=== PATIENT | female | born 1935 | race Caucasian/White ===

== ENCOUNTER 2016-09-26 11:41 | Emergency (ER) | payer MEDICARE, BC ==
[2016-09-26] MEDS ORDERED: SODIUM CHLORIDE 0.9% 500 ML IV STA (12:16)
[2016-09-26] MEDS ORDERED: FAMOTIDINE 20 MG/2 ML VIAL IV STA (12:16)
[2016-09-26 12:32] LABS: Basophils % (A) 1 %; CH 31.5; CHCM 33.1; Eosinophils # (A) 0.1 k/uL (0-0.7); Eosinophils % (A) 1 %; HCT 39.7 % (34.0-46.0); HDW 2.17; HGB 13.1 gm/dL (11.4-16.0); Luc # (Auto) 0.05; Luc % (Auto) 1; Lymphocytes # (A) 0.9 k/uL (1.0-4.8); Lymphocytes % (A) 14 %; MCH 31.6 pg (25.0-35.0); MCHC 33.1 g/dL (31.0-37.0); MCV 95.4 fL (80.0-100.0); Mean Platelet Volume 8.9; Monocytes # (A) 0.3 k/uL (0-1.0); Monocytes % (A) 5 %; Neutrophils # (A) 5.3 k/uL (1.3-7.7); Neutrophils % (A) 79 %; RBC 4.16 m/uL (3.80-5.40); RDW 13.2 % (11.5-15.5); WBC 6.7 k/uL (3.8-10.6)
--- NOTE | 2016-09-26 12:45 | ED ---
General Adult HPI - General Chief complaint: Nausea/Vomiting/Diarrhea Stated complaint: vomiting Time Seen by Provider: 09/26/16 12:04 Source: patient, family, RN notes reviewed Mode of arrival: wheelchair Limitations: no limitations - History of Present Illness Initial comments: Patient 81-year-old female who presents emergency room today with chief complaint of nausea vomiting that started this morning. She does admit that she gives of her insulin shortly thereafter began having some nausea vomiting 2 episodes. Patient states still feeling nauseated. Denies any pain. States that the last 2 days she was having some pain in her upper back that seemed to radiate around. Denies any pain. She denies any other complaints or symptoms. Denies any pain at this time. Patient denies any recent fever, chills, shortness of breath, abdominal pain, numbness or tingling, dysuria or hematuria , constipation or diarrhea, headaches or visual changes, or any other complaints. - Related Data Home Medications Medication Instructions Recorded Confirmed Insulin Detemir [Levemir] 13 unit SQ DAILY 11/09/14 09/26/16 Acetaminophen Tab [Tylenol Tab] 500 mg PO Q6H 09/26/16 09/26/16 LORazepam [Ativan] 1 mg PO HS PRN 09/26/16 09/26/16 Previous Rx's Medication Instructions Recorded Ondansetron Odt [Zofran ODT] 4 mg PO Q8HR PRN #15 tab 09/26/16 Allergies Allergy/AdvReac Type Severity Reaction Status Date / Time acetaminophen [From Vicodin] Allergy Unknown Verified 09/26/16 12:53 albuterol Allergy Unknown Verified 09/26/16 12:53 aspirin [From Percodan] Allergy Unknown Verified 09/26/16 12:53 atorvastatin calcium Allergy Unknown Verified 09/26/16 12:53 [From Lipitor] azithromycin Allergy Unknown Verified 09/26/16 12:53 benzonatate Allergy Unknown Verified 09/26/16 12:53 [From Tessalon Perles] codeine phosphate Allergy Unknown Verified 09/26/16 12:53 [From Tylenol-Codeine #3] diazepam [From Valium] Allergy Unknown Verified 09/26/16 12:53 diphenhydramine HCl Allergy Unknown Verified 09/26/16 12:53 [From Benadryl] epinephrine Allergy Unknown Verified 09/26/16 12:53 escitalopram oxalate Allergy Unknown Verified 09/26/16 12:53 [From Lexapro] hydrochlorothiazide Allergy Unknown Verified 09/26/16 12:53 [From HydroDiuril] hydrocodone bitartrate Allergy Unknown Verified 09/26/16 12:53 [From Vicodin] lidocaine Allergy Unknown Verified 09/26/16 12:53 lidocaine HCl Allergy Unknown Verified 09/26/16 12:53 [From Xylocaine] losartan potassium Allergy Unknown Verified 09/26/16 12:53 [From Cozaar] metformin HCl Allergy Unknown Verified 09/26/16 12:53 [From Glucophage] morphine Allergy Unknown Verified 09/26/16 12:53 nylon Allergy Unknown Verified 09/26/16 12:53 oxycodone HCl [From Percodan] Allergy Unknown Verified 09/26/16 12:53 oxycodone terephthalate Allergy Unknown Verified 09/26/16 12:53 [From Percodan] paroxetine HCl [From Paxil] Allergy Unknown Verified 09/26/16 12:53 promethazine HCl Allergy Unknown Verified 09/26/16 12:53 [From Phenergan] propranolol HCl Allergy Unknown Verified 09/26/16 12:53 [From Inderal LA] rofecoxib [From Vioxx] Allergy Unknown Verified 09/26/16 12:53 sulfamethoxazole Allergy Unknown Verified 09/26/16 12:53 [From Bactrim] sulfite Allergy Unknown Verified 09/26/16 12:53 trimethoprim [From Bactrim] Allergy Unknown Verified 09/26/16 12:53 zolpidem tartrate Allergy Unknown Verified 09/26/16 12:53 [From Ambien] artificial color Allergy Unknown Uncoded 09/26/16 11:52 chemicals Allergy Unknown Uncoded 09/26/16 11:52 novacaine Allergy Unknown Uncoded 09/26/16 11:52 nylon stictches Allergy Unknown Uncoded 09/26/16 11:52 odor Allergy Unknown Uncoded 09/26/16 11:52 smoke Allergy Unknown Uncoded 09/26/16 11:52 Review of Systems ROS Statement: Those systems with pertinent positive or pertinent negative responses have been documented in the HPI. ROS Other: All systems not noted in ROS Statement are negative. Past Medical History Past Medical History: Diabetes Mellitus Additional Past Medical History / Comment(s): severe allergies History of Any Multi-Drug Resistant Organisms: None Reported Past Surgical History: Bladder Surgery Past Psychological History: No Psychological Hx Reported Smoking Status: Never smoker Past Alcohol Use History: None Reported Past Drug Use History: None Reported General Exam - General Exam Comments Initial Comments: General: The patient is awake and alert, in no distress, and does not appear acutely ill. Eye: Pupils are equal, round and reactive to light, extra-ocular movements are intact. No nystagmus. There is normal conjunctiva bilaterally. No signs of icterus. Ears, nose, mouth and throat: There are moist mucous membranes and no oral lesions. Neck: The neck is supple, there is no tenderness or JVD. Cardiovascular: There is a regular rate and rhythm. No murmur, rub or gallop is appreciated. Respiratory: Lungs are clear to auscultation, respirations are non-labored, breath sounds are equal. No wheezes, stridor, rales, or rhonchi. Gastrointestinal: Soft, non-distended, non-tender abdomen without masses or organomegaly noted. There is no rebound or guarding present. No CVA tenderness. Bowel sounds are unremarkable. Musculoskeletal: Normal ROM, no tenderness. Strength 5/5. Sensation intact. Pulses equal bilaterally 2+. Neurological: A&O x 3. CN II-XII intact, There are no obvious motor or sensory deficits. Coordination appears grossly intact. Speech is normal. Skin: Skin is warm and dry and no rashes or lesions are noted. Psychiatric: Cooperative, appropriate mood & affect, normal judgment. Limitations: no limitations Course Vital Signs 09/26/16 11:47 Temperature 97.2 F L Pulse Rate 68 Respiratory 16 Rate Blood Pressure 156/70 O2 Sat by Pulse 97 Oximetry EKG Findings - EKG Comments: EKG Findings:: EKG performed at 1237: Shows sinus bradycardia 59 bpm. ND interval 176. QRS 92. QT/QTc is 418/413. No acute ST changes. Medical Decision Making - Medical Decision Making Reexamined at this time shows no signs of distress. She is resting comfortably in the stretcher. She has tolerated food and liquids here in the emergency room. States feeling much better after nausea medication. States not feeling nauseous at all. States no pain. No pain here in the emergency room. Denies any other complaints. States feeling well like to go home. Patient will be discharged with nausea medication. Advised return if any symptoms increase or worsen or for any other concerns. - Lab Data Result diagrams: 09/26/16 12:06 09/26/16 12:06 Lab Results 09/26/16 09/26/16 09/26/16 Range/Units 12:06 12:06 12:06 WBC 6.7 (3.8-10.6) k/uL RBC 4.16 (3.80-5.40) m/uL Hgb 13.1 (11.4-16.0) gm/dL Hct 39.7 (34.0-46.0) % MCV 95.4 (80.0-100.0) fL MCH 31.6 (25.0-35.0) pg MCHC 33.1 (31.0-37.0) g/dL RDW 13.2 (11.5-15.5) % Plt Count 176 (150-450) k/uL Neutrophils % 79 % Lymphocytes % 14 % Monocytes % 5 % Eosinophils % 1 % Basophils % 1 % Neutrophils # 5.3 (1.3-7.7) k/uL Lymphocytes # 0.9 L (1.0-4.8) k/uL Monocytes # 0.3 (0-1.0) k/uL Eosinophils # 0.1 (0-0.7) k/uL Basophils # 0.0 (0-0.2) k/uL PT (9.0-12.0) sec INR (<1.2) APTT (22.0-30.0) sec Sodium 139 (137-145) mmol/L Potassium 4.2 (3.5-5.1) mmol/L Chloride 106 (98-107) mmol/L Carbon Dioxide 22 (22-30) mmol/L Anion Gap 11 mmol/L BUN 13 (7-17) mg/dL Creatinine 0.54 (0.52-1.04) mg/dL Est GFR (MDRD) Af Amer >60 (>60 ml/min/1.73 sqM) Est GFR (MDRD) Non-Af >60 (>60 ml/min/1.73 sqM) Glucose 190 H (74-99) mg/dL Calcium 9.0 (8.4-10.2) mg/dL Total Bilirubin 0.5 (0.2-1.3) mg/dL AST 20 (14-36) U/L ALT 24 (9-52) U/L Alkaline Phosphatase 107 (38-126) U/L Total Creatine Kinase 47 (30-135) U/L CK-MB (CK-2) 0.6 (0.0-2.4) ng/mL CK-MB (CK-2) Rel Index 1.3 Troponin I <0.012 (0.000-0.034) ng/mL Total Protein 7.1 (6.3-8.2) g/dL Albumin 4.0 (3.5-5.0) g/dL Urine Color Urine Appearance (Clear) Urine pH (5.0-8.0) Ur Specific [place] (1.001-1.035) Urine Protein (Negative) Urine Glucose (UA) (Negative) Urine Ketones (Negative) Urine Blood (Negative) Urine Nitrite (Negative) Urine Bilirubin (Negative) Urine Urobilinogen (<2.0) mg/dL Ur Leukocyte Esterase (Negative) 09/26/16 09/26/16 Range/Units 12:44 13:10 WBC (3.8-10.6) k/uL RBC (3.80-5.40) m/uL Hgb (11.4-16.0) gm/dL Hct (34.0-46.0) % MCV (80.0-100.0) fL MCH (25.0-35.0) pg MCHC (31.0-37.0) g/dL RDW (11.5-15.5) % Plt Count (150-450) k/uL Neutrophils % % Lymphocytes % % Monocytes % % Eosinophils % % Basophils % % Neutrophils # (1.3-7.7) k/uL Lymphocytes # (1.0-4.8) k/uL Monocytes # (0-1.0) k/uL Eosinophils # (0-0.7) k/uL Basophils # (0-0.2) k/uL PT 11.1 (9.0-12.0) sec INR 1.1 (<1.2) APTT 23.2 (22.0-30.0) sec Sodium (137-145) mmol/L Potassium (3.5-5.1) mmol/L Chloride (98-107) mmol/L Carbon Dioxide (22-30) mmol/L Anion Gap mmol/L BUN (7-17) mg/dL Creatinine (0.52-1.04) mg/dL Est GFR (MDRD) Af Amer (>60 ml/min/1.73 sqM) Est GFR (MDRD) Non-Af (>60 ml/min/1.73 sqM) Glucose (74-99) mg/dL Calcium (8.4-10.2) mg/dL Total Bilirubin (0.2-1.3) mg/dL AST (14-36) U/L ALT (9-52) U/L Alkaline Phosphatase (38-126) U/L Total Creatine Kinase (30-135) U/L CK-MB (CK-2) (0.0-2.4) ng/mL CK-MB (CK-2) Rel Index Troponin I (0.000-0.034) ng/mL Total Protein (6.3-8.2) g/dL Albumin (3.5-5.0) g/dL Urine Color Light Yellow Urine Appearance Clear (Clear) Urine pH 7.0 (5.0-8.0) Ur Specific [place] 1.005 (1.001-1.035) Urine Protein Negative (Negative) Urine Glucose (UA) Trace H (Negative) Urine Ketones Negative (Negative) Urine Blood Negative (Negative) Urine Nitrite Negative (Negative) Urine Bilirubin Negative (Negative) Urine Urobilinogen <2.0 (<2.0) mg/dL Ur Leukocyte Esterase Negative (Negative) Disposition Clinical Impression: Nausea & vomiting Disposition: HOME SELF-CARE Condition: Good Instructions: Acute Nausea and Vomiting (ED) Additional Instructions: Please follow family doctor over the next 2 days. Please use nausea medication as prescribed. Please return to emergency room if any symptoms increase or worsen or for any other concerns. Prescriptions: Ondansetron Odt [Zofran ODT] 4 mg PO Q8HR PRN #15 tab PRN Reason: Nausea Referrals: Mik Noe III, MD [Primary Care Provider] - 1-2 days Time of Disposition: 14:14
[2016-09-26 12:46] LABS: ALT 24 U/L (9-52); AST 20 U/L (14-36); Alkaline Phosphatase 107 U/L (38-126); Anion Gap 11 mmol/L; Blood Urea Nitrogen 13 mg/dL (7-17); Carbon Dioxide 22 mmol/L (22-30); Chloride 106 mmol/L (98-107); Glucose 190 mg/dL (74-99); Non-African American GFR(MDRD) >60 (>60 ml/min/1.73 sqM); Sodium 139 mmol/L (137-145); Total Bilirubin 0.5 mg/dL (0.2-1.3); Total Protein 7.1 g/dL (6.3-8.2)
[2016-09-26 12:48] LABS: Creatine Kinase 47 U/L (30-135)
[2016-09-26 12:52] LABS: Potassium 4.2 mmol/L (3.5-5.1)
[2016-09-26 13:01] LABS: Creatine Kinase MB 0.6 ng/mL (0.0-2.4); Troponin I <0.012 ng/mL (0.000-0.034)
[2016-09-26 13:02] LABS: INR 1.1 (<1.2); Partial Thromboplastin Time 23.2 sec (22.0-30.0); Prothrombin Time 11.1 sec (9.0-12.0)
[2016-09-26 13:20] LABS: Appearance,Urine Clear (Clear); Bilirubin,Urine Negative (Negative); Glucose,Urine (UA) Trace (Negative); Ketones,Urine Negative (Negative); Leukocyte Esterase,Urine Negative (Negative); Nitrite,Urine Negative (Negative); Protein,Urine Negative (Negative); Specific Gravity,Urine 1.005 (1.001-1.035); UA Billing (MACRO vs. MICRO) CHEM; Urobilinogen,Urine <2.0 mg/dL (<2.0)
[2016-09-26] MEDS ORDERED: ONDANSETRON 4 MG/2 ML VIAL IVP STA (13:34)
[2016-09-26 14:27] VITALS: BP 137/62; PULSE 83; RESP 17; TEMP 97.6
== END 2016-09-26 14:25 | disposition home or self-care (01) ==
LOC: EC 11:41
DX: R11.2 Nausea with vomiting, unspecified (principal); M54.6 Pain in thoracic spine; E11.9 Type 2 diabetes mellitus without complications; Z79.4 Long term (current) use of insulin; Z88.5 Allergy status to narcotic agent; Z88.6 Allergy status to analgesic agent; Z88.8 Allergy status to other drugs, medicaments and biological substances; Z88.2 Allergy status to sulfonamides; Z91.048 Other nonmedicinal substance allergy status; Z91.09 Other allergy status, other than to drugs and biological substances; Z79.899 Other long term (current) drug therapy
CPT/HCPCS: 36415; 93005; 80053; 82550; 82553; 84484; 85025; 85610; 85730; 81003; 99284; 96374; 96375; 96361; J2405

== ENCOUNTER → 2018-05-05 | Outpatient (CLI) | payer MEDICARE, BC ==
--- NOTE | 2018-05-06 13:37 | ECHOF ---
Referral Reason:R06.02 Shortness of Breath R00.2 palpitations MEASUREMENTS -------- HEIGHT: 165.1 cm WEIGHT: 68.0 kg BP: IVSd: 0.9 cm (0.6 - 1.1) LVIDd: 3.8 cm (3.9 - 5.3) LVPWd: 1.0 cm (0.6 - 1.1) IVSs: 1.4 cm LVIDs: 1.7 cm LVPWs: 1.7 cm LAESV Index (A-L): 18.99 ml/m Ao Diam: 2.6 cm (2.0 - 3.7) AV Cusp: 1.8 cm (1.5 - 2.6) LA Diam: 3.0 cm (2.7 - 3.8) MV EXCURSION: 22.777 mm (> 18.000) MV EF SLOPE: 44 mm/s (70 - 150) EPSS: 2.2 cm MV E Salty: 0.78 m/s MV DecT: 278 ms MV A Salty: 1.12 m/s MV E/A Ratio: 0.69 AV maxP.13 mmHg AV meanP.10 mmHg FINDINGS -------- Sinus rhythm. This was a technically good study. The left ventricular size is normal. Left ventricular wall thickness is normal. Overall left vent ricular systolic function is normal with, an EF between 55 - 60 %. The right ventricle is normal in size. Normal LA size by volume 22+/-6 ml/m2. The right atrium is normal in size. Aortic valve is trileaflet and is mildly thickened. There is mild aortic valve sclerosis. Peak/me an gradient across the Aortic Valve is 17.13mmHg / 7.10mmHg. Mild mitral regurgitation is present. Mild tricuspid regurgitation present. The right ventricular systolic pressure, as measured by Doppl er, is {RVSP}. Pulmonic valve appears structurally normal. The aortic root size is normal. Normal inferior vena cava with normal inspiratory collapse consistent with estimated right atrial pre ssure of 5 mmHg. The pericardium is normal. CONCLUSIONS -------- 1. Sinus rhythm. 2. This was a technically good study. 3. The left ventricular size is normal. 4. Left ventricular wall thickness is normal. 5. Overall left ventricular systolic function is normal with, an EF between 55 - 60 %. 6. The right ventricle is normal in size. 7. Normal LA size by volume 22+/-6 ml/m2. 8. The right atrium is normal in size. 9. Aortic valve is trileaflet and is mildly thickened. 10. There is mild aortic valve sclerosis. 11. Peak/mean gradient across the Aortic Valve is 17.13mmHg / 7.10mmHg. 12. Mild mitral regurgitation is present. 13. Mild tricuspid regurgitation present. 14. The right ventricular systolic pressure, as measured by Doppler, is {RVSP}. 15. Pulmonic valve appears structurally normal. 16. The aortic root size is normal. 17. Normal inferior vena cava with normal inspiratory collapse consistent with estimated right atrial pressure of 5 mmHg. 18. The pericardium is normal. FINANCIAL SOLUTIONS ADVISOR: Tia Clay RDCS
== END | disposition home or self-care (01) ==
LOC: RADECHMAIN 15:30
PROVIDERS: ATTEND Family Medicine
DX: I08.1 Rheumatic disorders of both mitral and tricuspid valves (principal)
CPT/HCPCS: 93306

== ENCOUNTER → 2018-06-30 | Outpatient (CLI) | payer MEDICARE, BC ==
--- NOTE | 2018-06-30 18:12 | CONS ---
CONSULTATION REASON FOR CONSULTATION: Acute insomnia. This is an 83-year-old female patient with extensive allergy history coming into the sleep center due to inability to fall asleep. The patient is a . The patient is living alone in [facility] and she recently downsized her large home into a smaller apartment. During this transition the patient lost her ability to initiate and maintain sleep, to the point where she is unable to sleep at all, and she claims that for the past 5 weeks she has not slept. Prior to that she had a perfectly normal sleep where she was able to achieve 7-8 hours of sleep without any major difficulties. For that reason, the patient came into the office for further evaluation. The patient is complaining of difficulty initiating and maintaining sleep, and she is unable to take any naps during the day. She goes to bed and she tries to close her eyes and go to sleep; however, she is unable to do so. Typically she goes to bed around 10 p.m. and she would wake up at 7 a.m. in the morning. No restlessness in her lower extremities. No significant anxiety or depression. She is known to have diabetes and she is maintained on Levemir insulin. No other financial stressors. The only exacerbating factor that we are aware of is the move that the patient had. This was quite stressful for her. No grief reactions. No divorce. No issues with pain. No issues with medication or substance abuse. In fact, the patient takes no significant medications other than Levemir insulin and Ativan, knowing that she has excessive allergy history. No snoring. No restlessness in the lower extremities. No issues with pain. No other complaints. PAST MEDICAL HISTORY: 1. Diabetes mellitus. 2. Multiple drug allergies. 3. Environmental allergies. 4. Impaired hearing. 5. Degenerative arthritis. SURGICAL HISTORY: Includes: 1. Back surgery. 2. Bilateral shoulder surgery. 3. Feet surgery. 4. Appendectomy. DRUG ALLERGIES: MULTIPLE. I was provided a list of the medications which includes more than 50 medications at least. The patient is ALLERGIC to: 1. ALL TYPES OF LOCAL ANESTHETICS. 2. EPINEPHRINE. 3. GLUCOPHAGE. 4. VICODIN. 5. VALIUM. 6. VIOXX. 7. HYDRODIURIL. 8. COZAAR. 9. LIPITOR. 10. . 11.BENADRYL. 12.ALBUTEROL. 13.ZITHROMAX. 14.BENZONATATE. SHE ALSO HAS A SERIES OF OTHER ALLERGIES WHICH INCLUDE FOOD MATERIAL SUCH : 1. SALAD DRESSINGS. 2. MAYONNAISE. 3. SODA POPS. 4. CANNED FOOD. 5. PANCAKES. 6. TOMATO SAUCE. 7. BEGUM. 8. PORK. 9. FRESH FRUITS. 10.PEARS. 11.APPLES, ETC. SOCIAL HISTORY: Nonsmoker. No history of alcohol. No history of IV drugs. FAMILY HISTORY: Negative for any form of sleep or psychiatric disorder. REVIEW OF SYSTEMS: Fourteen-point review of systems was done. Negative other than things mentioned above in the history of present illness. No snoring. No witnessed apneas. No nocturia. No choking or gasping sensation. No grinding. No restlessness in the lower extremities. No sleepwalking or sleeptalking. She has some degree of anxiety and she is taking Ativan. No depression. No claustrophobia. No other complaints. PHYSICAL EXAMINATION: BP is 4/70, pulse 70, respirations 14, temperature 97.5, saturation 95% on room air. Height is 5 feet 4 inches, weight 157. BMI is 26.5. Neck size is 13-1/2 inches. [place] score is 4. GENERAL APPEARANCE: Calm, comfortable. HEAD: Atraumatic normocephalic. NECK: Supple. No JVD. No goiter or neck masses. LUNGS: Clear to auscultation. HEART: Heart sounds are regular rate and rhythm. Normal S1, S2. No S3, S4. No murmurs. ABDOMEN: Soft, nontender. No organomegaly. EXTREMITIES: No edema. No cyanosis or clubbing. NEUROLOGIC: Alert and oriented x3. No focal neurological deficits. PSYCHIATRIC: Negative for anxiety or depression. IMPRESSION: Acute insomnia. The patient's insomnia has been present for less than 3 months and is probably related to moving into her new living setting; this is only identifiable cause that I was able to predict today on this consultation. This is a form of adjustment insomnia and it is typically short-term. The patient is having difficulties in falling and maintaining sleep for now and she is having issues with poor concentration and attention span during the day. I had a lengthy discussion with her. I asked her to implement good sleep hygiene measures. I asked her to avoid caffeine, as the patient is a tea-drinker, and she will completely eliminate tea for the time being. She is going to utilize relaxation techniques and stimulus control in addition to sleep restriction. Her get-up time will be around 7:00. She will be doing stimulus control in the early nighttime hours and will assist her sleep ability to induce sleep by adding 5 mg of Ambien to be increased to 10 mg if she is able to take it without any potential side effects. We will watch for any side effects or allergic reactions, knowing that the patient has an extensive allergy history. I do not think there is any coexisting medical condition such as a psychiatric or neurologic disorder in this patient's condition. Doubt sleep apnea. Doubt restless legs syndrome or any other causes of secondary insomnia. Will continue to follow. She will see me back in 4 weeks' time in followup. GERTRUDE / JOSETTEN: [id number] /
== END | disposition home or self-care (01) ==
LOC: SLEEP 15:34
PROVIDERS: ATTEND Internal Medicine Critical Care Medicine
DX: F51.02 Adjustment insomnia (principal); E11.9 Type 2 diabetes mellitus without complications; Z79.4 Long term (current) use of insulin; Z79.899 Other long term (current) drug therapy; Z88.1 Allergy status to other antibiotic agents; Z88.4 Allergy status to anesthetic agent; Z88.5 Allergy status to narcotic agent; Z88.6 Allergy status to analgesic agent
CPT/HCPCS: 99211

== ENCOUNTER 2018-08-30 12:18 | Emergency (ER) | payer MEDICARE, BC ==
[2018-08-30 12:23] VITALS: RESP 18
--- NOTE | 2018-08-30 12:50 | ED ---
General Adult HPI - General Chief complaint: Abdominal Pain Stated complaint: constipated Time Seen by Provider: 08/30/18 12:25 Source: patient Mode of arrival: ambulatory Limitations: no limitations - History of Present Illness Initial comments: Patient is an 83-year-old female presents to the chief complaint of lower abdominal pain and constipation for 3 days. She states that she has not a bowel movement about 4-5 days. Pain is characterized as an ache and mostly in the lower right and left quadrant. She has a history of an appendectomy, and num erous medication ALLERGIES. His motor strength 2 Fleet enemas and milk of magnesia but did not have any success having a bowel movement. She states that she is normally regular has a bowel movement every day - Related Data Home Medications Medication Instructions Recorded Confirmed Insulin Detemir (Levemir) [Levemir] 13 unit SQ DAILY 11/09/14 08/30/18 Acetaminophen Tab [Tylenol Tab] 1,000 mg PO HS 09/26/16 08/30/18 LORazepam [Ativan] 1 mg PO HS PRN 09/26/16 08/30/18 Magnesium Hydroxide [Milk of 2,400 mg PO DAILY PRN 08/30/18 08/30/18 Magnesia] Na Phos,M-B/Na Phos,Di-Ba [Fleet 133 ml RECTAL DAILY PRN 08/30/18 08/30/18 Adult] Zolpidem [Ambien] 5 mg PO HS PRN 08/30/18 08/30/18 Previous Rx's Medication Instructions Recorded Polyethylene Glycol 3350 [Miralax] 17 gm PO DAILY #527 gm 08/30/18 Allergies Allergy/AdvReac Type Severity Reaction Status Date / Time acetaminophen [From Vicodin] Allergy Unknown Verified 08/30/18 13:29 albuterol Allergy Unknown Verified 08/30/18 13:29 aspirin [From Percodan] Allergy Unknown Verified 08/30/18 13:29 atorvastatin calcium Allergy Unknown Verified 08/30/18 13:29 [From Lipitor] azithromycin Allergy Unknown Verified 08/30/18 13:29 benzonatate Allergy Unknown Verified 08/30/18 13:29 [From Tessalon Perles] codeine phosphate Allergy Unknown Verified 08/30/18 13:29 [From Tylenol-Codeine #3] diazepam [From Valium] Allergy Unknown Verified 08/30/18 13:29 diphenhydramine HCl Allergy Unknown Verified 08/30/18 13:29 [From Benadryl] epinephrine Allergy Unknown Verified 08/30/18 13:29 escitalopram oxalate Allergy Unknown Verified 08/30/18 13:29 [From Lexapro] hydrochlorothiazide Allergy Unknown Verified 08/30/18 13:29 [From HydroDiuril] hydrocodone bitartrate Allergy Unknown Verified 08/30/18 13:29 [From Vicodin] lidocaine Allergy Unknown Verified 08/30/18 13:29 lidocaine HCl Allergy Unknown Verified 08/30/18 13:29 [From Xylocaine] losartan potassium Allergy Unknown Verified 08/30/18 13:29 [From Cozaar] metformin HCl Allergy Unknown Verified 08/30/18 13:29 [From Glucophage] morphine Allergy Unknown Verified 08/30/18 13:29 nylon Allergy Unknown Verified 08/30/18 13:29 oxycodone HCl [From Percodan] Allergy Unknown Verified 08/30/18 13:29 oxycodone terephthalate Allergy Unknown Verified 08/30/18 13:29 [From Percodan] paroxetine HCl [From Paxil] Allergy Unknown Verified 08/30/18 13:29 promethazine HCl Allergy Unknown Verified 08/30/18 13:29 [From Phenergan] propranolol HCl Allergy Unknown Verified 08/30/18 13:29 [From Inderal LA] rofecoxib [From Vioxx] Allergy Unknown Verified 08/30/18 13:29 sulfamethoxazole Allergy Unknown Verified 08/30/18 13:29 [From Bactrim] sulfite Allergy Unknown Verified 08/30/18 13:29 trimethoprim [From Bactrim] Allergy Unknown Verified 08/30/18 13:29 zolpidem tartrate Allergy Unknown Verified 08/30/18 13:29 [From Ambien] artificial color Allergy Unknown Uncoded 08/30/18 12:23 chemicals Allergy Unknown Uncoded 08/30/18 12:23 novacaine Allergy Unknown Uncoded 08/30/18 12:23 nylon stictches Allergy Unknown Uncoded 08/30/18 12:23 odor Allergy Unknown Uncoded 08/30/18 12:23 smoke Allergy Unknown Uncoded 08/30/18 12:23 Review of Systems ROS Statement: Those systems with pertinent positive or pertinent negative responses have been documented in the HPI. ROS Other: All systems not noted in ROS Statement are negative. Gastrointestinal: Reports: abdominal pain, nausea, constipation Past Medical History Past Medical History: Diabetes Mellitus Additional Past Medical History / Comment(s): severe allergies History of Any Multi-Drug Resistant Organisms: None Reported Past Surgical History: Bladder Surgery Past Psychological History: No Psychological Hx Reported Smoking Status: Never smoker Past Alcohol Use History: None Reported Past Drug Use History: None Reported General Exam Limitations: no limitations General appearance: alert, in no apparent distress Head exam: Present: atraumatic, normocephalic Eye exam: Present: normal appearance ENT exam: Present: normal exam Neck exam: Present: normal inspection Respiratory exam: Present: normal lung sounds bilaterally. Absent: respiratory distress, wheezes Cardiovascular Exam: Present: regular rate, normal rhythm GI/Abdominal exam: Present: soft, tenderness (Abdomen is nondistended however she does have tenderness to palpation in the right left lower quadrants). Absent: distended, guarding, rebound Rectal exam: Present: deferred Extremities exam: Present: normal inspection Back exam: Present: normal inspection Neurological exam: Present: alert, oriented X3 Psychiatric exam: Present: normal affect, normal mood Skin exam: Present: warm, dry, intact Course Vital Signs 08/30/18 12:19 Temperature 98.2 F Pulse Rate 82 Respiratory 18 Rate Blood Pressure 161/94 O2 Sat by Pulse 95 Oximetry Medical Decision Making - Medical Decision Making Presents with a chief complaint of lower abdominal pain and constipation for 4-5 days. On initial evaluation, vital are stable, patient is in no acute distress. She'll be evaluated basic labs including cardiac enzymes, liver profile, computed tomography scan of the abdomen and pelvis with IV contrast. 5:03 PM Lab evaluation of this patient is unremarkable. X-ray shows mild evidence of possible ileus however follow-up CAT scan shows no acute process. Patient was g iven an enema in the emergency department had a bowel movement. She states that she feels much better. At this time, patient stable for discharge. She will be prescribed MiraLAX and instructed to follow up with primary care in 1-2 days. Return to ED if symptoms worsen or change. - Lab Data Result diagrams: 08/30/18 12:53 08/30/18 12:53 Lab Results 08/30/18 08/30/18 08/30/18 Range/Units 12:53 12:53 12:53 WBC 6.1 (3.8-10.6) k/uL RBC 4.19 (3.80-5.40) m/uL Hgb 12.8 (11.4-16.0) gm/dL Hct 39.5 (34.0-46.0) % MCV 94.2 (80.0-100.0) fL MCH 30.6 (25.0-35.0) pg MCHC 32.5 (31.0-37.0) g/dL RDW 13.0 (11.5-15.5) % Plt Count 199 (150-450) k/uL Neutrophils % 65 % Lymphocytes % 22 % Monocytes % 7 % Eosinophils % 3 % Basophils % 1 % Neutrophils # 4.0 (1.3-7.7) k/uL Lymphocytes # 1.4 (1.0-4.8) k/uL Monocytes # 0.4 (0-1.0) k/uL Eosinophils # 0.2 (0-0.7) k/uL Basophils # 0.1 (0-0.2) k/uL Sodium 140 (137-145) mmol/L Potassium 4.7 (3.5-5.1) mmol/L Chloride 104 (98-107) mmol/L Carbon Dioxide 29 (22-30) mmol/L Anion Gap 7 mmol/L BUN 13 (7-17) mg/dL Creatinine 0.53 (0.52-1.04) mg/dL Est GFR (CKD-EPI)AfAm >90 (>60 ml/min/1.73 sqM) Est GFR (CKD-EPI)NonAf 87 (>60 ml/min/1.73 sqM) Glucose 149 H (74-99) mg/dL POC Glucose (mg/dL) (75-99) mg/dL POC Glu Java Lead ID Calcium 9.2 (8.4-10.2) mg/dL Total Bilirubin 0.5 (0.2-1.3) mg/dL AST 23 (14-36) U/L ALT 14 (9-52) U/L Alkaline Phosphatase 117 (38-126) U/L Troponin I <0.012 (0.000-0.034) ng/mL Total Protein 7.1 (6.3-8.2) g/dL Albumin 4.2 (3.5-5.0) g/dL Lipase 30 (23-300) U/L 08/30/18 Range/Units 14:07 WBC (3.8-10.6) k/uL RBC (3.80-5.40) m/uL Hgb (11.4-16.0) gm/dL Hct (34.0-46.0) % MCV (80.0-100.0) fL MCH (25.0-35.0) pg MCHC (31.0-37.0) g/dL RDW (11.5-15.5) % Plt Count (150-450) k/uL Neutrophils % % Lymphocytes % % Monocytes % % Eosinophils % % Basophils % % Neutrophils # (1.3-7.7) k/uL Lymphocytes # (1.0-4.8) k/uL Monocytes # (0-1.0) k/uL Eosinophils # (0-0.7) k/uL Basophils # (0-0.2) k/uL Sodium (137-145) mmol/L Potassium (3.5-5.1) mmol/L Chloride (98-107) mmol/L Carbon Dioxide (22-30) mmol/L Anion Gap mmol/L BUN (7-17) mg/dL Creatinine (0.52-1.04) mg/dL Est GFR (CKD-EPI)AfAm (>60 ml/min/1.73 sqM) Est GFR (CKD-EPI)NonAf (>60 ml/min/1.73 sqM) Glucose (74-99) mg/dL POC Glucose (mg/dL) 100 H (75-99) mg/dL POC Glu Java Lead ID Fabiana Junesea Calcium (8.4-10.2) mg/dL Total Bilirubin (0.2-1.3) mg/dL AST (14-36) U/L ALT (9-52) U/L Alkaline Phosphatase (38-126) U/L Troponin I (0.000-0.034) ng/mL Total Protein (6.3-8.2) g/dL Albumin (3.5-5.0) g/dL Lipase (23-300) U/L Disposition Clinical Impression: Constipation Disposition: HOME SELF-CARE Condition: Good Is patient prescribed a controlled substance at d/c from ED?: No Referrals: Mik Noe III, MD [Primary Care Provider] - 1-2 days
[2018-08-30 13:08] LABS: Basophils # (A) 0.1 k/uL (0-0.2); Basophils % (A) 1 %; Eosinophils # (A) 0.2 k/uL (0-0.7); Eosinophils % (A) 3 %; HCT 39.5 % (34.0-46.0); HGB 12.8 gm/dL (11.4-16.0); Lymphocytes # (A) 1.4 k/uL (1.0-4.8); Lymphocytes % (A) 22 %; MCH 30.6 pg (25.0-35.0); MCHC 32.5 g/dL (31.0-37.0); MCV 94.2 fL (80.0-100.0); Mean Platelet Volume 7.1; Monocytes # (A) 0.4 k/uL (0-1.0); Monocytes % (A) 7 %; Neutrophils % (A) 65 %; Platelet Count 199 k/uL (150-450); RBC 4.19 m/uL (3.80-5.40); WBC 6.1 k/uL (3.8-10.6)
[2018-08-30 13:19] LABS: ALT 14 U/L (9-52); AST 23 U/L (14-36); African American GFR (CKD) >90 (>60 ml/min/1.73 sqM); Albumin 4.2 g/dL (3.5-5.0); Alkaline Phosphatase 117 U/L (38-126); Anion Gap 7 mmol/L; Blood Urea Nitrogen 13 mg/dL (7-17); Calcium 9.2 mg/dL (8.4-10.2); Carbon Dioxide 29 mmol/L (22-30); Chloride 104 mmol/L (98-107); Glucose 149 mg/dL (74-99); Lipase 30 U/L (23-300); Sodium 140 mmol/L (137-145); Total Bilirubin 0.5 mg/dL (0.2-1.3); Total Protein 7.1 g/dL (6.3-8.2)
[2018-08-30 13:29] LABS: Potassium 4.7 mmol/L (3.5-5.1)
--- NOTE | 2018-08-30 14:04 | XR ---
EXAMINATION TYPE: XR abdomen acute w cxr , 3 VIEWS DATE OF EXAM ORDERED: 08/30/2018 HISTORY: Pain. COMPARISON: None. FINDINGS: The lungs are clear. Pleural space are clear. The heart is not enlarged. Within the abdomen, there are scattered air-fluid levels. There is no evidence of obstruction. There is no free air. No unusual calcifications are seen. IMPRESSION: FINDINGS CONSISTENT WITH MILD ILEUS.
[2018-08-30 14:09] LABS: Glucose,Whole Blood 100 mg/dL (75-99)
--- NOTE | 2018-08-30 14:27 | CT ---
EXAMINATION TYPE: CT abdomen pelvis w con DATE OF EXAM: 08/30/2018 COMPARISON: Abdominal pain HISTORY: Unable to have bowel movement CT DLP: 706.7 mGycm Automated exposure control for dose reduction was used. TECHNIQUE: Helical acquisition of images was performed from the lung bases through the pelvis. CONTRAST: Performed without Oral Contrast and with IV Contrast, patient injected with 100 mL of Isovue 300. FINDINGS: Lung bases are clear. There is no pleural effusion. Heart size is normal. There is no pericardial eff usion. There is 1 cm cyst anterior right lobe of the liver. Gallbladder appears normal. Spleen appears yoana l. There is no sign of pancreatic mass. There are small hiatal hernia. There is no adrenal mass. Kidneys show satisfactory contrast opacification. There are left renal para pelvic cysts. There are a few bilateral renal cortical cysts that measure up to 2 cm. There is 5 mm c alcification at the right renal hilum that is probably vascular. Abdominal aorta is atheromatous. The re is no retroperitoneal adenopathy. Bladder distends smoothly. There is no inguinal hernia. There is no free fluid in the pelvis. There i s no ascites. There is no mesenteric edema. There is no free air. There are numerous diverticula thro ughout the colon. I see no definite diverticulitis. There is 1 cm anterior subluxation of L4 in relation L5. There is multilevel facet arthropathy in the lumbar spine. There is no compression fracture. The bony pelvis appears intact. IMPRESSION: MODERATE COLONIC DIVERTICULOSIS WITHOUT SIGN OF DIVERTICULITIS. NO SIGN OF ACUTE ABDOMEN AND PELVIS. 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 MODERATE SPINAL STENOSIS AT L4-5.
[2018-08-30 17:32] VITALS: BP 137/70; PULSE 72; TEMP 98
== END 2018-08-30 17:32 | disposition home or self-care (01) ==
LOC: EC 12:18
DX: K59.00 Constipation, unspecified (principal); R10.31 Right lower quadrant pain; R10.32 Left lower quadrant pain; E11.9 Type 2 diabetes mellitus without complications; Z79.4 Long term (current) use of insulin; Z79.899 Other long term (current) drug therapy; Z88.5 Allergy status to narcotic agent; Z88.4 Allergy status to anesthetic agent; Z88.6 Allergy status to analgesic agent; Z88.8 Allergy status to other drugs, medicaments and biological substances; Z88.1 Allergy status to other antibiotic agents; Z88.2 Allergy status to sulfonamides; Z90.49 Acquired absence of other specified parts of digestive tract
CPT/HCPCS: 36415; 93005; 80053; 83690; 84484; 85025; 74022; 74177; 99284; Q9967

== ENCOUNTER 2018-10-18 06:57 | Emergency (ER) | payer MEDICARE, BC ==
[2018-10-18 07:07] VITALS: BP 140/76; PULSE 78; RESP 18; TEMP 97.9
[2018-10-18] MEDS ORDERED: hydrOXYzine HCL 25 MG TAB PO STA (07:24)
[2018-10-18] MEDS ORDERED: predniSONE 50 MG TAB PO STA (07:25)
--- NOTE | 2018-10-18 07:25 | ED ---
Allergic Reaction HPI - General Chief complaint: Allergic Reaction Stated complaint: Allergic Reaction Time Seen by Provider: 10/18/18 07:08 Source: patient, family, RN notes reviewed Mode of arrival: ambulatory Limitations: no limitations - History of Present Illness Initial Comments: 83-year-old female presents emergency department with an itchy rash. Patient states started Friday and has worsened. Patient states that she was seen in my expressed and was given antihistamines and topical steroids. Patient states is diffusely over her chest back and upper legs. Patient states it's dry. She rash denies any new soaps lotions detergents or new medications. Patient states she does have diabetes but is very mild very well-controlled with blood sugar less than 150 daily. Patient denies any chest pain or shortness breath or difficulty swallowing. - Related Data Home Medications Medication Instructions Recorded Confirmed Insulin Detemir (Levemir) [Levemir] 13 unit SQ DAILY 11/09/14 08/30/18 Acetaminophen Tab [Tylenol Tab] 1,000 mg PO HS 09/26/16 08/30/18 LORazepam [Ativan] 1 mg PO HS PRN 09/26/16 08/30/18 Magnesium Hydroxide [Milk of 2,400 mg PO DAILY PRN 08/30/18 08/30/18 Magnesia] Na Phos,M-B/Na Phos,Di-Ba [Fleet 133 ml RECTAL DAILY PRN 08/30/18 08/30/18 Adult] Zolpidem [Ambien] 5 mg PO HS PRN 08/30/18 08/30/18 Previous Rx's Medication Instructions Recorded Polyethylene Glycol 3350 [Miralax] 17 gm PO DAILY #527 gm 08/30/18 hydrOXYzine HCL [Atarax] 25 mg PO TID PRN #15 tab 10/18/18 predniSONE 50 mg PO DAILY #4 tab 10/18/18 Allergies Allergy/AdvReac Type Severity Reaction Status Date / Time acetaminophen [From Vicodin] Allergy Unknown Verified 08/30/18 13:29 albuterol Allergy Unknown Verified 08/30/18 13:29 aspirin [From Percodan] Allergy Unknown Verified 08/30/18 13:29 atorvastatin calcium Allergy Unknown Verified 08/30/18 13:29 [From Lipitor] azithromycin Allergy Unknown Verified 08/30/18 13:29 benzonatate Allergy Unknown Verified 08/30/18 13:29 [From Tessalon Perles] codeine phosphate Allergy Unknown Verified 08/30/18 13:29 [From Tylenol-Codeine #3] diazepam [From Valium] Allergy Unknown Verified 08/30/18 13:29 diphenhydramine HCl Allergy Unknown Verified 08/30/18 13:29 [From Benadryl] epinephrine Allergy Unknown Verified 08/30/18 13:29 escitalopram oxalate Allergy Unknown Verified 08/30/18 13:29 [From Lexapro] hydrochlorothiazide Allergy Unknown Verified 08/30/18 13:29 [From HydroDiuril] hydrocodone bitartrate Allergy Unknown Verified 08/30/18 13:29 [From Vicodin] lidocaine Allergy Unknown Verified 08/30/18 13:29 lidocaine HCl Allergy Unknown Verified 08/30/18 13:29 [From Xylocaine] losartan potassium Allergy Unknown Verified 08/30/18 13:29 [From Cozaar] metformin HCl Allergy Unknown Verified 08/30/18 13:29 [From Glucophage] morphine Allergy Unknown Verified 08/30/18 13:29 nylon Allergy Unknown Verified 08/30/18 13:29 oxycodone HCl [From Percodan] Allergy Unknown Verified 08/30/18 13:29 oxycodone terephthalate Allergy Unknown Verified 08/30/18 13:29 [From Percodan] paroxetine HCl [From Paxil] Allergy Unknown Verified 08/30/18 13:29 promethazine HCl Allergy Unknown Verified 08/30/18 13:29 [From Phenergan] propranolol HCl Allergy Unknown Verified 08/30/18 13:29 [From Inderal LA] rofecoxib [From Vioxx] Allergy Unknown Verified 08/30/18 13:29 sulfamethoxazole Allergy Unknown Verified 08/30/18 13:29 [From Bactrim] sulfite Allergy Unknown Verified 08/30/18 13:29 trimethoprim [From Bactrim] Allergy Unknown Verified 08/30/18 13:29 zolpidem tartrate Allergy Unknown Verified 08/30/18 13:29 [From Ambien] artificial color Allergy Unknown Uncoded 08/30/18 12:23 chemicals Allergy Unknown Uncoded 08/30/18 12:23 novacaine Allergy Unknown Uncoded 08/30/18 12:23 nylon stictches Allergy Unknown Uncoded 08/30/18 12:23 odor Allergy Unknown Uncoded 08/30/18 12:23 smoke Allergy Unknown Uncoded 08/30/18 12:23 Review of Systems ROS Statement: Those systems with pertinent positive or pertinent negative responses have been documented in the HPI. ROS Other: All systems not noted in ROS Statement are negative. Past Medical History Past Medical History: Diabetes Mellitus Additional Past Medical History / Comment(s): severe allergies History of Any Multi-Drug Resistant Organisms: None Reported Past Surgical History: Bladder Surgery Past Psychological History: No Psychological Hx Reported Smoking Status: Never smoker Past Alcohol Use History: None Reported Past Drug Use History: None Reported General Exam Limitations: no limitations General appearance: alert, in no apparent distress Head exam: Present: atraumatic, normocephalic, normal inspection Eye exam: Present: normal appearance, PERRL, EOMI. Absent: scleral icterus, conjunctival injection, periorbital swelling ENT exam: Present: normal exam, normal oropharynx, mucous membranes moist Neck exam: Present: normal inspection, full ROM. Absent: tenderness, meningismus, lymphadenopathy Respiratory exam: Present: normal lung sounds bilaterally. Absent: respiratory distress, wheezes, rales, rhonchi, stridor Cardiovascular Exam: Present: regular rate, normal rhythm, normal heart sounds. Absent: systolic murmur, diastolic murmur, rubs, gallop, clicks GI/Abdominal exam: Present: soft, normal bowel sounds. Absent: distended, tenderness, guarding, rebound, rigid Neurological exam: Present: alert, oriented X3, CN II-XII intact Skin exam: Present: warm, dry, rash (Patchy dry rash on chest, upper back and upper leg region is mild erythematous blanchable) Course Vital Signs 10/18/18 07:03 Temperature 97.9 F Pulse Rate 78 Respiratory 18 Rate Blood Pressure 140/76 O2 Sat by Pulse 98 Oximetry Medical Decision Making - Medical Decision Making 83-year-old female presented for rash. This seems related to her dermatitis. Patient is a diabetic though is well-controlled we discussed her name blood sugar closely secondary to starting steroids. Patient we given Atarax and advised to use topical moisturizing lotion such as Aveeno or Eucerin Disposition Clinical Impression: Dermatitis Disposition: HOME SELF-CARE Condition: Stable Instructions (If sedation given, give patient instructions): Dermatitis (ED) Additional Instructions: Please return to the Emergency Department if symptoms worsen or any other concerns. Prescriptions: hydrOXYzine HCL [Atarax] 25 mg PO TID PRN #15 tab PRN Reason: Itching predniSONE 50 mg PO DAILY #4 tab Is patient prescribed a controlled substance at d/c from ED?: No Referrals: Mik Noe III, MD [Primary Care Provider] - 1-2 days Daniela Downing MD [STAFF PHYSICIAN] - 1-2 days Time of Disposition: 07:25
== END 2018-10-18 08:16 | disposition home or self-care (01) ==
LOC: EC 06:57
DX: L30.9 Dermatitis, unspecified (principal); E11.9 Type 2 diabetes mellitus without complications; Z79.4 Long term (current) use of insulin; Z79.899 Other long term (current) drug therapy; Z88.6 Allergy status to analgesic agent; Z88.8 Allergy status to other drugs, medicaments and biological substances; Z88.1 Allergy status to other antibiotic agents; Z88.5 Allergy status to narcotic agent; Z88.4 Allergy status to anesthetic agent; Z91.048 Other nonmedicinal substance allergy status; Z88.2 Allergy status to sulfonamides
CPT/HCPCS: 99282; J7512

== ENCOUNTER 2018-11-13 07:41 | Inpatient (IN) | payer MEDICARE, BC ==
[2018-11-13] MEDS ORDERED: ONDANSETRON ODT 4 MG TAB PO STA (08:05)
--- NOTE | 2018-11-13 08:07 | ED ---
General Adult HPI - General Chief complaint: Abdominal Pain Stated complaint: ABDOMINAL PAIN Time Seen by Provider: 11/13/18 07:45 Source: patient, RN notes reviewed Mode of arrival: ambulatory Limitations: no limitations - History of Present Illness Initial comments: This is an 83-year-old female presents emergency Department complaining of lower abdominal cramping. Patient states she hasn't had a bowel movement in 4-5 days and she has a history of constipation. Patient denies any vomiting or diarrhea. Patient states she is nauseated however. Patient denies any recent fever chills or cough per patient states the pain comes and goes. Patient states currently the pain has subsided a little bit. Patient states pushing on it does not increase the pain. Patient denies any dysuria hematuria urinary frequency. Patient denies any back pain. Patient states this is a same kind of pain she's had just been constipated in the past. - Related Data Home Medications Medication Instructions Recorded Confirmed Insulin Detemir (Levemir) [Levemir] 13 unit SQ DAILY 11/09/14 11/13/18 Acetaminophen Tab [Tylenol Tab] 1,000 mg PO HS 09/26/16 11/13/18 LORazepam [Ativan] 1 mg PO HS PRN 09/26/16 11/13/18 Acetaminophen-Codeine 300-30mg 0.5 - 1 tab PO Q6H PRN 11/13/18 11/13/18 [Tylenol w/codeine #3] Ranitidine HCl [Zantac] 150 mg PO DAILY PRN 11/13/18 11/13/18 Allergies Allergy/AdvReac Type Severity Reaction Status Date / Time albuterol Allergy Unknown Verified 11/13/18 08:24 aspirin [From Percodan] Allergy Unknown Verified 11/13/18 08:24 atorvastatin calcium Allergy Unknown Verified 11/13/18 08:24 [From Lipitor] azithromycin Allergy Unknown Verified 11/13/18 08:24 benzonatate Allergy Unknown Verified 11/13/18 08:24 [From Tessalon Perles] diazepam [From Valium] Allergy Unknown Verified 11/13/18 08:24 diphenhydramine HCl Allergy Unknown Verified 11/13/18 08:24 [From Benadryl] epinephrine Allergy Unknown Verified 11/13/18 08:24 escitalopram oxalate Allergy Unknown Verified 11/13/18 08:24 [From Lexapro] hydrochlorothiazide Allergy Unknown Verified 11/13/18 08:24 [From HydroDiuril] hydrocodone bitartrate Allergy Unknown Verified 11/13/18 08:24 [From Vicodin] lidocaine Allergy Unknown Verified 11/13/18 08:24 lidocaine HCl Allergy Unknown Verified 11/13/18 08:24 [From Xylocaine] losartan potassium Allergy Unknown Verified 11/13/18 08:24 [From Cozaar] metformin HCl Allergy Unknown Verified 11/13/18 08:24 [From Glucophage] morphine Allergy Unknown Verified 11/13/18 08:24 nylon Allergy Unknown Verified 11/13/18 08:24 oxycodone HCl [From Percodan] Allergy Unknown Verified 11/13/18 08:24 oxycodone terephthalate Allergy Unknown Verified 11/13/18 08:24 [From Percodan] paroxetine HCl [From Paxil] Allergy Unknown Verified 11/13/18 08:24 promethazine HCl Allergy Unknown Verified 11/13/18 08:24 [From Phenergan] propranolol HCl Allergy Unknown Verified 11/13/18 08:24 [From Inderal LA] rofecoxib [From Vioxx] Allergy Unknown Verified 11/13/18 08:24 sulfamethoxazole Allergy Unknown Verified 11/13/18 08:24 [From Bactrim] sulfite Allergy Unknown Verified 11/13/18 08:24 trimethoprim [From Bactrim] Allergy Unknown Verified 11/13/18 08:24 zolpidem tartrate Allergy Unknown Verified 11/13/18 08:24 [From Ambien] artificial color Allergy Unknown Uncoded 08/30/18 12:23 chemicals Allergy Unknown Uncoded 08/30/18 12:23 novacaine Allergy Unknown Uncoded 08/30/18 12:23 nylon stictches Allergy Unknown Uncoded 08/30/18 12:23 odor Allergy Unknown Uncoded 08/30/18 12:23 smoke Allergy Unknown Uncoded 08/30/18 12:23 Review of Systems ROS Statement: Those systems with pertinent positive or pertinent negative responses have been documented in the HPI. ROS Other: All systems not noted in ROS Statement are negative. Past Medical History Past Medical History: Diabetes Mellitus Additional Past Medical History / Comment(s): severe allergies History of Any Multi-Drug Resistant Organisms: None Reported Past Surgical History: Bladder Surgery Past Psychological History: No Psychological Hx Reported Smoking Status: Never smoker Past Alcohol Use History: None Reported Past Drug Use History: None Reported General Exam - General Exam Comments Initial Comments: GENERAL: Patient is well-developed and well-nourished. Patient is nontoxic and well- hydrated and is in mild distress. ENT: Neck is soft and supple. No significant lymphadenopathy is noted. Oropharynx is clear. Moist mucous membranes. Neck has full range of motion without eliciting any pain. EYES: The sclera were anicteric and conjunctiva were pink and moist. Extraocular movements were intact and pupils were equal round and reactive to light. Eyelids were unremarkable. PULMONARY: Unlabored respirations. Good breath sounds bilaterally. No audible rales rhon chi or wheezing was noted. CARDIOVASCULAR: There is a regular rate and rhythm without any murmurs gallops or rubs. ABDOMEN: Soft and nontender with normal bowel sounds. SKIN: Skin is clear with no lesions or rashes and otherwise unremarkable. NEUROLOGIC: Patient is alert and oriented x3. Cranial nerves II through XII are grossly intact. Motor and sensory are also intact. Normal speech, volume and content. Symmetrical smile. MUSCULOSKELETAL: Normal extremities with adequate strength and full range of motion. LYMPHATICS: No significant lymphadenopathy is noted PSYCHIATRIC: Normal psychiatric evaluation. Limitations: no limitations Course Vital Signs 11/13/18 07:47 Temperature 97.9 F Pulse Rate 79 Respiratory 18 Rate Blood Pressure 153/80 O2 Sat by Pulse 96 Oximetry Medical Decision Making - Medical Decision Making CT of the abdomen and pelvis does show some constipation. Also shows an area of thickened colon with some stranding and a possible micro-perfect. Because of this and would assume the patient has diverticulitis and treat accordingly. I spoke with Dr. Rausch he agreed to admit the patient admitted the patient I wrote admitting orders I continued antibiotics on the floor. - Lab Data Result diagrams: 11/13/18 10:23 11/13/18 10:23 Lab Results 11/13/18 11/13/18 Range/Units 10:23 10:23 WBC 7.1 (3.8-10.6) k/uL RBC 4.15 (3.80-5.40) m/uL Hgb 12.8 (11.4-16.0) gm/dL Hct 39.7 (34.0-46.0) % MCV 95.6 (80.0-100.0) fL MCH 30.9 (25.0-35.0) pg MCHC 32.3 (31.0-37.0) g/dL RDW 14.0 (11.5-15.5) % Plt Count 217 (150-450) k/uL Neutrophils % 69 % Lymphocytes % 20 % Monocytes % 5 % Eosinophils % 4 % Basophils % 0 % Neutrophils # 4.9 (1.3-7.7) k/uL Lymphocytes # 1.4 (1.0-4.8) k/uL Monocytes # 0.4 (0-1.0) k/uL Eosinophils # 0.3 (0-0.7) k/uL Basophils # 0.0 (0-0.2) k/uL Sodium 141 (137-145) mmol/L Potassium 5.0 (3.5-5.1) mmol/L Chloride 104 (98-107) mmol/L Carbon Dioxide 30 (22-30) mmol/L Anion Gap 7 mmol/L BUN 18 H (7-17) mg/dL Creatinine 0.62 (0.52-1.04) mg/dL Est GFR (CKD-EPI)AfAm >90 (>60 ml/min/1.73 sqM) Est GFR (CKD-EPI)NonAf 83 (>60 ml/min/1.73 sqM) Glucose 191 H (74-99) mg/dL Calcium 9.0 (8.4-10.2) mg/dL Total Bilirubin 0.4 (0.2-1.3) mg/dL AST 20 (14-36) U/L ALT 24 (9-52) U/L Alkaline Phosphatase 138 H (38-126) U/L Total Protein 6.9 (6.3-8.2) g/dL Albumin 4.0 (3.5-5.0) g/dL Disposition Clinical Impression: Diverticulitis, Constipation Disposition: ADMITTED IP TO THIS [facility] Referrals: Mik Noe III, MD [Primary Care Provider] - 1-2 days Time of Disposition: 11:45
--- NOTE | 2018-11-13 08:29 | XR ---
EXAMINATION TYPE: XR KUB DATE OF EXAM: 11/13/2018 CLINICAL DATA: 83-year-old female with pain, [facility] COMPARISON: 08/30/2018 FINDINGS: Lung bases are clear. No evidence for free intraperitoneal air. No dilated small bowel or air-fluid levels. Scattered air and stool seen throughout the colon extendi ng distally into the rectum. Mild overall stool burden. No suspicious calcifications identified. Old fracture deformities at the right pubic bone and osteitis pubis. IMPRESSION: No evidence of bowel obstruction or free intraperitoneal air.
[2018-11-13 10:37] LABS: Basophils % (A) 0 %; Eosinophils # (A) 0.3 k/uL (0-0.7); Eosinophils % (A) 4 %; HCT 39.7 % (34.0-46.0); HGB 12.8 gm/dL (11.4-16.0); Lymphocytes # (A) 1.4 k/uL (1.0-4.8); Lymphocytes % (A) 20 %; MCH 30.9 pg (25.0-35.0); MCHC 32.3 g/dL (31.0-37.0); MCV 95.6 fL (80.0-100.0); Mean Platelet Volume 7.4; Monocytes # (A) 0.4 k/uL (0-1.0); Monocytes % (A) 5 %; Neutrophils # (A) 4.9 k/uL (1.3-7.7); Neutrophils % (A) 69 %; Platelet Count 217 k/uL (150-450); RBC 4.15 m/uL (3.80-5.40); WBC 7.1 k/uL (3.8-10.6)
[2018-11-13 10:44] LABS: ALT 24 U/L (9-52); AST 20 U/L (14-36); African American GFR (CKD) >90 (>60 ml/min/1.73 sqM); Alkaline Phosphatase 138 U/L (38-126); Anion Gap 7 mmol/L; Blood Urea Nitrogen 18 mg/dL (7-17); Carbon Dioxide 30 mmol/L (22-30); Chloride 104 mmol/L (98-107); Glucose 191 mg/dL (74-99); Sodium 141 mmol/L (137-145); Total Bilirubin 0.4 mg/dL (0.2-1.3); Total Protein 6.9 g/dL (6.3-8.2)
--- NOTE | 2018-11-13 10:55 | CT ---
EXAMINATION TYPE: CT abdomen pelvis wo con DATE OF EXAM: 11/13/2018 COMPARISON: 08/30/2018 HISTORY: 83-year-old female with pain, constipation CT DLP: 511.3 mGycm. Automated exposure control for dose reduction was used. TECHNIQUE: Contiguous axial scanning of the abdomen and pelvis without IV contrast. Coronal and sagit corby reconstructions performed. FINDINGS: Heart is upper limits of normal in size without pericardial effusion. Strandy atelectasis posterior l eft base without pleural effusion. Stable rounded calcification centrally in the hepatic dome is nonspecific, possibly relating to old c alcified granuloma. 1.2 cm hypodensity along the anterior left liver is unchanged, probable cyst. And additional 1.3 cm c yst inferior caudate lobe is unchanged. Otherwise, noncontrast appearance of the gallbladder, adrenal glands, left kidney with parapelvic cys ts, spleen, and atrophic pancreas show no gross abnormality. Small hiatal hernia. Stable 2.1 cm upper pole right renal cyst. Moderate atherosclerotic calcifications infrarenal abdominal aorta and mild within the iliac arteries . No dilated small bowel or free air. A few scattered prominent right abdominal mesenteric lymph nodes measure up to 7 mm on axial image 86 . There is moderate to large stool burden extending to the level of the lower descending colon. Generalized colonic diverticulosis, most extensive within the sigmoid colon. Along the mid to distal sigmoid, there is moderate circumferential wall thickening with mild surrounding fat stranding and so me increased [id number] pelvic free fluid. Possible tiny microperforation along the posterior w all of the mid sigmoid, axial image 111. Bladder partially distended. Uterus is anteverted. Neither ovary well delineated from adjacent bowel loops. Bones: Marked osteopenia. Degenerative changes of the hips. Hypertrophic facet arthropathy with redem onstrated grade 1, nearly grade 2 anterolisthesis at L4-L5. IMPRESSION: 1. Generalized colonic diverticulosis. Moderate to large stool burden to the level of the lower desc ending colon. 2. Colonic diverticulosis is greatest in the sigmoid colon. There is moderate circumferential wall t hickening involving the mid to distal sigmoid colon with mild surrounding fat stranding and possible tiny microperforation along the posterior wall of the mid sigmoid. No abscess or free air. Correlate for acute diverticulitis. Recommend follow-up direct visualization after successful treatment. 3. Fjaos-zf-ymrocccu pelvic free fluid likely reactive. 4. A few prominent right abdominal mesenteric lymph nodes measure up to 7 mm, may be reactive/post i nflammatory.
[2018-11-13] MEDS ORDERED: PIPERACILLIN-TAZOBACTAM 3.375 GM in SODIUM CHLORIDE 0.9% 100 ML IVPB STA (11:38)
[2018-11-13] MEDS ORDERED: SODIUM CHLORIDE 0.9% 1,000 ML IV ONE (11:45)
[2018-11-13 13:37] VITALS: BMI 25.4
[2018-11-13 14:52] LABS: Glucose,Whole Blood 82 mg/dL (75-99)
[2018-11-13] MEDS ORDERED: LORazepam 1 MG TAB PO PRN (15:37)
[2018-11-13] MEDS ORDERED: MELATONIN 5 MG TABLET PO PRN (15:39)
--- NOTE | 2018-11-13 16:28 | HP ---
HISTORY AND PHYSICAL DATE OF SERVICE: 11/13/2018 CHIEF COMPLAINT: Abdominal pain. HISTORY OF PRESENT ILLNESS: This 83-year-old woman with a past medical history of diabetes mellitus, GERD, history of severe allergies, history of bladder surgery, hard of hearing, being followed by Dr. Noe in the outpatient setting, was complaining abdominal pain. The pain was situated in the lower abdomen for the last several days, felt across the stomach. The patient was also constipated. Because of increasing difficulty, the patient came to [facility] and was admitted for further evaluation and treatment. The patient received some enemas, with some results at this time. The patient was completely constipated for at least the last 4 to 5 days, according to her. A CT scan of the abdomen and pelvis was done in the ER which showed generalized colonic diverticulosis and moderate to large stool burden and also moderate circumferential wall thickening involving the mid to distal sigmoid colon with surrounding fat stranding and possible microperforation along the posterior wall of the mid sigmoid. Small to moderate pelvic free fluid was also noted. The patient was admitted for further evaluation and treatment. There is no history of any fever, rigor or chills. No history of headache, loss of consciousness, seizures. PAST MEDICAL HISTORY: 1. History of diabetes mellitus. 2. GERD. 3. Severe allergies. 4. Bladder surgery. HOME MEDICATIONS: 1. Zantac 150 mg p.o. daily. 2. Ativan 1 mg at bedtime. 3. Tylenol 0.5 to 1 q.6 p.r.n. 4. Levemir 30 units daily. 5. Tylenol 1000 mg at bedtime. ALLERGIES: 1. ALLOPURINOL. 2. ASPIRIN. 3. LIPITOR. 4. ZITHROMAX. 5. TESSALON. 6. VALIUM. 7. BENADRYL. 8. EPINEPHRINE. 9. LEXAPRO. 10.HYDRODIURIL. 11.VICODIN. 12.LIDOCAINE. 13.XYLOCAINE. 14.COZAAR. 15.GLUCOPHAGE. 16.MORPHINE. 17.NYLON. 18.PERCODAN. 19.PAXIL. 20.PHENERGAN. 21.INDERAL. 22.VIOXX. 23.BACTRIM. 24.SULFITE. 25.AMBIEN. 26.ARTIFICIAL COLOR. 27.CHEMICALS. 28.NOVOCAINE. 29.NYLON STITCHES. 30.ODOR. 31.SMOKE. FAMILY HISTORY: Heart disease in mother. SOCIAL HISTORY: No history of smoking. No history of alcohol. REVIEW OF SYSTEMS: ENT: Diminished hearing. Diminished vision. CARDIOVASCULAR SYSTEM: No angina, palpitations. RESPIRATORY SYSTEM: No cough, hemoptysis. GI: As mentioned earlier. : No dysuria or retention. NERVOUS SYSTEM: No numbness, weakness. ALLERGY/IMMUNOLOGY: No asthma, hayfever. MUSCULOSKELETAL: As mentioned earlier. HEMATOLOGY/ONCOLOGY: No history of anemia. ENDOCRINE: Diabetes mellitus. CONSTITUTIONAL: As mentioned earlier. DERMATOLOGY: Negative. RHEUMATOLOGY: Negative. PSYCHIATRY: As mentioned earlier. PHYSICAL EXAMINATION: Patient alert and oriented x3. Pulse of 49, blood pressure 158/64, respirations 16, temperature 97.7, pulse ox 92% on room. HEENT: Conjunctivae normal. Oral mucosa moist. NECK: No jugular venous distention. No carotid bruit. No lymph node enlargement. CARDIOVASCULAR SYSTEM: S1, S2 muffled. No S3. No S4. RESPIRATORY SYSTEM: Breath sounds diminished at the bases. No rhonchi. No crackles. ABDOMEN: Soft. Mild diffuse distention. Mild diffuse tenderness. No guarding. No rigidity. No mass palpable. Bowel sounds diminished. No ascites. LEGS: No edema. No swelling. NERVOUS SYSTEM: Higher functions as mentioned earlier. Moves all 4 limbs. No focal motor or sensory deficit. LYMPHATICS: No lymph node palpable in neck, axillae or groin. SKIN: No ulcer, rash, bleeding. JOINTS: No active deforming arthropathy. LABS: Labs at this time show WBC 7.1, hemoglobin 12.8, sodium 141, potassium 5, glucose 191 and alkaline phosphatase 138. ASSESSMENT: 1. Lower abdominal pain with acute diverticulitis with a diverticular abscess and possible microperforation. 2. Colonic diverticulosis. 3. Diabetes mellitus, type 2. 4. Gastroesophageal reflux disease. 5. Multiple severe allergies. 6. History of bladder surgery. 7. History of urethral dilatation. RECOMMENDATIONS AND DISCUSSION: In this 83-year-old woman who presented with multiple medical issues, at this time I recommend to continue the current management, continue with symptomatic treatment and broad-spectrum IV antibiotics. Surgical evaluation. Resume the home medications. Monitor blood sugars closely. Guarded prognosis because of multiple complex medical issues. Further recommendations to follow. A copy of this dictation is being forwarded to Dr. Noe, who is the primary physician. Will hold the Levemir at this time and continue with coverage. Once again, the prognosis is guarded. See orders for further details. d MMODL / IJN: [id number] /
[2018-11-13] MEDS: PANTOPRAZOLE 40 MG/10 ML VIAL IVP SCH (16:51)
[2018-11-13] MEDS: Acetaminophen-Codeine 300-30mg TAB PO PRN (16:51)
[2018-11-13 17:15] LABS: Glucose,Whole Blood 72 mg/dL (75-99)
[2018-11-13] MEDS: DEXTROSE 5%-0.9% NACL 1,000 ML IV SCH (17:20)
[2018-11-13] MEDS: PIPERACILLIN-TAZOBACTAM 3.375 GM in SODIUM CHLORIDE 0.9% 100 ML IVPB SCH (19:23)
[2018-11-13 19:57] LABS: Glucose,Whole Blood 101 mg/dL (75-99)
[2018-11-13] MEDS: ACETAMINOPHEN TAB 500 MG TAB PO SCH (20:01)
[2018-11-13] MEDS: HEPARIN SODIUM,PORCINE 5,000 UNIT/ML 1 ML VIAL SQ SCH (20:02)
[2018-11-14 02:10] LABS: Glucose,Whole Blood 123 mg/dL (75-99)
[2018-11-14] MEDS: PIPERACILLIN-TAZOBACTAM 3.375 GM in SODIUM CHLORIDE 0.9% 100 ML IVPB SCH ×3 (03:08→19:46)
[2018-11-14] MEDS: ACETAMINOPHEN TAB 500 MG TAB PO SCH ×2 (04:43→19:44)
[2018-11-14 07:00] LABS: Glucose,Whole Blood 153 mg/dL (75-99)
[2018-11-14] MEDS ORDERED: ONDANSETRON 4 MG/2 ML VIAL IVP PRN (07:00)
[2018-11-14 09:18] LABS: Basophils % (A) 0 %; Eosinophils # (A) 0.3 k/uL (0-0.7); Eosinophils % (A) 6 %; HCT 37.5 % (34.0-46.0); HGB 11.8 gm/dL (11.4-16.0); Lymphocytes # (A) 0.9 k/uL (1.0-4.8); Lymphocytes % (A) 19 %; MCH 30.3 pg (25.0-35.0); MCHC 31.5 g/dL (31.0-37.0); MCV 96.3 fL (80.0-100.0); Mean Platelet Volume 7.5; Monocytes # (A) 0.3 k/uL (0-1.0); Monocytes % (A) 5 %; Neutrophils # (A) 3.5 k/uL (1.3-7.7); Neutrophils % (A) 69 %; Platelet Count 221 k/uL (150-450); RDW 13.7 % (11.5-15.5); WBC 5.1 k/uL (3.8-10.6)
[2018-11-14 09:31] LABS: African American GFR (CKD) >90 (>60 ml/min/1.73 sqM); Anion Gap 7 mmol/L; Blood Urea Nitrogen 11 mg/dL (7-17); Calcium 8.4 mg/dL (8.4-10.2); Carbon Dioxide 26 mmol/L (22-30); Chloride 108 mmol/L (98-107); Glucose 171 mg/dL (74-99); Potassium 4.4 mmol/L (3.5-5.1); Sodium 141 mmol/L (137-145)
[2018-11-14] MEDS: PANTOPRAZOLE 40 MG/10 ML VIAL IVP SCH (09:48)
[2018-11-14] MEDS: HEPARIN SODIUM,PORCINE 5,000 UNIT/ML 1 ML VIAL SQ SCH ×2 (09:48→19:46)
--- NOTE | 2018-11-14 11:03 | P.GSCN ---
History of Present Illness Consult date: 11/14/18 Reason for Consult: Diverticulitis History of present illness: This a 3-year-old female who was admitted to the hospital complaints of abdomina l pain. Patient workup in the emergency room. She'll have evidence of diverticulitis with microperforation. Patient states she feels better this morning. Past Medical History Past Medical History: Diabetes Mellitus, GERD/Reflux Additional Past Medical History / Comment(s): severe allergies History of Any Multi-Drug Resistant Organisms: None Reported Past Surgical History: Bladder Surgery Additional Past Surgical History / Comment(s): cauterization of part of bladder, has urethral dilations every 6 weeks Additional Past Anesthesia/Blood Transfusion Reaction / Comm: pt states she "coded" with anesthesia in past, but unable to give specifics Past Psychological History: No Psychological Hx Reported Smoking Status: Never smoker Past Alcohol Use History: None Reported Past Drug Use History: None Reported - Past Family History Father History Unknown: Yes Mother Additional Family Medical History / Comment(s): states mother had heart issues Medications and Allergies Home Medications Medication Instructions Recorded Confirmed Type Insulin Detemir (Levemir) [Levemir] 13 unit SQ DAILY 11/09/14 11/13/18 History Acetaminophen Tab [Tylenol Tab] 1,000 mg PO HS 09/26/16 11/13/18 History LORazepam [Ativan] 1 mg PO HS PRN 09/26/16 11/13/18 History Acetaminophen-Codeine 300-30mg 0.5 - 1 tab PO Q6H PRN 11/13/18 11/13/18 History [Tylenol w/codeine #3] Ranitidine HCl [Zantac] 150 mg PO DAILY PRN 11/13/18 11/13/18 History Allergies Allergy/AdvReac Type Severity Reaction Status Date / Time albuterol Allergy Unknown Verified 11/13/18 08:24 aspirin [From Percodan] Allergy Unknown Verified 11/13/18 08:24 atorvastatin calcium Allergy Unknown Verified 11/13/18 08:24 [From Lipitor] azithromycin Allergy Unknown Verified 11/13/18 08:24 benzonatate Allergy Unknown Verified 11/13/18 08:24 [From Tessalon Perles] diazepam [From Valium] Allergy Unknown Verified 11/13/18 08:24 diphenhydramine HCl Allergy Unknown Verified 11/13/18 08:24 [From Benadryl] epinephrine Allergy Unknown Verified 11/13/18 08:24 escitalopram oxalate Allergy Unknown Verified 11/13/18 08:24 [From Lexapro] hydrochlorothiazide Allergy Unknown Verified 11/13/18 08:24 [From HydroDiuril] hydrocodone bitartrate Allergy Unknown Verified 11/13/18 08:24 [From Vicodin] lidocaine Allergy Unknown Verified 11/13/18 08:24 lidocaine HCl Allergy Unknown Verified 11/13/18 08:24 [From Xylocaine] losartan potassium Allergy Unknown Verified 11/13/18 08:24 [From Cozaar] metformin HCl Allergy Unknown Verified 11/13/18 08:24 [From Glucophage] morphine Allergy Unknown Verified 11/13/18 08:24 nylon Allergy Unknown Verified 11/13/18 08:24 oxycodone HCl [From Percodan] Allergy Unknown Verified 11/13/18 08:24 oxycodone terephthalate Allergy Unknown Verified 11/13/18 08:24 [From Percodan] paroxetine HCl [From Paxil] Allergy Unknown Verified 11/13/18 08:24 promethazine HCl Allergy Unknown Verified 11/13/18 08:24 [From Phenergan] propranolol HCl Allergy Unknown Verified 11/13/18 08:24 [From Inderal LA] rofecoxib [From Vioxx] Allergy Unknown Verified 11/13/18 08:24 sulfamethoxazole Allergy Unknown Verified 11/13/18 08:24 [From Bactrim] sulfite Allergy Unknown Verified 11/13/18 08:24 trimethoprim [From Bactrim] Allergy Unknown Verified 11/13/18 08:24 zolpidem tartrate Allergy Unknown Verified 11/13/18 08:24 [From Ambien] artificial color Allergy Unknown Uncoded 08/30/18 12:23 chemicals Allergy Unknown Uncoded 08/30/18 12:23 novacaine Allergy Unknown Uncoded 08/30/18 12:23 nylon stictches Allergy Unknown Uncoded 08/30/18 12:23 odor Allergy Unknown Uncoded 08/30/18 12:23 smoke Allergy Unknown Uncoded 08/30/18 12:23 Surgical - Exam Vital Signs Temp Pulse Resp BP Pulse Ox 97.9 F 79 18 153/80 96 11/13/18 07:47 11/13/18 07:47 11/13/18 07:47 11/13/18 07:47 11/13/18 07:47 - General well developed, well nourished, no distress - Eyes PERRL - ENT normal pinna - Neck no masses - Respiratory normal expansion - Cardiovascular Rhythm: regular - Abdomen Abdomen: soft, non tender Results - Labs 11/14/18 08:36 11/14/18 08:36 Abnormal Lab Results - Last 24 Hours (Table) 11/13/18 11/13/18 11/14/18 Range/Units 17:03 19:56 02:08 Lymphocytes # (1.0-4.8) k/uL Chloride (98-107) mmol/L Glucose (74-99) mg/dL POC Glucose (mg/dL) 72 L 101 H 123 H (75-99) mg/dL 11/14/18 11/14/18 11/14/18 Range/Units 06:57 08:36 08:36 Lymphocytes # 0.9 L (1.0-4.8) k/uL Chloride 108 H (98-107) mmol/L Glucose 171 H (74-99) mg/dL POC Glucose (mg/dL) 153 H (75-99) mg/dL Diabetes panel 11/14/18 Range/Units 08:36 Sodium 141 (137-145) mmol/L Potassium 4.4 (3.5-5.1) mmol/L Chloride 108 H (98-107) mmol/L Carbon Dioxide 26 (22-30) mmol/L BUN 11 (7-17) mg/dL Creatinine 0.69 (0.52-1.04) mg/dL Glucose 171 H (74-99) mg/dL Calcium 8.4 (8.4-10.2) mg/dL Calcium panel 11/14/18 Range/Units 08:36 Calcium 8.4 (8.4-10.2) mg/dL Pituitary panel 11/14/18 Range/Units 08:36 Sodium 141 (137-145) mmol/L Potassium 4.4 (3.5-5.1) mmol/L Chloride 108 H (98-107) mmol/L Carbon Dioxide 26 (22-30) mmol/L BUN 11 (7-17) mg/dL Creatinine 0.69 (0.52-1.04) mg/dL Glucose 171 H (74-99) mg/dL Calcium 8.4 (8.4-10.2) mg/dL Adrenal panel 11/14/18 Range/Units 08:36 Sodium 141 (137-145) mmol/L Potassium 4.4 (3.5-5.1) mmol/L Chloride 108 H (98-107) mmol/L Carbon Dioxide 26 (22-30) mmol/L BUN 11 (7-17) mg/dL Creatinine 0.69 (0.52-1.04) mg/dL Glucose 171 H (74-99) mg/dL Calcium 8.4 (8.4-10.2) mg/dL Assessment and Plan Assessment: Diverticulitis. Patient is improving. Patient continue receive IV antibiotic. We'll place her on clear liquids.
[2018-11-14 12:59] LABS: Glucose,Whole Blood 237 mg/dL (75-99)
[2018-11-14] MEDS: DEXTROSE 5%-0.9% NACL 1,000 ML IV SCH (13:20)
[2018-11-14 19:23] LABS: Glucose,Whole Blood 194 mg/dL (75-99)
[2018-11-14 20:04] LABS: Glucose,Whole Blood 171 mg/dL (75-99)
--- NOTE | 2018-11-14 20:33 | PN ---
PROGRESS NOTE DATE OF SERVICE: 11/14/2018 This 83-year-old woman was admitted with lower abdominal pain, had possible acute diverticulitis as well diverticular abscess and possible microperforation. The patient is being closely monitored. Surgery has seen the patient. No chest pain. No palpitations. No fever. Patient on broad spectrum IV antibiotics. PHYSICAL EXAM: Alert and oriented x3. Pulse 90, blood pressure 168/74, respiration 18, temperature is 98.2, pulse ox 96% on room air. HEENT: Conjunctivae normal. Oral mucosa moist. NECK: No jugular venous distention. No lymph node enlargement. CARDIOVASCULAR: S1, S2. RESPIRATORY: Diminished breath sounds at the bases. No rhonchi, no crackles. ABDOMEN: Soft, nontender. No guarding, no rigidity. No rebound tenderness. LABS: WBC 5.8, hemoglobin 11.8, glucose 171. ASSESSMENT: 1. Lower abdominal pain with acute diverticulitis with a diverticular abscess and possible microperforation. 2. Chronic diverticulosis in the CT scan. 3. Diabetes mellitus type 2. 4. Gastroesophageal reflux disease. 5. Multiple severe allergies. 6. History of bladder surgery. 7. History of urethral dilatation. RECOMMENDATIONS AND DISCUSSION: Recommend to continue current medications, continue to monitor, continue symptomatic treatment. Otherwise, at this time I recommend to continue with antibiotics. Otherwise, closely follow with Surgery. See orders. Guarded prognosis. Further recommendations to follow. MMODL / IJN: [id number] /
[2018-11-15 03:36] LABS: Glucose,Whole Blood 154 mg/dL (75-99)
[2018-11-15] MEDS: PIPERACILLIN-TAZOBACTAM 3.375 GM in SODIUM CHLORIDE 0.9% 100 ML IVPB SCH ×3 (04:39→19:36)
[2018-11-15 06:53] LABS: Glucose,Whole Blood 167 mg/dL (75-99)
[2018-11-15 07:26] LABS: Basophils % (A) 0 %; Eosinophils # (A) 0.2 k/uL (0-0.7); Eosinophils % (A) 4 %; HCT 38.4 % (34.0-46.0); HGB 12.1 gm/dL (11.4-16.0); Lymphocytes # (A) 1.3 k/uL (1.0-4.8); Lymphocytes % (A) 27 %; MCH 30.1 pg (25.0-35.0); MCHC 31.4 g/dL (31.0-37.0); MCV 95.7 fL (80.0-100.0); Mean Platelet Volume 6.9; Monocytes # (A) 0.3 k/uL (0-1.0); Monocytes % (A) 6 %; Neutrophils % (A) 62 %; Platelet Count 201 k/uL (150-450); RBC 4.02 m/uL (3.80-5.40); RDW 12.8 % (11.5-15.5); WBC 4.9 k/uL (3.8-10.6)
[2018-11-15 07:38] LABS: African American GFR (CKD) >90 (>60 ml/min/1.73 sqM); Anion Gap 8 mmol/L; Blood Urea Nitrogen 10 mg/dL (7-17); Calcium 8.8 mg/dL (8.4-10.2); Carbon Dioxide 25 mmol/L (22-30); Chloride 107 mmol/L (98-107); Glucose 155 mg/dL (74-99); Potassium 4.5 mmol/L (3.5-5.1); Sodium 140 mmol/L (137-145)
[2018-11-15] MEDS: HEPARIN SODIUM,PORCINE 5,000 UNIT/ML 1 ML VIAL SQ SCH ×2 (07:46→19:37)
[2018-11-15] MEDS: PANTOPRAZOLE 40 MG/10 ML VIAL IVP SCH (07:46)
[2018-11-15] MEDS: DEXTROSE 5%-0.9% NACL 1,000 ML IV SCH (08:58)
--- NOTE | 2018-11-15 10:35 | P.PN ---
Progress Note - Text Progress Note Date: 11/15/18 The patient feels better. Her pain is improved. On exam her vital signs are stable. WBC is normal. Abdomen soft there is decreased tenderness left lower quadrant. Resolving diverticulitis. Patient will continue IV antibiotics and have her diet advanced to full liquids.
[2018-11-15 11:56] LABS: Glucose,Whole Blood 149 mg/dL (75-99)
[2018-11-15] MEDS ORDERED: SODIUM CHLORIDE 0.9% 1,000 ML IV SCH (14:15)
[2018-11-15 16:36] LABS: Glucose,Whole Blood 172 mg/dL (75-99)
[2018-11-15] MEDS: ACETAMINOPHEN TAB 500 MG TAB PO SCH (19:37)
[2018-11-15 19:56] LABS: Glucose,Whole Blood 218 mg/dL (75-99)
--- NOTE | 2018-11-15 22:42 | PN ---
PROGRESS NOTE DATE OF SERVICE: 11/15/2018. This 83-year-old woman who was admitted with lower abdominal pain with acute diverticulitis with a diverticular abscess and possible microperforation is being closely monitored. No chest pain. No palpitations. No fever. The patient also had chronic wound decubitus wound on the right gluteal region also. No chest pain. No palpitations. No fever. Surgery is following the patient closely. EXAM: Alert and oriented x3. Pulse 64. Blood pressure 156/91, respiration 18, temperature 98.1. Pulse ox 98% on room air. HEENT: Conjunctivae normal. NECK: No jugular venous distention. CARDIOVASCULAR: S1, S2 muffled. RESPIRATIONS: Breath sounds diminished in the bases. No rhonchi. No crackles. ABDOMEN is soft, nontender. No mass palpable. LEGS are no edema. No swelling. CENTRAL NERVOUS SYSTEM: No focal deficits. Grade 1-2 gluteal wound present, chronic in nature. LABS: Accu-Cheks 149, 172. ASSESSMENT: 1. Lower abdominal pain with acute diverticulitis with a diverticular abscess with possible microperforation. 2. Chronic diverticulosis in the CT scan. 3. Diabetes mellitus type 2. 4. Gastroesophageal reflux disease. 5. Multiple severe allergies. 6. History of bladder surgery. 7. History of urethral dilatation. 8. Chronic pressure wound, right gluteal region, stage II. RECOMMENDATIONS AND DISCUSSION: In this 83-year-old woman who presented with multiple complex medical issues, we will monitor the patient closely. Continue the current medications, management. Symptomatic treatment. We will continue with broad-spectrum IV antibiotics. The diet has been advanced to full liquids and we will continue to monitor along with surgery cautiously. Guarded prognosis because of multiple complex medical issues. Further recommendations to follow. MMODL / IJN: [id number] /
[2018-11-16] MEDS: Acetaminophen-Codeine 300-30mg TAB PO PRN (01:29)
[2018-11-16 02:18] LABS: Glucose,Whole Blood 170 mg/dL (75-99)
[2018-11-16] MEDS: PIPERACILLIN-TAZOBACTAM 3.375 GM in SODIUM CHLORIDE 0.9% 100 ML IVPB SCH ×3 (04:56→20:44)
[2018-11-16 06:58] LABS: Glucose,Whole Blood 151 mg/dL (75-99)
[2018-11-16 08:36] LABS: Basophils % (A) 1 %; Eosinophils # (A) 0.2 k/uL (0-0.7); Eosinophils % (A) 5 %; HCT 37.8 % (34.0-46.0); HGB 12.4 gm/dL (11.4-16.0); Lymphocytes % (A) 24 %; MCHC 32.7 g/dL (31.0-37.0); MCV 94.7 fL (80.0-100.0); Mean Platelet Volume 6.9; Monocytes # (A) 0.3 k/uL (0-1.0); Monocytes % (A) 7 %; Neutrophils # (A) 2.6 k/uL (1.3-7.7); Neutrophils % (A) 62 %; Platelet Count 204 k/uL (150-450); RBC 3.99 m/uL (3.80-5.40); RDW 12.8 % (11.5-15.5); WBC 4.1 k/uL (3.8-10.6)
[2018-11-16 08:44] LABS: African American GFR (CKD) >90 (>60 ml/min/1.73 sqM); Anion Gap 7 mmol/L; Blood Urea Nitrogen 7 mg/dL (7-17); Calcium 8.6 mg/dL (8.4-10.2); Carbon Dioxide 25 mmol/L (22-30); Chloride 107 mmol/L (98-107); Glucose 158 mg/dL (74-99); Potassium 4.3 mmol/L (3.5-5.1); Sodium 139 mmol/L (137-145)
[2018-11-16] MEDS: FAMOTIDINE 20 MG TAB PO PRN (08:49)
[2018-11-16] MEDS: HEPARIN SODIUM,PORCINE 5,000 UNIT/ML 1 ML VIAL SQ SCH ×2 (08:49→20:42)
[2018-11-16] MEDS: PANTOPRAZOLE 40 MG TABLET PO SCH (08:51)
--- NOTE | 2018-11-16 10:34 | P.PN ---
Subjective Progress Note Date: 11/16/18 CHIEF COMPLAINT: abdominal pain HISTORY OF PRESENT ILLNESS: patient seen and examined this morning at the bedside. She denies abdominal pain. Denies nausea or vomiting. Patient was ordered full liquid tray for breakfast however she received a clear liquid tray and did not drink much off of it. WBC 4.1. PHYSICAL EXAM: VITAL SIGNS: Reviewed. GENERAL: Well-developed in no acute distress. HEENT: No sclera icterus. Extraocular movements grossly intact. Moist buccal mucosa. Head is atraumatic, normocephalic. ABDOMEN: Soft. Nondistended. Nontender. NEUROLOGIC: Alert and oriented. Cranial nerves II through XII grossly intact. ASSESSMENT: 1. Acute diverticulitis PLAN: 1. Patient ordered full liquid tray but received clears for breakfast. Spoke with nursing to ensure patient gets full liquid tray for lunch. If she tolerates, may advance diet 2. Continue antibiotics 3. Discharge home per medicine Nurse practitioner note has been reviewed by physician. Signing provider agrees with the documented findings, assessment, and plan of care. Objective - Vital Signs Vital signs: Vital Signs Temp 98.0 F 11/16/18 05:00 Pulse 71 11/16/18 05:00 Resp 16 11/16/18 05:00 BP 161/69 11/16/18 05:00 Pulse Ox 92 L 11/16/18 05:00 Intake & Output 11/15/18 11/16/18 11/16/18 18:59 06:59 18:59 Intake Total 990 680 Output Total 3000 680 Intake: Intake, IV Titration 100 90 Amount Piperacillin-Tazobactam 3 100 50 .375 gm In Sodium Chloride 0.9% 100 ml @ 25 mls/hr IVPB Q8H [facility]ASE Rx#: [id number] Sodium Chloride 0.9% 1, 40 000 ml @ 20 mls/hr IV . Q24H CHASE Rx#:[id number] Oral 890 590 Output: Urine 3000 Other: Voiding Method Indwelling Catheter Indwelling Catheter # Voids 1 # Bowel Movements 1 2 - Labs CBC & Chem 7: 11/16/18 07:44 11/16/18 07:44 Labs: Abnormal Lab Results - Last 24 Hours (Table) 11/15/18 11/15/18 11/15/18 Range/Units 11:54 16:35 19:55 Glucose (74-99) mg/dL POC Glucose (mg/dL) 149 H 172 H 218 H (75-99) mg/dL 11/16/18 11/16/18 11/16/18 Range/Units 02:17 06:57 07:44 Glucose 158 H (74-99) mg/dL POC Glucose (mg/dL) 170 H 151 H (75-99) mg/dL
[2018-11-16 11:28] LABS: Glucose,Whole Blood 173 mg/dL (75-99)
[2018-11-16] MEDS ORDERED: SODIUM CHLORIDE 0.9% 500 ML IV SCH (12:43)
[2018-11-16] MEDS: INSULIN ASPART (NovoLOG) 100 UNIT/ML VIAL SQ SCH ×3 (12:49→20:43)
[2018-11-16 17:13] LABS: Glucose,Whole Blood 151 mg/dL (75-99)
[2018-11-16 20:09] LABS: Glucose,Whole Blood 159 mg/dL (75-99)
--- NOTE | 2018-11-16 20:31 | PN ---
PROGRESS NOTE DATE OF SERVICE: 11/16/2018. This 83-year-old woman was admitted after lower abdominal pain with acute diverticulitis and diverticular abscess had possible microperforation. Patient is on conservative line of management. Patient on broad spectrum IV antibiotics. No chest pain. No palpitations. No fever. PHYSICAL EXAM: Alert and oriented times three. Pulse 61, blood pressure 184/90, respirations 17, temperature 98.2, pulse ox 97% on room air. HEENT: Conjunctivae normal. NECK: No jugular venous distention. CARDIOVASCULAR: S1, S2 muffled. RESPIRATIONS: Breath sounds diminished in the bases. No rhonchi. No crackles. ABDOMEN is soft, nontender. No mass palpable. LEGS are no edema. No swelling. NERVOUS SYSTEM: No focal deficits. LABORATORY DATA: CBC, BMP within normal limits. Glucose 158. ASSESSMENT: 1. Lower abdominal pain with acute diverticulitis with a diverticular abscess with possible microperforation. 2. Colonic diverticulosis and chronic diverticulosis on the CT scan. 3. Diabetes mellitus type 2. 4. Gastroesophageal reflux disease. 5. Multiple severe allergies. 6. History of bladder surgery. 7. History of urethral dilatation. 8. Chronic pressure wound, right gluteal region, stage II. RECOMMENDATIONS AND DISCUSSION: I recommend to continue current medications, symptomatic treatment. Otherwise, closely follow with surgery. I would also recommend infectious disease evaluation. Guarded prognosis. Further recommendations to follow. MMRANDALLL / JOSETTEN: [id number] /
[2018-11-16] MEDS: ACETAMINOPHEN TAB 500 MG TAB PO SCH (20:41)
[2018-11-17 01:44] LABS: Glucose,Whole Blood 145 mg/dL (75-99)
[2018-11-17] MEDS: INSULIN ASPART (NovoLOG) 100 UNIT/ML VIAL SQ SCH ×3 (01:57→12:10)
[2018-11-17] MEDS: PIPERACILLIN-TAZOBACTAM 3.375 GM in SODIUM CHLORIDE 0.9% 100 ML IVPB SCH ×2 (03:55→12:10)
[2018-11-17 07:18] LABS: Glucose,Whole Blood 113 mg/dL (75-99)
[2018-11-17] MEDS: PANTOPRAZOLE 40 MG TABLET PO SCH (08:19)
[2018-11-17] MEDS: HEPARIN SODIUM,PORCINE 5,000 UNIT/ML 1 ML VIAL SQ SCH (08:19)
[2018-11-17] MEDS: FAMOTIDINE 20 MG TAB PO PRN (08:20)
[2018-11-17 11:46] LABS: Glucose,Whole Blood 133 mg/dL (75-99)
--- NOTE | 2018-11-17 11:47 | P.PN ---
Subjective Progress Note Date: 11/17/18 CHIEF COMPLAINT: abdominal pain HISTORY OF PRESENT ILLNESS: patient seen and examined this morning at the bedside. She denies abdominal pain. Denies nausea or vomiting. Tolerating diet. PHYSICAL EXAM: VITAL SIGNS: Reviewed. GENERAL: Well-developed in no acute distress. HEENT: No sclera icterus. Extraocular movements grossly intact. Moist buccal mucosa. Head is atraumatic, normocephalic. ABDOMEN: Soft. Nondistended. Nontender. NEUROLOGIC: Alert and oriented. Cranial nerves II through XII grossly intact. ASSESSMENT: 1. Acute diverticulitis PLAN: 1. Diet as tolerated 2. Continue antibiotics 3. Discharge home per medicine Nurse practitioner note has been reviewed by physician. Signing provider agrees with the documented findings, assessment, and plan of care. Objective - Vital Signs Vital signs: Vital Signs Temp 98.1 F 11/17/18 04:50 Pulse 75 11/17/18 04:50 Resp 18 11/17/18 07:10 BP 132/62 11/17/18 04:50 Pulse Ox 97 11/17/18 04:50 Intake & Output 11/16/18 11/17/18 11/17/18 18:59 06:59 18:59 Intake Total 910 330 Output Total 1800 650 Balance -890 -320 Intake: Intake, IV Titration 260 330 Amount Piperacillin-Tazobactam 3 100 100 .375 gm In Sodium Chloride 0.9% 100 ml @ 25 mls/hr IVPB Q8H [facility]ASE Rx#: [id number] Sodium Chloride 0.9% 1, 70 000 ml @ 20 mls/hr IV . Q24H CHASE Rx#:[id number] Sodium Chloride 0.9% 500 160 160 ml @ 20 mls/hr IV .Q24H CHASE Rx#:[id number] Oral 650 Output: Urine 1800 650 Uretheral (Boyer) 650 Other: Voiding Method Indwelling Catheter Indwelling Catheter Indwelling Catheter # Voids 3 - Labs CBC & Chem 7: 11/16/18 07:44 11/16/18 07:44 Labs: Abnormal Lab Results - Last 24 Hours (Table) 11/16/18 11/16/18 11/17/18 Range/Units 17:12 20:08 01:42 POC Glucose (mg/dL) 151 H 159 H 145 H (75-99) mg/dL 11/17/18 11/17/18 Range/Units 07:17 11:43 POC Glucose (mg/dL) 113 H 133 H (75-99) mg/dL
[2018-11-17 12:52] VITALS: BP 155/81; PULSE 61; RESP 16; TEMP 98.2
--- NOTE | 2018-11-18 05:49 | DS ---
DISCHARGE SUMMARY DATE OF SERVICE: 11/17/2018. FINAL DIAGNOSES: 1. Lower abdominal pain with acute diverticulitis with diverticular abscess with possible microperforation, managed conservatively. 2. Colonic diverticulosis and chronic diverticulosis on the CT scan. 3. Diabetes mellitus type 2. 4. Gastroesophageal reflux disease. 5. Multiple allergies. 6. History of bladder surgery. 7. History of urethral dilatation. 8. Chronic pressure wound right gluteal region, stage II. DISCHARGE DISPOSITION: The patient will be discharged in stable condition with guarded prognosis. HISTORY OF PRESENT ILLNESS: This 83-year-old woman with a past medical history of multiple medical problems admitted with lower abdominal pain. Patient was found to have diverticulitis with diverticular microperforation, treated symptomatically. Patient was improved significantly. On exam, vitals are stable. CARDIOVASCULAR: S1, S2 muffled. ABDOMEN: Soft. NERVOUS SYSTEM: No focal deficits. DISCHARGE ADVICE: 1. Diet is cardiac. 2. Activity limited until followup. 3. Follow up with Dr. Noe in 2to 3 days. 4. Follow up with Dr. Mclaughlin as recommended. Medications are: 1. Ativan 1 mg q.h.s. p.r.n. 2. Levemir 13 units subcu daily. 3. Tylenol 1000 mg q.h.s. 4. Tylenol No. 3 q.6 p.r.n. 5. Zantac 150 mg daily p.r.n. 6. Augmentin 875 mg one p.o. b.i.d. for one week. Once again, the patient will be discharged in stable condition with guarded prognosis. MMODL / IJN: [id number] / MTDD
== END 2018-11-17 14:06 | disposition home or self-care (01) | DRG 392 ==
LOC: EC 07:41 → 3NMEDONC 11:45
PROVIDERS: ADMIT Hospitalist; ATTEND Hospitalist
DX: K57.20 Diverticulitis of large intestine with perforation and abscess without bleeding (principal); E11.9 Type 2 diabetes mellitus without complications; H91.90 Unspecified hearing loss, unspecified ear; K21.9 Gastro-esophageal reflux disease without esophagitis; K59.00 Constipation, unspecified; L89.302 Pressure ulcer of unspecified buttock, stage 2; Z79.4 Long term (current) use of insulin; Z79.899 Other long term (current) drug therapy; Z88.6 Allergy status to analgesic agent; Z88.4 Allergy status to anesthetic agent; Z88.1 Allergy status to other antibiotic agents; Z88.5 Allergy status to narcotic agent; Z88.2 Allergy status to sulfonamides; Z88.8 Allergy status to other drugs, medicaments and biological substances; Z82.49 Family history of ischemic heart disease and other diseases of the circulatory system; K57.30 Diverticulosis of large intestine without perforation or abscess without bleeding; Z87.448 Personal history of other diseases of urinary system
CPT/HCPCS: 36415; 74018; 74176; 80048; 80053; 85025; 87324; 99285

== ENCOUNTER 2019-05-19 14:25 | Emergency (ER) | payer MEDICARE, BC ==
[2019-05-19 14:31] VITALS: TEMP 98
[2019-05-19] MEDS ORDERED: SODIUM CHLORIDE 0.9% 500 ML 500 ML IV STA (15:06)
[2019-05-19 15:45] LABS: Basophils % (A) 1 %; Eosinophils # (A) 0.2 k/uL (0-0.7); Eosinophils % (A) 3 %; HCT 40.6 % (34.0-46.0); HGB 13.1 gm/dL (11.4-16.0); Lymphocytes # (A) 1.6 k/uL (1.0-4.8); Lymphocytes % (A) 27 %; MCH 30.9 pg (25.0-35.0); MCHC 32.3 g/dL (31.0-37.0); MCV 95.7 fL (80.0-100.0); Mean Platelet Volume 8.2; Monocytes # (A) 0.4 k/uL (0-1.0); Monocytes % (A) 7 %; Neutrophils # (A) 3.5 k/uL (1.3-7.7); Neutrophils % (A) 61 %; Platelet Count 181 k/uL (150-450); RBC 4.24 m/uL (3.80-5.40); RDW 12.4 % (11.5-15.5); WBC 5.8 k/uL (3.8-10.6)
[2019-05-19 15:46] LABS: Appearance,Urine Clear (Clear); Bilirubin,Urine Negative (Negative); Blood,Urine Negative (Negative); Color,Urine Colorless; Glucose,Urine (UA) Trace (Negative); Ketones,Urine Negative (Negative); Leukocyte Esterase,Urine Negative (Negative); Nitrite,Urine Negative (Negative); PH, Urine 5.5 (5.0-8.0); Protein,Urine Negative (Negative); Specific Gravity,Urine 1.006 (1.001-1.035); Urobilinogen,Urine <2.0 mg/dL (<2.0)
--- NOTE | 2019-05-19 15:51 | ED ---
Abdominal Pain HPI - General Chief Complaint: Abdominal Pain Stated Complaint: abd pain Time Seen by Provider: 05/19/19 14:46 Source: patient Mode of arrival: ambulatory Limitations: no limitations - History of Present Illness Initial Comments: Patient is an 84-year-old female presenting to emergency Department with complaints of lower abdominal pain that started last night. Patient states she has a history of diverticulitis with an abscess. Patient states she has been having increase in abdominal pain for the past month that worsens after she eat s. The pain typically lasts for proximally an hour and then dissipates. Patient states she started having this pain yesterday but the pain was much more severe than normal. Patient states it lasted approximately 2 hours along with intense nausea and then seemed to decrease. Patient did call her doctor today and she went in for an examination. Dr. Noe determined that she should go to the ER for further evaluation. Patient states her pain is minimal at this time, she has no nausea. She admits to history of cholecystectomy, no other abdominal surgeries. She denies chest pain, shortness of breath. She denies recent fevers or chills. She denies recent travel. She denies any urinary complaints. She has no other complaints at this time. Upon arrival to the ER, her vital signs are stable. - Related Data Home Medications Medication Instructions Recorded Confirmed Insulin Detemir (Levemir) [Levemir] 13 unit SQ DAILY 11/09/14 11/13/18 Acetaminophen Tab [Tylenol] 1,000 mg PO HS 09/26/16 11/13/18 LORazepam [Ativan] 1 mg PO HS PRN 09/26/16 11/13/18 Acetaminophen-Codeine 300-30mg 0.5 - 1 tab PO Q6H PRN 11/13/18 11/13/18 [Tylenol w/codeine #3] Ranitidine HCl [Zantac] 150 mg PO DAILY PRN 11/13/18 11/13/18 Previous Rx's Medication Instructions Recorded Amoxicillin/Potassium Clav 1 tab PO Q12HR #14 tab 11/16/18 [Augmentin 875-125 Tablet] Allergies Allergy/AdvReac Type Severity Reaction Status Date / Time albuterol Allergy Unknown Verified 11/13/18 08:24 aspirin [From Percodan] Allergy Unknown Verified 11/13/18 08:24 atorvastatin calcium Allergy Unknown Verified 11/13/18 08:24 [From Lipitor] azithromycin Allergy Unknown Verified 11/13/18 08:24 benzonatate Allergy Unknown Verified 11/13/18 08:24 [From Tessalon Perles] carrageenan Allergy Unknown Verified 11/17/18 07:20 diazepam [From Valium] Allergy Unknown Verified 11/13/18 08:24 diphenhydramine HCl Allergy Unknown Verified 11/13/18 08:24 [From Benadryl] epinephrine Allergy Unknown Verified 11/13/18 08:24 escitalopram oxalate Allergy Unknown Verified 11/13/18 08:24 [From Lexapro] hydrochlorothiazide Allergy Unknown Verified 11/13/18 08:24 [From HydroDiuril] hydrocodone bitartrate Allergy Unknown Verified 11/13/18 08:24 [From Vicodin] lidocaine Allergy Unknown Verified 11/13/18 08:24 lidocaine HCl Allergy Unknown Verified 11/13/18 08:24 [From Xylocaine] losartan potassium Allergy Unknown Verified 11/13/18 08:24 [From Cozaar] metformin HCl Allergy Unknown Verified 11/13/18 08:24 [From Glucophage] morphine Allergy Unknown Verified 11/13/18 08:24 nylon Allergy Unknown Verified 11/13/18 08:24 oxycodone HCl [From Percodan] Allergy Unknown Verified 11/13/18 08:24 oxycodone terephthalate Allergy Unknown Verified 11/13/18 08:24 [From Percodan] paroxetine HCl [From Paxil] Allergy Unknown Verified 11/13/18 08:24 promethazine HCl Allergy Unknown Verified 11/13/18 08:24 [From Phenergan] propranolol HCl Allergy Unknown Verified 11/13/18 08:24 [From Inderal LA] rofecoxib [From Vioxx] Allergy Unknown Verified 11/13/18 08:24 sulfamethoxazole Allergy Unknown Verified 11/13/18 08:24 [From Bactrim] sulfite Allergy Unknown Verified 11/13/18 08:24 trimethoprim [From Bactrim] Allergy Unknown Verified 11/13/18 08:24 zolpidem tartrate Allergy Unknown Verified 11/13/18 08:24 [From Ambien] artificial color Allergy Unknown Uncoded 08/30/18 12:23 chemicals Allergy Unknown Uncoded 08/30/18 12:23 novacaine Allergy Unknown Uncoded 08/30/18 12:23 nylon stictches Allergy Unknown Uncoded 08/30/18 12:23 odor Allergy Unknown Uncoded 08/30/18 12:23 smoke Allergy Unknown Uncoded 08/30/18 12:23 tumeric Allergy Unknown Uncoded 11/17/18 07:20 Review of Systems ROS Statement: Those systems with pertinent positive or pertinent negative responses have been documented in the HPI. ROS Other: All systems not noted in ROS Statement are negative. Past Medical History Past Medical History: Diabetes Mellitus, GERD/Reflux Additional Past Medical History / Comment(s): severe allergies, diverticulitis History of Any Multi-Drug Resistant Organisms: None Reported Past Surgical History: Bladder Surgery Additional Past Surgical History / Comment(s): cauterization of part of bladder, has urethral dilations every 6 weeks Additional Past Anesthesia/Blood Transfusion Reaction / Comment(s): pt states she "coded" with anesthesia in past, but unable to give specifics Past Psychological History: No Psychological Hx Reported Smoking Status: Never smoker Past Alcohol Use History: None Reported Past Drug Use History: None Reported - Past Family History Father History Unknown: Yes Mother Additional Family Medical History / Comment(s): states mother had heart issues General Exam - General Exam Comments Initial Comments: GENERAL: Well-appearing, well-nourished and in no acute distress. HEAD: Atraumatic, normocephalic. EYES: Pupils equal round and reactive to light, extraocular movements intact, sclera anicteric, conjunctiva are normal. ENT: TMs normal, nares patent, oropharynx clear without exudates. Moist mucous membranes. NECK: Normal range of motion, supple without lymphadenopathy or JVD. LUNGS: Breath sounds clear to auscultation bilaterally and equal. No wheezes rales or rhonchi. HEART: Regular rate and rhythm without murmurs, rubs or gallops. ABDOMEN: Mild tenderness left lower quadrant, suprapubic. Soft, normoactive bowel sounds. No guarding, no rebound. No masses appreciated. : Deferred EXTREMITIES: Normal range of motion, no pitting or edema. No clubbing or cyanosis. NEUROLOGICAL: Normal speech, normal gait. PSYCH: Normal mood, normal affect. SKIN: Warm, Dry, normal turgor, no rashes or lesions noted. Limitations: no limitations Course Vital Signs 03/01/2705/19/19 05/19/19 14:28 14:31 15:31 Temperature 98.0 F Pulse Rate 68 78 Respiratory 16 20 20 Rate Blood Pressure 180/68 O2 Sat by Pulse 98 Oximetry 05/19/19 05/19/19 16:31 17:36 Temperature Pulse Rate 72 Respiratory 20 20 Rate Blood Pressure 149/76 O2 Sat by Pulse 98 Oximetry Medical Decision Making - Medical Decision Making Patient is an 84-year-old female presenting for left lower quadrant abdominal pain that has been intermittent for one month however much worse yesterday. Po sitive nausea. Patient was sent from Dr. Noe's office. She has a history of diverticulitis with abscess. Lab work today shows no acute abnormalities. Glucose elevated 245. Peptic acid is normal. Lipase is 41. Urine shows no signs of infection. CT of the abdomen shows extensive diverticulosis, no acute diverticulitis. Correlate for colitis. Patient was given fluids as well as 1 g of Rocephin. She remains asymptomatic. I discussed with patient that this is not appear to be acute diverticulitis. I discussed with patient that she is stable for discharge. She'll follow up with her PCP. Patient is agreement with this plan of care. She is stable for discharge at this time. Return parameters were discussed with the patient she verbalized understanding. Case discussed with Dr. Delaney. - Lab Data Result diagrams: 05/19/19 15:25 05/19/19 15:25 Lab Results 05/19/19 05/19/19 05/19/19 Range/Units 15:25 15:25 15:25 WBC 5.8 (3.8-10.6) k/uL RBC 4.24 (3.80-5.40) m/uL Hgb 13.1 (11.4-16.0) gm/dL Hct 40.6 (34.0-46.0) % MCV 95.7 (80.0-100.0) fL MCH 30.9 (25.0-35.0) pg MCHC 32.3 (31.0-37.0) g/dL RDW 12.4 (11.5-15.5) % Plt Count 181 (150-450) k/uL Neutrophils % 61 % Lymphocytes % 27 % Monocytes % 7 % Eosinophils % 3 % Basophils % 1 % Neutrophils # 3.5 (1.3-7.7) k/uL Lymphocytes # 1.6 (1.0-4.8) k/uL Monocytes # 0.4 (0-1.0) k/uL Eosinophils # 0.2 (0-0.7) k/uL Basophils # 0.0 (0-0.2) k/uL PT 9.9 (9.0-12.0) sec INR 1.0 (<1.2) APTT 22.7 (22.0-30.0) sec Sodium 137 (137-145) mmol/L Potassium 4.1 (3.5-5.1) mmol/L Chloride 104 (98-107) mmol/L Carbon Dioxide 25 (22-30) mmol/L Anion Gap 8 mmol/L BUN 11 (7-17) mg/dL Creatinine 0.58 (0.52-1.04) mg/dL Est GFR (CKD-EPI)AfAm >90 (>60 ml/min/1.73 sqM) Est GFR (CKD-EPI)NonAf 84 (>60 ml/min/1.73 sqM) Glucose 245 H (74-99) mg/dL Plasma Lactic Acid Gregg (0.7-2.0) mmol/L Calcium 9.0 (8.4-10.2) mg/dL Total Bilirubin 0.1 L (0.2-1.3) mg/dL AST 19 (14-36) U/L ALT 11 (4-34) U/L Alkaline Phosphatase 130 H (38-126) U/L Total Protein 6.7 (6.3-8.2) g/dL Albumin 3.9 (3.5-5.0) g/dL Lipase 41 (23-300) U/L Urine Color Urine Appearance (Clear) Urine pH (5.0-8.0) Ur Specific Custer (1.001-1.035) Urine Protein (Negative) Urine Glucose (UA) (Negative) Urine Ketones (Negative) Urine Blood (Negative) Urine Nitrite (Negative) Urine Bilirubin (Negative) Urine Urobilinogen (<2.0) mg/dL Ur Leukocyte Esterase (Negative) 05/19/19 05/19/19 Range/Units 15:25 15:25 WBC (3.8-10.6) k/uL RBC (3.80-5.40) m/uL Hgb (11.4-16.0) gm/dL Hct (34.0-46.0) % MCV (80.0-100.0) fL MCH (25.0-35.0) pg MCHC (31.0-37.0) g/dL RDW (11.5-15.5) % Plt Count (150-450) k/uL Neutrophils % % Lymphocytes % % Monocytes % % Eosinophils % % Basophils % % Neutrophils # (1.3-7.7) k/uL Lymphocytes # (1.0-4.8) k/uL Monocytes # (0-1.0) k/uL Eosinophils # (0-0.7) k/uL Basophils # (0-0.2) k/uL PT (9.0-12.0) sec INR (<1.2) APTT (22.0-30.0) sec Sodium (137-145) mmol/L Potassium (3.5-5.1) mmol/L Chloride (98-107) mmol/L Carbon Dioxide (22-30) mmol/L Anion Gap mmol/L BUN (7-17) mg/dL Creatinine (0.52-1.04) mg/dL Est GFR (CKD-EPI)AfAm (>60 ml/min/1.73 sqM) Est GFR (CKD-EPI)NonAf (>60 ml/min/1.73 sqM) Glucose (74-99) mg/dL Plasma Lactic Acid Gregg 1.8 (0.7-2.0) mmol/L Calcium (8.4-10.2) mg/dL Total Bilirubin (0.2-1.3) mg/dL AST (14-36) U/L ALT (4-34) U/L Alkaline Phosphatase (38-126) U/L Total Protein (6.3-8.2) g/dL Albumin (3.5-5.0) g/dL Lipase (23-300) U/L Urine Color Colorless Urine Appearance Clear (Clear) Urine pH 5.5 (5.0-8.0) Ur Specific Custer 1.006 (1.001-1.035) Urine Protein Negative (Negative) Urine Glucose (UA) Trace H (Negative) Urine Ketones Negative (Negative) Urine Blood Negative (Negative) Urine Nitrite Negative (Negative) Urine Bilirubin Negative (Negative) Urine Urobilinogen <2.0 (<2.0) mg/dL Ur Leukocyte Esterase Negative (Negative) Disposition Clinical Impression: Abdominal pain, Colitis Disposition: HOME SELF-CARE Condition: Stable Instructions (If sedation given, give patient instructions): Abdominal Pain (ED) Additional Instructions: Please return to the Emergency Department if symptoms worsen or any other concerns. Follow-up with PCP as discussed. Increase water intake. Is patient prescribed a controlled substance at d/c from ED?: No Referrals: Mik Noe III, MD [Primary Care Provider] - 1-2 days
[2019-05-19 15:59] LABS: Partial Thromboplastin Time 22.7 sec (22.0-30.0); Prothrombin Time 9.9 sec (9.0-12.0)
[2019-05-19 16:10] LABS: ALT 11 U/L (4-34); AST 19 U/L (14-36); African American GFR (CKD) >90 (>60 ml/min/1.73 sqM); Albumin 3.9 g/dL (3.5-5.0); Alkaline Phosphatase 130 U/L (38-126); Anion Gap 8 mmol/L; Blood Urea Nitrogen 11 mg/dL (7-17); Carbon Dioxide 25 mmol/L (22-30); Chloride 104 mmol/L (98-107); Glucose 245 mg/dL (74-99); Non-African American GFR(CKD) 84 (>60 ml/min/1.73 sqM); Potassium 4.1 mmol/L (3.5-5.1); Sodium 137 mmol/L (137-145); Total Bilirubin 0.1 mg/dL (0.2-1.3); Total Protein 6.7 g/dL (6.3-8.2)
--- NOTE | 2019-05-19 17:01 | CT ---
EXAMINATION TYPE: CT abdomen pelvis w con DATE OF EXAM: 05/19/2019 COMPARISON: Prior CT 11/13/2018 HISTORY: Left sided pain. CT DLP: 845.9 mGycm Automated exposure control for dose reduction was used. TECHNIQUE: Helical acquisition of images from the lung bases through the pelvis have been completed. CONTRAST: Performed without Oral Contrast and with IV Contrast, patient injected with 100 mL of Isovue 300. FINDINGS: Increased attenuation is present in the subcutaneous fat superficial to the lower back darrion on which could be related to ecchymosis or edema LUNG BASES: No significant abnormality is appreciated. AORTA: No significant abnormality is appreciated. LIVER/GB: No significant interval change is appreciated. PANCREAS: No significant abnormality is seen. SPLEEN: No significant abnormality is seen. ADRENALS: No significant abnormality is seen. KIDNEYS: No significant abnormality is seen. REPRODUCTIVE ORGANS: No significant abnormality is seen BOWEL: No significant interval change is seen, there is colonic diverticulosis, redundant colon, col onic wall thickening in the sigmoid is nonspecific, difficult to exclude a mucosal lesion. There is a likely a duodenal diverticulum present FREE AIR: No Free Air visible. ASCITES: None visible. PELVIC ADENOPATHY: None visualized. RETROPERITONEAL ADENOPATHY: No Retroperitoneal Adenopathy visible. URINARY BLADDER: No significant abnormality is seen. OSSEOUS STRUCTURES: No significant interval change is seen, anterolisthesis grade 1 L4-5, there are degenerative disc changes and facet arthropathy. IMPRESSION: FINDINGS ARE SIMILAR TO PRIOR EXAM. EXTENSIVE DIVERTICULOSIS, COLONIC WALL THICKENING IS NONSPECIFIC. CORRELATE TO EXCLUDE COLITIS. SEE DICTATED REPORT CT 11/13/2018.
[2019-05-19] MEDS ORDERED: cefTRIAXone IN SWFI 1,000 MG/10 ML SYRINGE IVP STA (17:21)
[2019-05-19 17:28] VITALS: RESP 20
[2019-05-19 17:32] VITALS: BP 149/76; PULSE 72
== END 2019-05-19 17:37 | disposition home or self-care (01) ==
LOC: EC 14:25
DX: K52.9 Noninfective gastroenteritis and colitis, unspecified (principal); K57.30 Diverticulosis of large intestine without perforation or abscess without bleeding; E11.9 Type 2 diabetes mellitus without complications; K21.9 Gastro-esophageal reflux disease without esophagitis; Z88.2 Allergy status to sulfonamides; Z88.4 Allergy status to anesthetic agent; Z88.5 Allergy status to narcotic agent; Z88.6 Allergy status to analgesic agent; Z88.8 Allergy status to other drugs, medicaments and biological substances; Z91.02 Food additives allergy status; Z91.048 Other nonmedicinal substance allergy status; Z79.4 Long term (current) use of insulin; Z79.891 Long term (current) use of opiate analgesic; Z79.899 Other long term (current) drug therapy; Z87.19 Personal history of other diseases of the digestive system; Z90.49 Acquired absence of other specified parts of digestive tract
CPT/HCPCS: 36415; 80053; 83605; 83690; 85025; 85610; 85730; 81003; 74177; 99284; 96374; J0696; Q9967

== ENCOUNTER 2019-07-10 17:07 | Inpatient (IN) | payer MEDICARE, BC ==
[2019-07-10] MEDS ORDERED: SODIUM CHLORIDE 0.9% 500 ML 500 ML IV STA (17:59)
[2019-07-10] MEDS ORDERED: MORPHINE SULFATE 4 MG/ML SYRINGE IV STA (17:59)
[2019-07-10] MEDS ORDERED: ONDANSETRON 4 MG/2 ML VIAL IVP STA (17:59)
--- NOTE | 2019-07-10 18:21 | XR ---
EXAMINATION TYPE: XR KUB DATE OF EXAM: 07/10/2019 COMPARISON: 11/13/2018 HISTORY: Abdominal pain TECHNIQUE: 2 views upright FINDINGS: There is no sign of intestinal obstruction or pneumoperitoneum. Fecal pattern is normal. Zahira ng bases are clear. There is no evidence of a mass. There are no pathologic calcifications over the k idneys. IMPRESSION: Nonacute abdomen. No change.
[2019-07-10 18:23] LABS: Basophils % (A) 1 %; Eosinophils # (A) 0.2 k/uL (0-0.7); Eosinophils % (A) 3 %; HCT 41.8 % (34.0-46.0); HGB 13.5 gm/dL (11.4-16.0); Lymphocytes # (A) 1.3 k/uL (1.0-4.8); Lymphocytes % (A) 20 %; MCH 31.7 pg (25.0-35.0); MCHC 32.4 g/dL (31.0-37.0); MCV 97.7 fL (80.0-100.0); Mean Platelet Volume 8.5; Monocytes # (A) 0.5 k/uL (0-1.0); Monocytes % (A) 7 %; Neutrophils # (A) 4.5 k/uL (1.3-7.7); Neutrophils % (A) 69 %; Platelet Count 190 k/uL (150-450); RBC 4.27 m/uL (3.80-5.40); RDW 12.3 % (11.5-15.5); WBC 6.6 k/uL (3.8-10.6)
[2019-07-10] MEDS ORDERED: Acetaminophen-Codeine 300-30mg TAB PO STA (18:24)
[2019-07-10 18:33] LABS: Albumin 4.1 g/dL (3.5-5.0); Potassium 4.3 mmol/L (3.5-5.1); Total Bilirubin 0.2 mg/dL (0.2-1.3)
--- NOTE | 2019-07-10 18:52 | ED ---
General Adult HPI - General Chief complaint: Abdominal Pain Stated complaint: Abd pain Time Seen by Provider: 07/10/19 17:17 Source: patient, RN notes reviewed, old records reviewed Mode of arrival: ambulatory Limitations: no limitations - History of Present Illness Initial comments: 84-year-old female patient past history significant for diabetes, diverticulitis presents to ED complaining of abdominal pain has been ongoing for 4 days, patient has been on Flagyl and ciprofloxacin by primary care provider without improvement of symptoms. Force of the pain in her lower quadrants. Denies any dysuria. Reports nausea without emesis. Denies any other complaints. Denies chest pain or shortness of breath. Systemic: Pt denies fatigue, fever/chills, rash. Pt denies weakness, night sweats, weight loss. Neuro: Pt denies headache, visual disturbances, syncope or pre-syncope. HEENT: Pt denies ocular discharge or irritation, otalgia, rhinorrhea, pharyn gitis or notable lymphadenopathy. Cardiopulmonary: Pt denies chest pain, SOB, heart palpitations, dyspnea on exertion. Abdominal/GI: Pt denies v/d. : Pt denies dysuria, burning w/ urination, frequency/urgency. Denies new onset urinary or bowel incontinence. MSK: Pt denies myalgia, loss of strength or function in extremities. Neuro: Pt denies new onset weakness, paresthesias. - Related Data Home Medications Medication Instructions Recorded Confirmed Insulin Detemir (Levemir) [Levemir] 13 unit SQ DAILY 11/09/14 11/13/18 Acetaminophen Tab [Tylenol] 1,000 mg PO HS 09/26/16 11/13/18 LORazepam [Ativan] 1 mg PO HS PRN 09/26/16 11/13/18 Acetaminophen-Codeine 300-30mg 0.5 - 1 tab PO Q6H PRN 11/13/18 11/13/18 [Tylenol w/codeine #3] Ranitidine HCl [Zantac] 150 mg PO DAILY PRN 11/13/18 11/13/18 Previous Rx's Medication Instructions Recorded Amoxicillin/Potassium Clav 1 tab PO Q12HR #14 tab 11/16/18 [Augmentin 875-125 Tablet] Allergies Allergy/AdvReac Type Severity Reaction Status Date / Time albuterol Allergy Unknown Verified 11/13/18 08:24 aspirin [From Percodan] Allergy Unknown Verified 11/13/18 08:24 atorvastatin calcium Allergy Unknown Verified 11/13/18 08:24 [From Lipitor] azithromycin Allergy Unknown Verified 11/13/18 08:24 benzonatate Allergy Unknown Verified 11/13/18 08:24 [From Tessalon Perles] carrageenan Allergy Unknown Verified 11/17/18 07:20 diazepam [From Valium] Allergy Unknown Verified 11/13/18 08:24 diphenhydramine HCl Allergy Unknown Verified 11/13/18 08:24 [From Benadryl] epinephrine Allergy Unknown Verified 11/13/18 08:24 escitalopram oxalate Allergy Unknown Verified 11/13/18 08:24 [From Lexapro] hydrochlorothiazide Allergy Unknown Verified 11/13/18 08:24 [From HydroDiuril] hydrocodone bitartrate Allergy Unknown Verified 11/13/18 08:24 [From Vicodin] lidocaine Allergy Unknown Verified 11/13/18 08:24 lidocaine HCl Allergy Unknown Verified 11/13/18 08:24 [From Xylocaine] losartan potassium Allergy Unknown Verified 11/13/18 08:24 [From Cozaar] metformin HCl Allergy Unknown Verified 11/13/18 08:24 [From Glucophage] morphine Allergy Unknown Verified 11/13/18 08:24 nylon Allergy Unknown Verified 11/13/18 08:24 oxycodone HCl [From Percodan] Allergy Unknown Verified 11/13/18 08:24 oxycodone terephthalate Allergy Unknown Verified 11/13/18 08:24 [From Percodan] paroxetine HCl [From Paxil] Allergy Unknown Verified 11/13/18 08:24 promethazine HCl Allergy Unknown Verified 11/13/18 08:24 [From Phenergan] propranolol HCl Allergy Unknown Verified 11/13/18 08:24 [From Inderal LA] rofecoxib [From Vioxx] Allergy Unknown Verified 11/13/18 08:24 sulfamethoxazole Allergy Unknown Verified 11/13/18 08:24 [From Bactrim] sulfite Allergy Unknown Verified 11/13/18 08:24 trimethoprim [From Bactrim] Allergy Unknown Verified 11/13/18 08:24 zolpidem tartrate Allergy Unknown Verified 11/13/18 08:24 [From Ambien] artificial color Allergy Unknown Uncoded 08/30/18 12:23 chemicals Allergy Unknown Uncoded 08/30/18 12:23 novacaine Allergy Unknown Uncoded 08/30/18 12:23 nylon stictches Allergy Unknown Uncoded 08/30/18 12:23 odor Allergy Unknown Uncoded 08/30/18 12:23 smoke Allergy Unknown Uncoded 08/30/18 12:23 tumeric Allergy Unknown Uncoded 11/17/18 07:20 Review of Systems ROS Statement: Those systems with pertinent positive or pertinent negative responses have been documented in the HPI. ROS Other: All systems not noted in ROS Statement are negative. Past Medical History Past Medical History: Diabetes Mellitus, GERD/Reflux Additional Past Medical History / Comment(s): severe allergies, diverticulitis History of Any Multi-Drug Resistant Organisms: None Reported Past Surgical History: Bladder Surgery Additional Past Surgical History / Comment(s): cauterization of part of bladder, has urethral dilations every 6 weeks Additional Past Anesthesia/Blood Transfusion Reaction / Comment(s): pt states she "coded" with anesthesia in past, but unable to give specifics Past Psychological History: No Psychological Hx Reported Smoking Status: Never smoker Past Alcohol Use History: None Reported Past Drug Use History: None Reported - Past Family History Father History Unknown: Yes Mother Additional Family Medical History / Comment(s): states mother had heart issues General Exam - General Exam Comments Initial Comments: Constitutional: NAD, AOX3, Pt has pleasant affect. HEENT: NC/AT, trachea midline, neck supple, no lymphadenopathy. Posterior ph arynx non erythematous, without exudates. External ears appear normal, without discharge. Mucous membranes moist. Eyes PERRLA, EOM intact. There is no scleral icterus. No pallor noted. Cardiopulmonary: RRR, no murmurs, rubs or gallops, no JVD noted. Lungs CTAB in anterior and posterior myers. No peripheral edema. Abdominal exam: Abdomen soft and non-distended. Abdomen mildly tender to palpation right lower quadrant and left lower quadrant region.. Bowel sounds active in LLQ. No hepatosplenomegaly. No ecchymosis Neuro: CN II-XII grossly intact. No nuchal rigidity. No raccon eyes, no alcala s ign, no hemotympanum. No cervical spinal tenderness. MSK: No posterior calf tenderness bilaterally, homans sign negative bilaterally. Posterior tibialis and radial pulse +2 bilaterally. Sensation intact in upper and lower extremities. Full active ROM in upper and lower extremities, 5/5 stregnth. Limitations: no limitations Course Vital Signs 07/10/19 07/10/19 17:18 20:19 Temperature 98.2 F Pulse Rate 70 65 Respiratory 18 20 Rate Blood Pressure 152/111 160/79 O2 Sat by Pulse 98 97 Oximetry Medical Decision Making - Medical Decision Making 84-year-old female patient past history significant for diabetes, diverticulitis presents to ED complaining of abdominal pain has been ongoing for 4 days, patient has been on Flagyl and ciprofloxacin by primary care provider without improvement of symptoms. Force of the pain in her lower quadrants. Denies any dysuria. Reports nausea without emesis. Denies any other complaints. Denies chest pain or shortness of breath. Pt VS displayed mild hypertension. Physical exam displayed lower quadrant tenderness. Laboratory investigations revealed mild hyperglycemia. CT abdomen pelvis displayed wall thickening of the proximal and sigmoid colon with multiple diverticula suggestive of nonspecific colitis or diverticulitis. Mild free fluid posterior to the mid sigmoid colon. Diveticular abscess not entirely excluded. She received on Unasyn will be made nothing by mouth and admitted for surgical consultation. Case discussed with Dr. Aguirre. - Lab Data Result diagrams: 07/10/19 17:33 07/10/19 17:33 Lab Results 07/10/19 07/10/19 07/10/19 Range/Units 17:33 17:33 17:33 WBC 6.6 (3.8-10.6) k/uL RBC 4.27 (3.80-5.40) m/uL Hgb 13.5 (11.4-16.0) gm/dL Hct 41.8 (34.0-46.0) % MCV 97.7 (80.0-100.0) fL MCH 31.7 (25.0-35.0) pg MCHC 32.4 (31.0-37.0) g/dL RDW 12.3 (11.5-15.5) % Plt Count 190 (150-450) k/uL Neutrophils % 69 % Lymphocytes % 20 % Monocytes % 7 % Eosinophils % 3 % Basophils % 1 % Neutrophils # 4.5 (1.3-7.7) k/uL Lymphocytes # 1.3 (1.0-4.8) k/uL Monocytes # 0.5 (0-1.0) k/uL Eosinophils # 0.2 (0-0.7) k/uL Basophils # 0.0 (0-0.2) k/uL Sodium 135 L (137-145) mmol/L Potassium 4.3 (3.5-5.1) mmol/L Chloride 103 (98-107) mmol/L Carbon Dioxide 23 (22-30) mmol/L Anion Gap 9 mmol/L BUN 14 (7-17) mg/dL Creatinine 0.71 (0.52-1.04) mg/dL Est GFR (CKD-EPI)AfAm 90 (>60 ml/min/1.73 sqM) Est GFR (CKD-EPI)NonAf 78 (>60 ml/min/1.73 sqM) Glucose 229 H (74-99) mg/dL Plasma Lactic Acid Gregg 1.3 (0.7-2.0) mmol/L Calcium 9.0 (8.4-10.2) mg/dL Total Bilirubin 0.2 (0.2-1.3) mg/dL AST 25 (14-36) U/L ALT 13 (4-34) U/L Alkaline Phosphatase 130 H (38-126) U/L Troponin I (0.000-0.034) ng/mL Total Protein 7.0 (6.3-8.2) g/dL Albumin 4.1 (3.5-5.0) g/dL Lipase 42 (23-300) U/L Coronavirus (PCR) (Not Detectd) 07/10/19 07/10/19 Range/Units 17:33 17:33 WBC (3.8-10.6) k/uL RBC (3.80-5.40) m/uL Hgb (11.4-16.0) gm/dL Hct (34.0-46.0) % MCV (80.0-100.0) fL MCH (25.0-35.0) pg MCHC (31.0-37.0) g/dL RDW (11.5-15.5) % Plt Count (150-450) k/uL Neutrophils % % Lymphocytes % % Monocytes % % Eosinophils % % Basophils % % Neutrophils # (1.3-7.7) k/uL Lymphocytes # (1.0-4.8) k/uL Monocytes # (0-1.0) k/uL Eosinophils # (0-0.7) k/uL Basophils # (0-0.2) k/uL Sodium (137-145) mmol/L Potassium (3.5-5.1) mmol/L Chloride (98-107) mmol/L Carbon Dioxide (22-30) mmol/L Anion Gap mmol/L BUN (7-17) mg/dL Creatinine (0.52-1.04) mg/dL Est GFR (CKD-EPI)AfAm (>60 ml/min/1.73 sqM) Est GFR (CKD-EPI)NonAf (>60 ml/min/1.73 sqM) Glucose (74-99) mg/dL Plasma Lactic Acid Gregg (0.7-2.0) mmol/L Calcium (8.4-10.2) mg/dL Total Bilirubin (0.2-1.3) mg/dL AST (14-36) U/L ALT (4-34) U/L Alkaline Phosphatase (38-126) U/L Troponin I <0.012 (0.000-0.034) ng/mL Total Protein (6.3-8.2) g/dL Albumin (3.5-5.0) g/dL Lipase (23-300) U/L Coronavirus (PCR) Not Detected (Not Detectd) - EKG Data -: EKG Interpreted by Me (and Dr. Aguirre ) EKG Comments: Ventricular rate 65, WA interval 156, QRS 76, QT/QTc 4:30/447. Normal sinus rhythm, normal EKG, no concern for acute ischemia. Disposition Clinical Impression: Diverticulitis Disposition: ADMITTED IP TO THIS [facility] Condition: Serious Is patient prescribed a controlled substance at d/c from ED?: No
--- NOTE | 2019-07-10 19:26 | CT ---
EXAMINATION TYPE: CT abdomen pelvis w con DATE OF EXAM: 07/10/2019 COMPARISON: 05/19/2019 HISTORY: Left lower quadrant pain. CT DLP: 814 mGycm Automated exposure control for dose reduction was used. CONTRAST: Performed with IV Contrast, patient injected with 100 mL of Isovue 300. Lung bases are clear. There is no pleural effusion. There is small hiatal hernia. Heart size is yoana l. There is no pericardial effusion. Liver and spleen appear normal. Bile ducts are not dilated. There is no evidence of pancreatic mass. Gallbladder appears normal. The stomach has normal size. There is no adrenal mass. Kidneys show satisfactory contrast opacification. There is no hydronephrosi s. Ureters are not dilated. There are left-sided renal parapelvic cysts. There is 2 cm cortical cyst upper pole right kidney. There are other smaller renal cortical cysts. There is no retroperitoneal ad enopathy. Ureters are not dilated. Bladder distends smoothly. There is no inguinal hernia. There is s ome deformity of right superior and inferior pubic ramus related to old healed fracture. There is some wall thickening involving the MID sigmoid colon. There are multiple sigmoid diverticula . There is small amount of fluid in the pelvis on the left side posterior to the sigmoid colon. There is also mild wall thickening proximal sigmoid colon. There are fluid levels in the colon extending t o the descending colon. There is no evidence of free air. There is no ascites. There is a first-degree L4-5 spondylolisthesis . There is no lumbar compression fracture. Bony pelvis is otherwise intact. IMPRESSION: Wall thickening of the proximal and mid sigmoid colon with multiple diverticula suggestive of nonspec ific colitis or diverticulitis. Mild free fluid posterior to the mid sigmoid colon.. Diverticular abs cess not entirely excluded. There is retained fluid in the transverse colon and right colon that coul d relate to partial obstruction related to retained fecal material in the distal sigmoid colon and re ctum. Appearance of the sigmoid colon similar to old exam. Free fluid is a change compared to old alpa mackey
[2019-07-10] MEDS ORDERED: AMPICILLIN-SULBACTAM 3 GM in SODIUM CHLORIDE 0.9% 100 ML IVPB STA (19:36)
[2019-07-10] MEDS ORDERED: NALOXONE 0.4 MG/ML 1 ML VIAL IV PRN (19:54)
[2019-07-10] MEDS: Acetaminophen-Codeine 300-30mg TAB PO PRN (21:15)
[2019-07-10] MEDS: SODIUM CHLORIDE 0.9% 1,000 ML IV SCH (21:18)
[2019-07-10] MEDS ORDERED: HYDROmorphone 0.5 MG/0.5 ML SYRINGE IVP STA (21:38)
[2019-07-10] MEDS ORDERED: METOCLOPRAMIDE 5 MG/ML 2 ML VIAL IVP STA (21:41)
[2019-07-10 22:59] LABS: Glucose,Whole Blood 183 mg/dL (75-99)
[2019-07-10] MEDS: INSULIN ASPART (NovoLOG) 100 UNIT/ML VIAL SQ SCH (23:14)
[2019-07-11] MEDS: ONDANSETRON 4 MG/2 ML VIAL IVP PRN ×3 (02:45→16:58)
[2019-07-11] MEDS: AMPICILLIN-SULBACTAM 3 GM in SODIUM CHLORIDE 0.9% 100 ML IVPB SCH ×2 (03:25→09:23)
[2019-07-11 06:50] LABS: Glucose,Whole Blood 210 mg/dL (75-99)
[2019-07-11] MEDS: Acetaminophen-Codeine 300-30mg TAB PO PRN ×2 (09:23→16:52)
[2019-07-11] MEDS: INSULIN ASPART (NovoLOG) 100 UNIT/ML VIAL SQ SCH ×4 (09:26→19:57)
--- NOTE | 2019-07-11 11:07 | P.GSCN ---
History of Present Illness Consult date: 07/11/19 Reason for Consult: Diverticulitis History of present illness: 84-year-old female presents to the hospital with complaints of pain and nausea. Patient was started on oral antibiotics as an outpatient. Patient says her symptoms were not improving and she came to the hospital. Pain is mostly lower abdomen left greater than right. No vomiting. Appetite diminished. No fevers. Patient underwent CAT scan showing significant stool burden throughout the colon including the rectal vault. Some mild thickening of the bowel wall in the sigmoid colon noted with numerous diverticulum. Possible mild colitis versus diverticulitis. Patient doing better today. She had multiple stools overnight. Denies pain currently. Complaining of a headache. White blood cell count normal. Review of Systems The patient denies any acute changes in vision or hearing, no dysphagia or odynophagia, no chest pain or shortness of breath, no dysuria or hematuria, no headache, no runny nose, no rectal bleeding or melena, no unexplained weight loss Past Medical History Past Medical History: Diabetes Mellitus, GERD/Reflux Additional Past Medical History / Comment(s): severe allergies, diverticulitis History of Any Multi-Drug Resistant Organisms: None Reported Past Surgical History: Bladder Surgery Additional Past Surgical History / Comment(s): cauterization of part of bladder, has urethral dilations every 6 weeks Additional Past Anesthesia/Blood Transfusion Reaction / Comm: pt states she "coded" with anesthesia in past, but unable to give specifics Past Psychological History: No Psychological Hx Reported Smoking Status: Never smoker Past Alcohol Use History: None Reported Past Drug Use History: None Reported - Past Family History Father History Unknown: Yes Mother Additional Family Medical History / Comment(s): states mother had heart issues Medications and Allergies Home Medications Medication Instructions Recorded Confirmed Type Insulin Detemir (Levemir) [Levemir] 15 unit SQ DAILY 11/09/14 07/10/19 History Acetaminophen Tab [Tylenol] 1,000 mg PO HS PRN 09/26/16 07/10/19 History LORazepam [Ativan] 1 mg PO HS PRN 09/26/16 07/10/19 History Acetaminophen-Codeine 300-30mg 1 tab PO DAILY PRN 11/13/18 07/10/19 History [Tylenol w/codeine #3] Ciprofloxacin HCl 500 mg PO Q12HR 07/10/19 07/10/19 History Dicyclomine HCl 20 mg PO ACHS 07/10/19 07/10/19 History Polyethylene Glycol 3350 [Miralax] 17 gm PO DAILY 07/10/19 07/10/19 History metroNIDAZOLE [Flagyl] 500 mg PO TID 07/10/19 07/10/19 History Allergies Allergy/AdvReac Type Severity Reaction Status Date / Time albuterol Allergy Unknown Verified 07/10/19 21:42 aspirin [From Percodan] Allergy Unknown Verified 07/10/19 21:42 atorvastatin calcium Allergy Unknown Verified 07/10/19 21:42 [From Lipitor] azithromycin Allergy Unknown Verified 07/10/19 21:42 benzonatate Allergy Unknown Verified 07/10/19 21:42 [From Tessalon Perles] carrageenan Allergy Unknown Verified 07/10/19 21:42 diazepam [From Valium] Allergy Unknown Verified 07/10/19 21:42 diphenhydramine HCl Allergy Unknown Verified 07/10/19 21:42 [From Benadryl] epinephrine Allergy Unknown Verified 07/10/19 21:42 escitalopram oxalate Allergy Unknown Verified 07/10/19 21:42 [From Lexapro] hydrochlorothiazide Allergy Unknown Verified 07/10/19 21:42 [From HydroDiuril] hydrocodone bitartrate Allergy Unknown Verified 07/10/19 21:42 [From Vicodin] lidocaine Allergy Unknown Verified 07/10/19 21:42 lidocaine HCl Allergy Unknown Verified 07/10/19 21:42 [From Xylocaine] losartan potassium Allergy Unknown Verified 07/10/19 21:42 [From Cozaar] metformin HCl Allergy Unknown Verified 07/10/19 21:42 [From Glucophage] morphine Allergy Unknown Verified 07/10/19 21:42 nylon Allergy Unknown Verified 07/10/19 21:42 oxycodone HCl [From Percodan] Allergy Unknown Verified 07/10/19 21:42 oxycodone terephthalate Allergy Unknown Verified 07/10/19 21:42 [From Percodan] paroxetine HCl [From Paxil] Allergy Unknown Verified 07/10/19 21:42 promethazine HCl Allergy Unknown Verified 07/10/19 21:42 [From Phenergan] propranolol HCl Allergy Unknown Verified 07/10/19 21:42 [From Inderal LA] rofecoxib [From Vioxx] Allergy Unknown Verified 07/10/19 21:42 sulfamethoxazole Allergy Unknown Verified 07/10/19 21:42 [From Bactrim] sulfite Allergy Unknown Verified 07/10/19 21:42 trimethoprim [From Bactrim] Allergy Unknown Verified 07/10/19 21:42 zolpidem tartrate Allergy Unknown Verified 07/10/19 21:42 [From Ambien] artificial color Allergy Unknown Uncoded 08/30/18 12:23 chemicals Allergy Unknown Uncoded 08/30/18 12:23 novacaine Allergy Unknown Uncoded 08/30/18 12:23 nylon stictches Allergy Unknown Uncoded 08/30/18 12:23 odor Allergy Unknown Uncoded 08/30/18 12:23 smoke Allergy Unknown Uncoded 08/30/18 12:23 tumeric Allergy Unknown Uncoded 11/17/18 07:20 Surgical - Exam Vital Signs Temp Pulse Resp BP Pulse Ox 98.2 F 70 18 152/111 98 07/10/19 17:18 07/10/19 17:18 07/10/19 17:18 07/10/19 17:18 07/10/19 17:18 Physical exam: General: Well-developed, well-nourished HEENT: Normocephalic, sclerae nonicteric Abdomen: Minimal lower quadrant tenderness bilateral, nondistended Extremities: No edema Neuro: Alert and oriented Results - Labs 07/10/19 17:33 07/10/19 17:33 Abnormal Lab Results - Last 24 Hours (Table) 07/10/19 07/10/19 07/11/19 Range/Units 17:33 22:54 06:49 Sodium 135 L (137-145) mmol/L Glucose 229 H (74-99) mg/dL POC Glucose (mg/dL) 183 H 210 H (75-99) mg/dL Alkaline Phosphatase 130 H (38-126) U/L Diabetes panel 07/10/19 Range/Units 17:33 Sodium 135 L (137-145) mmol/L Potassium 4.3 (3.5-5.1) mmol/L Chloride 103 (98-107) mmol/L Carbon Dioxide 23 (22-30) mmol/L BUN 14 (7-17) mg/dL Creatinine 0.71 (0.52-1.04) mg/dL Glucose 229 H (74-99) mg/dL Calcium 9.0 (8.4-10.2) mg/dL AST 25 (14-36) U/L ALT 13 (4-34) U/L Alkaline Phosphatase 130 H (38-126) U/L Total Protein 7.0 (6.3-8.2) g/dL Albumin 4.1 (3.5-5.0) g/dL Calcium panel 07/10/19 Range/Units 17:33 Calcium 9.0 (8.4-10.2) mg/dL Albumin 4.1 (3.5-5.0) g/dL Pituitary panel 07/10/19 Range/Units 17:33 Sodium 135 L (137-145) mmol/L Potassium 4.3 (3.5-5.1) mmol/L Chloride 103 (98-107) mmol/L Carbon Dioxide 23 (22-30) mmol/L BUN 14 (7-17) mg/dL Creatinine 0.71 (0.52-1.04) mg/dL Glucose 229 H (74-99) mg/dL Calcium 9.0 (8.4-10.2) mg/dL Adrenal panel 07/10/19 Range/Units 17:33 Sodium 135 L (137-145) mmol/L Potassium 4.3 (3.5-5.1) mmol/L Chloride 103 (98-107) mmol/L Carbon Dioxide 23 (22-30) mmol/L BUN 14 (7-17) mg/dL Creatinine 0.71 (0.52-1.04) mg/dL Glucose 229 H (74-99) mg/dL Calcium 9.0 (8.4-10.2) mg/dL Total Bilirubin 0.2 (0.2-1.3) mg/dL AST 25 (14-36) U/L ALT 13 (4-34) U/L Alkaline Phosphatase 130 H (38-126) U/L Total Protein 7.0 (6.3-8.2) g/dL Albumin 4.1 (3.5-5.0) g/dL Assessment and Plan (1) Diverticulitis Narrative/Plan: 84-year-old female with abdominal pain and CAT scan findings as described. Continue antibiotics. Gradually advance diet. Current Visit: Yes Status: Acute Code(s): K57.92 - DVTRCLI OF INTEST, PART UNSP, W/O PERF OR ABSCESS W/O BLEED SNOMED Code(s): 174768439
[2019-07-11 12:02] LABS: Glucose,Whole Blood 145 mg/dL (75-99)
--- NOTE | 2019-07-11 13:51 | P.HPIM ---
History of Present Illness 54-year-old female patient came in with compensative for her diarrhea. Patient is being treated as an outpatient for Sigmoid diverticulitis with the Cipro and metronidazole. Low had pain improved patient started having diarrhea because of which patient came. Patient CAT scan of the abdomen was obtained which showed significant stool along with the diuretic colitis. Patient was started on Unasyn. We because of nauseousness and was switched to Zosyn. Patient denied any fever chills patient is bit nauseous because of Unasyn as mentioned above denied any vomiting. Patient abdominal pain resolved. Patient has normal white blood cell count. Review of Systems REVIEW OF SYSTEMS: CONSTITUTIONAL: No fever, no malaise, no fatigue. HEENT: No recent visual problems or hearing problems. Denied any sore throat. CARDIOVASCULAR: No chest pain, orthopnea, PND, no palpitations, no syncope. PULMONARY: No shortness of breath, no cough, no hemoptysis. GASTROINTESTINAL: As mentioned in HPI NEUROLOGICAL: No headaches, no weakness, no numbness. HEMATOLOGICAL: Denies any bleeding or petechiae. GENITOURINARY: Denies any burning micturition, frequency, or urgency. MUSCULOSKELETAL/RHEUMATOLOGICAL: Denies any joint pain, swelling, or any muscle pain. ENDOCRINE: Denies any polyuria or polydipsia. The rest of the 14-point review of systems is negative. Past Medical History Past Medical History: Diabetes Mellitus, GERD/Reflux Additional Past Medical History / Comment(s): severe allergies, diverticulitis History of Any Multi-Drug Resistant Organisms: None Reported Past Surgical History: Bladder Surgery Additional Past Surgical History / Comment(s): cauterization of part of bladder, has urethral dilations every 6 weeks Additional Past Anesthesia/Blood Transfusion Reaction / Comment(s): pt states she "coded" with anesthesia in past, but unable to give specifics Past Psychological History: No Psychological Hx Reported Smoking Status: Never smoker Past Alcohol Use History: None Reported Past Drug Use History: None Reported - Past Family History Father History Unknown: Yes Mother Additional Family Medical History / Comment(s): states mother had heart issues Medications and Allergies Home Medications Medication Instructions Recorded Confirmed Type Insulin Detemir (Levemir) [Levemir] 15 unit SQ DAILY 11/09/14 07/10/19 History Acetaminophen Tab [Tylenol] 1,000 mg PO HS PRN 09/26/16 07/10/19 History LORazepam [Ativan] 1 mg PO HS PRN 09/26/16 07/10/19 History Acetaminophen-Codeine 300-30mg 1 tab PO DAILY PRN 11/13/18 07/10/19 History [Tylenol w/codeine #3] Ciprofloxacin HCl 500 mg PO Q12HR 07/10/19 07/10/19 History Dicyclomine HCl 20 mg PO ACHS 07/10/19 07/10/19 History Polyethylene Glycol 3350 [Miralax] 17 gm PO DAILY 07/10/19 07/10/19 History metroNIDAZOLE [Flagyl] 500 mg PO TID 07/10/19 07/10/19 History Allergies Allergy/AdvReac Type Severity Reaction Status Date / Time albuterol Allergy Unknown Verified 07/10/19 21:42 aspirin [From Percodan] Allergy Unknown Verified 07/10/19 21:42 atorvastatin calcium Allergy Unknown Verified 07/10/19 21:42 [From Lipitor] azithromycin Allergy Unknown Verified 07/10/19 21:42 benzonatate Allergy Unknown Verified 07/10/19 21:42 [From Tessalon Perles] carrageenan Allergy Unknown Verified 07/10/19 21:42 diazepam [From Valium] Allergy Unknown Verified 07/10/19 21:42 diphenhydramine HCl Allergy Unknown Verified 07/10/19 21:42 [From Benadryl] epinephrine Allergy Unknown Verified 07/10/19 21:42 escitalopram oxalate Allergy Unknown Verified 07/10/19 21:42 [From Lexapro] hydrochlorothiazide Allergy Unknown Verified 07/10/19 21:42 [From HydroDiuril] hydrocodone bitartrate Allergy Unknown Verified 07/10/19 21:42 [From Vicodin] lidocaine Allergy Unknown Verified 07/10/19 21:42 lidocaine HCl Allergy Unknown Verified 07/10/19 21:42 [From Xylocaine] losartan potassium Allergy Unknown Verified 07/10/19 21:42 [From Cozaar] metformin HCl Allergy Unknown Verified 07/10/19 21:42 [From Glucophage] morphine Allergy Unknown Verified 07/10/19 21:42 nylon Allergy Unknown Verified 07/10/19 21:42 oxycodone HCl [From Percodan] Allergy Unknown Verified 07/10/19 21:42 oxycodone terephthalate Allergy Unknown Verified 07/10/19 21:42 [From Percodan] paroxetine HCl [From Paxil] Allergy Unknown Verified 07/10/19 21:42 promethazine HCl Allergy Unknown Verified 07/10/19 21:42 [From Phenergan] propranolol HCl Allergy Unknown Verified 07/10/19 21:42 [From Inderal LA] rofecoxib [From Vioxx] Allergy Unknown Verified 07/10/19 21:42 sulfamethoxazole Allergy Unknown Verified 07/10/19 21:42 [From Bactrim] sulfite Allergy Unknown Verified 07/10/19 21:42 trimethoprim [From Bactrim] Allergy Unknown Verified 07/10/19 21:42 zolpidem tartrate Allergy Unknown Verified 07/10/19 21:42 [From Ambien] artificial color Allergy Unknown Uncoded 08/30/18 12:23 chemicals Allergy Unknown Uncoded 08/30/18 12:23 novacaine Allergy Unknown Uncoded 08/30/18 12:23 nylon stictches Allergy Unknown Uncoded 08/30/18 12:23 odor Allergy Unknown Uncoded 08/30/18 12:23 smoke Allergy Unknown Uncoded 08/30/18 12:23 tumeric Allergy Unknown Uncoded 11/17/18 07:20 Physical Exam Vitals: Vital Signs Temp Pulse Pulse Resp BP BP Pulse Ox 07/11/19 08:00 18 07/11/19 07:00 98.2 F 88 18 167/67 96 07/11/19 00:36 98.4 F 75 14 163/74 95 07/10/19 22:51 97.8 F 67 15 199/71 93 L 07/10/19 21:51 61 20 132/70 97 07/10/19 20:19 65 20 160/79 97 07/10/19 17:18 98.2 F 70 18 152/111 98 Intake and Output 07/10/19 07/11/19 07/11/19 22:59 06:59 14:59 Output Total 20 Balance -20 Output: Emesis 20 Other: Voiding Method Toilet Toilet # Bowel Movements 1 Weight 70.307 kg 70.307 kg PHYSICAL EXAMINATION: GENERAL: The patient is alert and oriented x3, not in any acute distress. Well developed, well nourished. HEENT: Pupils are round and equally reacting to light. EOMI. No scleral icterus. No conjunctival pallor. Normocephalic, atraumatic. No pharyngeal erythema. No thyromegaly. CARDIOVASCULAR: S1 and S2 present. No murmurs, rubs, or gallops. PULMONARY: Chest is clear to auscultation, no wheezing or crackles. ABDOMEN: Soft, nontender, nondistended, normoactive bowel sounds. No palpable organomegaly. MUSCULOSKELETAL: No joint swelling or deformity. EXTREMITIES: No cyanosis, clubbing, or pedal edema. NEUROLOGICAL: Gross neurological examination did not reveal any focal deficits. SKIN: No rashes. Results CBC & Chem 7: 07/10/19 17:33 07/10/19 17:33 Labs: Abnormal Lab Results - Last 24 Hours (Table) 07/10/19 07/10/19 07/11/19 Range/Units 17:33 22:54 06:49 Sodium 135 L (137-145) mmol/L Glucose 229 H (74-99) mg/dL POC Glucose (mg/dL) 183 H 210 H (75-99) mg/dL Alkaline Phosphatase 130 H (38-126) U/L 07/11/19 Range/Units 12:01 Sodium (137-145) mmol/L Glucose (74-99) mg/dL POC Glucose (mg/dL) 145 H (75-99) mg/dL Alkaline Phosphatase (38-126) U/L Thrombosis Risk Factor Assmnt - Choose All That Apply Each Factor Represents 1 point: Obesity (BMI >25) Each Risk Factor Represents 3 Points: Age 75 years or older Thrombosis Risk Factor Assessment Total Risk Factor Score: 4 Thrombosis Risk Factor Assessment Level: Moderate Risk Assessment and Plan Plan: -Diabetic colitis: Continue with Zosyn as mentioned above patient was started on diet with advance it -Diarrhea probably secondary to antibiotics and affect are secondary to diverticulitis improving now. If she needs to have diarrhea we'll obtain C. diff. -Type 2 diabetes mellitus: Patient will be resumed on her home regimen titrate insulin depending on her blood sugars -Gastroesophageal reflux disease -DVT prophylaxis with Lovenox
[2019-07-11 16:41] LABS: Glucose,Whole Blood 132 mg/dL (75-99)
[2019-07-11] MEDS: SODIUM CHLORIDE 0.9% 1,000 ML IV SCH (16:53)
[2019-07-11] MEDS: PIPERACILLIN-TAZOBACTAM 3.375 GM in SODIUM CHLORIDE 0.9% 100 ML IVPB SCH (16:54)
[2019-07-11] MEDS ORDERED: DICYCLOMINE 20 MG TAB PO SCH (17:30)
[2019-07-11 19:56] LABS: Glucose,Whole Blood 195 mg/dL (75-99)
[2019-07-12] MEDS: PIPERACILLIN-TAZOBACTAM 3.375 GM in SODIUM CHLORIDE 0.9% 100 ML IVPB SCH ×2 (01:14→07:36)
[2019-07-12 06:42] LABS: Glucose,Whole Blood 167 mg/dL (75-99)
[2019-07-12] MEDS: INSULIN ASPART (NovoLOG) 100 UNIT/ML VIAL SQ SCH ×2 (07:35→11:42)
[2019-07-12 07:43] VITALS: BP 160/76; PULSE 84; RESP 16; TEMP 98.2
[2019-07-12 08:03] LABS: HCT 38.2 % (34.0-46.0); HGB 11.8 gm/dL (11.4-16.0); Hypochromasia Slight; MCH 30.5 pg (25.0-35.0); MCHC 30.8 g/dL (31.0-37.0); Platelet Count 173 k/uL (150-450); RBC 3.86 m/uL (3.80-5.40); RDW 12.7 % (11.5-15.5); WBC 6.3 k/uL (3.8-10.6)
[2019-07-12 08:10] LABS: African American GFR (CKD) >90 (>60 ml/min/1.73 sqM); Anion Gap 5 mmol/L; Blood Urea Nitrogen 8 mg/dL (7-17); Calcium 8.7 mg/dL (8.4-10.2); Carbon Dioxide 27 mmol/L (22-30); Chloride 106 mmol/L (98-107); Glucose 147 mg/dL (74-99); Non-African American GFR(CKD) 79 (>60 ml/min/1.73 sqM); Potassium 4.1 mmol/L (3.5-5.1); Sodium 138 mmol/L (137-145)
[2019-07-12] MEDS ORDERED: ENOXAPARIN 40 MG/0.4 ML SYRINGE SQ SCH (09:00)
[2019-07-12] MEDS ORDERED: INSULIN DETEMIR (LEVEMIR) 100 UNIT/ML SYR SQ SCH (09:00)
--- NOTE | 2019-07-12 10:06 | P.PN ---
<Aydee Vizcarra - Last Filed: 07/12/19 10:05> Subjective Progress Note Date: 07/12/19 CHIEF COMPLAINT: Diverticulitis HISTORY OF PRESENT ILLNESS: Patient seen and examined this morning at the bedside. Patient reports she had some burning in her abdomen overnight. She denies any abdominal pain this morning. She reports having a bowel movement today. She is tolerating clear liquid diet without nausea or vomiting. Vital signs stable. She is afebrile. WBC 6.3 PHYSICAL EXAM: VITAL SIGNS: Reviewed. GENERAL: Well-developed in no acute distress. HEENT: No sclera icterus. Extraocular movements grossly intact. Moist buccal mucosa. Head is atraumatic, normocephalic. ABDOMEN: Soft. Nondistended. Nontender. NEUROLOGIC: Alert and oriented. Cranial nerves II through XII grossly intact. ASSESSMENT: 1. Diverticulitis PLAN: -Continue antibiotics -Advance diet Nurse practitioner note has been reviewed by physician. Signing provider agrees with the documented findings, assessment, and plan of care. Objective - Vital Signs Vital signs: Vital Signs Temp 98.2 F 07/12/19 07:00 Pulse 84 07/12/19 07:00 Resp 16 07/12/19 07:00 BP 160/76 07/12/19 07:00 Pulse Ox 92 L 07/12/19 07:00 Intake & Output 07/11/19 07/12/19 07/12/19 18:59 06:59 18:59 Intake Total 850 20 20 Balance 850 20 20 Intake: Intake, IV Titration 450 Amount Piperacillin-Tazobactam 3 450 .375 gm In Sodium Chloride 0.9% 100 ml @ 25 mls/hr IVPB Q8HR [facility] Rx# :[id number] Oral 400 20 20 Other: Voiding Method Toilet Toilet Toilet - Labs CBC & Chem 7: 07/12/19 07:01 07/12/19 07:01 Labs: Abnormal Lab Results - Last 24 Hours (Table) 07/11/19 07/11/19 07/11/19 Range/Units 12:01 16:39 19:54 MCHC (31.0-37.0) g/dL Glucose (74-99) mg/dL POC Glucose (mg/dL) 145 H 132 H 195 H (75-99) mg/dL 07/12/19 07/12/19 07/12/19 Range/Units 06:42 07:01 07:01 MCHC 30.8 L (31.0-37.0) g/dL Glucose 147 H (74-99) mg/dL POC Glucose (mg/dL) 167 H (75-99) mg/dL <Jamarcus Mckeon - Last Filed: 07/12/19 12:57> Subjective Blood. Patient doing well. Denies pain. Soft stools. May discharge. Continue stool softeners post discharge. Consider outpatient colonoscopy. Objective - Vital Signs Vital signs: Vital Signs Temp 98.2 F 07/12/19 07:00 Pulse 84 07/12/19 07:00 Resp 16 07/12/19 07:00 BP 160/76 07/12/19 07:00 Pulse Ox 92 L 07/12/19 07:00 Intake & Output 07/11/19 07/12/19 07/12/19 18:59 06:59 18:59 Intake Total 850 20 40 Balance 850 20 40 Intake: Intake, IV Titration 450 Amount Piperacillin-Tazobactam 3 450 .375 gm In Sodium Chloride 0.9% 100 ml @ 25 mls/hr IVPB Q8HR [facility] Rx# :[id number] Oral 400 20 40 Other: Voiding Method Toilet Toilet Toilet - Labs CBC & Chem 7: 07/12/19 07:01 07/12/19 07:01 Labs: Abnormal Lab Results - Last 24 Hours (Table) 07/11/19 07/11/19 07/12/19 Range/Units 16:39 19:54 06:42 MCHC (31.0-37.0) g/dL Glucose (74-99) mg/dL POC Glucose (mg/dL) 132 H 195 H 167 H (75-99) mg/dL 07/12/19 07/12/19 Range/Units 07:01 07:01 MCHC 30.8 L (31.0-37.0) g/dL Glucose 147 H (74-99) mg/dL POC Glucose (mg/dL) (75-99) mg/dL Assessment and Plan (1) Diverticulitis Current Visit: Yes Status: Acute Code(s): K57.92 - DVTRCLI OF INTEST, PART U NSP, W/O PERF OR ABSCESS W/O BLEED SNOMED Code(s): 544590664
[2019-07-12 11:41] LABS: Glucose,Whole Blood 78 mg/dL (75-99)
[2019-07-12] MEDS: SODIUM CHLORIDE 0.9% 1,000 ML IV SCH (11:42)
--- NOTE | 2019-07-12 12:08 | P.DS ---
Providers Date of admission: 07/10/19 19:37 Expected date of discharge: 07/12/19 Attending physician: Shavon Rausch Consults: 07/10/19 19:54 Consult Physician Stat Consulting Provider: Jamarcus Mckeon Reason/Comments: diverticulitis possible abscess Do you want consulting provider notified?: Yes Primary care physician: Mik Noe [facility] Course: Final diagnosis -Diverticulitis -Diarrhea probably secondary to antibiotics and affect are secondary to diverticulitis -Type 2 diabetes mellitus -Gastroesophageal reflux disease -DVT prophylaxis Discharge disposition Patient is being discharged in a stable condition with guarded prognosis to home. Patient will follow-up with Dr. Noe in the outpatient setting. Patient will continue on a short course of oral antibiotics in the form of Augmentin twice daily for the next 7 days and then may discontinue. Patient instructed to advance diet slowly as tolerated in the outpatient setting. Total time taken is 35 minutes. History of present illness This is a 84-year-old female who was recently admitted with diarrhea and was being closely monitored. Patient was recently seen and evaluated in the outpatient setting and being treated for sigmoid diverticulitis with Cipro and Flagyl and is admitted to the hospital with failure of outpatient treatment. Patient was having significant diarrhea. CAT scan of the abdomen showed significant stool again with diverticulitis. Patient was initiated on Unasyn and having extreme nausea which was then switched over to Zosyn. Patient was seen and evaluated by surgery recommending conservative treatment. Abdominal pain resolved and patient's stool is somewhat more formed today. Patient denies any diarrhea today. She states she would like to go home today. Discussed with surgery and if continues to tolerate advanced diet may go home and follow-up in the outpatient setting. Patient will be continued on oral course of Augmentin twice daily for the next 1 week. Patient will follow-up with Dr. Noe her primary care provider in the outpatient setting. Currently no reports of chest pain, shortness of breath, or palpitations. Patient is afebrile. No reports of nausea or vomiting and patient is tolerating diet. Discussed with the patient about advancing diet slowly as tolerated in the outpatient setting. Information provided on diverticulitis. On exam vital signs are stable. Temp is 97.9 F, pulse is 70, respiration is 16, blood pressure is 168/82, oxygen saturation is 95% on room air. Cardio S1, S2 present. Respiratory shows diminished breath sounds at the bases with some scattered rhonchi and expiratory wheezing noted. Abdomen is soft and nontender. Nervous system shows no focal deficits. Please refer to medication reconciliation sheet for a list of medications. Patient Condition at Discharge: Stable Plan - Discharge Summary New Discharge Prescriptions: New Amoxic-Pot Clav 875-125Mg [Augmentin 875-125] 1 tab PO Q12HR 7 Days #14 tab Continue Insulin Detemir (Levemir) [Levemir] 15 unit SQ DAILY LORazepam [Ativan] 1 mg PO HS PRN PRN Reason: Anxiety Acetaminophen Tab [Tylenol] 1,000 mg PO HS PRN PRN Reason: Pain Acetaminophen-Codeine 300-30mg [Tylenol w/codeine #3] 1 tab PO DAILY PRN PRN Reason: Severe Pain Dicyclomine HCl 20 mg PO ACHS Polyethylene Glycol 3350 [Miralax] 17 gm PO DAILY Discontinued Ciprofloxacin HCl 500 mg PO Q12HR metroNIDAZOLE [Flagyl] 500 mg PO TID Discharge Medication List Insulin Detemir (Levemir) [Levemir] 15 unit SQ DAILY 11/09/14 [History] Acetaminophen Tab [Tylenol] 1,000 mg PO HS PRN 09/26/16 [History] LORazepam [Ativan] 1 mg PO HS PRN 09/26/16 [History] Acetaminophen-Codeine 300-30mg [Tylenol w/codeine #3] 1 tab PO DAILY PRN 11/13/18 [History] Dicyclomine HCl 20 mg PO ACHS 07/10/19 [History] Polyethylene Glycol 3350 [Miralax] 17 gm PO DAILY 07/10/19 [History] Amoxic-Pot Clav 875-125Mg [Augmentin 875-125] 1 tab PO Q12HR 7 Days #14 tab 07/12/19 [Rx] Follow up Appointment(s)/Referral(s): Mik Noe III, MD [Primary Care Provider] - 07/19/19 11:00 am (Televisit. Please call office to confirm phone services) Activity/Diet/Wound Care/Special Instructions: Activity Limited until follow-up Follow-up with primary care provider in the outpatient setting Continue current diet and advance slowly as tolerated Continue with antibiotics until finished Discharge Disposition: HOME SELF-CARE
== END 2019-07-12 13:00 | disposition home or self-care (01) | DRG 392 ==
LOC: EC 17:07 → 4SSUR 19:37
PROVIDERS: ADMIT Hospitalist; ATTEND Hospitalist
DX: K57.32 Diverticulitis of large intestine without perforation or abscess without bleeding (principal); K52.1 Toxic gastroenteritis and colitis; E11.65 Type 2 diabetes mellitus with hyperglycemia; K21.9 Gastro-esophageal reflux disease without esophagitis; T36.95XA Adverse effect of unspecified systemic antibiotic, initial encounter; Z11.59 Encounter for screening for other viral diseases; Z79.4 Long term (current) use of insulin; Z79.899 Other long term (current) drug therapy; Z88.6 Allergy status to analgesic agent; Z88.1 Allergy status to other antibiotic agents; Z88.5 Allergy status to narcotic agent; Z88.8 Allergy status to other drugs, medicaments and biological substances; Z91.048 Other nonmedicinal substance allergy status; Z86.74 Personal history of sudden cardiac arrest; Z82.49 Family history of ischemic heart disease and other diseases of the circulatory system
CPT/HCPCS: 36415; 74018; 74177; 80048; 80053; 83605; 83690; 84484; 85025; 85027; 87635; 93005; 96361; 96365; 96375; 99285

== ENCOUNTER 2019-11-19 14:55 | Emergency (ER) | payer MEDICARE, BC ==
[2019-11-19 15:09] VITALS: TEMP 98.4
[2019-11-19] MEDS ORDERED: SODIUM CHLORIDE 0.9% 500 ML 500 ML IV STA (15:42)
[2019-11-19 16:15] LABS: Appearance,Urine Clear (Clear); Bilirubin,Urine Negative (Negative); Blood,Urine Negative (Negative); Color,Urine Light Yellow; Glucose,Urine (UA) Negative (Negative); Ketones,Urine Negative (Negative); Leukocyte Esterase,Urine Negative (Negative); Nitrite,Urine Negative (Negative); PH, Urine 5.5 (5.0-8.0); Protein,Urine Negative (Negative); Specific Gravity,Urine 1.007 (1.001-1.035); Urobilinogen,Urine <2.0 mg/dL (<2.0)
[2019-11-19 16:27] LABS: ALT 10 U/L (4-34); AST 22 U/L (14-36); African American GFR (CKD) >90 (>60 ml/min/1.73 sqM); Albumin 4.2 g/dL (3.5-5.0); Alkaline Phosphatase 117 U/L (38-126); Amylase 33 U/L (30-110); Anion Gap 7 mmol/L; Blood Urea Nitrogen 12 mg/dL (7-17); Calcium 9.2 mg/dL (8.4-10.2); Carbon Dioxide 25 mmol/L (22-30); Chloride 108 mmol/L (98-107); Glucose 129 mg/dL (74-99); Non-African American GFR(CKD) 83 (>60 ml/min/1.73 sqM); Potassium 4.3 mmol/L (3.5-5.1); Sodium 140 mmol/L (137-145); Total Bilirubin 0.4 mg/dL (0.2-1.3); Total Protein 7.1 g/dL (6.3-8.2)
[2019-11-19 16:35] LABS: Basophils % (A) 1 %; Eosinophils # (A) 0.1 k/uL (0-0.7); Eosinophils % (A) 3 %; HCT 40.3 % (34.0-46.0); HGB 12.7 gm/dL (11.4-16.0); Lymphocytes # (A) 1.3 k/uL (1.0-4.8); Lymphocytes % (A) 24 %; MCH 30.4 pg (25.0-35.0); MCHC 31.4 g/dL (31.0-37.0); MCV 96.9 fL (80.0-100.0); Mean Platelet Volume 7.8; Monocytes # (A) 0.4 k/uL (0-1.0); Monocytes % (A) 7 %; Neutrophils # (A) 3.6 k/uL (1.3-7.7); Neutrophils % (A) 65 %; Platelet Count 197 k/uL (150-450); RBC 4.17 m/uL (3.80-5.40); RDW 12.5 % (11.5-15.5); WBC 5.6 k/uL (3.8-10.6)
[2019-11-19 18:31] VITALS: BP 149/87; PULSE 79; RESP 16
--- NOTE | 2019-11-19 18:48 | CT ---
EXAMINATION TYPE: CT abdomen pelvis w con DATE OF EXAM: 11/19/2019 COMPARISON: July 10, 2019 HISTORY: abdomen pain CT DLP: 812.7 mGycm Automated exposure control for dose reduction was used. CONTRAST: Performed with IV Contrast, patient injected with 100 mL of Isovue 300. Images were obtained from the diaphragm to the floor the pelvis with IV contrast. Lung bases are clear. There is no pleural effusion. Heart size is normal. 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 Gallbladder appears normal. Bile ducts are not dila veena. Spleen is intact. There is no pancreatic mass. The stomach is intact. There is no adrenal mass. Kidneys show satisfactory contrast opacification. There are multiple small bilateral renal parapelvic cysts. There is no retroperitoneal adenopathy. Abdominal aorta is atheroma tous. There are multiple sigmoid diverticula. Bladder distends smoothly. There is no inguinal hernia. There is no free fluid in the pelvis. Appendix is not seen. There is no sign of thickened appendix. There is mild wall thickening of the mid sigmoid colon. There is no mesenteric edema. There is no ascites or free air. There is no bowel obstruction. There is a first-degree L4-5 spondylolisthesis. There is no lumbar compression fracture. The bony pel vis is intact. Hip joints are intact. IMPRESSION: Moderate colonic diverticulosis. There is wall thickening of the mid sigmoid colon suggestive of nons pecific colitis. This appears similar to old exam. No evidence of diverticulitis. There is clearing o f the free fluid in the pelvis posterior to the sigmoid colon compared to old exam.
[2019-11-19] MEDS ORDERED: AMOXIC-POT CLAV 875MG STARTER PACK 2 TAB BTL PO STA (19:05)
--- NOTE | 2019-11-19 19:10 | ED ---
General Adult HPI - General Source: patient, family, RN notes reviewed Mode of arrival: ambulatory Limitations: no limitations <Miguel Delgadillo - Last Filed: 11/19/19 19:15> <Jonny Velez - Last Filed: 11/19/19 21:42> - General Chief complaint: Abdominal Pain Stated complaint: Diverticulitis - Sent by PCP Time Seen by Provider: 11/19/19 15:15 - History of Present Illness Initial comments: 84-year-old female with a past medical history of diverticulitis, ALLERGIES, diabetes mellitus, GERD presents to the emergency room for a chief complaint of abdominal pain. Patient reports that on and off for the past week she has had abdominal pain. Patient states at this time she does not have it but it has been persistent for a week. She denies nausea or vomiting. She denies diarrhea. Denies melena or hematochezia. Patient states she has a history of diverticulitis and this feels like a flare. No fevers.Patient has no other complaints at this time including shortness of breath, chest pain, nausea or vomiting, headache, or visual changes. (Miguel Delgadillo) - Related Data Home Medications Medication Instructions Recorded Confirmed Insulin Detemir (Levemir) [Levemir] 15 unit SQ DAILY 11/09/14 07/10/19 Acetaminophen Tab [Tylenol] 1,000 mg PO HS PRN 09/26/16 07/10/19 LORazepam [Ativan] 1 mg PO HS PRN 09/26/16 07/10/19 Acetaminophen-Codeine 300-30mg 1 tab PO DAILY PRN 11/13/18 07/10/19 [Tylenol w/codeine #3] Dicyclomine HCl 20 mg PO ACHS 07/10/19 07/10/19 polyethylene glycoL 3350 [Miralax] 17 gm PO DAILY 07/10/19 07/10/19 Previous Rx's Medication Instructions Recorded Amoxic-Pot Clav 875-125Mg 1 tab PO Q12HR 7 Days #14 tab 07/12/19 [Augmentin 875-125] Amoxicillin/Potassium Clav 1 tab PO Q12HR #20 tab 11/19/19 [Augmentin 875-125 Tablet] Allergies Allergy/AdvReac Type Severity Reaction Status Date / Time albuterol Allergy Unknown Verified 07/10/19 21:42 aspirin [From Percodan] Allergy Unknown Verified 07/10/19 21:42 atorvastatin calcium Allergy Unknown Verified 07/10/19 21:42 [From Lipitor] azithromycin Allergy Unknown Verified 07/10/19 21:42 benzonatate Allergy Unknown Verified 11/19/19 15:10 [From Tessalon Perles] carrageenan Allergy Unknown Verified 11/19/19 15:10 diazepam [From Valium] Allergy Unknown Verified 11/19/19 15:10 diphenhydramine HCl Allergy Unknown Verified 11/19/19 15:10 [From Benadryl] epinephrine Allergy Unknown Verified 11/19/19 15:10 escitalopram oxalate Allergy Unknown Verified 11/19/19 15:10 [From Lexapro] hydrochlorothiazide Allergy Unknown Verified 11/19/19 15:10 [From HydroDiuril] hydrocodone bitartrate Allergy Unknown Verified 11/19/19 15:10 [From Vicodin] lidocaine Allergy Unknown Verified 11/19/19 15:10 lidocaine HCl Allergy Unknown Verified 11/19/19 15:10 [From Xylocaine] losartan potassium Allergy Unknown Verified 11/19/19 15:10 [From Cozaar] metformin HCl Allergy Unknown Verified 11/19/19 15:10 [From Glucophage] morphine Allergy Unknown Verified 11/19/19 15:10 nylon Allergy Unknown Verified 11/19/19 15:10 oxycodone HCl [From Percodan] Allergy Unknown Verified 11/19/19 15:10 oxycodone terephthalate Allergy Unknown Verified 11/19/19 15:10 [From Percodan] paroxetine HCl [From Paxil] Allergy Unknown Verified 11/19/19 15:10 promethazine HCl Allergy Unknown Verified 11/19/19 15:10 [From Phenergan] propranolol HCl Allergy Unknown Verified 11/19/19 15:10 [From Inderal LA] rofecoxib [From Vioxx] Allergy Unknown Verified 11/19/19 15:10 sulfamethoxazole Allergy Unknown Verified 11/19/19 15:10 [From Bactrim] sulfite Allergy Unknown Verified 11/19/19 15:10 trimethoprim [From Bactrim] Allergy Unknown Verified 11/19/19 15:10 zolpidem tartrate Allergy Unknown Verified 11/19/19 15:10 [From Ambien] artificial color Allergy Unknown Uncoded 11/19/19 15:10 chemicals Allergy Unknown Uncoded 11/19/19 15:10 novacaine Allergy Unknown Uncoded 11/19/19 15:10 nylon stictches Allergy Unknown Uncoded 11/19/19 15:10 odor Allergy Unknown Uncoded 11/19/19 15:10 smoke Allergy Unknown Uncoded 11/19/19 15:10 tumeric Allergy Unknown Uncoded 11/19/19 15:10 Review of Systems ROS Other: All systems not noted in ROS Statement are negative. <Miguel Delgadillo - Last Filed: 11/19/19 19:15> ROS Other: All systems not noted in ROS Statement are negative. <Jonny Velez - Last Filed: 11/19/19 21:42> ROS Statement: Those systems with pertinent positive or pertinent negative responses have been documented in the HPI. Past Medical History Past Medical History: Diabetes Mellitus, GERD/Reflux Additional Past Medical History / Comment(s): severe allergies, diverticulitis History of Any Multi-Drug Resistant Organisms: None Reported Past Surgical History: Bladder Surgery Additional Past Surgical History / Comment(s): cauterization of part of bladder, has urethral dilations every 6 weeks Additional Past Anesthesia/Blood Transfusion Reaction / Comment(s): pt states she "coded" with anesthesia in past, but unable to give specifics Past Psychological History: No Psychological Hx Reported Past Alcohol Use History: None Reported Past Drug Use History: None Reported - Past Family History Father History Unknown: Yes Mother Additional Family Medical History / Comment(s): states mother had heart issues <Miguel Delgadillo P - Last Filed: 11/19/19 19:15> General Exam Limitations: no limitations General appearance: alert, in no apparent distress Head exam: Present: atraumatic, normocephalic, normal inspection Eye exam: Present: normal appearance, PERRL, EOMI. Absent: scleral icterus, conjunctival injection, periorbital swelling ENT exam: Present: normal exam, mucous membranes moist Neck exam: Present: normal inspection, full ROM. Absent: tenderness, meningismus, lymphadenopathy Respiratory exam: Present: normal lung sounds bilaterally. Absent: respiratory distress, wheezes, rales, rhonchi, stridor Cardiovascular Exam: Present: regular rate, normal rhythm, normal heart sounds. Absent: systolic murmur, diastolic murmur, rubs, gallop, clicks GI/Abdominal exam: Present: soft, normal bowel sounds. Absent: distended, tenderness, guarding, rebound, rigid Neurological exam: Present: alert <Miguel Delgadillo - Last Filed: 11/19/19 19:15> Course <Jonny Velez - Last Filed: 11/19/19 21:42> Vital Signs 11/19/19 11/19/19 15:04 18:30 Temperature 98.4 F Pulse Rate 71 79 Respiratory 18 16 Rate Blood Pressure 171/72 149/87 O2 Sat by Pulse 97 98 Oximetry - Reevaluation(s) Reevaluation #1: 11/19/19 21:42 PA supervision: I personally evaluate this case patient presents with complaints of abdominal pain for diverticulitis. Patient has some mild abdominal pain which did improve while in the emergency department. Imaging showed evidence of colitis. Patient was in satisfactory condition for discharge. I do agree with the assessment and plan (Jonny Velez) Medical Decision Making - Lab Data Result diagrams: 11/19/19 15:56 11/19/19 15:56 <Miguel Delgadillo - Last Filed: 11/19/19 19:15> - Lab Data Result diagrams: 11/19/19 15:56 11/19/19 15:56 <Jonny Velez - Last Filed: 11/19/19 21:42> - Medical Decision Making Vitals are stable. CBC CMP unremarkable. Urinalysis unremarkable. CT abdomen and pelvis with contrast showed moderate colonic diverticulosis. Wall thickening of the mid sigmoid colon suggestive of nonspecific colitis. This appears similar to old exam. No evidence of diverticulitis. Patient prefers to be treated with antibiotics. She'll be treated with Augmentin. She has an a ppointment with Dr. Mclaughlin next week. She will return for any worsening symptoms in the meantime. (Miguel Delgadillo) - Lab Data Lab Results 11/19/19 11/19/19 11/19/19 Range/Units 15:56 15:56 15:56 WBC 5.6 (3.8-10.6) k/uL RBC 4.17 (3.80-5.40) m/uL Hgb 12.7 (11.4-16.0) gm/dL Hct 40.3 (34.0-46.0) % MCV 96.9 (80.0-100.0) fL MCH 30.4 (25.0-35.0) pg MCHC 31.4 (31.0-37.0) g/dL RDW 12.5 (11.5-15.5) % Plt Count 197 (150-450) k/uL Neutrophils % 65 % Lymphocytes % 24 % Monocytes % 7 % Eosinophils % 3 % Basophils % 1 % Neutrophils # 3.6 (1.3-7.7) k/uL Lymphocytes # 1.3 (1.0-4.8) k/uL Monocytes # 0.4 (0-1.0) k/uL Eosinophils # 0.1 (0-0.7) k/uL Basophils # 0.0 (0-0.2) k/uL Sodium 140 (137-145) mmol/L Potassium 4.3 (3.5-5.1) mmol/L Chloride 108 H (98-107) mmol/L Carbon Dioxide 25 (22-30) mmol/L Anion Gap 7 mmol/L BUN 12 (7-17) mg/dL Creatinine 0.59 (0.52-1.04) mg/dL Est GFR (CKD-EPI)AfAm >90 (>60 ml/min/1.73 sqM) Est GFR (CKD-EPI)NonAf 83 (>60 ml/min/1.73 sqM) Glucose 129 H (74-99) mg/dL Plasma Lactic Acid Gregg (0.7-2.0) mmol/L Calcium 9.2 (8.4-10.2) mg/dL Total Bilirubin 0.4 (0.2-1.3) mg/dL AST 22 (14-36) U/L ALT 10 (4-34) U/L Alkaline Phosphatase 117 (38-126) U/L Total Protein 7.1 (6.3-8.2) g/dL Albumin 4.2 (3.5-5.0) g/dL Amylase 33 (30-110) U/L Lipase 29 (23-300) U/L Urine Color Light Yellow Urine Appearance Clear (Clear) Urine pH 5.5 (5.0-8.0) Ur Specific [place] 1.007 (1.001-1.035) Urine Protein Negative (Negative) Urine Glucose (UA) Negative (Negative) Urine Ketones Negative (Negative) Urine Blood Negative (Negative) Urine Nitrite Negative (Negative) Urine Bilirubin Negative (Negative) Urine Urobilinogen <2.0 (<2.0) mg/dL Ur Leukocyte Esterase Negative (Negative) 11/19/19 Range/Units 15:56 WBC (3.8-10.6) k/uL RBC (3.80-5.40) m/uL Hgb (11.4-16.0) gm/dL Hct (34.0-46.0) % MCV (80.0-100.0) fL MCH (25.0-35.0) pg MCHC (31.0-37.0) g/dL RDW (11.5-15.5) % Plt Count (150-450) k/uL Neutrophils % % Lymphocytes % % Monocytes % % Eosinophils % % Basophils % % Neutrophils # (1.3-7.7) k/uL Lymphocytes # (1.0-4.8) k/uL Monocytes # (0-1.0) k/uL Eosinophils # (0-0.7) k/uL Basophils # (0-0.2) k/uL Sodium (137-145) mmol/L Potassium (3.5-5.1) mmol/L Chloride (98-107) mmol/L Carbon Dioxide (22-30) mmol/L Anion Gap mmol/L BUN (7-17) mg/dL Creatinine (0.52-1.04) mg/dL Est GFR (CKD-EPI)AfAm (>60 ml/min/1.73 sqM) Est GFR (CKD-EPI)NonAf (>60 ml/min/1.73 sqM) Glucose (74-99) mg/dL Plasma Lactic Acid Gregg 0.8 (0.7-2.0) mmol/L Calcium (8.4-10.2) mg/dL Total Bilirubin (0.2-1.3) mg/dL AST (14-36) U/L ALT (4-34) U/L Alkaline Phosphatase (38-126) U/L Total Protein (6.3-8.2) g/dL Albumin (3.5-5.0) g/dL Amylase (30-110) U/L Lipase (23-300) U/L Urine Color Urine Appearance (Clear) Urine pH (5.0-8.0) Ur Specific [place] (1.001-1.035) Urine Protein (Negative) Urine Glucose (UA) (Negative) Urine Ketones (Negative) Urine Blood (Negative) Urine Nitrite (Negative) Urine Bilirubin (Negative) Urine Urobilinogen (<2.0) mg/dL Ur Leukocyte Esterase (Negative) Disposition Is patient prescribed a controlled substance at d/c from ED?: No Time of Disposition: 19:08 <Miguel Delgadillo - Last Filed: 11/19/19 19:15> <Jonny Velez - Last Filed: 11/19/19 21:42> Clinical Impression: Colitis Disposition: HOME SELF-CARE Condition: Good Instructions (If sedation given, give patient instructions): Colitis (ED) Additional Instructions: Please take antibiotic as directed. Follow-up at your appointment with Dr. Mclaughlin on . If you have any worsening symptoms or fevers return to the emergency room. Prescriptions: Amoxicillin/Potassium Clav [Augmentin 875-125 Tablet] 1 tab PO Q12HR #20 tab Referrals: Mik Noe III, MD [Primary Care Provider] - 1-2 days
== END 2019-11-19 19:20 | disposition home or self-care (01) ==
LOC: EC 14:55
DX: K52.9 Noninfective gastroenteritis and colitis, unspecified (principal); E11.9 Type 2 diabetes mellitus without complications; Z79.4 Long term (current) use of insulin; Z88.1 Allergy status to other antibiotic agents; Z88.2 Allergy status to sulfonamides; Z88.5 Allergy status to narcotic agent; Z88.6 Allergy status to analgesic agent; Z88.8 Allergy status to other drugs, medicaments and biological substances; Z91.018 Allergy to other foods; Z91.048 Other nonmedicinal substance allergy status; Z98.890 Other specified postprocedural states
CPT/HCPCS: 36415; 80053; 82150; 83605; 83690; 85025; 81003; 74177; 99284; Q9967

== ENCOUNTER 2019-12-05 08:14 | Emergency (ER) | payer MEDICARE, BC ==
[2019-12-05 08:30] VITALS: BP 161/90; PULSE 75; RESP 16; TEMP 98
[2019-12-05] MEDS ORDERED: SODIUM CHLORIDE 0.9% 1,000 ML IV STA (08:31)
--- NOTE | 2019-12-05 08:40 | ED ---
Abdominal Pain HPI - General Chief Complaint: Abdominal Pain Stated Complaint: poss bowel obstruction Time Seen by Provider: 12/05/19 08:31 Source: patient, RN notes reviewed, old records reviewed Mode of arrival: wheelchair Limitations: no limitations - History of Present Illness Initial Comments: This is a 4-year-old female DF for evaluation patient resents today for evaluation regards to not feeling well. Patient having abdominal pain persistent abdominal pain abnormal bowel movements recent diagnosis of recurrent diverticulosis and recurrent colitis. Patient is scheduled for surgery versus colonoscopy, pain is increasing symptoms are worsening MD Complaint: abdominal pain -: days(s) Location: LLQ Radiation: suprapubic, back Migration to: suprapubic Severity: moderate Severity scale (1-10): 4 Quality: aching Consistency: intermittent Improves With: nothing Worsens With: nothing Associated Symptoms: nausea, diarrhea, constipation - Related Data Home Medications Medication Instructions Recorded Confirmed Insulin Detemir (Levemir) [Levemir] 15 unit SQ DAILY 11/09/14 07/10/19 Acetaminophen Tab [Tylenol] 1,000 mg PO HS PRN 09/26/16 07/10/19 LORazepam [Ativan] 1 mg PO HS PRN 09/26/16 07/10/19 Acetaminophen-Codeine 300-30mg 1 tab PO DAILY PRN 11/13/18 07/10/19 [Tylenol w/codeine #3] Dicyclomine HCl 20 mg PO ACHS 07/10/19 07/10/19 polyethylene glycoL 3350 [Miralax] 17 gm PO DAILY 07/10/19 07/10/19 Previous Rx's Medication Instructions Recorded Amoxic-Pot Clav 875-125Mg 1 tab PO Q12HR 7 Days #14 tab 07/12/19 [Augmentin 875-125] Amoxicillin/Potassium Clav 1 tab PO Q12HR #20 tab 11/19/19 [Augmentin 875-125 Tablet] Allergies Allergy/AdvReac Type Severity Reaction Status Date / Time albuterol Allergy Unknown Verified 12/05/19 08:29 aspirin [From Percodan] Allergy Unknown Verified 12/05/19 08:29 atorvastatin calcium Allergy Unknown Verified 12/05/19 08:29 [From Lipitor] azithromycin Allergy Unknown Verified 12/05/19 08:29 benzonatate Allergy Unknown Verified 12/05/19 08:29 [From Tessalon Perles] carrageenan Allergy Unknown Verified 12/05/19 08:29 diazepam [From Valium] Allergy Unknown Verified 12/05/19 08:29 diphenhydramine HCl Allergy Unknown Verified 12/05/19 08:29 [From Benadryl] epinephrine Allergy Unknown Verified 12/05/19 08:29 escitalopram oxalate Allergy Unknown Verified 12/05/19 08:29 [From Lexapro] hydrochlorothiazide Allergy Unknown Verified 12/05/19 08:29 [From HydroDiuril] hydrocodone bitartrate Allergy Unknown Verified 12/05/19 08:29 [From Vicodin] lidocaine Allergy Unknown Verified 12/05/19 08:29 lidocaine HCl Allergy Unknown Verified 12/05/19 08:29 [From Xylocaine] losartan potassium Allergy Unknown Verified 12/05/19 08:29 [From Cozaar] metformin HCl Allergy Unknown Verified 12/05/19 08:29 [From Glucophage] morphine Allergy Unknown Verified 12/05/19 08:29 nylon Allergy Unknown Verified 12/05/19 08:29 oxycodone HCl [From Percodan] Allergy Unknown Verified 12/05/19 08:29 oxycodone terephthalate Allergy Unknown Verified 12/05/19 08:29 [From Percodan] paroxetine HCl [From Paxil] Allergy Unknown Verified 12/05/19 08:29 promethazine HCl Allergy Unknown Verified 12/05/19 08:29 [From Phenergan] propranolol HCl Allergy Unknown Verified 12/05/19 08:29 [From Inderal LA] rofecoxib [From Vioxx] Allergy Unknown Verified 12/05/19 08:29 sulfamethoxazole Allergy Unknown Verified 12/05/19 08:29 [From Bactrim] sulfite Allergy Unknown Verified 12/05/19 08:29 trimethoprim [From Bactrim] Allergy Unknown Verified 12/05/19 08:29 zolpidem tartrate Allergy Unknown Verified 12/05/19 08:29 [From Ambien] artificial color Allergy Unknown Uncoded 12/05/19 08:29 chemicals Allergy Unknown Uncoded 12/05/19 08:29 novacaine Allergy Unknown Uncoded 12/05/19 08:29 nylon stictches Allergy Unknown Uncoded 12/05/19 08:29 odor Allergy Unknown Uncoded 12/05/19 08:29 smoke Allergy Unknown Uncoded 12/05/19 08:29 tumeric Allergy Unknown Uncoded 12/05/19 08:29 Review of Systems ROS Statement: Those systems with pertinent positive or pertinent negative responses have been documented in the HPI. ROS Other: All systems not noted in ROS Statement are negative. Past Medical History Past Medical History: Diabetes Mellitus, GERD/Reflux Additional Past Medical History / Comment(s): severe allergies, diverticulitis History of Any Multi-Drug Resistant Organisms: None Reported Past Surgical History: Bladder Surgery Additional Past Surgical History / Comment(s): cauterization of part of bladder, has urethral dilations every 6 weeks Additional Past Anesthesia/Blood Transfusion Reaction / Comment(s): pt states she "coded" with anesthesia in past, but unable to give specifics Past Psychological History: No Psychological Hx Reported Smoking Status: Never smoker Past Alcohol Use History: None Reported Past Drug Use History: None Reported - Past Family History Father History Unknown: Yes Mother Additional Family Medical History / Comment(s): states mother had heart issues General Exam Limitations: no limitations General appearance: alert, in no apparent distress Head exam: Present: atraumatic, normocephalic, normal inspection Eye exam: Present: normal appearance, PERRL, EOMI. Absent: scleral icterus, conjunctival injection, periorbital swelling ENT exam: Present: normal exam, mucous membranes moist Neck exam: Present: normal inspection. Absent: tenderness, meningismus, lymphadenopathy Respiratory exam: Present: normal lung sounds bilaterally. Absent: respiratory distress, wheezes, rales, rhonchi, stridor Cardiovascular Exam: Present: regular rate, normal rhythm, normal heart sounds. Absent: systolic murmur, diastolic murmur, rubs, gallop, clicks GI/Abdominal exam: Present: soft, normal bowel sounds. Absent: distended, tende rness, guarding, rebound, rigid Extremities exam: Present: normal inspection, full ROM, normal capillary refill. Absent: tenderness, pedal edema, joint swelling, calf tenderness Back exam: Present: normal inspection Neurological exam: Present: alert, oriented X3, CN II-XII intact Psychiatric exam: Present: normal affect, normal mood Skin exam: Present: warm, dry, intact, normal color. Absent: rash Course Vital Signs 12/05/19 08:27 Temperature 98 F Pulse Rate 75 Respiratory 16 Rate Blood Pressure 161/90 O2 Sat by Pulse 97 Oximetry - Reevaluation(s) Reevaluation #1: 12/05/19 09:17 Medical record is reviewed 12/05/19 09:17 Prior ER visits in [address] scans are reviewed Reevaluation #2: 12/05/19 10:10 Patient is feeling improved here in the ER - Consultations Consultation #1: Spoke with Dr. Mclaughlin who will see patient in the office Medical Decision Making - Medical Decision Making 84 female DF for evaluation of abdominal pain. Patient having persistent diminished bowel movements, patient will be given an enema discharged to follow- up with Dr. King an outpatient basis - Lab Data Result diagrams: 12/05/19 08:57 12/05/19 08:57 Lab Results 12/05/19 12/05/19 12/05/19 Range/Units 08:57 08:57 08:57 WBC 6.5 (3.8-10.6) k/uL RBC 4.27 (3.80-5.40) m/uL Hgb 13.2 (11.4-16.0) gm/dL Hct 41.4 (34.0-46.0) % MCV 97.0 (80.0-100.0) fL MCH 30.9 (25.0-35.0) pg MCHC 31.9 (31.0-37.0) g/dL RDW 12.8 (11.5-15.5) % Plt Count 201 (150-450) k/uL Neutrophils % 73 % Lymphocytes % 20 % Monocytes % 5 % Eosinophils % 2 % Basophils % 1 % Neutrophils # 4.8 (1.3-7.7) k/uL Lymphocytes # 1.3 (1.0-4.8) k/uL Monocytes # 0.3 (0-1.0) k/uL Eosinophils # 0.1 (0-0.7) k/uL Basophils # 0.0 (0-0.2) k/uL Sodium 139 (137-145) mmol/L Potassium 4.6 (3.5-5.1) mmol/L Chloride 105 (98-107) mmol/L Carbon Dioxide 28 (22-30) mmol/L Anion Gap 6 mmol/L BUN 9 (7-17) mg/dL Creatinine 0.60 (0.52-1.04) mg/dL Est GFR (CKD-EPI)AfAm >90 (>60 ml/min/1.73 sqM) Est GFR (CKD-EPI)NonAf 83 (>60 ml/min/1.73 sqM) Glucose 201 H (74-99) mg/dL Plasma Lactic Acid [place] (0.7-2.0) mmol/L Calcium 9.1 (8.4-10.2) mg/dL Total Bilirubin 0.5 (0.2-1.3) mg/dL AST 19 (14-36) U/L ALT 11 (4-34) U/L Alkaline Phosphatase 107 (38-126) U/L Creatine Kinase 34 (30-135) U/L Total Protein 6.9 (6.3-8.2) g/dL Albumin 4.1 (3.5-5.0) g/dL Amylase <30 L (30-110) U/L Lipase 25 (23-300) U/L Urine Color Yellow Urine Appearance Clear (Clear) Urine pH 5.5 (5.0-8.0) Ur Specific [place] 1.015 (1.001-1.035) Urine Protein Negative (Negative) Urine Glucose (UA) Trace H (Negative) Urine Ketones Negative (Negative) Urine Blood Negative (Negative) Urine Nitrite Negative (Negative) Urine Bilirubin Negative (Negative) Urine Urobilinogen <2.0 (<2.0) mg/dL Ur Leukocyte Esterase Trace H (Negative) Urine RBC 1 (0-5) /hpf Urine WBC 2 (0-5) /hpf Ur Squamous Epith Cells 1 (0-4) /hpf Urine Mucus Rare H (None) /hpf 12/05/19 Range/Units 08:57 WBC (3.8-10.6) k/uL RBC (3.80-5.40) m/uL Hgb (11.4-16.0) gm/dL Hct (34.0-46.0) % MCV (80.0-100.0) fL MCH (25.0-35.0) pg MCHC (31.0-37.0) g/dL RDW (11.5-15.5) % Plt Count (150-450) k/uL Neutrophils % % Lymphocytes % % Monocytes % % Eosinophils % % Basophils % % Neutrophils # (1.3-7.7) k/uL Lymphocytes # (1.0-4.8) k/uL Monocytes # (0-1.0) k/uL Eosinophils # (0-0.7) k/uL Basophils # (0-0.2) k/uL Sodium (137-145) mmol/L Potassium (3.5-5.1) mmol/L Chloride (98-107) mmol/L Carbon Dioxide (22-30) mmol/L Anion Gap mmol/L BUN (7-17) mg/dL Creatinine (0.52-1.04) mg/dL Est GFR (CKD-EPI)AfAm (>60 ml/min/1.73 sqM) Est GFR (CKD-EPI)NonAf (>60 ml/min/1.73 sqM) Glucose (74-99) mg/dL Plasma Lactic Acid [place] 1.5 (0.7-2.0) mmol/L Calcium (8.4-10.2) mg/dL Total Bilirubin (0.2-1.3) mg/dL AST (14-36) U/L ALT (4-34) U/L Alkaline Phosphatase (38-126) U/L Creatine Kinase (30-135) U/L Total Protein (6.3-8.2) g/dL Albumin (3.5-5.0) g/dL Amylase (30-110) U/L Lipase (23-300) U/L Urine Color Urine Appearance (Clear) Urine pH (5.0-8.0) Ur Specific [place] (1.001-1.035) Urine Protein (Negative) Urine Glucose (UA) (Negative) Urine Ketones (Negative) Urine Blood (Negative) Urine Nitrite (Negative) Urine Bilirubin (Negative) Urine Urobilinogen (<2.0) mg/dL Ur Leukocyte Esterase (Negative) Urine RBC (0-5) /hpf Urine WBC (0-5) /hpf Ur Squamous Epith Cells (0-4) /hpf Urine Mucus (None) /hpf - Radiology Data Radiology results: report reviewed (X-ray abdominal series negative for acute disease), image reviewed Disposition Clinical Impression: Abdominal pain, Colitis, Constipation Disposition: HOME SELF-CARE Condition: Good Instructions (If sedation given, give patient instructions): Abdominal Pain (ED) Is patient prescribed a controlled substance at d/c from ED?: No Referrals: Mik Noe III, MD [Primary Care Provider] - 1-2 days
[2019-12-05 09:08] LABS: Basophils % (A) 1 %; Eosinophils # (A) 0.1 k/uL (0-0.7); Eosinophils % (A) 2 %; HCT 41.4 % (34.0-46.0); HGB 13.2 gm/dL (11.4-16.0); Lymphocytes # (A) 1.3 k/uL (1.0-4.8); Lymphocytes % (A) 20 %; MCH 30.9 pg (25.0-35.0); MCHC 31.9 g/dL (31.0-37.0); Mean Platelet Volume 7.9; Monocytes # (A) 0.3 k/uL (0-1.0); Monocytes % (A) 5 %; Neutrophils # (A) 4.8 k/uL (1.3-7.7); Neutrophils % (A) 73 %; Platelet Count 201 k/uL (150-450); RBC 4.27 m/uL (3.80-5.40); RDW 12.8 % (11.5-15.5); WBC 6.5 k/uL (3.8-10.6)
--- NOTE | 2019-12-05 09:11 | XR ---
EXAMINATION TYPE: XR abdomen acute w cxr DATE OF EXAM: 12/05/2019 COMPARISON: 08/30/2018 HISTORY: Pain constipation TECHNIQUE: Chest in the frontal projection upright and supine views of the abdomen. FINDINGS: Heart size is normal. Pulmonary vasculature is normal. Lungs are clear. No free air is unde r the diaphragm. Nonspecific bowel gas is present. Air is within the colon. No mass affect is evident. Psoas margins a re normal. No suspicious air-fluid levels or differential air-fluid levels are present. IMPRESSION: 1. Nonspecific acute abdomen.
[2019-12-05 09:15] LABS: Appearance,Urine Clear (Clear); Bilirubin,Urine Negative (Negative); Blood,Urine Negative (Negative); Color,Urine Yellow; Glucose,Urine (UA) Trace (Negative); Ketones,Urine Negative (Negative); Leukocyte Esterase,Urine Trace (Negative); Mucus,Urine Rare /hpf; Nitrite,Urine Negative (Negative); PH, Urine 5.5 (5.0-8.0); Protein,Urine Negative (Negative); RBC,Urine 1 /hpf (0-5); Specific Gravity,Urine 1.015 (1.001-1.035); Squamous Epithelial Cell,Urine 1 /hpf (0-4); Urobilinogen,Urine <2.0 mg/dL (<2.0); WBC,Urine 2 /hpf (0-5)
[2019-12-05 09:23] LABS: ALT 11 U/L (4-34); AST 19 U/L (14-36); African American GFR (CKD) >90 (>60 ml/min/1.73 sqM); Albumin 4.1 g/dL (3.5-5.0); Alkaline Phosphatase 107 U/L (38-126); Amylase <30 U/L (30-110); Anion Gap 6 mmol/L; Blood Urea Nitrogen 9 mg/dL (7-17); Calcium 9.1 mg/dL (8.4-10.2); Carbon Dioxide 28 mmol/L (22-30); Chloride 105 mmol/L (98-107); Creatine Kinase 34 U/L (30-135); Glucose 201 mg/dL (74-99); Non-African American GFR(CKD) 83 (>60 ml/min/1.73 sqM); Potassium 4.6 mmol/L (3.5-5.1); Sodium 139 mmol/L (137-145); Total Bilirubin 0.5 mg/dL (0.2-1.3); Total Protein 6.9 g/dL (6.3-8.2)
[2019-12-05] MEDS ORDERED: polyethylene glycoL 3350 17 GM POWD.PACK PO STA (10:10)
[2019-12-05] MEDS ORDERED: DICYCLOMINE 10 MG/ML 2 ML AMP IM STA (10:10)
[2019-12-05] MEDS ORDERED: GLYCERIN ADULT SUPPOSITORY 1 EACH RECTAL STA (10:10)
== END 2019-12-05 12:49 | disposition home or self-care (01) ==
LOC: EC 08:14
DX: K52.9 Noninfective gastroenteritis and colitis, unspecified (principal); K59.00 Constipation, unspecified; K21.9 Gastro-esophageal reflux disease without esophagitis; E11.9 Type 2 diabetes mellitus without complications; Z79.4 Long term (current) use of insulin; Z79.899 Other long term (current) drug therapy; Z91.018 Allergy to other foods; Z91.048 Other nonmedicinal substance allergy status; Z88.8 Allergy status to other drugs, medicaments and biological substances; Z88.2 Allergy status to sulfonamides; Z88.1 Allergy status to other antibiotic agents; Z88.5 Allergy status to narcotic agent; Z88.6 Allergy status to analgesic agent; Z87.19 Personal history of other diseases of the digestive system
CPT/HCPCS: 36415; 80053; 82150; 82550; 83605; 83690; 85025; 81001; 74022; 99284; 96372; 96360; 96361 ×3; J0500

== ENCOUNTER → 2019-12-06 | Outpatient (CLI) | payer MEDICARE, BC | END | disposition home or self-care (01) | LOC: LABPAT 13:35 | PROVIDERS: ATTEND Surgery | DX: Z01.818 Encounter for other preprocedural examination (principal); K57.33 Diverticulitis of large intestine without perforation or abscess with bleeding | CPT/HCPCS: 36415; 86850; 86900; 86901 ==

== ENCOUNTER 2019-12-14 10:12 | Day surgery (SDC) | payer MEDICARE, BC ==
[2019-12-09 13:27] VITALS: BMI 24.1
[~2019-12-14 10:12] MED LIST: LACTATED RINGERS 1,000 ML IV SCH
[2019-12-14 10:42] VITALS: RESP 16; TEMP 98
[2019-12-14 10:45] LABS: Glucose,Whole Blood 110 mg/dL (75-99)
[2019-12-14] MEDS ORDERED: PROPOFOL 10 MG/ML 20 ML VIAL IV ONE (11:22)
--- NOTE | 2019-12-14 11:23 | P.GSHP ---
History of Present Illness H&P Date: 12/14/19 Chief Complaint: Diverticulitis This is a 4-year-old female history of diverticulitis. Patient presents today for colonoscopy. She is scheduled for sigmoid colon resection tomorrow. Past Medical History Past Medical History: Diabetes Mellitus, GERD/Reflux Additional Past Medical History / Comment(s): severe allergies, will be bringing own food and drinks, diverticulitis, hx of "pierced urethra and bladder" has urethral dilations every 6 weeks, has sore on rt buttock that has had for 45 years, occasionally uses a topical ointment History of Any Multi-Drug Resistant Organisms: None Reported Past Surgical History: Appendectomy, Back Surgery, Bladder Surgery, Orthopedic Surgery, Tonsillectomy Additional Past Surgical History / Comment(s): sx on john feet, john rotator cuff, john cataract/lenses, cauterization of part of bladder, has urethral dilations every 6 weeks Additional Past Anesthesia/Blood Transfusion Reaction / Comment(s): pt states she "coded" with anesthesia in past, but unable to give specifics, states she thought is was from "numbing medication" like lidocaine Past Psychological History: No Psychological Hx Reported Smoking Status: Never smoker Past Alcohol Use History: None Reported Past Drug Use History: None Reported - Past Family History Father History Unknown: Yes Mother Family Medical History: Cancer Additional Family Medical History / Comment(s): skin Medications and Allergies Home Medications Medication Instructions Recorded Confirmed Type Insulin Detemir (Levemir) [Levemir] 15 unit SQ QAM 11/09/14 12/14/19 History Acetaminophen Tab [Tylenol] 1,000 mg PO HS PRN 09/26/16 12/14/19 History LORazepam [Ativan] 1 mg PO BID PRN 09/26/16 12/14/19 History Menthol/Zinc Oxide [Calmoseptine 1 applic TOPICAL DIRECTED PRN 12/10/19 12/14/19 History Ointment] Allergies Allergy/AdvReac Type Severity Reaction Status Date / Time albuterol Allergy Unknown Verified 12/09/19 13:13 aspirin [From Percodan] Allergy Unknown Verified 12/09/19 13:13 atorvastatin calcium Allergy Unknown Verified 12/09/19 13:13 [From Lipitor] azithromycin Allergy Unknown Verified 12/09/19 13:13 benzonatate Allergy Unknown Verified 12/09/19 13:13 [From Tessalon Perles] carrageenan Allergy Unknown Verified 12/09/19 13:13 diazepam [From Valium] Allergy "shuts Verified 12/09/19 13:58 down bladder" diphenhydramine HCl Allergy Unknown Verified 12/09/19 13:13 [From Benadryl] epinephrine Allergy Unknown Verified 12/09/19 13:13 erythromycin base Allergy Unknown Verified 12/09/19 13:13 escitalopram oxalate Allergy Unknown Verified 12/09/19 13:13 [From Lexapro] hydrochlorothiazide Allergy Unknown Verified 12/09/19 13:13 [From HydroDiuril] hydrocodone bitartrate Allergy Unknown Verified 12/09/19 13:13 [From Vicodin] iodine Allergy topical Verified 12/09/19 13:15 lidocaine Allergy Unknown Verified 12/09/19 13:13 lidocaine HCl Allergy Unknown Verified 12/09/19 13:13 [From Xylocaine] losartan potassium Allergy Unknown Verified 12/09/19 13:13 [From Cozaar] metformin HCl Allergy Unknown Verified 12/09/19 13:13 [From Glucophage] nylon Allergy Unknown Verified 12/09/19 13:13 oxycodone HCl [From Percodan] Allergy Unknown Verified 12/09/19 13:13 oxycodone terephthalate Allergy Unknown Verified 12/09/19 13:13 [From Percodan] paroxetine HCl [From Paxil] Allergy Unknown Verified 12/09/19 13:13 promethazine HCl Allergy Unknown Verified 12/09/19 13:13 [From Phenergan] propranolol HCl Allergy Unknown Verified 12/09/19 13:13 [From Inderal LA] rofecoxib [From Vioxx] Allergy Unknown Verified 12/09/19 13:13 sulfamethoxazole Allergy Unknown Verified 12/09/19 13:13 [From Bactrim] sulfite Allergy Unknown Verified 12/09/19 13:13 trimethoprim [From Bactrim] Allergy Unknown Verified 12/09/19 13:13 zolpidem tartrate Allergy Unknown Verified 12/09/19 13:13 [From Ambien] morphine AdvReac Hallucinati Verified 12/09/19 13:15 ons artificial color Allergy Unknown Uncoded 12/09/19 13:13 chemicals Allergy Unknown Uncoded 12/09/19 13:13 novacaine Allergy Unknown Uncoded 12/09/19 13:13 nylon stictches Allergy "got an Uncoded 12/09/19 13:15 infection" odor Allergy Unknown Uncoded 12/09/19 13:32 smoke Allergy Unknown Uncoded 12/09/19 13:13 tumeric Allergy Unknown Uncoded 12/09/19 13:13 Surgical - Exam Vital Signs Temp Pulse Resp BP Pulse Ox 98.0 F 79 16 129/85 95 12/14/19 10:37 12/14/19 10:37 12/14/19 10:37 12/14/19 10:37 12/14/19 10:37 - General well developed, well nourished, no distress - Eyes PERRL - ENT normal pinna - Neck no masses - Respiratory normal expansion - Cardiovascular Rhythm: regular - Abdomen Abdomen: soft, non tender Results - Labs Abnormal Lab Results - Last 24 Hours (Table) 12/14/19 Range/Units 10:41 POC Glucose (mg/dL) 110 H (75-99) mg/dL Assessment and Plan Assessment: History of diverticulitis. We'll perform colonoscopy today with anticipation fo r sigmoid colon resection tomorrow.
--- NOTE | 2019-12-14 11:32 | P.OP ---
Date of Procedure: 12/14/19 Preoperative Diagnosis: Diverticulitis Postoperative Diagnosis: Diverticulitis Procedure(s) Performed: Colonoscopy Anesthesia: MAC Surgeon: Reid Mclaughlin Pathology: none sent Condition: stable Disposition: PACU Description of Procedure: Patient's placed on the endoscopy table lateral position. She received IV sedation. Digital rectal exam is performed which revealed external hemorrhoids. The colonoscope was then placed patient anus passed in the rectum and into the;. There was a significant stricture or torsion of the sigmoid colon which prevented the colonoscope from the events. Several times made to advance the colonoscope, this was impossible. This point scope withdrawn. A few divertic kezia were seen. The scope was brought back the rectum and this appeared normal. Scope was withdrawn for patient.
[2019-12-14 11:43] VITALS: BP 141/64; PULSE 68
== END 2019-12-14 12:10 | disposition home or self-care (01) ==
LOC: ORWHC2ENDO 10:12
PROVIDERS: ATTEND Surgery
DX: K64.4 Residual hemorrhoidal skin tags (principal); Q43.8 Other specified congenital malformations of intestine; K57.92 Diverticulitis of intestine, part unspecified, without perforation or abscess without bleeding; E11.9 Type 2 diabetes mellitus without complications; K21.9 Gastro-esophageal reflux disease without esophagitis; L98.419 Non-pressure chronic ulcer of buttock with unspecified severity; Z98.42 Cataract extraction status, left eye; Z98.41 Cataract extraction status, right eye; Z96.1 Presence of intraocular lens; Z98.890 Other specified postprocedural states; Z80.8 Family history of malignant neoplasm of other organs or systems; Z79.4 Long term (current) use of insulin; Z88.4 Allergy status to anesthetic agent; Z88.6 Allergy status to analgesic agent; Z88.5 Allergy status to narcotic agent; Z88.1 Allergy status to other antibiotic agents; Z88.2 Allergy status to sulfonamides; Z88.8 Allergy status to other drugs, medicaments and biological substances; Z91.018 Allergy to other foods; Z91.048 Other nonmedicinal substance allergy status
CPT/HCPCS: 45330; J2704; 45380

== ENCOUNTER 2019-12-15 08:23 | Inpatient (IN) | payer MEDICARE, BC ==
[~2019-12-15 08:23] MED LIST changes: +ACETAMINOPHEN TAB 500 MG TAB PO ONE; +DEXAMETHASONE SOD PHOSPHATE 10 MG/ML 1 ML VIAL IV ONE; +HEPARIN SODIUM,PORCINE 5,000 UNIT/ML 1 ML VIAL SQ ONE; +HYDROmorphone 0.5 MG/0.5 ML SYRINGE IVP PRN; -LACTATED RINGERS 1,000 ML IV SCH; +ONDANSETRON 4 MG/2 ML VIAL IVP ONE; +metroNIDAZOLE-NS PMX 500 MG in SALINE 1 100ML.BAG IVPB ONE
--- NOTE | 2019-12-15 08:54 | P.GSHP ---
History of Present Illness H&P Date: 12/15/19 Chief Complaint: Diverticulitis This is an 84-year-old female. Patient presents today for sigmoid colectomy for chronic diverticulitis. Patient reversed surgery including wound infection bleeding and possible colostomy Past Medical History Past Medical History: Diabetes Mellitus, GERD/Reflux Additional Past Medical History / Comment(s): severe allergies, will be bringing own food and drinks, diverticulitis, hx of "pierced urethra and bladder" has urethral dilations every 6 weeks, has sore on rt buttock that has had for 45 years, occasionally uses a topical ointment History of Any Multi-Drug Resistant Organisms: None Reported Past Surgical History: Appendectomy, Back Surgery, Bladder Surgery, Orthopedic Surgery, Tonsillectomy Additional Past Surgical History / Comment(s): sx on john feet, john rotator cuff, john cataract/lenses, cauterization of part of bladder, has urethral dilations every 6 weeks Additional Past Anesthesia/Blood Transfusion Reaction / Comment(s): pt states she "coded" with anesthesia in past, but unable to give specifics, states she thought is was from "numbing medication" like lidocaine Past Psychological History: No Psychological Hx Reported Smoking Status: Never smoker Past Alcohol Use History: None Reported Past Drug Use History: None Reported - Past Family History Father History Unknown: Yes Mother Family Medical History: Cancer Additional Family Medical History / Comment(s): skin Medications and Allergies Home Medications Medication Instructions Recorded Confirmed Type Insulin Detemir (Levemir) [Levemir] 15 unit SQ QAM 11/09/14 12/14/19 History Acetaminophen Tab [Tylenol] 1,000 mg PO HS PRN 09/26/16 12/14/19 History LORazepam [Ativan] 1 mg PO BID PRN 09/26/16 12/14/19 History Menthol/Zinc Oxide [Calmoseptine 1 applic TOPICAL DIRECTED PRN 12/10/19 12/14/19 History Ointment] Allergies Allergy/AdvReac Type Severity Reaction Status Date / Time albuterol Allergy Unknown Verified 12/09/19 13:13 aspirin [From Percodan] Allergy Unknown Verified 12/09/19 13:13 atorvastatin calcium Allergy Unknown Verified 12/09/19 13:13 [From Lipitor] azithromycin Allergy Unknown Verified 12/09/19 13:13 benzonatate Allergy Unknown Verified 12/09/19 13:13 [From Tessalon Perles] carrageenan Allergy Unknown Verified 12/09/19 13:13 diazepam [From Valium] Allergy "shuts Verified 12/15/19 08:52 down bladder" diphenhydramine HCl Allergy Unknown Verified 12/15/19 08:52 [From Benadryl] epinephrine Allergy Unknown Verified 12/15/19 08:52 erythromycin base Allergy Unknown Verified 12/15/19 08:52 escitalopram oxalate Allergy Unknown Verified 12/15/19 08:52 [From Lexapro] hydrochlorothiazide Allergy Unknown Verified 12/15/19 08:52 [From HydroDiuril] hydrocodone bitartrate Allergy Unknown Verified 12/15/19 08:52 [From Vicodin] iodine Allergy topical Verified 12/15/19 08:52 lidocaine Allergy Unknown Verified 12/15/19 08:52 lidocaine HCl Allergy Unknown Verified 12/15/19 08:52 [From Xylocaine] losartan potassium Allergy Unknown Verified 12/15/19 08:52 [From Cozaar] metformin HCl Allergy Unknown Verified 12/15/19 08:52 [From Glucophage] nylon Allergy Unknown Verified 12/15/19 08:52 oxycodone HCl [From Percodan] Allergy Unknown Verified 12/15/19 08:52 oxycodone terephthalate Allergy Unknown Verified 12/15/19 08:52 [From Percodan] paroxetine HCl [From Paxil] Allergy Unknown Verified 12/15/19 08:52 promethazine HCl Allergy Unknown Verified 12/15/19 08:52 [From Phenergan] propranolol HCl Allergy Unknown Verified 12/15/19 08:52 [From Inderal LA] rofecoxib [From Vioxx] Allergy Unknown Verified 12/15/19 08:52 sulfamethoxazole Allergy Unknown Verified 12/15/19 08:52 [From Bactrim] sulfite Allergy Unknown Verified 12/15/19 08:52 trimethoprim [From Bactrim] Allergy Unknown Verified 12/15/19 08:52 zolpidem tartrate Allergy Unknown Verified 12/15/19 08:52 [From Ambien] morphine AdvReac Hallucinati Verified 12/15/19 08:52 ons artificial color Allergy Unknown Uncoded 12/15/19 08:52 chemicals Allergy Unknown Uncoded 12/15/19 08:52 novacaine Allergy Unknown Uncoded 12/15/19 08:52 nylon stictches Allergy "got an Uncoded 12/15/19 08:52 infection" odor Allergy Unknown Uncoded 12/15/19 08:52 smoke Allergy Unknown Uncoded 12/15/19 08:52 tumeric Allergy Unknown Uncoded 12/15/19 08:52 Surgical - Exam - General well developed, well nourished, no distress - Eyes PERRL - ENT normal pinna - Neck no masses - Respiratory normal expansion - Cardiovascular Rhythm: regular - Abdomen Abdomen: soft, non tender Assessment and Plan Assessment: Chronic diverticulitis. Patient will undergo sigmoid resection today.
[2019-12-15] MEDS: LACTATED RINGERS 1,000 ML IV SCH ×2 (09:16→13:30)
[2019-12-15 09:24] LABS: Glucose,Whole Blood 131 mg/dL (75-99)
[2019-12-15] MEDS ORDERED: MELOXICAM 7.5 MG TAB PO ONE (09:42)
[2019-12-15] MEDS ORDERED: ALVIMOPAN 12 MG CAPSULE PO ONE (09:42)
[2019-12-15] MEDS ORDERED: GLYCOPYRROLATE 0.2 MG/ML 2 ML VIAL ONE (10:27)
[2019-12-15] MEDS ORDERED: SUCCINYLCHOLINE CHLORIDE 100 MG/5 ML SYR IV ONE (10:27)
[2019-12-15] MEDS ORDERED: PROPOFOL 10 MG/ML 20 ML VIAL IV ONE (10:27)
[2019-12-15] MEDS ORDERED: NEOSTIGMINE 1 MG/ML 10 ML VIAL ONE (10:27)
[2019-12-15] MEDS ORDERED: fentaNYL (PF) 50 MCG/ML 2 ML AMP ONE (10:27)
[2019-12-15] MEDS ORDERED: ROCURONIUM 10 MG/ML (10 ML VIAL) IV ONE (10:27)
--- NOTE | 2019-12-15 12:03 | P.OP ---
Date of Procedure: 12/15/19 Preoperative Diagnosis: Diverticulitis Postoperative Diagnosis: Diverticulitis Procedure(s) Performed: Low anterior resection Anesthesia: ANUSHA Surgeon: Reid Mclaughlin Estimated Blood Loss (ml): 25 Pathology: other (Sigmoid colon) Condition: stable Disposition: PACU Description of Procedure: The patient's placed on the operating table in the supine position. She received general anesthesia. She was then placed in dorsal lithotomy position. Her abdomen was prepped and draped in usual sterile fashion. The area was entered through a low midline incision. The Bookwalter specimen. The sigmoid colon was visualized. There appeared to be obvious inflammation of the sigmoid colon. At this point a suitable spot for transection the colon was found. The enterotomy is made distally this and then the anvil for the 25 mm stapler is placed in the colon. The scope was then transected with a GI stapler. And then the anvil was brought through the staple line. The enterotomy is closed with 3- 0 GI silk suture. Using the Enseal device the mesentery of the sigmoid colon was then divided using the Enseal device. The rectum was then transected using the contour stapler. The specimens of pathology. The personal banking assistant then placed the EEA sizer the patient's anus. And then the 25 mm stapler is placed in the patient's anus. The spike was then driven through the anterior rectal wall. The anvil was cut to stapler. And then the stapler is then closed and fired. 2 intact tissue rings were withdrawn for stapler. The anastomosis was then checked under air insufflation. A hydro-underwriting clerks supervisor was placed across the proximal colon and then the sigmoidoscope was used to insufflate the rectum with air. There was no evidence of any leak of the staple line. This point the sigmoid scope was withdrawn. The abdomen was irrigated there is no bleeding seen. The fascia was closed with looped #1 PDS suture. The skin was closed lauri. Patient top she will was sent to recovery room in stable condition
[2019-12-15] MEDS ORDERED: fentaNYL (PF) 50 MCG/ML 2 ML AMP IVP ONE ×3 (12:17→12:51)
[2019-12-15 12:48] LABS: Glucose,Whole Blood 148 mg/dL (75-99)
[2019-12-15] MEDS: ONDANSETRON 4 MG/2 ML VIAL IVP PRN (13:47)
[2019-12-15] MEDS: D5-0.45% NACL WITH KCL 20MEQ/L 1,000 ML IV SCH ×2 (14:47→21:11)
[2019-12-15 17:00] LABS: Glucose,Whole Blood 207 mg/dL (75-99)
[2019-12-15] MEDS: METOCLOPRAMIDE 5 MG/ML 2 ML VIAL IVP SCH (18:15)
[2019-12-15] MEDS: HYDROmorphone 1 MG/ML 1 ML SYRINGE IVP PRN (19:31)
[2019-12-15 20:35] LABS: Glucose,Whole Blood 249 mg/dL (75-99)
[2019-12-16] MEDS: METOCLOPRAMIDE 5 MG/ML 2 ML VIAL IVP SCH ×4 (00:31→20:19)
[2019-12-16] MEDS: D5-0.45% NACL WITH KCL 20MEQ/L 1,000 ML IV SCH ×3 (00:32→20:19)
[2019-12-16] MEDS: HYDROmorphone 1 MG/ML 1 ML SYRINGE IVP PRN ×4 (05:45→20:20)
[2019-12-16 06:44] LABS: Basophils % (A) 0 %; Eosinophils % (A) 0 %; HCT 35.3 % (34.0-46.0); HGB 10.9 gm/dL (11.4-16.0); Lymphocytes % (A) 9 %; MCH 30.2 pg (25.0-35.0); MCV 97.2 fL (80.0-100.0); Mean Platelet Volume 7.8; Monocytes # (A) 0.8 k/uL (0-1.0); Monocytes % (A) 8 %; Neutrophils # (A) 8.6 k/uL (1.3-7.7); Neutrophils % (A) 82 %; Platelet Count 189 k/uL (150-450); RBC 3.63 m/uL (3.80-5.40); RDW 12.8 % (11.5-15.5); WBC 10.5 k/uL (3.8-10.6)
[2019-12-16 06:53] LABS: African American GFR (CKD) >90 (>60 ml/min/1.73 sqM); Anion Gap 2 mmol/L; Blood Urea Nitrogen 12 mg/dL (7-17); Calcium 7.9 mg/dL (8.4-10.2); Carbon Dioxide 29 mmol/L (22-30); Chloride 104 mmol/L (98-107); Glucose 269 mg/dL (74-99); Non-African American GFR(CKD) 83 (>60 ml/min/1.73 sqM); Sodium 135 mmol/L (137-145)
[2019-12-16 07:36] LABS: Glucose,Whole Blood 257 mg/dL (75-99)
[2019-12-16] MEDS: ALVIMOPAN 12 MG CAPSULE PO SCH ×2 (07:57→20:19)
[2019-12-16] MEDS: ONDANSETRON 4 MG/2 ML VIAL IVP PRN (09:36)
[2019-12-16] MEDS: INSULIN DETEMIR (LEVEMIR) 100 UNIT/ML SYR SQ SCH (10:09)
[2019-12-16] MEDS ORDERED: traMADol 50 MG TAB PO PRN (10:13)
--- NOTE | 2019-12-16 10:15 | P.CONS ---
History of Present Illness - Reason for Consult Type 2 diabetes mellitus - History of Present Illness Patient is a pleasant 84-year-old female was admitted for chronic diverticular colitis and low anterior resection patient underwent surgery yesterday. Patient is presently doesn't have full catheter patient is clinically doing well did not pass gas. Did not move her bowel yet. Patient the head enteroanastomosis did not require any colostomy. Patient is barely eating is nauseous today. In spite of which her blood sugars remained high has today I started on sliding scale patient is on low-dose of long-acting insulin which will be resumed today. Review of Systems REVIEW OF SYSTEMS: CONSTITUTIONAL: No fever, no malaise, no fatigue. HEENT: No recent visual problems or hearing problems. Denied any sore throat. CARDIOVASCULAR: No chest pain, orthopnea, PND, no palpitations, no syncope. PULMONARY: No shortness of breath, no cough, no hemoptysis. GASTROINTESTINAL: No diarrhea, no nausea, no vomiting, no abdominal pain. NEUROLOGICAL: No headaches, no weakness, no numbness. HEMATOLOGICAL: Denies any bleeding or petechiae. GENITOURINARY: Denies any burning micturition, frequency, or urgency. MUSCULOSKELETAL/RHEUMATOLOGICAL: Denies any joint pain, swelling, or any muscle pain. ENDOCRINE: Denies any polyuria or polydipsia. The rest of the 14-point review of systems is negative. Past Medical History Past Medical History: Diabetes Mellitus, GERD/Reflux Additional Past Medical History / Comment(s): severe allergies, will be bringing own food and drinks, diverticulitis, hx of "pierced urethra and bladder" has urethral dilations every 6 weeks, has sore on rt buttock that has had for 45 years, occasionally uses a topical ointment History of Any Multi-Drug Resistant Organisms: None Reported Past Surgical History: Appendectomy, Back Surgery, Bladder Surgery, Orthopedic Surgery, Tonsillectomy Additional Past Surgical History / Comment(s): sx on john feet, john rotator cuff, john cataract/lenses, cauterization of part of bladder, has urethral dilations every 6 weeks Additional Past Anesthesia/Blood Transfusion Reaction / Comm: pt states she "coded" with anesthesia in past, but unable to give specifics, states she thought is was from "numbing medication" like lidocaine Past Psychological History: No Psychological Hx Reported Smoking Status: Never smoker Past Alcohol Use History: None Reported Past Drug Use History: None Reported - Past Family History Father History Unknown: Yes Mother Family Medical History: Cancer Additional Family Medical History / Comment(s): skin Medications and Allergies Home Medications Medication Instructions Recorded Confirmed Type Insulin Detemir (Levemir) [Levemir] 15 unit SQ QAM 11/09/14 12/15/19 History Acetaminophen Tab [Tylenol] 1,000 mg PO HS PRN 09/26/16 12/15/19 History LORazepam [Ativan] 1 mg PO BID PRN 09/26/16 12/15/19 History Menthol/Zinc Oxide [Calmoseptine 1 applic TOPICAL DIRECTED PRN 12/10/19 12/15/19 History Ointment] Dextrose Chew [Glucose Chew Tab] 2 tab 12/15/19 History Allergies Allergy/AdvReac Type Severity Reaction Status Date / Time albuterol Allergy Unknown Verified 12/09/19 13:13 aspirin [From Percodan] Allergy Unknown Verified 12/09/19 13:13 atorvastatin calcium Allergy Unknown Verified 12/09/19 13:13 [From Lipitor] azithromycin Allergy Unknown Verified 12/09/19 13:13 benzonatate Allergy Unknown Verified 12/09/19 13:13 [From Tessalon Perles] carrageenan Allergy Unknown Verified 12/09/19 13:13 diazepam [From Valium] Allergy "shuts Verified 12/15/19 08:52 down bladder" diphenhydramine HCl Allergy Unknown Verified 12/15/19 08:52 [From Benadryl] epinephrine Allergy Unknown Verified 12/15/19 08:52 erythromycin base Allergy Unknown Verified 12/15/19 08:52 escitalopram oxalate Allergy Unknown Verified 12/15/19 08:52 [From Lexapro] hydrochlorothiazide Allergy Unknown Verified 12/15/19 08:52 [From HydroDiuril] hydrocodone bitartrate Allergy Unknown Verified 12/15/19 08:52 [From Vicodin] iodine Allergy topical Verified 12/15/19 08:52 lidocaine Allergy Unknown Verified 12/15/19 08:52 lidocaine HCl Allergy Unknown Verified 12/15/19 08:52 [From Xylocaine] losartan potassium Allergy Unknown Verified 12/15/19 08:52 [From Cozaar] metformin HCl Allergy Unknown Verified 12/15/19 08:52 [From Glucophage] nylon Allergy Unknown Verified 12/15/19 08:52 oxycodone HCl [From Percodan] Allergy Unknown Verified 12/15/19 08:52 oxycodone terephthalate Allergy Unknown Verified 12/15/19 08:52 [From Percodan] paroxetine HCl [From Paxil] Allergy Unknown Verified 12/15/19 08:52 promethazine HCl Allergy Unknown Verified 12/15/19 08:52 [From Phenergan] propranolol HCl Allergy Unknown Verified 12/15/19 08:52 [From Inderal LA] rofecoxib [From Vioxx] Allergy Unknown Verified 12/15/19 08:52 sulfamethoxazole Allergy Unknown Verified 12/15/19 08:52 [From Bactrim] sulfite Allergy Unknown Verified 12/15/19 08:52 trimethoprim [From Bactrim] Allergy Unknown Verified 12/15/19 08:52 zolpidem tartrate Allergy Unknown Verified 12/15/19 08:52 [From Ambien] morphine AdvReac Hallucinati Verified 12/15/19 08:52 ons artificial color Allergy Unknown Uncoded 12/15/19 08:52 chemicals Allergy Unknown Uncoded 12/15/19 08:52 novacaine Allergy Unknown Uncoded 12/15/19 08:52 nylon stictches Allergy "got an Uncoded 12/15/19 08:52 infection" odor Allergy Unknown Uncoded 12/15/19 08:52 smoke Allergy Unknown Uncoded 12/15/19 08:52 tumeric Allergy Unknown Uncoded 12/15/19 08:52 Physical Exam Vitals: Vital Signs Temp Pulse Resp BP Pulse Ox 12/16/19 09:24 16 12/16/19 07:00 98.7 F 64 16 116/63 98 12/16/19 03:40 98.7 F 68 17 129/72 99 12/16/19 00:00 16 12/15/19 19:40 98.2 F 90 16 149/75 98 12/15/19 19:35 90 16 12/15/19 16:15 88 149/80 99 12/15/19 16:00 98 152/80 98 12/15/19 15:45 95 149/86 98 12/15/19 15:30 92 149/79 98 12/15/19 15:15 91 146/78 98 12/15/19 15:00 92 147/80 98 10/07/20 14:45 95 144/79 98 12/15/19 14:30 92 150/61 98 12/15/19 14:15 98.3 F 97 152/66 98 12/15/19 13:52 98.4 F 106 H 16 164/70 97 12/15/19 13:30 53 L 16 177/74 98 12/15/19 13:15 56 L 16 194/81 98 12/15/19 12:59 56 L 16 199/83 100 12/15/19 12:45 60 16 204/82 100 12/15/19 12:30 79 16 211/93 99 12/15/19 12:15 63 16 191/79 100 12/15/19 11:59 96.9 F L 61 16 165/80 98 Intake and Output 12/15/19 12/16/19 12/16/19 22:59 06:59 14:59 Intake Total 450 500 Output Total 700 Balance 450 -200 Intake: Intake, IV Titration 250 300 Amount D5-0.45% NaCl with KCl 250 300 20Meq/l 1,000 ml @ 125 mls/hr IV .Q8H [facility] Rx#: [id number] Oral 200 200 Output: Urine 700 Other: Voiding Method Indwelling Catheter Indwelling Catheter Indwelling Catheter PHYSICAL EXAMINATION: GENERAL: The patient is alert and oriented x3, not in any acute distress. Well developed, well nourished. HEENT: Pupils are round and equally reacting to light. EOMI. No scleral icterus. No conjunctival pallor. Normocephalic, atraumatic. No pharyngeal erythema. No thyromegaly. CARDIOVASCULAR: S1 and S2 present. No murmurs, rubs, or gallops. PULMONARY: Chest is clear to auscultation, no wheezing or crackles. ABDOMEN: Soft, nontender, nondistended, sluggish bowel sounds. Midline incision remains clean. No palpable organomegaly. MUSCULOSKELETAL: No joint swelling or deformity. EXTREMITIES: No cyanosis, clubbing, or pedal edema. NEUROLOGICAL: Gross neurological examination did not reveal any focal deficits. SKIN: No rashes. Results CBC & Chem 7: 12/16/19 06:28 12/16/19 06:28 Labs: Abnormal Lab Results - Last 24 Hours (Table) 12/15/19 12/15/19 12/15/19 Range/Units 12:46 16:58 20:33 RBC (3.80-5.40) m/uL Hgb (11.4-16.0) gm/dL Neutrophils # (1.3-7.7) k/uL Sodium (137-145) mmol/L Glucose (74-99) mg/dL POC Glucose (mg/dL) 148 H 207 H 249 H (75-99) mg/dL Calcium (8.4-10.2) mg/dL 12/16/19 12/16/19 12/16/19 Range/Units 06:28 06:28 07:24 RBC 3.63 L (3.80-5.40) m/uL Hgb 10.9 L (11.4-16.0) gm/dL Neutrophils # 8.6 H (1.3-7.7) k/uL Sodium 135 L (137-145) mmol/L Glucose 269 H (74-99) mg/dL POC Glucose (mg/dL) 257 H (75-99) mg/dL Calcium 7.9 L (8.4-10.2) mg/dL Assessment and Plan Plan: -Chronic diverticulitis: Patient is status post cholecystectomy presently not on any antibiotics. To avoid encephalopathy considering his age and delirium considering her age avoid opiates, patient is in Tylenol which is appropriate -Type 2 diabetes mellitus: Patient will be resumed on the long-acting insulin as she is on a low-dose and her blood sugars are high not expecting that drop in blood sugars even though she is not eating much -Gastric esophageal reflux disease -Due to prophylaxis as per primary service
[2019-12-16 11:39] LABS: Glucose,Whole Blood 251 mg/dL (75-99)
[2019-12-16] MEDS: LORazepam 1 MG TAB PO PRN (12:26)
--- NOTE | 2019-12-16 14:04 | P.PN ---
Subjective Progress Note Date: 12/16/19 CHIEF COMPLAINT: Diverticulitis HISTORY OF PRESENT ILLNESS: Patient is status post lower anterior resection. She reports her pain controlled. She denies a nausea or vomiting. Tolerating clear liquid diet. She's afebrile. White count 10.5 PHYSICAL EXAM: VITAL SIGNS: Reviewed. GENERAL: Well-developed in no acute distress. HEENT: No sclera icterus. Extraocular movements grossly intact. Moist buccal mucosa. Head is atraumatic, normocephalic. ABDOMEN: Soft. Nondistended. Incision sites clean dry and intact NEUROLOGIC: Alert and oriented. Cranial nerves II through XII grossly intact. ASSESSMENT: 1. Diverticulitis status post lower anterior resection PLAN: -Continue clear liquid diet -Discontinue Boyer catheter -Continue IV fluids -Continue pain medication as needed -GI prophylaxis Protonix and DVT prophylaxis subcu heparin Physician Sack Keeper note has been reviewed by physician. Signing provider agrees with the documented findings, assessment, and plan of care. Objective - Vital Signs Vital signs: Vital Signs Temp 98.7 F 12/16/19 07:00 Pulse 64 12/16/19 07:00 Resp 16 12/16/19 09:24 BP 116/63 12/16/19 07:00 Pulse Ox 98 12/16/19 07:00 Intake & Output 12/15/19 12/16/19 12/16/19 18:59 06:59 18:59 Intake Total 1000 950 950 Output Total 325 700 Balance 675 250 950 Weight 66.3 kg Intake: IV 1000 Intake, IV Titration 550 750 Amount D5-0.45% NaCl with KCl 550 750 20Meq/l 1,000 ml @ 125 mls/hr IV .Q8H [facility] Rx#: [id number] Oral 400 200 Output: Urine 275 700 Estimated Blood Loss 50 Other: Voiding Method Indwelling Catheter Indwelling Catheter Indwelling Catheter - Labs CBC & Chem 7: 12/16/19 06:28 12/16/19 06:28 Labs: Abnormal Lab Results - Last 24 Hours (Table) 12/15/19 12/15/19 12/16/19 Range/Units 16:58 20:33 06:28 RBC 3.63 L (3.80-5.40) m/uL Hgb 10.9 L (11.4-16.0) gm/dL Neutrophils # 8.6 H (1.3-7.7) k/uL Sodium (137-145) mmol/L Glucose (74-99) mg/dL POC Glucose (mg/dL) 207 H 249 H (75-99) mg/dL Calcium (8.4-10.2) mg/dL 12/16/19 12/16/19 12/16/19 Range/Units 06:28 07:24 11:34 RBC (3.80-5.40) m/uL Hgb (11.4-16.0) gm/dL Neutrophils # (1.3-7.7) k/uL Sodium 135 L (137-145) mmol/L Glucose 269 H (74-99) mg/dL POC Glucose (mg/dL) 257 H 251 H (75-99) mg/dL Calcium 7.9 L (8.4-10.2) mg/dL
[2019-12-16 17:05] LABS: Glucose,Whole Blood 228 mg/dL (75-99)
[2019-12-16 20:14] LABS: Glucose,Whole Blood 220 mg/dL (75-99)
[2019-12-16] MEDS: HEPARIN SODIUM,PORCINE 5,000 UNIT/ML 1 ML VIAL SQ SCH (20:20)
[2019-12-17] MEDS: HYDROmorphone 1 MG/ML 1 ML SYRINGE IVP PRN ×3 (00:44→11:07)
[2019-12-17] MEDS: METOCLOPRAMIDE 5 MG/ML 2 ML VIAL IVP SCH ×5 (00:44→23:17)
[2019-12-17] MEDS: D5-0.45% NACL WITH KCL 20MEQ/L 1,000 ML IV SCH ×3 (00:48→17:28)
[2019-12-17] MEDS: LACTATED RINGERS 1,000 ML IV SCH (06:02)
[2019-12-17] MEDS: ALVIMOPAN 12 MG CAPSULE PO SCH ×2 (07:15→21:41)
[2019-12-17] MEDS: PANTOPRAZOLE 40 MG TABLET PO SCH (07:15)
[2019-12-17] MEDS: HEPARIN SODIUM,PORCINE 5,000 UNIT/ML 1 ML VIAL SQ SCH ×2 (07:16→21:41)
[2019-12-17] MEDS: INSULIN DETEMIR (LEVEMIR) 100 UNIT/ML SYR SQ SCH (07:16)
[2019-12-17 07:26] LABS: Glucose,Whole Blood 169 mg/dL (75-99)
--- NOTE | 2019-12-17 10:31 | P.PN ---
Subjective Progress Note Date: 12/17/19 CHIEF COMPLAINT: Diverticulitis HISTORY OF PRESENT ILLNESS: Patient is status post lower anterior resection. He has minimal pain with movement. She reports that it's controlled with pain medications. She had some nausea yesterday that has now resolved. She denies any flatness or BM. She's currently on a clear liquid diet. Boyer catheter removed yesterday. Patient denies any difficulty urinating. Afebrile PHYSICAL EXAM: VITAL SIGNS: Reviewed. GENERAL: Well-developed in no acute distress. HEENT: No sclera icterus. Extraocular movements grossly intact. Moist buccal mucosa. Head is atraumatic, normocephalic. ABDOMEN: Soft. Nondistended. Some blood noted at the distal portion of the d ressing and middle of dressing. No evidence of cellulitis or drainage. There is minimal blood noted. No significant oozing of blood from incision NEUROLOGIC: Alert and oriented. Cranial nerves II through XII grossly intact. ASSESSMENT: 1. Diverticulitis status post lower anterior resection PLAN: -Continue clear liquid diet -Continue IV fluids -Continue pain medication as needed -Encourage patient to ambulate and use incentive spirometer -GI prophylaxis Protonix and DVT prophylaxis subcu heparin Physician Informatics Nurse Specialist note has been reviewed by physician. Signing provider agrees with the documented findings, assessment, and plan of care. Objective - Vital Signs Vital signs: Vital Signs Temp 97.9 F 12/17/19 07:00 Pulse 86 12/17/19 07:00 Resp 16 12/17/19 08:00 BP 145/57 12/17/19 07:00 Pulse Ox 91 L 12/17/19 07:00 Intake & Output 12/16/19 12/17/19 12/17/19 18:59 06:59 18:59 Intake Total 1150 900 Output Total 350 Balance 800 900 Intake: Intake, IV Titration 750 600 Amount D5-0.45% NaCl with KCl 750 600 20Meq/l 1,000 ml @ 125 mls/hr IV .Q8H [facility] Rx#: [id number] Oral 400 300 Output: Urine 350 Uretheral (Boyer) 350 Other: Voiding Method Indwelling Catheter Indwelling Catheter Bedside Commode # Voids 5 - Labs CBC & Chem 7: 12/16/19 06:28 12/16/19 06:28 Labs: Abnormal Lab Results - Last 24 Hours (Table) 12/16/19 12/16/19 12/16/19 Range/Units 11:34 17:01 20:11 POC Glucose (mg/dL) 251 H 228 H 220 H (75-99) mg/dL 12/17/19 Range/Units 07:23 POC Glucose (mg/dL) 169 H (75-99) mg/dL
[2019-12-17] MEDS: LORazepam 1 MG TAB PO PRN (11:02)
[2019-12-17 11:41] LABS: Glucose,Whole Blood 207 mg/dL (75-99)
--- NOTE | 2019-12-17 15:03 | P.PN ---
Subjective Progress Note Date: 12/17/19 Patient is a pleasant 84-year-old female was admitted for chronic diverticular colitis and low anterior resection patient underwent surgery yesterday. Patient is presently doesn't have full catheter patient is clinically doing well did not pass gas. Did not move her bowel yet. Patient the head enteroanastomosis did not require any colostomy. Patient is barely eating is nauseous today. In spite of which her blood sugars remained high has today I started on sliding scale patient is on low-dose of long-acting insulin which will be resumed today. 12/17/2019 Blood sugars elevated, proceeding with 15 units without sliding scale, basal insulin dose will be increased. Patient is currently on clear liquids, not passing gas, has not had a bowel movement, does report belching however. Denies nausea vomiting. No fever, abdominal incision is intact. Review of Systems REVIEW OF SYSTEMS: CONSTITUTIONAL: No fever, no malaise, no fatigue. HEENT: No recent visual problems or hearing problems. Denied any sore throat. CARDIOVASCULAR: No chest pain, orthopnea, PND, no palpitations, no syncope. PULMONARY: No shortness of breath, no cough, no hemoptysis. GASTROINTESTINAL: No diarrhea, no nausea, no vomiting, no abdominal pain. NEUROLOGICAL: No headaches, no weakness, no numbness. HEMATOLOGICAL: Denies any bleeding or petechiae. GENITOURINARY: Denies any burning micturition, frequency, or urgency. MUSCULOSKELETAL/RHEUMATOLOGICAL: Denies any joint pain, swelling, or any muscle pain. ENDOCRINE: Denies any polyuria or polydipsia. The rest of the 14-point review of systems is negative. Objective - Vital Signs Vital signs: Vital Signs Temp 97.9 F 12/17/19 07:00 Pulse 94 12/17/19 11:26 Resp 16 12/17/19 08:00 BP 124/56 12/17/19 11:26 Pulse Ox 93 L 12/17/19 11:26 Intake & Output 12/16/19 12/17/19 12/17/19 18:59 06:59 18:59 Intake Total 1150 900 200 Output Total 350 400 Balance 800 900 -200 Intake: Intake, IV Titration 750 600 Amount D5-0.45% NaCl with KCl 750 600 20Meq/l 1,000 ml @ 125 mls/hr IV .Q8H [facility] Rx#: [id number] Oral 400 300 200 Output: Urine 350 400 Uretheral (Boyer) 350 Other: Voiding Method Indwelling Catheter Indwelling Catheter Bedside Commode # Voids 5 2 - Exam GENERAL: The patient is alert and oriented x3, not in any acute distress. Well developed, well nourished. HEENT: Pupils are round and equally reacting to light. EOMI. No scleral icterus. No conjunctival pallor. Normocephalic, atraumatic. No pharyngeal erythema. No thyromegaly. CARDIOVASCULAR: S1 and S2 present. No murmurs, rubs, or gallops. PULMONARY: Chest is clear to auscultation, no wheezing or crackles. ABDOMEN: Soft, nontender, nondistended, sluggish bowel sounds. Midline incision remains clean. No palpable organomegaly. MUSCULOSKELETAL: No joint swelling or deformity. EXTREMITIES: No cyanosis, clubbing, or pedal edema. NEUROLOGICAL: Gross neurological examination did not reveal any focal deficits. SKIN: No rashes. - Labs CBC & Chem 7: 12/16/19 06:28 12/16/19 06:28 Labs: Abnormal Lab Results - Last 24 Hours (Table) 12/16/19 12/16/19 12/17/19 Range/Units 17:01 20:11 07:23 POC Glucose (mg/dL) 228 H 220 H 169 H (75-99) mg/dL 12/17/19 Range/Units 11:39 POC Glucose (mg/dL) 207 H (75-99) mg/dL Assessment and Plan Plan: Plan: -Chronic diverticulitis: Patient is status post lower anterior resection presently not on any antibiotics. Voiding opiates if possible to avoid potential encephalopathy, patient is in Tylenol which is appropriate -Type 2 diabetes mellitus with hyperglycemia: Increased basal insulin to 20 units -Gastric esophageal reflux disease -Due to prophylaxis as per primary service
[2019-12-17 16:30] LABS: Glucose,Whole Blood 146 mg/dL (75-99)
[2019-12-17] MEDS: INSULIN ASPART (NovoLOG) 100 UNIT/ML VIAL SQ SCH ×2 (17:29→21:08)
[2019-12-17 19:06] LABS: Hemoglobin A1C 7.1 % (4.0-6.0)
[2019-12-17 21:07] LABS: Glucose,Whole Blood 103 mg/dL (75-99)
[2019-12-18] MEDS: LORazepam 1 MG TAB PO PRN ×2 (02:47→22:01)
[2019-12-18] MEDS: LACTATED RINGERS 1,000 ML IV SCH (04:53)
[2019-12-18] MEDS: METOCLOPRAMIDE 5 MG/ML 2 ML VIAL IVP SCH ×4 (05:50→23:04)
[2019-12-18] MEDS: D5-0.45% NACL WITH KCL 20MEQ/L 1,000 ML IV SCH ×2 (05:50→11:39)
[2019-12-18 06:50] LABS: Glucose,Whole Blood 137 mg/dL (75-99)
[2019-12-18 07:13] LABS: Basophils % (A) 0 %; Eosinophils # (A) 0.1 k/uL (0-0.7); Eosinophils % (A) 2 %; HGB 11.7 gm/dL (11.4-16.0); Lymphocytes # (A) 1.4 k/uL (1.0-4.8); Lymphocytes % (A) 19 %; MCH 32.2 pg (25.0-35.0); MCHC 32.6 g/dL (31.0-37.0); MCV 98.8 fL (80.0-100.0); Mean Platelet Volume 7.8; Monocytes # (A) 0.5 k/uL (0-1.0); Monocytes % (A) 7 %; Neutrophils # (A) 5.4 k/uL (1.3-7.7); Neutrophils % (A) 71 %; Platelet Count 178 k/uL (150-450); RBC 3.65 m/uL (3.80-5.40); RDW 12.2 % (11.5-15.5); WBC 7.6 k/uL (3.8-10.6)
[2019-12-18] MEDS: HEPARIN SODIUM,PORCINE 5,000 UNIT/ML 1 ML VIAL SQ SCH ×2 (07:55→20:30)
[2019-12-18] MEDS: PANTOPRAZOLE 40 MG TABLET PO SCH (07:55)
[2019-12-18] MEDS: INSULIN ASPART (NovoLOG) 100 UNIT/ML VIAL SQ SCH ×4 (07:55→20:10)
[2019-12-18] MEDS: INSULIN DETEMIR (LEVEMIR) 100 UNIT/ML SYR SQ SCH (07:55)
[2019-12-18] MEDS: ALVIMOPAN 12 MG CAPSULE PO SCH ×2 (07:57→20:30)
[2019-12-18 09:55] LABS: African American GFR (CKD) 95.7 (60.0-200.0); Blood Urea Nitrogen <5.0 mg/dL (9.0-27.0); Calcium 9.1 mg/dL (8.7-10.3); Carbon Dioxide 29.9 mmol/L (21.6-31.8); Chloride 103 mmol/L (96-109); Glucose 126 mg/dL (70-110); Non-African American GFR(CKD) 82.5 (60.0-200.0); Potassium 4.4 mmol/L (3.5-5.5); Sodium 141 mmol/L (135-145)
[2019-12-18 11:45] LABS: Glucose,Whole Blood 177 mg/dL (75-99)
--- NOTE | 2019-12-18 14:55 | P.PN ---
Subjective Progress Note Date: 12/18/19 Progress Note Date: 12/17/19 Patient is a pleasant 84-year-old female was admitted for chronic diverticular colitis and low anterior resection patient underwent surgery yesterday. Patient is presently doesn't have full catheter patient is clinically doing well did not pass gas. Did not move her bowel yet. Patient the head enteroanastomosis did not require any colostomy. Patient is barely eating is nauseous today. In spite of which her blood sugars remained high has today I started on sliding scale patient is on low-dose of long-acting insulin which will be resumed today. 12/17/2019 Blood sugars elevated, proceeding with 15 units without sliding scale, basal insulin dose will be increased. Patient is currently on clear liquids, not passing gas, has not had a bowel movement, does report belching however. Denies nausea vomiting. No fever, abdominal incision is intact. 12/18/19 Patient seen in follow-up day 2 postop, reports she is passing gas and had bowel movement today. She is tolerating liquid diet. Reports pain is controlled at this time. Blood sugars controlled with 20 of levamir. No fever. Review of Systems REVIEW OF SYSTEMS: CONSTITUTIONAL: No fever, no malaise, no fatigue. HEENT: No recent visual problems or hearing problems. Denied any sore throat. CARDIOVASCULAR: No chest pain, orthopnea, PND, no palpitations, no syncope. PULMONARY: No shortness of breath, no cough, no hemoptysis. GASTROINTESTINAL: No diarrhea, no nausea, no vomiting, no abdominal pain. NEUROLOGICAL: No headaches, no weakness, no numbness. HEMATOLOGICAL: Denies any bleeding or petechiae. GENITOURINARY: Denies any burning micturition, frequency, or urgency. MUSCULOSKELETAL/RHEUMATOLOGICAL: Denies any joint pain, swelling, or any muscle pain. ENDOCRINE: Denies any polyuria or polydipsia. The rest of the 14-point review of systems is negative. Objective - Vital Signs Vital signs: Vital Signs Temp 98.4 F 12/18/19 07:00 Pulse 88 12/18/19 07:00 Resp 16 12/18/19 07:00 BP 169/82 12/18/19 07:00 Pulse Ox 93 L 12/18/19 07:00 Intake & Output 12/17/19 12/18/19 12/18/19 18:59 06:59 18:59 Intake Total 200 1000 Output Total 400 Balance -200 1000 Intake: Intake, IV Titration 1000 Amount D5-0.45% NaCl with KCl 1000 20Meq/l 1,000 ml @ 125 mls/hr IV .Q8H [facility] Rx#: [id number] Oral 200 Output: Urine 400 Other: Voiding Method Bedside Commode Bedside Commode Bedside Commode # Voids 2 5 6 - Exam GENERAL: The patient is alert and oriented x3, not in any acute distress. Well developed, well nourished. HEENT: Pupils are round and equally reacting to light. EOMI. No scleral icterus. No conjunctival pallor. Normocephalic, atraumatic. No pharyngeal erythema. No thyromegaly. CARDIOVASCULAR: S1 and S2 present. No murmurs, rubs, or gallops. PULMONARY: Chest is clear to auscultation, no wheezing or crackles. ABDOMEN: Soft, nontender, nondistended, sluggish bowel sounds. Midline incision remains clean. No palpable organomegaly. MUSCULOSKELETAL: No joint swelling or deformity. EXTREMITIES: No cyanosis, clubbing, or pedal edema. NEUROLOGICAL: Gross neurological examination did not reveal any focal deficits. SKIN: No rashes. - Labs CBC & Chem 7: 12/18/19 05:56 12/18/19 05:56 Labs: Abnormal Lab Results - Last 24 Hours (Table) 12/16/19 12/17/19 12/17/19 Range/Units 06:28 16:29 21:05 RBC (3.80-5.40) m/uL BUN (9.0-27.0) mg/dL Glucose (70-110) mg/dL POC Glucose (mg/dL) 146 H 103 H (75-99) mg/dL Hemoglobin A1c 7.1 H (4.0-6.0) % 12/18/19 12/18/19 12/18/19 Range/Units 05:56 05:56 06:42 RBC 3.65 L (3.80-5.40) m/uL BUN <5.0 L (9.0-27.0) mg/dL Glucose 126 H (70-110) mg/dL POC Glucose (mg/dL) 137 H (75-99) mg/dL Hemoglobin A1c (4.0-6.0) % 12/18/19 Range/Units 11:43 RBC (3.80-5.40) m/uL BUN (9.0-27.0) mg/dL Glucose (70-110) mg/dL POC Glucose (mg/dL) 177 H (75-99) mg/dL Hemoglobin A1c (4.0-6.0) % Assessment and Plan Assessment: Plan: -Chronic diverticulitis: Patient is status post lower anterior resection presently not on any antibiotics. Voiding opiates if possible to avoid potential encephalopathy, patient is in Tylenol which is appropriate. Tolerating diet, we'll have pluck IV fluids to avoid potential fluid overload given her advanced age. -Type 2 diabetes mellitus with hyperglycemia: Controlled, Levemir increased to 20 units -Gastric esophageal reflux disease -DVT prophylaxis as per primary service
--- NOTE | 2019-12-18 15:19 | P.PN ---
Subjective Progress Note Date: 12/18/19 CHIEF COMPLAINT: Diverticulitis HISTORY OF PRESENT ILLNESS: The patient is a 84-year-old female status post low anterior resection for diverticulitis. Family is at bedside. Patient is passing moderate flatus. No bowel movements. Family reports preparing all her meals from outside secondary to severe multiple food ALLERGIES. ROS: No reports of nausea and vomiting. No bowel movements. No fevers or chills. No new chest pain. No productive sputum PHYSICAL EXAM: VITAL SIGNS: Reviewed CONSTITUTIONAL: Well developed and in no acute distress. EYES: Conjuctivae without sclera icterus. Extraocular movements grossly intact. HEAD, EARS, NOSE, THROAT: Moist buccal mucosa. Head is atraumatic, no rmocephalic. Hears conversational speech. No nasal drainage. NECK: Supple. No thyroidomegaly. RESPIRATORY: Non-labored respirations and equal bilateral excursions. CARDIOVASCULAR: Palpable 2+ radial pulses. Regular rate. Regular rhythm. ABDOMEN: No peritonitis. Incision intact. MUSCULOSKELETAL: No gross deformity of the lower extremities noted. No clubbing. No cyanosis. SKIN: Good skin turgor. Well perfused. NEUROLOGIC: Cranial nerves II through XII grossly intact. No focal or lateral izing signs. PSYCH: Appropriate affect. Alert and oriented to person, place and time. CLINICAL LABS: White blood cell count normal, 7.6. ASSESSMENT: 1. Diverticulitis PLAN: 1. Recommend dietitian consult regarding staged diet. 2. Otherwise continue liquid diet pending assessment with dietitian and family members. Objective - Vital Signs Vital signs: Vital Signs Temp 98.4 F 12/18/19 07:00 Pulse 88 12/18/19 07:00 Resp 16 12/18/19 07:00 BP 169/82 12/18/19 07:00 Pulse Ox 93 L 12/18/19 07:00 Intake & Output 12/17/19 12/18/19 12/18/19 18:59 06:59 18:59 Intake Total 200 1000 Output Total 400 Balance -200 1000 Intake: Intake, IV Titration 1000 Amount D5-0.45% NaCl with KCl 1000 20Meq/l 1,000 ml @ 125 mls/hr IV .Q8H [facility] Rx#: [id number] Oral 200 Output: Urine 400 Other: Voiding Method Bedside Commode Bedside Commode Bedside Commode # Voids 2 5 6 - Labs CBC & Chem 7: 12/18/19 05:56 12/18/19 05:56 Labs: Abnormal Lab Results - Last 24 Hours (Table) 12/16/19 12/17/19 12/17/19 Range/Units 06:28 16:29 21:05 RBC (3.80-5.40) m/uL BUN (9.0-27.0) mg/dL Glucose (70-110) mg/dL POC Glucose (mg/dL) 146 H 103 H (75-99) mg/dL Hemoglobin A1c 7.1 H (4.0-6.0) % 12/18/19 12/18/19 12/18/19 Range/Units 05:56 05:56 06:42 RBC 3.65 L (3.80-5.40) m/uL BUN <5.0 L (9.0-27.0) mg/dL Glucose 126 H (70-110) mg/dL POC Glucose (mg/dL) 137 H (75-99) mg/dL Hemoglobin A1c (4.0-6.0) % 12/18/19 Range/Units 11:43 RBC (3.80-5.40) m/uL BUN (9.0-27.0) mg/dL Glucose (70-110) mg/dL POC Glucose (mg/dL) 177 H (75-99) mg/dL Hemoglobin A1c (4.0-6.0) % Assessment and Plan (1) Diverticulitis Current Visit: No Status: Acute Code(s): K57.92 - DVTRCLI OF INTEST, PART UNSP, W/O PERF OR ABSCESS W/O BLEED SNOMED Code(s): 707485097 (2) Allergies Current Visit: Yes Status: Acute Code(s): T78.40XA - ALLERGY, UNSPECIFIED, INITIAL ENCOUNTER SNOMED Code(s): 720494441
[2019-12-18 16:48] LABS: Glucose,Whole Blood 136 mg/dL (75-99)
[2019-12-18 20:08] LABS: Glucose,Whole Blood 129 mg/dL (75-99)
[2019-12-19] MEDS: D5-0.45% NACL WITH KCL 20MEQ/L 1,000 ML IV SCH ×3 (05:12→12:14)
[2019-12-19] MEDS: METOCLOPRAMIDE 5 MG/ML 2 ML VIAL IVP SCH ×4 (05:50→23:05)
[2019-12-19 06:54] LABS: Glucose,Whole Blood 198 mg/dL (75-99)
[2019-12-19] MEDS: LACTATED RINGERS 1,000 ML IV SCH (08:54)
[2019-12-19] MEDS: HEPARIN SODIUM,PORCINE 5,000 UNIT/ML 1 ML VIAL SQ SCH ×2 (08:59→20:10)
[2019-12-19] MEDS: ALVIMOPAN 12 MG CAPSULE PO SCH ×2 (08:59→20:10)
[2019-12-19] MEDS: amLODIPine 5 MG TAB PO SCH (08:59)
[2019-12-19] MEDS: INSULIN DETEMIR (LEVEMIR) 100 UNIT/ML SYR SQ SCH (08:59)
[2019-12-19] MEDS: PANTOPRAZOLE 40 MG TABLET PO SCH (08:59)
[2019-12-19] MEDS: INSULIN ASPART (NovoLOG) 100 UNIT/ML VIAL SQ SCH ×4 (09:00→20:07)
[2019-12-19 09:55] LABS: African American GFR (CKD) 95.7 (60.0-200.0); Anion Gap 5.8 mmol/L (4.00-12.00); BUN/Creat Ratio 11.67 Ratio (12.00-20.00); Calcium 8.5 mg/dL (8.7-10.3); Carbon Dioxide 30.2 mmol/L (21.6-31.8); Non-African American GFR(CKD) 82.5 (60.0-200.0); Potassium 4.2 mmol/L (3.5-5.5)
[2019-12-19 11:36] LABS: Glucose,Whole Blood 154 mg/dL (75-99)
--- NOTE | 2019-12-19 12:38 | P.PN ---
Subjective Progress Note Date: 12/17/19 Patient is a pleasant 84-year-old female was admitted for chronic diverticular colitis and low anterior resection patient underwent surgery yesterday. Patient is presently doesn't have full catheter patient is clinically doing well did not pass gas. Did not move her bowel yet. Patient the head enteroanastomosis did not require any colostomy. Patient is barely eating is nauseous today. In spite of which her blood sugars remained high has today I started on sliding scale patient is on low-dose of long-acting insulin which will be resumed today. 12/19/19 Postop day 3, patient ambulating, reports passing gas, has not yet had a bowel movement. Tolerating clear liquids, no nausea or vomiting. No fever, hemodynamically stable. Blood sugars controlled, on Levemir 20 units plus NovoLog to scale. Review of Systems REVIEW OF SYSTEMS: CONSTITUTIONAL: No fever, no malaise, no fatigue. HEENT: No recent visual problems or hearing problems. Denied any sore throat. CARDIOVASCULAR: No chest pain, orthopnea, PND, no palpitations, no syncope. PULMONARY: No shortness of breath, no cough, no hemoptysis. GASTROINTESTINAL: No diarrhea, no nausea, no vomiting, no abdominal pain. NEUROLOGICAL: No headaches, no weakness, no numbness. HEMATOLOGICAL: Denies any bleeding or petechiae. GENITOURINARY: Denies any burning micturition, frequency, or urgency. MUSCULOSKELETAL/RHEUMATOLOGICAL: Denies any joint pain, swelling, or any muscle pain. ENDOCRINE: Denies any polyuria or polydipsia. The rest of the 14-point review of systems is negative. Objective - Vital Signs Vital signs: Vital Signs Temp 98.4 F 12/19/19 08:53 Pulse 86 12/19/19 08:53 Resp 16 12/19/19 08:53 BP 156/78 12/19/19 08:53 Pulse Ox 95 12/19/19 08:53 Intake & Output 12/18/19 12/19/19 12/19/19 18:59 06:59 18:59 Intake Total 320 Balance 320 Intake: Intake, IV Titration 320 Amount D5-0.45% NaCl with KCl 320 20Meq/l 1,000 ml @ 125 mls/hr IV .Q8H [facility] Rx#: [id number] Other: Voiding Method Bedside Commode Bedside Commode # Voids 6 1 - Exam GENERAL: The patient is alert and oriented x3, not in any acute distress. Well developed, well nourished. HEENT: Pupils are round and equally reacting to light. EOMI. No scleral icterus. No conjunctival pallor. Normocephalic, atraumatic. No pharyngeal erythema. No thyromegaly. CARDIOVASCULAR: S1 and S2 present. No murmurs, rubs, or gallops. PULMONARY: Chest is clear to auscultation, no wheezing or crackles. ABDOMEN: Soft, nontender, nondistended, sluggish bowel sounds. Midline incision remains clean. No palpable organomegaly. MUSCULOSKELETAL: No joint swelling or deformity. EXTREMITIES: No cyanosis, clubbing, or pedal edema. NEUROLOGICAL: Gross neurological examination did not reveal any focal deficits. SKIN: No rashes. - Labs CBC & Chem 7: 12/18/19 05:56 12/19/19 05:57 Labs: Abnormal Lab Results - Last 24 Hours (Table) 12/18/19 12/18/19 12/19/19 Range/Units 16:46 20:06 05:57 BUN 7.0 L (9.0-27.0) mg/dL BUN/Creatinine Ratio 11.67 L (12.00-20.00) Ratio Glucose 163 H (70-110) mg/dL POC Glucose (mg/dL) 136 H 129 H (75-99) mg/dL Calcium 8.5 L (8.7-10.3) mg/dL 12/19/19 12/19/19 Range/Units 06:53 11:34 BUN (9.0-27.0) mg/dL BUN/Creatinine Ratio (12.00-20.00) Ratio Glucose (70-110) mg/dL POC Glucose (mg/dL) 198 H 154 H (75-99) mg/dL Calcium (8.7-10.3) mg/dL Assessment and Plan Assessment: Plan: -Chronic diverticulitis: Patient is status post lower anterior resection presently not on any antibiotics. Tolerating diet, we'll discontinue IV fluids. -Type 2 diabetes mellitus with hyperglycemia: Blood sugars controlled with Levemir 20 units plus NovoLog scale -Gastric esophageal reflux disease: Continue Protonix -DVT prophylaxis as per primary service
[2019-12-19 13:09] VITALS: BMI 24.3
[2019-12-19 16:46] LABS: Glucose,Whole Blood 125 mg/dL (75-99)
--- NOTE | 2019-12-19 17:41 | P.PN ---
Subjective Progress Note Date: 12/19/19 CHIEF COMPLAINT: Diverticulitis HISTORY OF PRESENT ILLNESS: The patient is a 84-year-old female status post low anterior resection for diverticulitis. She is ambulating. She is passing flatus. She is tolerating clear liquid diet. All of her foods are obtained from home and she is multiple food ALLERGIES. Per description of patient, dietitian consultation was completed. ROS: No reports of nausea and vomiting. No bowel movements. No fevers or chills. No new chest pain. No productive sputum PHYSICAL EXAM: VITAL SIGNS: Reviewed CONSTITUTIONAL: Well developed and in no acute distress. EYES: Conjuctivae without sclera icterus. Extraocular movements grossly intact. HEAD, EARS, NOSE, THROAT: Moist buccal mucosa. Head is atraumatic, normocephalic. Hears conversational speech. No nasal drainage. NECK: Supple. No thyroidomegaly. RESPIRATORY: Non-labored respirations and equal bilateral excursions. CARDIOVASCULAR: Palpable 2+ radial pulses. ABDOMEN: No peritonitis. Incision intact. MUSCULOSKELETAL: No gross deformity of the lower extremities noted. No clubbing. No cyanosis. SKIN: Good skin turgor. Well perfused. NEUROLOGIC: Cranial nerves II through XII grossly intact. No focal or lateralizing signs. PSYCH: Appropriate affect. Alert and oriented to person, place and time. CLINICAL LABS: Creatinine normal, 0.6. ASSESSMENT: 1. Diverticulitis 2. Status post low anterior resection PLAN: 1. Await bowel movement to advance to low fiber diet Objective - Vital Signs Vital signs: Vital Signs Temp 98.5 F 12/19/19 14:22 Pulse 87 12/19/19 14:22 Resp 16 12/19/19 14:22 BP 125/77 12/19/19 14:22 Pulse Ox 95 12/19/19 14:22 Intake & Output 12/18/19 12/19/19 12/19/19 18:59 06:59 18:59 Intake Total 320 Balance 320 Weight 66.3 kg Intake: Intake, IV Titration 320 Amount D5-0.45% NaCl with KCl 320 20Meq/l 1,000 ml @ 125 mls/hr IV .Q8H [facility] [place] Rx#: [id number] Other: Voiding Method Bedside Commode Bedside Commode # Voids 6 1 2 - Labs CBC & Chem 7: 12/18/19 05:56 12/19/19 05:57 Labs: Abnormal Lab Results - Last 24 Hours (Table) 12/18/19 12/19/19 12/19/19 Range/Units 20:06 05:57 06:53 BUN 7.0 L (9.0-27.0) mg/dL BUN/Creatinine Ratio 11.67 L (12.00-20.00) Ratio Glucose 163 H (70-110) mg/dL POC Glucose (mg/dL) 129 H 198 H (75-99) mg/dL Calcium 8.5 L (8.7-10.3) mg/dL 12/19/19 12/19/19 Range/Units 11:34 16:44 BUN (9.0-27.0) mg/dL BUN/Creatinine Ratio (12.00-20.00) Ratio Glucose (70-110) mg/dL POC Glucose (mg/dL) 154 H 125 H (75-99) mg/dL Calcium (8.7-10.3) mg/dL Assessment and Plan (1) Diverticulitis Current Visit: No Status: Acute Code(s): K57.92 - DVTRCLI OF INTEST, PART UNSP, W/O PERF OR ABSCESS W/O BLEED SNOMED Code(s): 721457522 (2) Allergies Current Visit: Yes Status: Acute Code(s): T78.40XA - ALLERGY, UNSPECIFIED, INITIAL ENCOUNTER SNOMED Code(s): 794180798
[2019-12-19 20:02] LABS: Glucose,Whole Blood 130 mg/dL (75-99)
[2019-12-19] MEDS: LORazepam 1 MG TAB PO PRN (21:30)
[2019-12-20] MEDS: METOCLOPRAMIDE 5 MG/ML 2 ML VIAL IVP SCH ×2 (06:02→12:11)
[2019-12-20 06:48] LABS: Glucose,Whole Blood 135 mg/dL (75-99)
[2019-12-20] MEDS: LACTATED RINGERS 1,000 ML IV SCH (08:01)
[2019-12-20] MEDS: D5-0.45% NACL WITH KCL 20MEQ/L 1,000 ML IV SCH ×2 (08:01→12:18)
[2019-12-20] MEDS: INSULIN DETEMIR (LEVEMIR) 100 UNIT/ML SYR SQ SCH (08:05)
[2019-12-20] MEDS: INSULIN ASPART (NovoLOG) 100 UNIT/ML VIAL SQ SCH ×2 (08:05→12:03)
[2019-12-20] MEDS: ALVIMOPAN 12 MG CAPSULE PO SCH (08:06)
[2019-12-20] MEDS: amLODIPine 5 MG TAB PO SCH (08:06)
[2019-12-20] MEDS: PANTOPRAZOLE 40 MG TABLET PO SCH (08:06)
[2019-12-20] MEDS: HEPARIN SODIUM,PORCINE 5,000 UNIT/ML 1 ML VIAL SQ SCH (08:06)
[2019-12-20 11:28] LABS: Glucose,Whole Blood 113 mg/dL (75-99)
[2019-12-20] MEDS ORDERED: ACETAMINOPHEN TAB 500 MG TAB PO PRN (12:05)
--- NOTE | 2019-12-20 13:11 | P.DS ---
Providers Date of admission: 12/15/19 08:23 Expected date of discharge: 12/20/19 Attending physician: Reid Mclaughlin Consults: 12/15/19 12:03 Consult Physician Routine Consulting Provider: Shavon Rausch Consult Reason/Comments: Medical management Do you want consulting provider notified?: Yes Primary care physician: Mik [facility] Course: Discharge diagnosis 1. Diverticulitis status post lower anterior resection Hospital course This is a 84-year-old female with a known history of diverticulitis. She is status post lower anterior resection with Dr. Mclaughlin. She tolerated surgery well. She tolerated advancement of diet. She is having bowel movements. She has been up and ambulating. She's afebrile. She is stable for discharge home. Physician Glue Cook note has been reviewed by physician. Signing provider agrees with the documented findings, assessment, and plan of care. Patient Condition at Discharge: Stable Plan - Discharge Summary Discharge Rx Participant: Yes New Discharge Prescriptions: New Acetaminophen Tab [Tylenol Tab] 650 mg PO Q4H PRN #30 tablet PRN Reason: Pain No Action Insulin Detemir (Levemir) [Levemir] 15 unit SQ QAM LORazepam [Ativan] 1 mg PO BID PRN PRN Reason: Allergic Reaction Acetaminophen Tab [Tylenol] 1,000 mg PO HS PRN PRN Reason: Pain Menthol/Zinc Oxide [Calmoseptine Ointment] 1 applic TOPICAL DIRECTED PRN PRN Reason: wound care Dextrose Chew [Glucose Chew Tab] 2 tab Discharge Medication List Insulin Detemir (Levemir) [Levemir] 15 unit SQ QAM 11/09/14 [History] Acetaminophen Tab [Tylenol] 1,000 mg PO HS PRN 09/26/16 [History] LORazepam [Ativan] 1 mg PO BID PRN 09/26/16 [History] Menthol/Zinc Oxide [Calmoseptine Ointment] 1 applic TOPICAL DIRECTED PRN 12/10/19 [History] Dextrose Chew [Glucose Chew Tab] 2 tab 12/15/19 [History] Acetaminophen Tab [Tylenol Tab] 650 mg PO Q4H PRN #30 tablet 12/20/19 [Rx] Follow up Appointment(s)/Referral(s): Reid Mclaughlin MD [STAFF PHYSICIAN] - 1 Week Activity/Diet/Wound Care/Special Instructions: Medicine to complete med rec No lifting over 10 pounds You may shower. No soaking or tub baths for 2 weeks Very light activity until you are reevaluated at your follow up appointment with your surgeon Low fiber diet Discharge Disposition: HOME SELF-CARE
[2019-12-20 14:51] VITALS: BP 126/67; PULSE 72; RESP 18; TEMP 97.7
--- NOTE | 2019-12-21 12:02 | CDI ---
Documentation Clarification Form Date: 12/21/19 From: Miguelina Castañeda Phone: If you have a question about this query, please contact Erin Dietz Paperhanger Apprentice at [phone] between 8am and 5pm. Admit Date: 12/15/19 Discharge Date:12/20/19 Patient Name: Spring Lawrence Visit Number: [id number] ATTENTION: The Clinical Documentation Specialists (CDI) and [facility] Coding Staff appreciate your assistance in clarifying documentation. Please respond to the clarification below the line at the bottom and electronically sign. The CDI & [facility] Coding staff will review the response and follow-up if needed. Please note: Queries are made part of the Legal Health Record. If you have any questions, please contact the author of this message via ITS. Dear Dr. 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 Two of eighteen mesenteric lymph nodes positive for metastasis. Documentation states: Chronic diverticulitis. Patient history/risk factors: Chronic diverticulitis, DM, anxiety. Clinical Indicators: None documented. Treatment: Low anterior resection of sigmoid colon In your professional opinion, do you agree with the pathology report specifying adenocarcinoma of the sigmoid colon with metastasis to the lymph nodes? Yes No Other (please specify) Unable to determine Yes MTDD
--- NOTE | 2020-01-03 12:06 | CDI ---
Documentation Clarification Form Date: 01/03/20 From: Miguelina Castañeda Phone: If you have a question about this query, please contact [facility]ician at [phone] between 8am and 5pm. Admit Date: 12/15/19 Discharge Date:12/20/19 Patient Name: Spring Lawrence Visit Number: [id number] ATTENTION: The Clinical Documentation Specialists (CDI) and [facility] Coding Staff appreciate your assistance in clarifying documentation. Please respond to the clarification below the line at the bottom and electronically sign. The CDI & [facility] Coding staff will review the response and follow-up if needed. Please note: Queries are made part of the Legal Health Record. If you have any questions, please contact the author of this message via ITS. Dear Dr. Mclaughlin Conflicting documentation has been found in the medical record: Diverticulitis has been documented throughout the record as reason for sigmoid colectomy. 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 History/Risk Factors: Chronic diverticulitis, GERD, DM Clinical Indicators: Chronic diverticulitis Pathology: Invasive moderately differential adenocarcinoma with additional pathologic findings of high grade dysplasia and diverticulosis. Treatment: Sigmoid colectomy. In your opinion, what is the most clinically appropriate diagnosis for the sigmoid colectomy for this patient? Chronic diverticulitis Diverticulosis Adenocarcinoma of the sigmoid colon Other explanation of clinical findings Unable to determine (no explanation for clinical findings) Diverticulitis and adenocarcinoma sigmoid colon MTDD
== END 2019-12-20 15:40 | disposition home or self-care (01) | DRG 330 ==
LOC: 2ORMAIN 08:23 → 4SSUR 12:34
PROVIDERS: ADMIT Surgery; ATTEND Surgery
PROC: 0DTN0ZZ Resection of Sigmoid Colon, Open Approach (ICD-10-PCS; principal; 2019-12-15 10:15)
DX: K57.32 Diverticulitis of large intestine without perforation or abscess without bleeding (principal); C18.7 Malignant neoplasm of sigmoid colon; E11.65 Type 2 diabetes mellitus with hyperglycemia; K21.9 Gastro-esophageal reflux disease without esophagitis; F41.9 Anxiety disorder, unspecified; Z79.4 Long term (current) use of insulin; Z79.899 Other long term (current) drug therapy; Z88.1 Allergy status to other antibiotic agents; Z91.041 Radiographic dye allergy status; Z88.5 Allergy status to narcotic agent; Z88.2 Allergy status to sulfonamides; Z88.8 Allergy status to other drugs, medicaments and biological substances; Z91.018 Allergy to other foods; Z90.49 Acquired absence of other specified parts of digestive tract; Z98.42 Cataract extraction status, left eye; Z98.41 Cataract extraction status, right eye; Z98.890 Other specified postprocedural states; Z90.89 Acquired absence of other organs; Z87.39 Personal history of other diseases of the musculoskeletal system and connective tissue; Z87.448 Personal history of other diseases of urinary system; Z80.8 Family history of malignant neoplasm of other organs or systems
CPT/HCPCS: 36410; 36415; 45330; 45380; 76937; 80048; 83036; 85025; 86850; 86900; 86901; 88309

== ENCOUNTER → 2020-01-28 | Outpatient (CLI) | payer MEDICARE, BC ==
--- NOTE | 2020-01-29 09:53 | PE ---
Nuclear medicine PET/CT HISTORY: Colon carcinoma, C 18.7, initial Patient received 10.7 mCi F-18 FDG intravenously in delayed scanning performed from the skull base to the mid thighs. Localization and attenuation correction CT scan performed. Correlation to CT abdomen pelvis 11/19/2019 Chest and neck: There is no suspicious uptake. Thyroid goiter is present. No mediastinal, axillary, o r hilar adenopathy. No pleural or pericardial effusion. Density within the left maxillary sinus may r epresent mucous retention cyst. No evident lung mass. ABDOMEN: There is no liver mass. No retroperitoneal adenopathy. At the level of the mid transverse co esteban there is a focus of soft tissue with some fat density, axial image 155 associated hypermetabolic uptake, question a small abdominal wall hernia at this level, findings are likely related to patient' s incision along anterior abdominal wall. There is no ascites. No evident bowel obstruction. Postop c hanges are noted at the rectosigmoid level, no associated hypermetabolic uptake. No pelvic adenopathy . Osseous structures show no uptake. IMPRESSION: No suspicious hypermetabolic uptake.
== END | disposition home or self-care (01) ==
LOC: RADPETMAIN 11:02
PROVIDERS: ATTEND Internal Medicine Hematology & Oncology
DX: C18.7 Malignant neoplasm of sigmoid colon (principal); E11.9 Type 2 diabetes mellitus without complications
CPT/HCPCS: 78815; A9552

== ENCOUNTER 2020-04-07 16:27 | Emergency (ER) | payer MEDICARE, BC ==
[2020-04-07] MEDS ORDERED: ACETAMINOPHEN TAB 500 MG TAB PO STA (16:50)
[2020-04-07] MEDS ORDERED: IBUPROFEN 600 MG TAB PO STA (16:52)
[2020-04-07] MEDS ORDERED: ONDANSETRON 4 MG/2 ML VIAL IVP STA (16:57)
[2020-04-07] MEDS ORDERED: SODIUM CHLORIDE 0.9% 1,000 ML IV ONE (16:57)
--- NOTE | 2020-04-07 17:09 | ED ---
General Adult HPI - General Chief complaint: Nausea/Vomiting/Diarrhea Stated complaint: Weakness, +COVID Time Seen by Provider: 04/07/20 16:35 Source: patient, RN notes reviewed, old records reviewed Mode of arrival: ambulatory Limitations: no limitations - History of Present Illness Initial comments: This is an 85-year-old female presents emergency Department complaining that she is nauseated. Patient states for the last week she hasn't been feeling very good and she started antibiotics on Friday but she doesn't know what for. Patient states she went to an urgent care today and they told her that she had coded and they sent to the hospital. Patient denies any fever chills or cough. Patient denies any chest pain or palpitations. Patient denies abdominal pain patient denies any vomiting but states she is very nauseated. Patient denies a ny diarrhea. Patient states she has some loss of taste and smell but not much. Patient denies any headache patient denies numbness weakness. Patient denies lightheadedness or dizziness. - Related Data Home Medications Medication Instructions Recorded Confirmed LORazepam [Ativan] 1 mg PO BID PRN 09/26/16 04/07/20 Insulin Detemir [Levemir Flextouch] 15 units SQ DAILY 04/07/20 04/07/20 Zolpidem Tartrate [Ambien] 10 mg PO HS PRN 04/07/20 04/07/20 polyethylene glycoL 3350 [Miralax] 17 gm PO DAILY 04/07/20 04/07/20 traZODone HCL 50 - 100 mg PO HS PRN 04/07/20 04/07/20 Previous Rx's Medication Instructions Recorded Dexamethasone [Decadron] 6 mg PO DAILY #9 tablet 04/07/20 Allergies Allergy/AdvReac Type Severity Reaction Status Date / Time albuterol Allergy Unknown Verified 04/07/20 17:57 aspirin [From Percodan] Allergy Unknown Verified 04/07/20 17:57 atorvastatin calcium Allergy Unknown Verified 04/07/20 17:57 [From Lipitor] azithromycin Allergy Unknown Verified 04/07/20 17:57 benzonatate Allergy Unknown Verified 04/07/20 17:57 [From Tessalon Perles] carrageenan Allergy Unknown Verified 04/07/20 17:57 diphenhydramine HCl Allergy Unknown Verified 04/07/20 17:57 [From Benadryl] epinephrine Allergy Unknown Verified 04/07/20 17:57 erythromycin base Allergy Unknown Verified 04/07/20 17:57 escitalopram oxalate Allergy Unknown Verified 04/07/20 17:57 [From Lexapro] hydrochlorothiazide Allergy Unknown Verified 04/07/20 17:57 [From HydroDiuril] hydrocodone bitartrate Allergy Unknown Verified 04/07/20 17:57 [From Vicodin] iodine Allergy topical Verified 04/07/20 17:57 lidocaine Allergy Unknown Verified 04/07/20 17:57 lidocaine HCl Allergy Unknown Verified 04/07/20 17:57 [From Xylocaine] losartan potassium Allergy Unknown Verified 04/07/20 17:57 [From Cozaar] metformin HCl Allergy Unknown Verified 04/07/20 17:57 [From Glucophage] nylon Allergy Unknown Verified 04/07/20 17:57 oxycodone HCl [From Percodan] Allergy Unknown Verified 04/07/20 17:57 oxycodone terephthalate Allergy Unknown Verified 04/07/20 17:57 [From Percodan] paroxetine HCl [From Paxil] Allergy Unknown Verified 04/07/20 17:57 procaine [From Novocain] Allergy Unknown Verified 04/07/20 17:57 promethazine HCl Allergy Unknown Verified 04/07/20 17:57 [From Phenergan] propranolol HCl Allergy Unknown Verified 04/07/20 17:57 [From Inderal LA] rofecoxib [From Vioxx] Allergy Unknown Verified 04/07/20 17:57 sulfamethoxazole Allergy Unknown Verified 04/07/20 17:57 [From Bactrim] sulfite Allergy Unknown Verified 04/07/20 17:57 trimethoprim [From Bactrim] Allergy Unknown Verified 04/07/20 17:57 turmeric Allergy Unknown Verified 04/07/20 17:57 zolpidem tartrate Allergy Unknown Verified 04/07/20 17:57 [From Ambien] diazepam [From Valium] AdvReac "shuts Verified 04/07/20 17:57 down bladder" morphine AdvReac Hallucinati Verified 04/07/20 17:57 ons artificial color Allergy Unknown Uncoded 04/07/20 17:57 chemicals Allergy Unknown Uncoded 04/07/20 17:57 odor Allergy Unknown Uncoded 04/07/20 17:57 smoke Allergy Unknown Uncoded 04/07/20 17:57 nylon stictches AdvReac "got an Uncoded 04/07/20 17:57 infection" Review of Systems ROS Statement: Those systems with pertinent positive or pertinent negative responses have been documented in the HPI. ROS Other: All systems not noted in ROS Statement are negative. Past Medical History Past Medical History: Diabetes Mellitus, GERD/Reflux Additional Past Medical History / Comment(s): severe allergies, will be bringing own food and drinks, diverticulitis, hx of "pierced urethra and bladder" has urethral dilations every 6 weeks, has sore on rt buttock that has had for 45 years, occasionally uses a topical ointment History of Any Multi-Drug Resistant Organisms: None Reported Past Surgical History: Bladder Surgery Additional Past Surgical History / Comment(s): sx on john feet, john rotator cuff, john cataract/lenses, cauterization of part of bladder, has urethral dilations every 6 weeks Additional Past Anesthesia/Blood Transfusion Reaction / Comment(s): pt states she "coded" with anesthesia in past, but unable to give specifics, states she thought is was from "numbing medication" like lidocaine Past Psychological History: No Psychological Hx Reported Smoking Status: Never smoker Past Alcohol Use History: None Reported Past Drug Use History: None Reported - Past Family History Father History Unknown: Yes Mother Family Medical History: Cancer Additional Family Medical History / Comment(s): skin General Exam - General Exam Comments Initial Comments: GENERAL: Patient is well-developed and well-nourished. Patient is nontoxic and well- hydrated and is in mild distress. ENT: Neck is soft and supple. No significant lymphadenopathy is noted. Oropharynx is clear. Moist mucous membranes. Neck has full range of motion without eliciting any pain. 6640 EYES: The sclera were anicteric and conjunctiva were pink and moist. Extraocular movements were intact and pupils were equal round and reactive to light. Eyelids were unremarkable. PULMONARY: Unlabored respirations. Good breath sounds bilaterally. No audible rales rhonchi or wheezing was noted. CARDIOVASCULAR: There is a regular rate and rhythm without any murmurs gallops or rubs. ABDOMEN: Soft and nontender with normal bowel sounds. SKIN: Skin is clear with no lesions or rashes and otherwise unremarkable. NEUROLOGIC: Patient is alert and oriented x3. Cranial nerves II through XII are grossly intact. Motor and sensory are also intact. Normal speech, volume and content. Symmetrical smile. MUSCULOSKELETAL: Normal extremities with adequate strength and full range of motion. LYMPHATICS: No significant lymphadenopathy is noted PSYCHIATRIC: Normal psychiatric evaluation. 6640 Limitations: no limitations Course Vital Signs 04/07/20 04/07/20 04/07/20 16:37 18:24 18:40 Temperature 101.3 F H 99.8 F H Pulse Rate 88 69 Respiratory 18 20 Rate Blood Pressure 162/76 169/68 O2 Sat by Pulse 92 L 98 Oximetry Medical Decision Making - Medical Decision Making EKG shows sinus rhythm with occasional PVC at 79 bpm IA interval is 158 QRS is 74 QT interval 376 QTC is 431. Patient's EKG shows no ST segment elevation or depression. Chest x-ray shows a little basilar infiltrate. Consistent difficulty pneumonia. I started the patient on Decadron. I will be sending the patient home on De cadron. Patient also get some Zofran to go home with. Patient has no difficulty breathing no cough and after she had her Motrin and Tylenol and the emergency department as well as some fluid she states she feels 96 and has no symptoms currently. - Lab Data Result diagrams: 04/07/20 17:26 04/07/20 17:26 Lab Results 04/07/20 04/07/20 04/07/20 Range/Units 17:26 17:26 17:26 WBC 5.2 (3.8-10.6) k/uL RBC 4.55 (3.80-5.40) m/uL Hgb 14.0 (11.4-16.0) gm/dL Hct 41.8 (34.0-46.0) % MCV 91.8 (80.0-100.0) fL MCH 30.7 (25.0-35.0) pg MCHC 33.5 (31.0-37.0) g/dL RDW 12.8 (11.5-15.5) % Plt Count 129 L (150-450) k/uL MPV 7.6 Neutrophils % 82 % Lymphocytes % 11 % Monocytes % 4 % Eosinophils % 0 % Basophils % 1 % Neutrophils # 4.3 (1.3-7.7) k/uL Lymphocytes # 0.6 L (1.0-4.8) k/uL Monocytes # 0.2 (0-1.0) k/uL Eosinophils # 0.0 (0-0.7) k/uL Basophils # 0.1 (0-0.2) k/uL PT 10.3 (9.0-12.0) sec INR 1.0 (<1.2) APTT 24.1 (22.0-30.0) sec D-Dimer 0.54 (<0.60) mg/L FEU Sodium 133 L (137-145) mmol/L Potassium 4.2 (3.5-5.1) mmol/L Chloride 97 L (98-107) mmol/L Carbon Dioxide 28 (22-30) mmol/L Anion Gap 8 mmol/L BUN 9 (7-17) mg/dL Creatinine 0.70 (0.52-1.04) mg/dL Est GFR (CKD-EPI)AfAm >90 (>60 ml/min/1.73 sqM) Est GFR (CKD-EPI)NonAf 78 (>60 ml/min/1.73 sqM) Glucose 182 H (74-99) mg/dL Plasma Lactic Acid Gregg (0.7-2.0) mmol/L Calcium 8.6 (8.4-10.2) mg/dL Magnesium 1.7 (1.6-2.3) mg/dL Total Bilirubin 0.4 (0.2-1.3) mg/dL AST 25 (14-36) U/L ALT 15 (4-34) U/L Alkaline Phosphatase 124 (38-126) U/L Lactate Dehydrogenase 470 (313-618) U/L C-Reactive Protein 46.8 H (<10.0) mg/L Total Protein 7.4 (6.3-8.2) g/dL Albumin 4.1 (3.5-5.0) g/dL Coronavirus (PCR) (Not Detectd) 04/07/20 04/07/20 Range/Units 17:26 17:52 WBC (3.8-10.6) k/uL RBC (3.80-5.40) m/uL Hgb (11.4-16.0) gm/dL Hct (34.0-46.0) % MCV (80.0-100.0) fL MCH (25.0-35.0) pg MCHC (31.0-37.0) g/dL RDW (11.5-15.5) % Plt Count (150-450) k/uL MPV Neutrophils % % Lymphocytes % % Monocytes % % Eosinophils % % Basophils % % Neutrophils # (1.3-7.7) k/uL Lymphocytes # (1.0-4.8) k/uL Monocytes # (0-1.0) k/uL Eosinophils # (0-0.7) k/uL Basophils # (0-0.2) k/uL PT (9.0-12.0) sec INR (<1.2) APTT (22.0-30.0) sec D-Dimer (<0.60) mg/L FEU Sodium (137-145) mmol/L Potassium (3.5-5.1) mmol/L Chloride (98-107) mmol/L Carbon Dioxide (22-30) mmol/L Anion Gap mmol/L BUN (7-17) mg/dL Creatinine (0.52-1.04) mg/dL Est GFR (CKD-EPI)AfAm (>60 ml/min/1.73 sqM) Est GFR (CKD-EPI)NonAf (>60 ml/min/1.73 sqM) Glucose (74-99) mg/dL Plasma Lactic Acid Gregg 1.0 (0.7-2.0) mmol/L Calcium (8.4-10.2) mg/dL Magnesium (1.6-2.3) mg/dL Total Bilirubin (0.2-1.3) mg/dL AST (14-36) U/L ALT (4-34) U/L Alkaline Phosphatase (38-126) U/L Lactate Dehydrogenase (313-618) U/L C-Reactive Protein (<10.0) mg/L Total Protein (6.3-8.2) g/dL Albumin (3.5-5.0) g/dL Coronavirus (PCR) Detected A (Not Detectd) Disposition Clinical Impression: Pneumonia due to COVID-19 virus Disposition: HOME SELF-CARE Condition: Good Instructions (If sedation given, give patient instructions): Viral Pneumonia (ED) Prescriptions: Dexamethasone [Decadron] 6 mg PO DAILY #9 tablet Is patient prescribed a controlled substance at d/c from ED?: No Referrals: Mik Noe III, MD [Primary Care Provider] - 1-2 days Time of Disposition: 19:15
[2020-04-07 17:44] LABS: Basophils # (A) 0.1 k/uL (0-0.2); Basophils % (A) 1 %; Eosinophils % (A) 0 %; HCT 41.8 % (34.0-46.0); Lymphocytes # (A) 0.6 k/uL (1.0-4.8); Lymphocytes % (A) 11 %; MCH 30.7 pg (25.0-35.0); MCHC 33.5 g/dL (31.0-37.0); MCV 91.8 fL (80.0-100.0); Mean Platelet Volume 7.6; Monocytes # (A) 0.2 k/uL (0-1.0); Monocytes % (A) 4 %; Neutrophils # (A) 4.3 k/uL (1.3-7.7); Neutrophils % (A) 82 %; Platelet Count 129 k/uL (150-450); RBC 4.55 m/uL (3.80-5.40); RDW 12.8 % (11.5-15.5); WBC 5.2 k/uL (3.8-10.6)
--- NOTE | 2020-04-07 17:50 | XR ---
EXAMINATION TYPE: XR chest 1V portable DATE OF EXAM: 04/07/2020 COMPARISON: 12/05/2019 HISTORY: Pneumonia. Short of breath. TECHNIQUE: FINDINGS: There is some coarsening of the interstitial markings at the lung bases. There is no heart failure. Heart size is normal. Thoracic aorta is atheromatous. IMPRESSION: Inspiration is decreased compared to old exam. There is probably some mild interstitial i nfiltrate at the lung bases.
[2020-04-07 17:54] LABS: ALT 15 U/L (4-34); AST 25 U/L (14-36); African American GFR (CKD) >90 (>60 ml/min/1.73 sqM); Albumin 4.1 g/dL (3.5-5.0); Alkaline Phosphatase 124 U/L (38-126); Anion Gap 8 mmol/L; Blood Urea Nitrogen 9 mg/dL (7-17); C Reactive Protein 46.8 mg/L (<10.0); Calcium 8.6 mg/dL (8.4-10.2); Carbon Dioxide 28 mmol/L (22-30); Chloride 97 mmol/L (98-107); Glucose 182 mg/dL (74-99); LDH 470 U/L (313-618); Magnesium 1.7 mg/dL (1.6-2.3); Non-African American GFR(CKD) 78 (>60 ml/min/1.73 sqM); Potassium 4.2 mmol/L (3.5-5.1); Sodium 133 mmol/L (137-145); Total Bilirubin 0.4 mg/dL (0.2-1.3); Total Protein 7.4 g/dL (6.3-8.2)
[2020-04-07 17:57] LABS: D-Dimer 0.54 mg/L FEU (<0.60); Partial Thromboplastin Time 24.1 sec (22.0-30.0); Prothrombin Time 10.3 sec (9.0-12.0)
[2020-04-07 18:40] VITALS: TEMP 99.8
[2020-04-07] MEDS ORDERED: dexAMETHasone 2 MG TAB PO STA (19:11)
[2020-04-07] MEDS ORDERED: ONDANSETRON 4 MG ODT STARTER PACK 2 TAB BTL PO STA (19:17)
[2020-04-07 19:24] VITALS: BP 145/73; PULSE 76; RESP 18
[2020-04-08 01:00] LABS: Ferritin 286.9 ng/mL (10.0-291.0)
== END 2020-04-07 19:40 | disposition home or self-care (01) ==
LOC: EC 16:27
DX: U07.1 COVID-19 (principal); J12.82 Pneumonia due to coronavirus disease 2019; E11.9 Type 2 diabetes mellitus without complications; Z79.899 Other long term (current) drug therapy; Z79.4 Long term (current) use of insulin; Z88.8 Allergy status to other drugs, medicaments and biological substances; Z88.6 Allergy status to analgesic agent; Z88.1 Allergy status to other antibiotic agents; Z91.02 Food additives allergy status; Z91.048 Other nonmedicinal substance allergy status; Z88.5 Allergy status to narcotic agent; Z91.09 Other allergy status, other than to drugs and biological substances; Z88.4 Allergy status to anesthetic agent; Z88.2 Allergy status to sulfonamides
CPT/HCPCS: 36415; 93005; 85379; 80053; 82728; 83605; 83615; 83735; 85025; 85610; 85730; 86140; 87040; 84145; 87635; 71045; 99285; 96374; 96361; J2405; J8540; S0119

== ENCOUNTER 2020-04-18 11:40 | Inpatient (IN) | payer MEDICARE, BC ==
[2020-04-18] MEDS ORDERED: ACETAMINOPHEN TAB 325 MG TAB PO STA (12:08)
--- NOTE | 2020-04-18 12:12 | ED ---
General Adult HPI - General Chief complaint: Weakness Stated complaint: Weakness Time Seen by Provider: 04/18/20 11:59 Source: patient, EMS, RN notes reviewed Mode of arrival: EMS Limitations: no limitations - History of Present Illness Initial comments: Patient is a pleasant 85-year-old female presenting to the emergency Department with complaints of generalized weakness and fatigue. Patient was in the hospital within the past 10 days or so and diagnosed with Cain virus. Patient overall was doing okay however symptoms have worsened today. Patient feels weak all over. Patient has had lack of appetite. No nausea vomiting. patient diarrhea. No abdominal pain. No cough or dyspnea. - Related Data Home Medications Medication Instructions Recorded Confirmed LORazepam [Ativan] 1 mg PO BID PRN 09/26/16 04/18/20 Insulin Detemir [Levemir Flextouch] 15 units SQ DAILY 04/07/20 04/18/20 Zolpidem Tartrate [Ambien] 10 mg PO HS PRN 04/07/20 04/18/20 polyethylene glycoL 3350 [Miralax] 17 gm PO DAILY 04/07/20 04/18/20 traZODone HCL 50 - 100 mg PO HS PRN 04/07/20 04/18/20 Acetaminophen Tab [Tylenol] 650 mg PO ONCE PRN 04/18/20 04/18/20 Clotrimazole 10 mg PO 5XD 04/18/20 04/18/20 Ondansetron [Zofran] 4 mg PO Q8H PRN 04/18/20 04/18/20 Unknown Thrush Cream (Unknown 1 applic TOPICAL DIRECTED PRN 04/18/20 04/18/20 Strength) Allergies Allergy/AdvReac Type Severity Reaction Status Date / Time albuterol Allergy Unknown Verified 04/18/20 13:02 aspirin [From Percodan] Allergy Unknown Verified 04/18/20 13:02 atorvastatin calcium Allergy Unknown Verified 04/18/20 13:02 [From Lipitor] azithromycin Allergy Unknown Verified 04/18/20 13:02 benzonatate Allergy Unknown Verified 04/18/20 13:02 [From Tessalon Perles] carrageenan Allergy Unknown Verified 04/18/20 13:02 diphenhydramine HCl Allergy Unknown Verified 04/18/20 13:02 [From Benadryl] epinephrine Allergy Unknown Verified 04/18/20 13:02 erythromycin base Allergy Unknown Verified 04/18/20 13:02 escitalopram oxalate Allergy Unknown Verified 04/18/20 13:02 [From Lexapro] hydrochlorothiazide Allergy Unknown Verified 04/18/20 13:02 [From HydroDiuril] hydrocodone bitartrate Allergy Unknown Verified 04/18/20 13:02 [From Vicodin] iodine Allergy topical Verified 04/18/20 13:02 lidocaine Allergy Unknown Verified 04/18/20 13:02 lidocaine HCl Allergy Unknown Verified 04/18/20 13:02 [From Xylocaine] losartan potassium Allergy Unknown Verified 04/18/20 13:02 [From Cozaar] metformin HCl Allergy Unknown Verified 04/18/20 13:02 [From Glucophage] nylon Allergy Unknown Verified 04/18/20 13:02 oxycodone HCl [From Percodan] Allergy Unknown Verified 04/18/20 13:02 oxycodone terephthalate Allergy Unknown Verified 04/18/20 13:02 [From Percodan] paroxetine HCl [From Paxil] Allergy Unknown Verified 04/18/20 13:02 procaine [From Novocain] Allergy Unknown Verified 04/18/20 13:02 promethazine HCl Allergy Unknown Verified 04/18/20 13:02 [From Phenergan] propranolol HCl Allergy Unknown Verified 04/18/20 13:02 [From Inderal LA] rofecoxib [From Vioxx] Allergy Unknown Verified 04/18/20 13:02 sulfamethoxazole Allergy Unknown Verified 04/18/20 13:02 [From Bactrim] sulfite Allergy Unknown Verified 04/18/20 13:02 trimethoprim [From Bactrim] Allergy Unknown Verified 04/18/20 13:02 turmeric Allergy Unknown Verified 04/18/20 13:02 zolpidem tartrate Allergy Unknown Verified 04/18/20 13:02 [From Ambien] diazepam [From Valium] AdvReac "shuts Verified 04/18/20 13:02 down bladder" morphine AdvReac Hallucinati Verified 04/18/20 13:02 ons artificial color Allergy Unknown Uncoded 04/18/20 13:02 chemicals Allergy Unknown Uncoded 04/18/20 13:02 odor Allergy Unknown Uncoded 04/18/20 13:02 smoke Allergy Unknown Uncoded 04/18/20 13:02 nylon stictches AdvReac "got an Uncoded 04/18/20 13:02 infection" Review of Systems ROS Statement: Those systems with pertinent positive or pertinent negative responses have been documented in the HPI. ROS Other: All systems not noted in ROS Statement are negative. Constitutional: Denies: fever Eyes: Denies: eye pain ENT: Denies: ear pain Respiratory: Denies: cough, dyspnea Cardiovascular: Denies: chest pain Endocrine: Denies: fatigue Gastrointestinal: Reports: as per HPI. Denies: abdominal pain Genitourinary: Denies: dysuria Musculoskeletal: Denies: back pain Skin: Denies: rash Neurological: Denies: headache, confusion Past Medical History Past Medical History: Diabetes Mellitus, GERD/Reflux Additional Past Medical History / Comment(s): severe allergies, will be bringing own food and drinks, diverticulitis, hx of "pierced urethra and bladder" has urethral dilations every 6 weeks, has sore on rt buttock that has had for 45 years, occasionally uses a topical ointment History of Any Multi-Drug Resistant Organisms: None Reported Past Surgical History: Bladder Surgery Additional Past Surgical History / Comment(s): sx on john feet, john rotator cuff, john cataract/lenses, cauterization of part of bladder, has urethral dilations every 6 weeks Additional Past Anesthesia/Blood Transfusion Reaction / Comment(s): pt states she "coded" with anesthesia in past, but unable to give specifics, states she thought is was from "numbing medication" like lidocaine Past Psychological History: No Psychological Hx Reported Smoking Status: Never smoker Past Alcohol Use History: None Reported Past Drug Use History: None Reported - Past Family History Father History Unknown: Yes Mother Family Medical History: Cancer Additional Family Medical History / Comment(s): skin General Exam Limitations: no limitations General appearance: alert, in no apparent distress Head exam: Present: normocephalic Eye exam: Present: normal appearance, PERRL, EOMI ENT exam: Present: normal oropharynx Neck exam: Present: normal inspection Respiratory exam: Present: normal lung sounds bilaterally Cardiovascular Exam: Present: regular rate, normal rhythm GI/Abdominal exam: Present: soft. Absent: tenderness Extremities exam: Present: normal inspection. Absent: pedal edema, calf tenderness Neurological exam: Present: alert, CN II-XII intact. Absent: motor sensory def icit Expanded Neurological exam: Present: protecting the airway Speech: Present: fluid speech Cranial nerves: EOM's Intact: Normal Motor strength exam: RUE: 5, LUE: 5, RLE: 5, LLE: 5 Eye Response: (4) open spontaneously Motor Response: (6) obeys commands Verbal Response: (5) oriented Psychiatric exam: Present: normal affect, normal mood Skin exam: Present: normal color Course Vital Signs 04/18/20 11:42 Temperature 98.5 F Pulse Rate 85 Respiratory 20 Rate Blood Pressure 145/69 O2 Sat by Pulse 95 Oximetry EKG Findings - EKG Comments: EKG Findings:: Sinus rhythm at 80. DE 142. QRS 72. QT 372. QTC 429. Left axis. Normal QRS. No acute ST change. Medical Decision Making - Medical Decision Making Patient reevaluated and updated. Note patient was noticed coughing several ti mes and now admits to having a dry cough. Case discussed with Dr. Blake, covering for Dr. Noe, who will admit secondary to elevated CRP and advanced age. Patient will receive IV fluids and be reevaluated. - Lab Data Result diagrams: 04/18/20 12:12 04/18/20 12:12 Lab Results 04/18/20 04/18/20 04/18/20 Range/Units 12:12 12:12 12:12 WBC 9.3 (3.8-10.6) k/uL RBC 4.24 (3.80-5.40) m/uL Hgb 12.7 (11.4-16.0) gm/dL Hct 39.5 (34.0-46.0) % MCV 93.1 (80.0-100.0) fL MCH 29.9 (25.0-35.0) pg MCHC 32.1 (31.0-37.0) g/dL RDW 13.0 (11.5-15.5) % Plt Count 243 (150-450) k/uL MPV 8.0 Neutrophils % 85 % Lymphocytes % 9 % Monocytes % 4 % Eosinophils % 1 % Basophils % 0 % Neutrophils # 7.9 H (1.3-7.7) k/uL Lymphocytes # 0.8 L (1.0-4.8) k/uL Monocytes # 0.4 (0-1.0) k/uL Eosinophils # 0.1 (0-0.7) k/uL Basophils # 0.0 (0-0.2) k/uL PT 10.2 (9.0-12.0) sec INR 0.9 (<1.2) APTT 23.0 (22.0-30.0) sec Sodium 132 L (137-145) mmol/L Potassium 5.1 (3.5-5.1) mmol/L Chloride 96 L (98-107) mmol/L Carbon Dioxide 30 (22-30) mmol/L Anion Gap 6 mmol/L BUN 12 (7-17) mg/dL Creatinine 0.57 (0.52-1.04) mg/dL Est GFR (CKD-EPI)AfAm >90 (>60 ml/min/1.73 sqM) Est GFR (CKD-EPI)NonAf 84 (>60 ml/min/1.73 sqM) Glucose 235 H (74-99) mg/dL Plasma Lactic Acid Gregg (0.7-2.0) mmol/L Calcium 8.6 (8.4-10.2) mg/dL Magnesium 1.9 (1.6-2.3) mg/dL Total Bilirubin 0.5 (0.2-1.3) mg/dL AST 30 (14-36) U/L ALT 33 (4-34) U/L Alkaline Phosphatase 129 H (38-126) U/L Lactate Dehydrogenase 694 H (313-618) U/L C-Reactive Protein 189.1 H (<10.0) mg/L Total Protein 6.3 (6.3-8.2) g/dL Albumin 3.2 L (3.5-5.0) g/dL 04/18/20 Range/Units 12:12 WBC (3.8-10.6) k/uL RBC (3.80-5.40) m/uL Hgb (11.4-16.0) gm/dL Hct (34.0-46.0) % MCV (80.0-100.0) fL MCH (25.0-35.0) pg MCHC (31.0-37.0) g/dL RDW (11.5-15.5) % Plt Count (150-450) k/uL MPV Neutrophils % % Lymphocytes % % Monocytes % % Eosinophils % % Basophils % % Neutrophils # (1.3-7.7) k/uL Lymphocytes # (1.0-4.8) k/uL Monocytes # (0-1.0) k/uL Eosinophils # (0-0.7) k/uL Basophils # (0-0.2) k/uL PT (9.0-12.0) sec INR (<1.2) APTT (22.0-30.0) sec Sodium (137-145) mmol/L Potassium (3.5-5.1) mmol/L Chloride (98-107) mmol/L Carbon Dioxide (22-30) mmol/L Anion Gap mmol/L BUN (7-17) mg/dL Creatinine (0.52-1.04) mg/dL Est GFR (CKD-EPI)AfAm (>60 ml/min/1.73 sqM) Est GFR (CKD-EPI)NonAf (>60 ml/min/1.73 sqM) Glucose (74-99) mg/dL Plasma Lactic Acid Gregg 1.7 (0.7-2.0) mmol/L Calcium (8.4-10.2) mg/dL Magnesium (1.6-2.3) mg/dL Total Bilirubin (0.2-1.3) mg/dL AST (14-36) U/L ALT (4-34) U/L Alkaline Phosphatase (38-126) U/L Lactate Dehydrogenase (313-618) U/L C-Reactive Protein (<10.0) mg/L Total Protein (6.3-8.2) g/dL Albumin (3.5-5.0) g/dL - Radiology Data Radiology results: image reviewed (Assessment x-ray shows no acute process) Disposition Clinical Impression: COVID-19 Disposition: ADMITTED IP TO THIS HOSP Is patient prescribed a controlled substance at d/c from ED?: No Referrals: Mik Noe III, MD [Primary Care Provider] - 1-2 days Decision Time: 14:12
--- NOTE | 2020-04-18 12:35 | XR ---
EXAMINATION TYPE: XR chest 1V portable DATE OF EXAM: 04/18/2020 COMPARISON: Chest x-ray April 07, 2020 HISTORY: Weakness. History of recent covid infection. TECHNIQUE: Single AP portable frontal upright view of the chest is obtained. FINDINGS: There is chronic parenchymal change without suspicious focal air space opacity, pleural ef fusion, or pneumothorax seen. The cardiac silhouette size is stable and within normal limits with at herosclerotic change aortic knob. The osseous structures remain demineralized . Overlying EKG leads currently. IMPRESSION: Chronic changes without acute pulmonary process.
[2020-04-18 12:46] LABS: ALT 33 U/L (4-34); AST 30 U/L (14-36); African American GFR (CKD) >90 (>60 ml/min/1.73 sqM); Albumin 3.2 g/dL (3.5-5.0); Alkaline Phosphatase 129 U/L (38-126); Anion Gap 6 mmol/L; Blood Urea Nitrogen 12 mg/dL (7-17); Calcium 8.6 mg/dL (8.4-10.2); Carbon Dioxide 30 mmol/L (22-30); Chloride 96 mmol/L (98-107); Glucose 235 mg/dL (74-99); LDH 694 U/L (313-618); Magnesium 1.9 mg/dL (1.6-2.3); Non-African American GFR(CKD) 84 (>60 ml/min/1.73 sqM); Sodium 132 mmol/L (137-145); Total Bilirubin 0.5 mg/dL (0.2-1.3); Total Protein 6.3 g/dL (6.3-8.2)
[2020-04-18 12:57] LABS: INR 0.9 (<1.2); Prothrombin Time 10.2 sec (9.0-12.0)
[2020-04-18 13:05] LABS: Basophils % (A) 0 %; Eosinophils # (A) 0.1 k/uL (0-0.7); Eosinophils % (A) 1 %; HCT 39.5 % (34.0-46.0); HGB 12.7 gm/dL (11.4-16.0); Lymphocytes # (A) 0.8 k/uL (1.0-4.8); Lymphocytes % (A) 9 %; MCH 29.9 pg (25.0-35.0); MCHC 32.1 g/dL (31.0-37.0); MCV 93.1 fL (80.0-100.0); Monocytes # (A) 0.4 k/uL (0-1.0); Monocytes % (A) 4 %; Neutrophils # (A) 7.9 k/uL (1.3-7.7); Neutrophils % (A) 85 %; Platelet Count 243 k/uL (150-450); RBC 4.24 m/uL (3.80-5.40); WBC 9.3 k/uL (3.8-10.6)
[2020-04-18 13:11] LABS: C Reactive Protein 189.1 mg/L (<10.0)
[2020-04-18 13:13] LABS: Potassium 5.1 mmol/L (3.5-5.1)
[2020-04-18] MEDS ORDERED: ONDANSETRON 4 MG TAB PO PRN (14:00)
[2020-04-18] MEDS ORDERED: NALOXONE 0.4 MG/ML 1 ML VIAL IV PRN (14:13)
[2020-04-18] MEDS ORDERED: ACETAMINOPHEN TAB 325 MG TAB PO PRN (14:13)
[2020-04-18] MEDS: SODIUM CHLORIDE 0.9% 1,000 ML IV SCH (15:06)
[2020-04-18] MEDS: CHOLECALCIFEROL 25 MCG (1000 IU) TABLET PO SCH (15:09)
[2020-04-18] MEDS: ENOXAPARIN 30 MG/0.3 ML SYRINGE SQ SCH (15:10)
[2020-04-18 20:21] LABS: Glucose,Whole Blood 102 mg/dL (75-99)
[2020-04-18] MEDS: ASCORBIC ACID 500 MG TAB PO SCH (20:37)
[2020-04-18] MEDS: FAMOTIDINE 20 MG TAB PO SCH (20:39)
[2020-04-18] MEDS: INSULIN ASPART (NovoLOG) 100 UNIT/ML VIAL SQ SCH (20:39)
[2020-04-18 21:34] LABS: Ferritin 499.5 ng/mL (10.0-291.0)
--- NOTE | 2020-04-19 00:28 | P.HPIM ---
History of Present Illness This is a pleasant 85 years old female with past medical history of diabetes mellitus, GERD She presents because of generalized weakness and fatigue over few days which is significant of one-day duration associated with some nausea Patient was recently diagnosed with Covid 19 about 10 days ago when she came to the emergency room complaining of from nausea, referred from urgent care for postoperative coronavirus test. At that time She was discharged from the emergency room currently patient has some dry cough but no chest pain or dyspnea. No abdominal pain or diarrhea. No other complaints On admission she has a fever over 102 She has unremarkable CBC and BMP except for mild hyponatremia at 132. Inflammatory markers are elevated including ferritin, lactate dehydrogenase, C- reactive protein and elevated pro-calcitonin at 13.0. Coronavirus: Detected Chest x-ray showing chronic changes without acute pulmonary process per radiologist EKG showing normal sinus rhythm at 80 BPM with no significant ST-T changes and QTC 429. Patient was started on dexamethasone and ceftriaxone on admission Review of Systems CONSTITUTIONAL: No fever, no malaise, no fatigue. HEENT: No recent visual problems or hearing problems. Denied any sore throat. CARDIOVASCULAR: No orthopnea, PND, no palpitations, no syncope. PULMONARY: No shortness of breath, no hemoptysis. GASTROINTESTINAL: No diarrhea, no nausea, no vomiting, no abdominal pain. Normoactive bowel sounds. NEUROLOGICAL: No headaches, no weakness, no numbness. HEMATOLOGICAL: Denies any bleeding or petechiae. GENITOURINARY: Denies any burning micturition, frequency, or urgency. MUSCULOSKELETAL/RHEUMATOLOGICAL: Denies any joint pain, swelling, or any muscle pain. ENDOCRINE: Denies any polyuria or polydipsia. Past Medical History Past Medical History: Diabetes Mellitus, GERD/Reflux Additional Past Medical History / Comment(s): severe allergies, will be bringing own food and drinks, diverticulitis, hx of "pierced urethra and bladder" has urethral dilations every 6 weeks, has sore on rt buttock that has had for 45 years, occasionally uses a topical ointment History of Any Multi-Drug Resistant Organisms: None Reported Past Surgical History: Bladder Surgery Additional Past Surgical History / Comment(s): sx on john feet, john rotator cuff, john cataract/lenses, cauterization of part of bladder, has urethral dilations every 6 weeks Additional Past Anesthesia/Blood Transfusion Reaction / Comment(s): pt states she "coded" with anesthesia in past, but unable to give specifics, states she thought is was from "numbing medication" like lidocaine Past Psychological History: No Psychological Hx Reported Smoking Status: Never smoker Past Alcohol Use History: None Reported Past Drug Use History: None Reported - Past Family History Father History Unknown: Yes Mother Family Medical History: Cancer Additional Family Medical History / Comment(s): skin Medications and Allergies Home Medications Medication Instructions Recorded Confirmed Type RX: LORazepam [Ativan] 1 mg PO BID PRN 09/26/16 04/18/20 History Insulin Detemir [Levemir Flextouch] 15 units SQ DAILY 04/07/20 04/18/20 History RX: traZODone HCL 50 - 100 mg PO HS PRN 04/07/20 04/18/20 History Zolpidem Tartrate [Ambien] 10 mg PO HS PRN 04/07/20 04/18/20 History polyethylene glycoL 3350 [Miralax] 17 gm PO DAILY 04/07/20 04/18/20 History Acetaminophen Tab [Tylenol] 650 mg PO ONCE PRN 04/18/20 04/18/20 History Ondansetron [Zofran] 4 mg PO Q8H PRN 04/18/20 04/18/20 History RX: Clotrimazole 10 mg PO 5XD 04/18/20 04/18/20 History Unknown Thrush Cream (Unknown 1 applic TOPICAL DIRECTED PRN 04/18/20 04/18/20 History Strength) Allergies Allergy/AdvReac Type Severity Reaction Status Date / Time albuterol Allergy Unknown Verified 04/18/20 13:02 aspirin [From Percodan] Allergy Unknown Verified 04/18/20 13:02 atorvastatin calcium Allergy Unknown Verified 04/18/20 13:02 [From Lipitor] azithromycin Allergy Unknown Verified 04/18/20 13:02 benzonatate Allergy Unknown Verified 04/18/20 13:02 [From Tessalon Perles] carrageenan Allergy Unknown Verified 04/18/20 13:02 diphenhydramine HCl Allergy Unknown Verified 04/18/20 13:02 [From Benadryl] epinephrine Allergy Unknown Verified 04/18/20 13:02 erythromycin base Allergy Unknown Verified 04/18/20 13:02 escitalopram oxalate Allergy Unknown Verified 04/18/20 13:02 [From Lexapro] hydrochlorothiazide Allergy Unknown Verified 04/18/20 13:02 [From HydroDiuril] hydrocodone bitartrate Allergy Unknown Verified 04/18/20 13:02 [From Vicodin] iodine Allergy topical Verified 04/18/20 13:02 lidocaine Allergy Unknown Verified 04/18/20 13:02 lidocaine HCl Allergy Unknown Verified 04/18/20 13:02 [From Xylocaine] losartan potassium Allergy Unknown Verified 04/18/20 13:02 [From Cozaar] metformin HCl Allergy Unknown Verified 04/18/20 13:02 [From Glucophage] nylon Allergy Unknown Verified 04/18/20 13:02 oxycodone HCl [From Percodan] Allergy Unknown Verified 04/18/20 13:02 oxycodone terephthalate Allergy Unknown Verified 04/18/20 13:02 [From Percodan] paroxetine HCl [From Paxil] Allergy Unknown Verified 04/18/20 13:02 procaine [From Novocain] Allergy Unknown Verified 04/18/20 13:02 promethazine HCl Allergy Unknown Verified 04/18/20 13:02 [From Phenergan] propranolol HCl Allergy Unknown Verified 04/18/20 13:02 [From Inderal LA] rofecoxib [From Vioxx] Allergy Unknown Verified 04/18/20 13:02 sulfamethoxazole Allergy Unknown Verified 04/18/20 13:02 [From Bactrim] sulfite Allergy Unknown Verified 04/18/20 13:02 trimethoprim [From Bactrim] Allergy Unknown Verified 04/18/20 13:02 turmeric Allergy Unknown Verified 04/18/20 13:02 zolpidem tartrate Allergy Unknown Verified 04/18/20 13:02 [From Ambien] diazepam [From Valium] AdvReac "shuts Verified 04/18/20 13:02 down bladder" morphine AdvReac Hallucinati Verified 04/18/20 13:02 ons artificial color Allergy Unknown Uncoded 04/18/20 13:02 chemicals Allergy Unknown Uncoded 04/18/20 13:02 odor Allergy Unknown Uncoded 04/18/20 13:02 smoke Allergy Unknown Uncoded 04/18/20 13:02 nylon stictches AdvReac "got an Uncoded 04/18/20 13:02 infection" Physical Exam Vitals: Vital Signs Temp Pulse Resp BP Pulse Ox 04/18/20 11:42 98.5 F 85 20 145/69 95 Intake and Output 04/17/20 04/18/20 04/18/20 22:59 06:59 14:59 Other: Weight 67.132 kg GENERAL: The patient is alert and oriented x3, not in any acute distress. Well developed, well nourished. HEENT: Pupils are round and equally reacting to light. EOMI. No scleral icterus. No conjunctival pallor. Normocephalic, atraumatic. No pharyngeal erythema. No thyromegaly. CARDIOVASCULAR: S1 and S2 present. No murmurs, rubs, or gallops. PULMONARY: Chest is clear to auscultation, no wheezing or crackles. ABDOMEN: Soft, nontender, nondistended, normoactive bowel sounds. No palpable organomegaly. MUSCULOSKELETAL: No joint swelling or deformity. EXTREMITIES: No cyanosis, clubbing, or pedal edema. NEUROLOGICAL: Gross neurological examination did not reveal any focal deficits. SKIN: No rashes. No petechiae Results CBC & Chem 7: 04/18/20 12:12 04/18/20 12:12 Labs: Abnormal Lab Results - Last 24 Hours (Table) 04/18/20 04/18/20 Range/Units 12:12 12:12 Neutrophils # 7.9 H (1.3-7.7) k/uL Lymphocytes # 0.8 L (1.0-4.8) k/uL Sodium 132 L (137-145) mmol/L Chloride 96 L (98-107) mmol/L Glucose 235 H (74-99) mg/dL Alkaline Phosphatase 129 H (38-126) U/L Lactate Dehydrogenase 694 H (313-618) U/L C-Reactive Protein 189.1 H (<10.0) mg/L Albumin 3.2 L (3.5-5.0) g/dL Assessment and Plan Assessment: Acute Covid infection with acute trachea bronchitis, still pneumonia is suspected although chest x-ray was normal Generalized weakness and fatigue secondary to above Increase inflammatory markers 2 diabetes mellitus History of GERD Plan: This is a pleasant 85 years old female who presents with Covid respiratory infection. Continue with ceftriaxone, dexamethasone and Lovenox. Infectious disease team on the case. Vitamin C and zinc Labs and medication were reviewed.. Continue same treatment. Continue with symptomatic treatment. Resume home medication. Monitor lytes and vitals. DVT and GI prophylaxis. Further recommendations depends on the clinical course of the patient DVT prophylaxis: Subcutaneous Lovenox GI Prophylaxis: Pepcid PT/OT: Pending Prognosis is guarded
[2020-04-19] MEDS: DEXAMETHASONE SOD PHOSPHATE 10 MG/ML 1 ML VIAL IV SCH ×2 (00:56→07:57)
[2020-04-19 02:45] LABS: Appearance,Urine Clear (Clear); Bacteria,Urine Rare /hpf; Bilirubin,Urine Negative (Negative); Blood,Urine Negative (Negative); Color,Urine Light Yellow; Glucose,Urine (UA) Negative (Negative); Ketones,Urine Negative (Negative); Leukocyte Esterase,Urine Large (Negative); Nitrite,Urine Negative (Negative); Protein,Urine Negative (Negative); RBC,Urine 3 /hpf (0-5); Specific Gravity,Urine 1.007 (1.001-1.035); Urobilinogen,Urine <2.0 mg/dL (<2.0); WBC,Urine 23 /hpf (0-5)
--- NOTE | 2020-04-19 06:03 | CONS ---
CONSULTATION DATE OF SERVICE: 04/18/2020 REASON FOR CONSULTATION: COVID-19 infection. HISTORY OF PRESENT ILLNESS: The patient is an 85-year-old female who presented to the hospital with generalized weakness and fatigue. Apparently, the patient started having symptoms initially around April 06. The patient's symptom was mostly extreme weakness, fatigue and no energy. Patient denies any headache or URI symptoms. Denies any chest pain, shortness of breath or cough. No nausea, no vomiting, no abdominal pain. Did have some diarrhea. The patient was evaluated in this facility around 10 days ago and was diagnosed with COVID-19 and the patient has been advised self-quarantining and no specific therapy. The patient now presented to the hospital with worsening of her symptoms and mostly generalized weakness, lack of appetite. Denies any nausea, no vomiting. No chest pain or shortness of breath. Occasional cough which is dry. No sputum production. No abdominal pain. He did have some diarrhea and no urinary symptoms. On presentation to the hospital, the patient was afebrile. Subsequently, spiked a fever this evening of 102 degrees Fahrenheit. The patient is currently 91% on room air. She did have a normal white count with no lymphopenia and did have a normal creatinine. Ferritin was 419. LDH is elevated. CRP and procalcitonin was elevated. Chest x-ray report negative for any acute infiltrate. The patient has been admitted to the hospital. The patient was started on zinc and Lovenox. Infectious Disease was consulted for further management of antibiotic therapy. REVIEW OF SYSTEMS: Positive points have been mentioned in HPI. Rest of systems are negative. PAST MEDICAL HISTORY: Diabetes mellitus, gastroesophageal reflux disease, osteoarthritis, possible history of bilateral rotator cuff repair, bilateral cataract surgery, bladder surgery and urethral dilatation. SOCIAL HISTORY: No history of smoking, drinking or drug use. FAMILY HISTORY: Mother history of skin cancer. ALLERGIES: ERYTHROMYCIN, SULFA AND A LOT OF OTHER MEDICATIONS. List currently in the chart. MEDICATIONS: Currently include the patient is on Tylenol, vitamin C, vitamin D3, Lovenox, Pepcid, NovoLog, Levemir, Narcan, Zofran, MiraLAX, IV fluid and zinc. PHYSICAL EXAMINATION: VITAL SIGNS: Blood pressure is 131/73 with a pulse of 89, temperature 102, saturating 91%. GENERAL DESCRIPTION: An elderly female lying in bed in no distress. No tachypnea or accessory muscles of respiration use. HEENT: Examination shows slight pallor. No scleral icterus. Oral mucous membrane is dry. No pharyngeal erythema or thrush. NECK: Trachea central, no thyromegaly. LUNGS: Unlabored breathing, decreased breath sounds in the base, with no wheeze or crackles. HEART: S1, S2. Regular rate and rhythm. ABDOMEN: Soft, no tenderness. No guarding or rigidity. EXTREMITIES: No edema of the feet. SKIN: No rash or masses. NEUROLOGICAL: Patient is awake, alert, oriented times two. Mood and affect normal. LABS: Hemoglobin is 12.7, white count 9.3, BUN of 12, creatinine 0.57. Inflammatory markers elevated as well as procalcitonin. DIAGNOSTIC IMPRESSION: Patient admitted to the hospital with generalized weakness, no energy. This patient's symptoms have been going on for more than 12 days now, with her symptoms starting on April 06 and has been mostly generalized weakness, now with worsening of her symptoms. The patient did have a fever. Chest x-ray was negative for any acute infiltrate and no evidence of any elevated white count. The patient is currently out of the therapeutic window for Remdesivir. This patient currently did not require any supplemental oxygen, more likely representing a mild illness. However, in view of the elevated procalcitonin underlying bacterial pneumonia is not entirely excluded. PLAN: 1. We will check a UA and cultures. 2. Empirically add Rocephin 1 g daily. 3. Continue with Lovenox, zinc vitamin D. The patient is getting hypoxic and will benefit from Lovenox and dexamethasone which will be started. 4. We will follow on her clinical condition and further adjust medication if needed. Thank you for this consultation. Will follow this patient along with you. MMODL / IJN: [id number] /
[2020-04-19 06:57] LABS: Glucose,Whole Blood 143 mg/dL (75-99)
[2020-04-19] MEDS ORDERED: INSULIN DETEMIR (LEVEMIR) 100 UNIT/ML SYR SQ SCH (07:00)
[2020-04-19] MEDS: ZINC SULFATE 220 MG CAP PO SCH (07:57)
[2020-04-19] MEDS: ASCORBIC ACID 500 MG TAB PO SCH ×2 (07:57→21:39)
[2020-04-19] MEDS: FAMOTIDINE 20 MG TAB PO SCH ×2 (07:57→21:39)
[2020-04-19] MEDS: ENOXAPARIN 30 MG/0.3 ML SYRINGE SQ SCH (07:57)
[2020-04-19] MEDS: CHOLECALCIFEROL 25 MCG (1000 IU) TABLET PO SCH (07:57)
[2020-04-19] MEDS: SODIUM CHLORIDE 0.9% 1,000 ML IV SCH (07:58)
[2020-04-19] MEDS: INSULIN ASPART (NovoLOG) 100 UNIT/ML VIAL SQ SCH ×4 (07:58→21:40)
[2020-04-19] MEDS: polyethylene glycoL 3350 17 GM POWD.PACK PO SCH (08:05)
[2020-04-19 11:19] LABS: Glucose,Whole Blood 328 mg/dL (75-99)
[2020-04-19] MEDS ORDERED: LORazepam 0.5 MG TAB PO PRN (11:29)
--- NOTE | 2020-04-19 13:38 | P.PN ---
Subjective This is a pleasant 85 years old female with past medical history of diabetes mellitus, GERD She presents because of generalized weakness and fatigue over few days which is significant of one-day duration associated with some nausea Patient was recently diagnosed with Covid 19 about 10 days ago when she came to the emergency room complaining of from nausea, referred from urgent care for postoperative coronavirus test. At that time She was discharged from the emergency room currently patient has some dry cough but no chest pain or dyspnea. No abdominal pain or diarrhea. No other complaints On admission she has a fever over 102 She has unremarkable CBC and BMP except for mild hyponatremia at 132. Inflammatory markers are elevated including ferritin, lactate dehydrogenase, C- reactive protein and elevated pro-calcitonin at 13.0. Coronavirus: Detected Chest x-ray showing chronic changes without acute pulmonary process per radiologist EKG showing normal sinus rhythm at 80 BPM with no significant ST-T changes and QTC 429. Patient was started on dexamethasone and ceftriaxone on admission 04/19/2020 Patient clinically looks his stable compared to yesterday with occasional, and strength little bit improvement. No dyspnea or chest pain. No other respiratory symptoms. No dizziness. No GI or urinary symptoms. She denies diarrhea. She is eating well. She had a fever yesterday of 102. Urinalysis is suspicious for infection with large leukocyte esterase and WBC of elevation at 23 We will order renal ultrasound Patient remains on dexamethasone for possible Covid infection and ceftriaxone Pro-calcitonin is elevated at 13.0 Review of Systems CONSTITUTIONAL: No fever, no malaise, no fatigue. HEENT: No recent visual problems or hearing problems. Denied any sore throat. CARDIOVASCULAR: No orthopnea, PND, no palpitations, no syncope. PULMONARY: No shortness of breath, no hemoptysis. GASTROINTESTINAL: No diarrhea, no nausea, no vomiting, no abdominal pain. Normoactive bowel sounds. NEUROLOGICAL: No headaches, no weakness, no numbness. Active Medications Generic Name Dose Route Start Last Admin Trade Name Freq PRN Reason Stop Dose Admin Acetaminophen 650 mg 04/18/20 14:13 04/18/20 20:37 Acetaminophen Tab 325 Mg Tab PO 650 mg Q6HR PRN Administration Mild Pain or Fever > 100.5 Ascorbic Acid 500 mg 04/18/20 21:00 04/19/20 07:57 Ascorbic Acid 500 Mg Tab PO 500 mg BID CHASE Administration Cholecalciferol 125 mcg 04/18/20 14:15 04/19/20 07:57 Cholecalciferol 25 Mcg (1000 Iu) Tablet PO 125 mcg DAILY CHASE Administration Dexamethasone Sodium Phosphate 6 mg 04/18/20 22:45 04/19/20 07:57 Dexamethasone Sod Phosphate 10 Mg/Ml 1 Ml Vial IV 6 mg DAILY CHASE Administration Enoxaparin Sodium 30 mg 04/18/20 14:15 04/19/20 07:57 Enoxaparin 30 Mg/0.3 Ml Syringe SQ 30 mg DAILY CHASE Administration Famotidine 20 mg 04/18/20 21:00 04/19/20 07:57 Famotidine 20 Mg Tab PO 20 mg BID CHASE Administration Sodium Chloride 1,000 mls @ 60 mls/hr 04/18/20 14:15 04/19/20 07:58 Saline 0.9% IV 60 mls/hr .[id number] CHASE Administration Ceftriaxone Sodium 1 gm/ 50 mls @ 100 mls/hr 04/18/20 22:45 04/19/20 07:59 Sodium Chloride IVPB 100 mls/hr Q24HR CHASE Administration Insulin Aspart 0 unit 04/18/20 21:00 04/19/20 12:18 Insulin Aspart (Novolog) 100 Unit/Ml Vial SQ 6 unit ACHS CHASE Administration Protocol Insulin Detemir 10 unit 04/19/20 07:00 04/19/20 07:57 Insulin Detemir (Levemir) 100 Unit/Ml Syr SQ 10 unit DAILY@0700 CHASE Administration Lorazepam 0.5 mg 04/19/20 11:29 Lorazepam 0.5 Mg Tab PO HS PRN Insomnia Naloxone HCl 0.2 mg 04/18/20 14:13 Naloxone 0.4 Mg/Ml 1 Ml Vial IV Q2M PRN Opioid Reversal Ondansetron HCl 4 mg 04/18/20 14:00 Ondansetron 4 Mg Tab PO Q8H PRN Nausea And Vomiting Polyethylene Glycol 17 gm 04/19/20 09:00 04/19/20 08:05 Polyethylene Glycol 3350 17 Gm Powd.Pack PO Not Given DAILY CHASE Zinc Sulfate 220 mg 04/19/20 09:00 04/19/20 07:57 Zinc Sulfate 220 Mg Cap PO 220 mg DAILY CHASE Administration Objective - Vital Signs Vital signs: Vital Signs Temp 98.9 F 04/19/20 10:00 Pulse 100 04/19/20 10:00 Resp 18 04/19/20 10:00 BP 155/81 04/19/20 10:00 Pulse Ox 93 L 04/19/20 10:00 Intake & Output 04/18/20 04/19/20 04/19/20 18:59 06:59 18:59 Intake Total 880 Balance 880 Weight 67.132 kg Intake: IV 880 Sodium Chloride 0.9% 1, 480 000 ml @ 60 mls/hr IV . [id number] CHASE Rx#:[id number] cefTRIAXone 1 gm In 400 Sodium Chloride 0.9% 50 ml @ 100 mls/hr IVPB Q24HR CHASE Rx#:[id number] Other: Voiding Method Toilet # Voids 0 2 # Bowel Movements 2 - Exam GENERAL: The patient is alert and oriented x3, not in any acute distress. Well developed, well nourished. HEENT: Pupils are round and equally reacting to light. EOMI. No scleral icterus. No conjunctival pallor. Normocephalic, atraumatic. No pharyngeal erythema. No thyromegaly. CARDIOVASCULAR: S1 and S2 present. No murmurs, rubs, or gallops. PULMONARY: Chest is clear to auscultation, no wheezing or crackles. ABDOMEN: Soft, nontender, nondistended, normoactive bowel sounds. No palpable organomegaly. MUSCULOSKELETAL: No joint swelling or deformity. EXTREMITIES: No cyanosis, clubbing, or pedal edema. NEUROLOGICAL: Gross neurological examination did not reveal any focal deficits. SKIN: No rashes. no petechiae. - Labs CBC & Chem 7: 04/18/20 12:12 04/18/20 12:12 Labs: Abnormal Lab Results - Last 24 Hours (Table) 04/18/20 04/18/20 04/18/20 Range/Units 12:12 12:12 20:20 POC Glucose (mg/dL) 102 H (75-99) mg/dL Ferritin 499.5 H (10.0-291.0) ng/mL Procalcitonin 13.08 H (0.02-0.09) ng/mL Ur Leukocyte Esterase (Negative) Urine WBC (0-5) /hpf Urine Bacteria (None) /hpf 04/19/20 04/19/20 04/19/20 Range/Units 02:25 06:53 11:17 POC Glucose (mg/dL) 143 H 328 H (75-99) mg/dL Ferritin (10.0-291.0) ng/mL Procalcitonin (0.02-0.09) ng/mL Ur Leukocyte Esterase Large H (Negative) Urine WBC 23 H (0-5) /hpf Urine Bacteria Rare H (None) /hpf Microbiology - Last 24 Hours (Table) 04/19/20 02:25 Urine Culture - Preliminary Urine,Voided Assessment and Plan Assessment: Acute urinary tract infection subacute Covid infection with no pneumonia. chest x-ray was normal Generalized weakness and fatigue secondary to above Increase inflammatory markers 2 diabetes mellitus History of GERD Plan: This is a pleasant 85 years old female who presents with Covid infection and UTI. Continue with ceftriaxone, dexamethasone and Lovenox. Infectious disease team on the case. Vitamin C and zinc check renal ultrasound Labs and medication were reviewed.. Continue same treatment. Continue with symptomatic treatment. Resume home medication. Monitor lytes and vitals. DVT and GI prophylaxis. Further recommendations depends on the clinical course of the patient DVT prophylaxis: Subcutaneous Lovenox GI Prophylaxis: Pepcid PT/OT: Pending Prognosis is guarded
--- NOTE | 2020-04-19 14:25 | US ---
EXAMINATION TYPE: US renals and bladder DATE OF EXAM: 04/19/2020 COMPARISON: NONE CLINICAL HISTORY: uti. UTI EXAM MEASUREMENTS: Right Kidney: 10.5 x 4.5 x 4.5 cm Left Kidney: 8.6 x 4.5 x 3.8 cm Right Kidney: cystic areas noted, largest = 1.9 x 1.3 x 1.9cm Left Kidney: parapelvic cystic areas Bladder: appears wnl Bilateral Jets seen: no No hydronephrosis or nephrolithiasis. IMPRESSION: 1. No hydronephrosis or nephrolithiasis. Findings are suggestive of bilateral renal cysts.
[2020-04-19 16:33] LABS: Glucose,Whole Blood 259 mg/dL (75-99)
[2020-04-19 20:30] LABS: Glucose,Whole Blood 407 mg/dL (75-99)
[2020-04-19] MEDS ORDERED: INSULIN ASPART (NovoLOG) 100 UNIT/ML VIAL SQ ONE (20:58)
[2020-04-19] MEDS: INSULIN DETEMIR (LEVEMIR) 100 UNIT/ML SYR SQ SCH (21:40)
--- NOTE | 2020-04-19 22:54 | PN ---
PROGRESS NOTE DATE OF SERVICE: 04/19/2020 REASON FOR FOLLOWUP: Fever, COVID-19 and UTI. INTERVAL HISTORY: The patient is currently afebrile. The patient overall is feeling better. She is breathing comfortably. Denies having any chest pain or shortness of breath. Occasional cough. No nausea, no vomiting, no abdominal pain or diarrhea. PHYSICAL EXAMINATION: Her blood pressure is 130/74 with a pulse of 83, temperature 98.5. She is 94% on room air. General description is an elderly female lying in bed in no distress. RESPIRATORY SYSTEM: Unlabored breathing with decreased intensity of breath sounds. No wheeze. HEART: S1, S2. Regular rate and rhythm. ABDOMEN: Soft. No tenderness. LABS: No new labs have been obtained today. DIAGNOSTIC IMPRESSION AND PLAN: Patient admitted to hospital with increasing weakness in this patient diagnosed with COVID more than 10 days ago. Subsequently did spike a fever and did have elevated procalcitonin. She is currently on Rocephin in addition to the dexamethasone, Lovenox, zinc and ascorbic acid, and seems to have shown clinical improvement. To continue with the current and will monitor clinical course closely. MMODL / IJN: [id number] /
[2020-04-20] MEDS: SODIUM CHLORIDE 0.9% 1,000 ML IV SCH (05:00)
[2020-04-20 07:11] LABS: Glucose,Whole Blood 64 mg/dL (75-99)
[2020-04-20 07:36] LABS: Glucose,Whole Blood 93 mg/dL (75-99)
[2020-04-20] MEDS: INSULIN ASPART (NovoLOG) 100 UNIT/ML VIAL SQ SCH ×4 (08:12→20:37)
[2020-04-20] MEDS: INSULIN DETEMIR (LEVEMIR) 100 UNIT/ML SYR SQ SCH ×2 (08:12→20:36)
[2020-04-20] MEDS: ZINC SULFATE 220 MG CAP PO SCH (08:42)
[2020-04-20] MEDS: FAMOTIDINE 20 MG TAB PO SCH ×2 (08:42→20:37)
[2020-04-20] MEDS: ASCORBIC ACID 500 MG TAB PO SCH ×2 (08:42→20:37)
[2020-04-20] MEDS: DEXAMETHASONE SOD PHOSPHATE 10 MG/ML 1 ML VIAL IV SCH (08:42)
[2020-04-20] MEDS: CHOLECALCIFEROL 25 MCG (1000 IU) TABLET PO SCH (08:42)
[2020-04-20] MEDS: ENOXAPARIN 40 MG/0.4 ML SYRINGE SQ SCH (08:42)
[2020-04-20] MEDS: polyethylene glycoL 3350 17 GM POWD.PACK PO SCH (08:43)
[2020-04-20 11:52] LABS: Glucose,Whole Blood 217 mg/dL (75-99)
[2020-04-20 13:13] LABS: Ferritin 468.9 ng/mL (10.0-291.0)
[2020-04-20 14:29] LABS: Anion Gap 7.6 mmol/L (4.00-12.00); BUN/Creat Ratio 31.67 Ratio (12.00-20.00); C Reactive Protein 12.8 mg/dL (0.0-0.8); Calcium 8.4 mg/dL (8.7-10.3); Carbon Dioxide 27.4 mmol/L (21.6-31.8); Potassium 4.5 mmol/L (3.5-5.5)
[2020-04-20 17:08] LABS: Glucose,Whole Blood 241 mg/dL (75-99)
--- NOTE | 2020-04-20 19:37 | P.PN ---
Subjective This is a pleasant 85 years old female with past medical history of diabetes mellitus, GERD She presents because of generalized weakness and fatigue over few days which is significant of one-day duration associated with some nausea Patient was recently diagnosed with Covid 19 about 10 days ago when she came to the emergency room complaining of from nausea, referred from urgent care for postoperative coronavirus test. At that time She was discharged from the emergency room currently patient has some dry cough but no chest pain or dyspnea. No abdominal pain or diarrhea. No other complaints On admission she has a fever over 102 She has unremarkable CBC and BMP except for mild hyponatremia at 132. Inflammatory markers are elevated including ferritin, lactate dehydrogenase, C- reactive protein and elevated pro-calcitonin at 13.0. Coronavirus: Detected Chest x-ray showing chronic changes without acute pulmonary process per radiologist EKG showing normal sinus rhythm at [address] with no significant [address]-T changes and QTC 429. Patient was started on dexamethasone and ceftriaxone on admission 04/19/2020 Patient clinically looks his stable compared to yesterday with occasional, and strength little bit improvement. No dyspnea or chest pain. No other respiratory symptoms. No dizziness. No GI or urinary symptoms. She denies diarrhea. She is eating well. She had a fever yesterday of 102. Urinalysis is suspicious for infection with large leukocyte esterase and WBC of elevation at 23 We will order renal ultrasound Patient remains on dexamethasone for possible Covid infection and ceftriaxone Pro-calcitonin is elevated at 13.0 04/20/2020 Patient is awake and alert, was seen working with PT/OT and generally she is doing well. No respiratory symptoms, no urinary symptoms. Inflammatory markers is C- reactive protein and lactate dehydrogenase are improving and back to normal local or close to normal. Vitals are stable and patient is afebrile for more than 48 hours Renal ultrasound showing no hydronephrosis. Urine culture showing no growth. Continue with ceftriaxone and dexamethasone and zinc and vitamin C with infectious disease on the case Possible discharge in 24-48 hours if she keeps improving Objective - Vital Signs Vital signs: Vital Signs Temp 97.8 F 04/20/20 10:00 Pulse 81 04/20/20 10:00 Resp 16 04/20/20 10:00 BP 157/75 04/20/20 10:00 Pulse Ox 95 04/20/20 10:00 Intake & Output 04/19/20 04/20/20 04/20/20 18:59 06:59 18:59 Intake Total 880 296 Output Total 700 Balance 880 -700 296 Intake: IV 880 Sodium Chloride 0.9% 1, 480 000 ml @ 40 mls/hr IV . Q24H [facility]ASE Rx#:[id number] cefTRIAXone 1 gm In 400 Sodium Chloride 0.9% 50 ml @ 100 mls/hr IVPB Q24HR [facility]ASE Rx#:[id number] Oral 296 Output: Urine 700 Other: Voiding Method Toilet - Exam GENERAL: The patient is alert and oriented x3, not in any acute distress. Well developed, well nourished. HEENT: Pupils are round and equally reacting to light. EOMI. No scleral icterus. No conjunctival pallor. Normocephalic, atraumatic. No pharyngeal erythema. No thyromegaly. CARDIOVASCULAR: S1 and S2 present. No murmurs, rubs, or gallops. PULMONARY: Chest is clear to auscultation, no wheezing or crackles. ABDOMEN: Soft, nontender, nondistended, normoactive bowel sounds. No palpable organomegaly. MUSCULOSKELETAL: No joint swelling or deformity. EXTREMITIES: No cyanosis, clubbing, or pedal edema. NEUROLOGICAL: Gross neurological examination did not reveal any focal deficits. SKIN: No rashes. no petechiae. - Labs CBC & Chem 7: 04/18/20 12:12 04/20/20 07:11 Labs: Abnormal Lab Results - Last 24 Hours (Table) 04/19/20 04/19/20 04/20/20 Range/Units 16:31 20:29 07:10 POC Glucose (mg/dL) 259 H 407 H 64 L (75-99) mg/dL Ferritin (10.0-291.0) ng/mL 04/20/20 04/20/20 Range/Units 07:11 11:50 POC Glucose (mg/dL) 217 H (75-99) mg/dL Ferritin 468.9 H (10.0-291.0) ng/mL Microbiology - Last 24 Hours (Table) 04/19/20 02:25 Urine Culture - Preliminary Urine,Voided Assessment and Plan Assessment: Acute urinary tract infection subacute Covid infection with no pneumonia. chest x-ray was normal Generalized weakness and fatigue secondary to above Increase inflammatory markers 2 diabetes mellitus History of GERD Plan: This is a pleasant 85 years old female who presents with Covid infection and UTI. Continue with ceftriaxone, dexamethasone and Lovenox. Infectious disease team on the case. Vitamin C and zinc check renal ultrasound Labs and medication were reviewed.. Continue same treatment. Continue with symptomatic treatment. Resume home medication. Monitor lytes and vitals. DVT and GI prophylaxis. Further recommendations depends on the clinical course of the patient DVT prophylaxis: Subcutaneous Lovenox GI Prophylaxis: Pepcid PT/OT: Pending Prognosis is guarded
[2020-04-20 20:09] LABS: Glucose,Whole Blood 229 mg/dL (75-99)
[2020-04-20] MEDS ORDERED: LORazepam 0.5 MG TAB PO PRN (21:44)
--- NOTE | 2020-04-20 22:54 | PN ---
PROGRESS NOTE DATE OF SERVICE: 04/20/2020 REASON FOR FOLLOWUP: COVID-19 infection and a question of UTI. INTERVAL HISTORY: The patient is currently afebrile. The patient is breathing comfortably. The patient denies having any chest pain or shortness of breath or cough. No nausea, no vomiting, no abdominal pain or diarrhea. Overall feeling much better. PHYSICAL EXAMINATION: Blood pressure is 168/79 with pulse of 75, temperature 98.2. She is 95% on room air. General description is an elderly female lying in bed in no distress. RESPIRATORY SYSTEM: Unlabored breathing with decreased intensity of breath sounds. No wheeze. HEART: S1, S2. Regular rate and rhythm. ABDOMEN: Soft. No tenderness. LABS: BUN of 19, creatinine 0.6. CRP is 12.8. DIAGNOSTIC IMPRESSION AND PLAN: Patient admitted to hospital with weakness in this patient with a diagnosis of COVID about 2 weeks ago. She did have significantly procalcitonin with concern for possible bacterial component. Initial x-ray was not showing significant infiltrate. Chest x-ray will be repeated. She clinically responded to Rocephin; that will be continued. If overall improvement, plan to finish therapy with oral Ceftin. MMODL / IJN: [id number] /
[2020-04-21] MEDS: SODIUM CHLORIDE 0.9% 1,000 ML IV SCH (05:31)
[2020-04-21 07:17] LABS: Glucose,Whole Blood 71 mg/dL (75-99)
[2020-04-21] MEDS: INSULIN ASPART (NovoLOG) 100 UNIT/ML VIAL SQ SCH ×2 (07:31→12:46)
[2020-04-21] MEDS: INSULIN DETEMIR (LEVEMIR) 100 UNIT/ML SYR SQ SCH (07:31)
[2020-04-21] MEDS: ASCORBIC ACID 500 MG TAB PO SCH (08:00)
[2020-04-21] MEDS: ENOXAPARIN 40 MG/0.4 ML SYRINGE SQ SCH (08:00)
[2020-04-21] MEDS: FAMOTIDINE 20 MG TAB PO SCH (08:00)
[2020-04-21] MEDS: ZINC SULFATE 220 MG CAP PO SCH (08:00)
[2020-04-21] MEDS: CHOLECALCIFEROL 25 MCG (1000 IU) TABLET PO SCH (08:00)
[2020-04-21] MEDS: DEXAMETHASONE SOD PHOSPHATE 10 MG/ML 1 ML VIAL IV SCH (08:02)
[2020-04-21] MEDS: polyethylene glycoL 3350 17 GM POWD.PACK PO SCH (08:08)
[2020-04-21] MEDS ORDERED: CEFDINIR 300 MG CAP PO SCH (09:00)
[2020-04-21] MEDS ORDERED: dexAMETHasone 2 MG TAB PO SCH (09:00)
--- NOTE | 2020-04-21 09:28 | XR ---
EXAMINATION TYPE: XR chest 1V portable DATE OF EXAM: 04/21/2020 COMPARISON: 04/18/2020 HISTORY: Cough TECHNIQUE: Single frontal view of the chest is obtained. FINDINGS: There is no focal air space opacity, pleural effusion, or pneumothorax seen. The cardiac silhouette size is within normal limits. The osseous structures are intact. Atherosclerotic change aorta. There is an upper mediastinal soft tissue attenuation deviation of the trachea suggestive of m etastases. Diffuse osteopenia. No overt failure. Tiny granuloma right lung base suspected. IMPRESSION: 1. COPD. 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
[2020-04-21 10:07] VITALS: RESP 18; TEMP 98
[2020-04-21 11:34] LABS: Glucose,Whole Blood 277 mg/dL (75-99)
[2020-04-21 13:50] LABS: Basophils # (A) 0.01 X 10*3/uL (0.00-0.10); Basophils % (A) 0.1 %; Eosinophils # (A) 0 X 10*3/uL (0.04-0.35); Eosinophils % (A) 0 %; HGB 11.5 g/dL (12.0-15.0); Lymphocytes # (A) 1.33 X 10*3/uL (0.90-5.00); Lymphocytes % (A) 15.3 %; MCH 29.6 pg (27.0-32.0); MCHC 31.9 g/dL (32.0-37.0); MCV 92.8 fL (80.0-97.0); Mean Platelet Volume 10.6 fL (9.5-12.2); Monocytes # (A) 0.82 X 10*3/uL (0.20-1.00); Monocytes % (A) 9.4 %; Neutrophils # (A) 6.49 X 10*3/uL (1.80-7.70); Neutrophils % (A) 74.9 %; Platelet Count 274 X 10*3/uL (140-440); RBC 3.88 X 10*6/uL (4.10-5.20); WBC 8.68 X 10*3/uL (4.50-10.00)
[2020-04-21 14:30] VITALS: BP 174/92; PULSE 89
--- NOTE | 2020-04-21 15:16 | PN ---
PROGRESS NOTE DATE OF SERVICE: 04/21/2020 REASON FOR FOLLOWUP: Pneumonia. INTERVAL HISTORY: The patient is currently afebrile. The patient is feeling better. She is breathing comfortably. Denies having any chest pain, shortness of breath or cough. Currently on room air. No nausea, no vomiting. No abdominal pain. No diarrhea. PHYSICAL EXAMINATION: Blood pressure 174/92 with a pulse of 89, temperature 98. She is 93% on room air. General description is an elderly female up in the bed in no distress. RESPIRATORY SYSTEM: Unlabored breathing. HEART: S1, S2. Regular. ABDOMEN: Soft. LABS: Hemoglobin 11.5, white count 8.68. Chest x-ray this morning upper mediastinal soft tissue prominence . DIAGNOSTIC IMPRESSION AND PLAN: Patient admitted to the hospital with shortness of breath and cough with diagnosis of COVID about 2 weeks ago. She did have a fever, did have elevated procalcitonin, concern for possible bacterial component. No significant pneumonia has been seen on the x-ray. Overall improvement with Rocephin. Finish therapy with Ceftin for a week. This was discussed with the admitting physician working on discharge. MMODL / IJN: [id number] /
[2020-04-21 18:36] LABS: Albumin 3.6 g/dL (3.80-4.90); Albumin/Globulin Ratio 1.5 (1.60-3.17); Anion Gap 8.2 mmol/L (4.00-12.00); BUN/Creat Ratio 28.33 Ratio (12.00-20.00); C Reactive Protein 6.2 mg/dL (0.0-0.8); Calcium 8.5 mg/dL (8.7-10.3); Carbon Dioxide 25.8 mmol/L (21.6-31.8); Globulin 2.4 g/dL (1.6-3.3); Total Bilirubin 0.5 mg/dL (0.3-1.2)
--- NOTE | 2020-04-23 12:53 | P.DS ---
Providers Date of admission: 04/18/20 14:13 Attending physician: Glenroy Tellez MD Consults: 04/18/20 13:59 Consult Physician Urgent Consulting Provider: Galo Courtney Consult Reason/Comments: covid infection Do you want consulting provider notified?: Yes Primary care physician: Mik Noe [facility] Course: Date of service 04/21/20 Diagnoses: Acute urinary tract infection subacute Covid infection with no pneumonia. chest x-ray was normal Generalized weakness and fatigue secondary to above. Improved compared to discharge History of insomnia Increase inflammatory markers 2 diabetes mellitus History of GERD Hospital course: This is a pleasant 85 years old female with past medical history of diabetes mellitus, GERD She presents because of generalized weakness and fatigue over few days which is significant of one-day duration associated with some nausea Patient was recently diagnosed with Covid 19 about 10 days earlier when she came to the emergency room complaining of from nausea, this Presents because of fatigue and dry cough. On admission she has a fever over 102.Coronavirus: Detected. pro-calcitonin at 13.0. Infectious disease consult was obtained and she was treated with ceftri axone and dexamethasone, her symptoms improved and strength is back to normal, nausea improved. Inflammatory markers and pro-calcitonin are trending down. 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 Patient on the day of discharge she was asymptomatic and she was eager to be discharged. On the day of discharge she denies chest pain, no dyspnea, no change in urine or bowel habits. No fever Patient was cleared for discharge by infectious disease team on omnicef for 7 days Problems and management plan were discussed with the patient and he verbalized understanding and acceptance Patient was found stable and can be discharged home however he needs follow-up as an outpatient. Patient was instructed to follow up with PCP Dr. Noe within one week and patient agrees with the appointments made for her with him on this coming Monday 04/24. I called Dr. Noe and discussed the case with him including the finding of substernal goiter Physical exam Gen: patient is a AAOx3, no distress CVS: S1-S2, RRR, no murmur Lungs: B/L CTA, no wheezing Abdomen: soft, no distention, no tenderness, positive bowel sounds Extremity: no leg edema or induration Time spent more than 35 minutes Plan - Discharge Summary Discharge Rx Participant: Yes New Discharge Prescriptions: New Cefdinir [Omnicef] 300 mg PO BID #14 cap Zinc Sulfate [Orazinc] 220 mg PO DAILY #30 cap Famotidine [Pepcid] 20 mg PO BID #60 tab Ascorbic Acid [Vitamin C] 500 mg PO BID #60 tab Cholecalciferol [Vitamin D3 (25 Mcg = 1000 Iu)] 125 mcg PO DAILY #30 tablet Continue polyethylene glycoL 3350 [Miralax] 17 gm PO DAILY Insulin Detemir [Levemir Flextouch] 15 units SQ DAILY Ondansetron [Zofran] 4 mg PO Q8H PRN PRN Reason: Nausea And Vomiting Acetaminophen Tab [Tylenol] 650 mg PO ONCE PRN PRN Reason: Fever And/ Or Pain Unknown Thrush Cream (Unknown Strength) 1 applic TOPICAL DIRECTED PRN PRN Reason: thrush Clotrimazole 10 mg PO 5XD Changed LORazepam [Ativan] 1 mg PO HS PRN #0 PRN Reason: Anxiety Discontinued traZODone HCL 50 - 100 mg PO HS PRN PRN Reason: Insomnia Zolpidem Tartrate [Ambien] 10 mg PO HS PRN PRN Reason: Insomnia Discharge Medication List Insulin Detemir [Levemir Flextouch] 15 units SQ DAILY 04/07/20 [History] polyethylene glycoL 3350 [Miralax] 17 gm PO DAILY 04/07/20 [History] Acetaminophen Tab [Tylenol] 650 mg PO ONCE PRN 04/18/20 [History] Clotrimazole 10 mg PO 5XD 04/18/20 [History] Ondansetron [Zofran] 4 mg PO Q8H PRN 04/18/20 [History] Unknown Thrush Cream (Unknown Strength) 1 applic TOPICAL DIRECTED PRN 04/18/20 [History] Ascorbic Acid [Vitamin C] 500 mg PO BID #60 tab 04/21/20 [Rx] Cefdinir [Omnicef] 300 mg PO BID #14 cap 04/21/20 [Rx] Cholecalciferol [Vitamin D3 (25 Mcg = 1000 Iu)] 125 mcg PO DAILY #30 tablet 04/21/20 [Rx] Famotidine [Pepcid] 20 mg PO BID #60 tab 04/21/20 [Rx] LORazepam [Ativan] 1 mg PO HS PRN #0 04/21/20 [Rx] Zinc Sulfate [Orazinc] 220 mg PO DAILY #30 cap 04/21/20 [Rx] Follow up Appointment(s)/Referral(s): Mik Noe III, MD [Primary Care Provider] - 04/24/20 9:30 am Patient Instructions/Handouts: Coronavirus Disease 2019 (COVID-19), Urinary Tract Infection in Women (DC) Activity/Diet/Wound Care/Special Instructions: heart healthy diet activity is restricted till you see your doctor Discharge Disposition: HOME SELF-CARE
== END 2020-04-21 14:25 | disposition home or self-care (01) | DRG 178 ==
LOC: EC 11:40 → 4SSUR 14:13
PROVIDERS: ADMIT Internal Medicine; ATTEND Internal Medicine
DX: U07.1 COVID-19 (principal); N39.0 Urinary tract infection, site not specified; E87.1 Hypo-osmolality and hyponatremia; J20.9 Acute bronchitis, unspecified; E11.9 Type 2 diabetes mellitus without complications; E04.9 Nontoxic goiter, unspecified; Z79.4 Long term (current) use of insulin; Z79.899 Other long term (current) drug therapy; G47.00 Insomnia, unspecified; R53.83 Other fatigue; K21.9 Gastro-esophageal reflux disease without esophagitis; Z86.74 Personal history of sudden cardiac arrest; Z98.42 Cataract extraction status, left eye; Z98.41 Cataract extraction status, right eye; Z96.1 Presence of intraocular lens; Z88.6 Allergy status to analgesic agent; Z88.4 Allergy status to anesthetic agent; Z88.5 Allergy status to narcotic agent; Z88.8 Allergy status to other drugs, medicaments and biological substances
CPT/HCPCS: 36415; 71045; 76770; 80048; 80053; 81001; 82728; 83605; 83615; 83735; 84145; 85025; 85610; 85730; 86140; 87086; 93005; 96372; 99285

== ENCOUNTER 2020-05-13 02:38 | Emergency (ER) | payer MEDICARE, BC ==
[2020-05-13 02:55] VITALS: BP 143/83; PULSE 67; RESP 16; TEMP 97.9
--- NOTE | 2020-05-13 03:01 | ED ---
Upper Extremity HPI - General Chief Complaint: Extremity Injury, Upper Stated Complaint: Extremity injury/Fall Time Seen by Provider: 05/13/20 02:45 Source: patient, family, RN notes reviewed, old records reviewed Mode of arrival: wheelchair Limitations: no limitations - History of Present Illness Initial Comments: This is a 5-year-old female DF status post fall. Patient of fall from standing just prior to arrival. Patient complaining of right wrist pain or the wrist area) by the radius. Patient has no other somatic injury noted. No modifying factors or pain worse when she touches remote patient is able to move hand freely move fingers freely Complaint: Injury to:: right, wrist -: hour(s) Other Extremity Injury: Wrist: Right Other Injuries: none Handedness: right Place: home Severity scale (1-10): 3 Context: fall Associated Symptoms: denies other symptoms Treatments Prior to Arrival: other (None) - Related Data Home Medications Medication Instructions Recorded Confirmed Insulin Detemir [Levemir Flextouch] 15 units SQ DAILY 04/07/20 04/18/20 polyethylene glycoL 3350 [Miralax] 17 gm PO DAILY 04/07/20 04/18/20 Acetaminophen Tab [Tylenol] 650 mg PO ONCE PRN 04/18/20 04/18/20 Clotrimazole 10 mg PO 5XD 04/18/20 04/18/20 Ondansetron [Zofran] 4 mg PO Q8H PRN 04/18/20 04/18/20 Unknown Thrush Cream (Unknown 1 applic TOPICAL DIRECTED PRN 04/18/20 04/18/20 Strength) Previous Rx's Medication Instructions Recorded Ascorbic Acid [Vitamin C] 500 mg PO BID #60 tab 04/21/20 Cefdinir [Omnicef] 300 mg PO BID #14 cap 04/21/20 Cholecalciferol [Vitamin D3 (25 125 mcg PO DAILY #30 tablet 04/21/20 Mcg = 1000 Iu)] Famotidine [Pepcid] 20 mg PO BID #60 tab 04/21/20 LORazepam [Ativan] 1 mg PO HS PRN #0 04/21/20 Zinc Sulfate [Orazinc] 220 mg PO DAILY #30 cap 04/21/20 Allergies Allergy/AdvReac Type Severity Reaction Status Date / Time albuterol Allergy Unknown Verified 05/13/20 02:52 aspirin [From Percodan] Allergy Unknown Verified 05/13/20 02:52 atorvastatin calcium Allergy Unknown Verified 05/13/20 02:52 [From Lipitor] azithromycin Allergy Unknown Verified 05/13/20 02:52 benzonatate Allergy Unknown Verified 05/13/20 02:52 [From Tessalon Perles] carrageenan Allergy Unknown Verified 05/13/20 02:52 diphenhydramine HCl Allergy Unknown Verified 05/13/20 02:52 [From Benadryl] epinephrine Allergy Unknown Verified 05/13/20 02:52 erythromycin base Allergy Unknown Verified 05/13/20 02:52 escitalopram oxalate Allergy Unknown Verified 05/13/20 02:52 [From Lexapro] hydrochlorothiazide Allergy Unknown Verified 05/13/20 02:52 [From HydroDiuril] hydrocodone bitartrate Allergy Unknown Verified 05/13/20 02:52 [From Vicodin] iodine Allergy topical Verified 05/13/20 02:52 lidocaine Allergy Unknown Verified 05/13/20 02:52 lidocaine HCl Allergy Unknown Verified 05/13/20 02:52 [From Xylocaine] losartan potassium Allergy Unknown Verified 05/13/20 02:52 [From Cozaar] metformin HCl Allergy Unknown Verified 05/13/20 02:52 [From Glucophage] nylon Allergy Unknown Verified 05/13/20 02:52 oxycodone HCl [From Percodan] Allergy Unknown Verified 05/13/20 02:52 oxycodone terephthalate Allergy Unknown Verified 05/13/20 02:52 [From Percodan] paroxetine HCl [From Paxil] Allergy Unknown Verified 05/13/20 02:52 procaine [From Novocain] Allergy Unknown Verified 05/13/20 02:52 promethazine HCl Allergy Unknown Verified 05/13/20 02:52 [From Phenergan] propranolol HCl Allergy Unknown Verified 05/13/20 02:52 [From Inderal LA] rofecoxib [From Vioxx] Allergy Unknown Verified 05/13/20 02:52 sulfamethoxazole Allergy Unknown Verified 05/13/20 02:52 [From Bactrim] sulfite Allergy Unknown Verified 05/13/20 02:52 trimethoprim [From Bactrim] Allergy Unknown Verified 05/13/20 02:52 turmeric Allergy Unknown Verified 05/13/20 02:52 zolpidem tartrate Allergy Unknown Verified 05/13/20 02:52 [From Ambien] diazepam [From Valium] AdvReac "shuts Verified 05/13/20 02:52 down bladder" morphine AdvReac Hallucinati Verified 05/13/20 02:52 ons artificial color Allergy Unknown Uncoded 05/13/20 02:52 chemicals Allergy Unknown Uncoded 05/13/20 02:52 odor Allergy Unknown Uncoded 05/13/20 02:52 smoke Allergy Unknown Uncoded 05/13/20 02:52 nylon stictches AdvReac "got an Uncoded 05/13/20 02:52 infection" Review of Systems ROS Statement: Those systems with pertinent positive or pertinent negative responses have been documented in the HPI. ROS Other: All systems not noted in ROS Statement are negative. Past Medical History Past Medical History: Diabetes Mellitus, GERD/Reflux Additional Past Medical History / Comment(s): severe allergies, will be bringing own food and drinks, diverticulitis, hx of "pierced urethra and bladder" has urethral dilations every 6 weeks, has sore on rt buttock that has had for 45 years, occasionally uses a topical ointment History of Any Multi-Drug Resistant Organisms: None Reported Past Surgical History: Bladder Surgery Additional Past Surgical History / Comment(s): sx on john feet, john rotator cuff, john cataract/lenses, cauterization of part of bladder, has urethral dilations every 6 weeks Additional Past Anesthesia/Blood Transfusion Reaction / Comment(s): pt states she "coded" with anesthesia in past, but unable to give specifics, states she thought is was from "numbing medication" like lidocaine Past Psychological History: No Psychological Hx Reported Smoking Status: Never smoker Past Alcohol Use History: None Reported Past Drug Use History: None Reported - Past Family History Father History Unknown: Yes Mother Family Medical History: Cancer Additional Family Medical History / Comment(s): skin General Exam Limitations: no limitations General appearance: alert, in no apparent distress Head exam: Present: atraumatic, normocephalic, normal inspection Eye exam: Present: normal appearance, PERRL, EOMI. Absent: scleral icterus, conjunctival injection, periorbital swelling ENT exam: Present: normal exam, mucous membranes moist Neck exam: Present: normal inspection. Absent: tenderness, meningismus, lymp hadenopathy Respiratory exam: Present: normal lung sounds bilaterally. Absent: respiratory distress, wheezes, rales, rhonchi, stridor Cardiovascular Exam: Present: regular rate, normal rhythm, normal heart sounds. Absent: systolic murmur, diastolic murmur, rubs, gallop, clicks GI/Abdominal exam: Present: soft, normal bowel sounds. Absent: distended, tenderness, guarding, rebound, rigid Extremities exam: Present: normal inspection, full ROM, normal capillary refill, other (Mild tenderness to the right wrist area, no scaphoid tenderness). Absent: tenderness, pedal edema, joint swelling, calf tenderness Back exam: Present: normal inspection Neurological exam: Present: alert, oriented X3, CN II-XII intact Psychiatric exam: Present: normal affect, normal mood Skin exam: Present: warm, dry, intact, normal color. Absent: rash Course Vital Signs 05/13/20 02:52 Temperature 97.9 F Pulse Rate 67 Respiratory 16 Rate Blood Pressure 143/83 O2 Sat by Pulse 97 Oximetry - Reevaluation(s) Reevaluation #1: Medical record is reviewed Patient symptoms are improved and resolved here in the ER Patient informed of results, questions answered Patient feels good for discharge home Medical Decision Making - Medical Decision Making 85 female to the ER status post fall. Patient is right wrist pain contusion x- ray otherwise negative. Patient can be discharged home - Radiology Data Radiology results: report reviewed (X-ray right wrist negative for traumatic injury, CT right wrist shows no scaphoid trauma), image reviewed Disposition Clinical Impression: Fall, Contusion of right wrist Disposition: HOME SELF-CARE Condition: Good Instructions (If sedation given, give patient instructions): Hand Sprain (ED) Is patient prescribed a controlled substance at d/c from ED?: No Referrals: Mik Noe III, MD [Primary Care Provider] - 1-2 days
--- NOTE | 2020-05-13 03:19 | XR ---
EXAM: XR Right Wrist, 2 Views CLINICAL HISTORY: ITS.REASON XR Reason: fall TECHNIQUE: Frontal and lateral views of the right wrist. COMPARISON: No previous studies. FINDINGS: Bones/joints: Osteopenia/osteoporosis. Findings suggestive of possible acute subtle transverse fracture of the mid to distal scaphoid best seen on the oblique view. It should be noted that the fracture puts the patient at risk for avascular necrosis per Moderate osteoarthritic changes. No dislocation. Soft tissues: Soft tissue swelling. No radiopaque foreign body. IMPRESSION: 1. On the oblique view, there is suggestion of a subtle transverse nondisplaced fracture of the mid to distal scaphoid bone. On the scaphoid view however this finding is not well seen. 2. CT imaging or magnetic resonance imaging of the right wrist joint is advised to confirm this finding. 3. If this is a true finding, the fracture places the patient at risk for avascular necrosis. 4. Osteopenia, osteoporosis.
--- NOTE | 2020-05-13 03:58 | CT ---
EXAM: CT Right Upper Extremity Without Intravenous Contrast, Wrist CLINICAL HISTORY: ITS.REASON CT Reason: scaphoid fx TECHNIQUE: Axial computed tomography images of the right wrist without intravenous contrast. CTDI is 8.77 mGy and DLP is 199.6 mGy-cm. This CT exam was performed using one or more of the following dose reduction techniques: automated exposure control, adjustment of the mA and/or kV according to patient size, and/or use of iterative reconstruction technique. COMPARISON: Plain film evaluation of the right wrist joint performed earlier today. FINDINGS: Bones/joints: Osteoporosis/osteopenia. 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 CT imaging reveals no acute fracture of the scaphoid bone. No dislocation. Soft tissues: Minimal subcutaneous haziness within the subcutaneous tissues probably on the basis of mild bruising related to injury. Other findings: No apparent findings on the plain film evaluation was fortuitous. IMPRESSION: 1. No acute fracture is detected including the scaphoid bone. 2. Advanced osteoarthritic changes and probable soft tissue bruising.
== END 2020-05-13 04:24 | disposition home or self-care (01) ==
LOC: EC 02:38
DX: S60.211A Contusion of right wrist, initial encounter (principal); E11.9 Type 2 diabetes mellitus without complications; Z79.4 Long term (current) use of insulin; Z79.899 Other long term (current) drug therapy; Z88.8 Allergy status to other drugs, medicaments and biological substances; Z88.6 Allergy status to analgesic agent; Z88.1 Allergy status to other antibiotic agents; Z91.02 Food additives allergy status; Z88.5 Allergy status to narcotic agent; Z91.048 Other nonmedicinal substance allergy status; Z88.4 Allergy status to anesthetic agent; Z88.2 Allergy status to sulfonamides; Z91.09 Other allergy status, other than to drugs and biological substances; W01.198A Fall on same level from slipping, tripping and stumbling with subsequent striking against other object, initial encounter; Y92.003 Bedroom of unspecified non-institutional (private) residence as the place of occurrence of the external cause
CPT/HCPCS: 99284

== ENCOUNTER → 2020-05-29 | Outpatient (CLI) | payer MEDICARE, BC ==
[2020-05-29 14:15] LABS: African American GFR (CKD) >90 (>60 ml/min/1.73 sqM); Blood Urea Nitrogen 17 mg/dL (7-17); Non-African American GFR(CKD) 80 (>60 ml/min/1.73 sqM)
--- NOTE | 2020-05-29 21:33 | CT ---
EXAMINATION TYPE: CT ChestAbdPelvis w con DATE OF EXAM: 05/29/2020 INDICATION: follow up colon cancer COMPARISON: PET/CT 01/28/2020 CT DLP: 1347 mGycm CONTRAST: Performed without Oral Contrast and with IV Contrast, patient injected with 100 mL of Isovue 300. TECHNIQUE: Axial images at 5 mm thick sections. Reconstructed images in the coronal plane. Delayed images through the kidneys. FINDINGS: CT CHEST: The thyroid is enlarged and heterogenous extending into the superior mediastinum. There is a punctate density posterior right present previously and stable. No enlarged mediastinal or hilar adenopathy is evident. The ascending aorta diameter at the level of the main pulmonary artery is 3.3 cm. The main pulmonary artery diameter at the bifurcation is 2.7 cm. Coronary artery calcifications present. CT ABDOMEN: Liver: Normal Spleen: Normal Pancreas: Atrophic Adrenal glands: The adrenal glands are normal. Gallbladder: Normal Kidneys: No masses are evident. No hydronephrosis is present. There appears to be a cyst on the sup erior pole right kidney with a transverse dimension of 1.5 cm. Tiny cortical renal cysts present on t he right lateral mid kidney. Delayed images were obtained through the kidneys, which remain unremark able. Aorta: Vascular calcification is within the aorta. Inferior vena cava: Normal. CT PELVIS: Small anterior pelvic wall hernia may be present. Loops of bowel within the abdomen and pelvis are normal. The study is without oral contrast limit ing evaluation. Fecal debris throughout the colon. Appendix: Appendix is not identified. No suspicious dilated tubular structure inflammatory changes ar e evident. Urinary bladder: Normal. Genitourinary structures: Uterus appears normal. Adnexal regions are clear. Osseous structures: No suspicious lytic or sclerotic lesions. Facet degenerative changes are present. IMPRESSIONS: 1. No suspicious changes to suggest recurrent or metastatic colon cancer.
== END | disposition home or self-care (01) ==
LOC: RADCTMAIN 13:22
PROVIDERS: ATTEND Internal Medicine Hematology & Oncology
DX: C18.7 Malignant neoplasm of sigmoid colon (principal); E11.9 Type 2 diabetes mellitus without complications
CPT/HCPCS: 82565; 84520; 71260; 74177; 36415; Q9967

== ENCOUNTER → 2020-07-03 | Outpatient (CLI) | payer MEDICARE, BC ==
--- NOTE | 2020-07-03 14:57 | US ---
EXAMINATION TYPE: US thyroid st tissue head/neck DATE OF EXAM: 07/03/2020 [facility] CLINICAL HISTORY: E04.9 NONTOXIC GOITER, R13.13DYSPHAGIA, R94.6 ABN. voice changes x 1 year. GLAND SIZE: Right Lobe: 4.5 x 2.9 x 1.7 cm Overall Parenchyma: heterogenous Left Lobe: 9.2 x 3.5 x 4.1 cm Overall Parenchyma: heterogeneous Isthmus Thickness: 1.8 cm NODULES RIGHT: # of nodules measured on right: 1 1. 2.7 X 2.4 x 1.6 cm, upper and mid pole, mixed cystic and solid, hypoechoic nodule, which is wide r than tall, with ill-defined margins, without echogenic foci. LEFT: # of nodules measured on left: most discreet area was measured 1. 5.3 X 4.3 x 3.7 cm, mid and lower pole spongiform, isoechoic nodule, which is wider than tall, w ith lobulated or irregular margins, echogenic foci. Prior size: x x cm ISTHMUS: # of nodules measured in the isthmus: 1 1. 2.2 X 2.2 x 1.5 cm spongiform, isoechoic nodule, which is wider than tall, with ill-defined anusha ins, without echogenic foci. Bilateral neck scanned: no evidence of lymphadenopathy. IMPRESSION: Thyroidomegaly with multiple nodules likely reflective of underlying goiter. The need to biopsy shoul d be made on a clinical basis.
== END | disposition home or self-care (01) ==
LOC: RADUSWWP 14:10
PROVIDERS: ATTEND Family Medicine
DX: E04.2 Nontoxic multinodular goiter (principal)
CPT/HCPCS: 76536

== ENCOUNTER → 2020-08-23 | Outpatient (CLI) | payer MEDICARE, BC ==
--- NOTE | 2020-08-24 12:05 | NM ---
EXAMINATION TYPE: NM thyroid image w uptake DATE OF EXAM: 08/24/2020 COMPARISON: Ultrasound 07/03/2020 HISTORY: Abnormal ultrasound TECHNIQUE: Thyroid iodine uptake is calculated and images performed after the oral administration of 305 uCi 1-123 Capsule. FINDINGS: There is diffuse heterogeneous uptake throughout the thyroid limiting assessment for defect s. Suspect cold defect in the mid and upper pole on the right and lower pole on the left correspondin g to the ultrasound nodules.. The 4 hour iodine uptake is calculated at 12.1 % (normal range 8-14%). The 24-hour iodine uptake is calculated at 29.7% (normal range 15-35%). IMPRESSION: 1. Suspect bilateral thyroid nodules defects corresponding to the ultrasound larger nodules described . 2. Heterogeneous and diminished uptake suggestive of thyroiditis.
== END | disposition home or self-care (01) ==
LOC: RADNMMAIN 09:28
PROVIDERS: ATTEND Family Medicine
DX: R94.6 Abnormal results of thyroid function studies (principal)
CPT/HCPCS: 78014; A9516

== ENCOUNTER → 2020-09-04 | Outpatient (CLI) | payer MEDICARE, BC ==
[2020-09-04 13:15] LABS: African American GFR (CKD) >90 (>60 ml/min/1.73 sqM); Blood Urea Nitrogen 21 mg/dL (7-17); Non-African American GFR(CKD) 80 (>60 ml/min/1.73 sqM)
--- NOTE | 2020-09-04 17:37 | CT ---
EXAMINATION TYPE: CT ChestAbdPelvis w con DATE OF EXAM: 09/04/2020 COMPARISON: 05/29/2020, 01/28/2020 HISTORY: 85-year-old female C18.7, Z03.89, Colon cancer, observations for mets. TECHNIQUE: Contiguous axial scanning of the chest, abdomen, and pelvis performed with IV Contrast, pa tient injected with 100 mL of Isovue M300. Delayed images through the kidneys were obtained. Coronal/ sagittal reconstructions performed. CT DLP: 941.3 mGycm Automated exposure control for dose reduction was used. FINDINGS: CHEST: Heart normal size without pericardial effusion. The LAD coronary artery calcifications are present. Mildly ectatic upper descending thoracic aorta 3.2 cm with mild atherosclerotic calcifications. Bovin e configuration to the aortic arch. Heterogeneous and markedly enlarged right gland especially the left lobe which extends down into the superior mediastinum. There is secondary rightward tracheal deviation. No thoracic lymphadenopathy by CT size criteria. Mild biapical pleural-parenchymal scarring. No consolidation or pleural effusion. ABDOMEN: Stable round calcification at the mid hepatic dome measuring 1.1 cm. A few hepatic hypodensities eric uring up to 9 mm are largely unchanged. Benign 1.5 cm cyst of the caudate lobe. Portal venous system is patent. No biliary ductal dilatation. Gallbladder, right adrenal gland, spleen, and atrophic pancreas show no gross abnormality. 2.2 cm cortical cyst right kidney. Small parapelvic cystS left kidney. Stable nodular thickening of the left adrenal gland back to at least 11/19/2019. Mild to moderate prostatic calcifications abdominal aorta and common iliac arteries. No dilated small bowel, free fluid, or free air. Small right lower quadrant mesenteric lymph nodes me asuring up to 5 mm are unchanged. Mild to moderate stool burden. Generalized colonic diverticulosis. Staple line from prior resection a nd reanastomosis at the rectosigmoid junction. PELVIS: Bladder is urine distended. Uterus is small, anteverted. Both ovaries are also small compatible with postmenopausal state. No abnormal fluid collection in the pelvis or pelvic lymphadenopathy. BONES: Degenerative change of the pubic symphysis and moderate at both hips. Osteopenia. Vascular disease. A dvanced hypertrophic facet arthropathy mid to lower lumbar spine with grade 2 anterolisthesis L4-L5 w ith moderate to severe degenerative disc disease. No osseous destructive process. IMPRESSION: 1. STATUS POST RESECTION AND REANASTOMOSIS AT THE RECTOSIGMOID JUNCTION. NO EVIDENCE FOR RECURRENT OR METASTATIC DISEASE. 2. A FEW HEPATIC HYPODENSITIES MEASURING UP TO 9 MM ARE UNCHANGED. 3. REDEMONSTRATED GOITROUS ENLARGEMENT OF THE THYROID GLAND. LEFT-SIDED COLONIC DIVERTICULOSIS WITHOU T ACUTE DIVERTICULITIS.
== END | disposition home or self-care (01) ==
LOC: RADCTMAIN 12:30
PROVIDERS: ATTEND Internal Medicine Hematology & Oncology
DX: K57.30 Diverticulosis of large intestine without perforation or abscess without bleeding (principal); R93.2 Abnormal findings on diagnostic imaging of liver and biliary tract; I77.810 Thoracic aortic ectasia; N28.1 Cyst of kidney, acquired; Z85.038 Personal history of other malignant neoplasm of large intestine
CPT/HCPCS: 82565; 84520; 71260; 74177; 36415; Q9967 ×2

== ENCOUNTER 2020-11-22 04:13 | Inpatient (IN) | payer MEDICARE, BC ==
[2020-11-22] MEDS ORDERED: ONDANSETRON 4 MG/2 ML VIAL IVP STA (04:25)
[2020-11-22] MEDS ORDERED: SODIUM CHLORIDE 0.9% 1,000 ML IV STA (04:25)
[2020-11-22] MEDS ORDERED: HYDROCORTISONE SUCCINATE 100 MG/2 ML VIAL IV STA (04:25)
[2020-11-22] MEDS ORDERED: SODIUM CHLORIDE 0.9% 500 ML 500 ML IV STA (04:25)
[2020-11-22] MEDS ORDERED: ATROPINE SULFATE 0.1 MG/ML 10ML SYRINGE IV STA (04:25)
[2020-11-22] MEDS ORDERED: LEVOTHYROXINE IVP 100 MCG/5 ML VIAL IV STA (04:25)
--- NOTE | 2020-11-22 04:25 | ED ---
Weakness HPI - General Stated complaint: Bradycardia Time Seen by Provider: 11/22/20 04:18 Source: RN notes reviewed, old records reviewed Mode of arrival: EMS Limitations: physical limitation - History of Present Illness MD Complaint: generalized weakness, lack of energy -: hour(s) Location: generalized Severity: severe Severity scale (1-10): 8 Quality: tingling, numbness Consistency: constant Improves with: none Worsens with: movement, exertion Context: recent illness, recent surgery Associated Symptoms: chest pain, nausea/vomiting, shortness of breath - Related Data Home Medications Medication Instructions Recorded Confirmed Insulin Detemir [Levemir Flextouch 15 units SQ DAILY 04/07/20 04/18/20 Pen] polyethylene glycoL 3350 [Miralax] 17 gm PO DAILY 04/07/20 04/18/20 Acetaminophen Tab [Tylenol] 650 mg PO ONCE PRN 04/18/20 04/18/20 Clotrimazole 10 mg PO 5XD 04/18/20 04/18/20 Ondansetron [Zofran] 4 mg PO Q8H PRN 04/18/20 04/18/20 Unknown Thrush Cream (Unknown 1 applic TOPICAL DIRECTED PRN 04/18/20 04/18/20 Strength) Previous Rx's Medication Instructions Recorded Ascorbic Acid [Vitamin C] 500 mg PO BID #60 tab 04/21/20 Cefdinir [Omnicef] 300 mg PO BID #14 cap 04/21/20 Cholecalciferol [Vitamin D3 (25 125 mcg PO DAILY #30 tablet 04/21/20 Mcg = 1000 Iu)] Famotidine [Pepcid] 20 mg PO BID #60 tab 04/21/20 LORazepam [Ativan] 1 mg PO HS PRN #0 04/21/20 Zinc Sulfate [Orazinc] 220 mg PO DAILY #30 cap 04/21/20 Allergies Allergy/AdvReac Type Severity Reaction Status Date / Time albuterol Allergy Unknown Verified 11/22/20 04:26 aspirin [From Percodan] Allergy Unknown Verified 11/22/20 04:26 atorvastatin calcium Allergy Unknown Verified 11/22/20 04:26 [From Lipitor] azithromycin Allergy Unknown Verified 11/22/20 04:26 benzonatate Allergy Unknown Verified 11/22/20 04:26 [From Tessalon Perles] carrageenan Allergy Unknown Verified 11/22/20 04:26 diphenhydramine HCl Allergy Unknown Verified 11/22/20 04:26 [From Benadryl] epinephrine Allergy Unknown Verified 11/22/20 04:26 erythromycin base Allergy Unknown Verified 11/22/20 04:26 escitalopram oxalate Allergy Unknown Verified 11/22/20 04:26 [From Lexapro] hydrochlorothiazide Allergy Unknown Verified 11/22/20 04:26 [From HydroDiuril] hydrocodone bitartrate Allergy Unknown Verified 11/22/20 04:26 [From Vicodin] iodine Allergy topical Verified 11/22/20 04:26 lidocaine Allergy Unknown Verified 11/22/20 04:26 lidocaine HCl Allergy Unknown Verified 11/22/20 04:26 [From Xylocaine] losartan potassium Allergy Unknown Verified 11/22/20 04:26 [From Cozaar] metformin HCl Allergy Unknown Verified 11/22/20 04:26 [From Glucophage] nylon Allergy Unknown Verified 11/22/20 04:26 oxycodone HCl [From Percodan] Allergy Unknown Verified 11/22/20 04:26 oxycodone terephthalate Allergy Unknown Verified 11/22/20 04:26 [From Percodan] paroxetine HCl [From Paxil] Allergy Unknown Verified 11/22/20 04:26 procaine [From Novocain] Allergy Unknown Verified 11/22/20 04:26 promethazine HCl Allergy Unknown Verified 11/22/20 04:26 [From Phenergan] propranolol HCl Allergy Unknown Verified 11/22/20 04:26 [From Inderal LA] rofecoxib [From Vioxx] Allergy Unknown Verified 11/22/20 04:26 sulfamethoxazole Allergy Unknown Verified 11/22/20 04:26 [From Bactrim] sulfite Allergy Unknown Verified 11/22/20 04:26 trimethoprim [From Bactrim] Allergy Unknown Verified 11/22/20 04:26 turmeric Allergy Unknown Verified 11/22/20 04:26 zolpidem tartrate Allergy Unknown Verified 11/22/20 04:26 [From Ambien] diazepam [From Valium] AdvReac "shuts Verified 11/22/20 04:26 down bladder" morphine AdvReac Hallucinati Verified 11/22/20 04:26 ons artificial color Allergy Unknown Uncoded 05/13/20 02:52 chemicals Allergy Unknown Uncoded 05/13/20 02:52 odor Allergy Unknown Uncoded 05/13/20 02:52 smoke Allergy Unknown Uncoded 05/13/20 02:52 nylon stictches AdvReac "got an Uncoded 05/13/20 02:52 infection" Review of Systems ROS Statement: Those systems with pertinent positive or pertinent negative responses have been documented in the HPI. ROS Other: All systems not noted in ROS Statement are negative. Past Medical History Past Medical History: Diabetes Mellitus, GERD/Reflux Additional Past Medical History / Comment(s): severe allergies, will be bringing own food and drinks, diverticulitis, hx of "pierced urethra and bladder" has urethral dilations every 6 weeks, has sore on rt buttock that has had for 45 years, occasionally uses a topical ointment History of Any Multi-Drug Resistant Organisms: None Reported Past Surgical History: Bladder Surgery Additional Past Surgical History / Comment(s): sx on john feet, john rotator cuff, john cataract/lenses, cauterization of part of bladder, has urethral dilations every 6 weeks Additional Past Anesthesia/Blood Transfusion Reaction / Comment(s): pt states s he "coded" with anesthesia in past, but unable to give specifics, states she thought is was from "numbing medication" like lidocaine Past Psychological History: No Psychological Hx Reported Smoking Status: Never smoker Past Alcohol Use History: None Reported Past Drug Use History: None Reported - Past Family History Father History Unknown: Yes Mother Family Medical History: Cancer Additional Family Medical History / Comment(s): skin General Exam General appearance: alert, in no apparent distress, anxious Head exam: Present: atraumatic, normocephalic, normal inspection Eye exam: Present: normal appearance, PERRL, EOMI. Absent: scleral icterus, conjunctival injection, periorbital swelling ENT exam: Present: normal exam, mucous membranes moist Neck exam: Present: normal inspection. Absent: tenderness, meningismus, lymphadenopathy Respiratory exam: Present: normal lung sounds bilaterally. Absent: respiratory distress, wheezes, rales, rhonchi, stridor Cardiovascular Exam: Present: normal rhythm, bradycardia, normal heart sounds. Absent: systolic murmur, diastolic murmur, rubs, gallop, clicks GI/Abdominal exam: Present: soft, normal bowel sounds. Absent: distended, tenderness, guarding, rebound, rigid Extremities exam: Present: normal inspection, full ROM, normal capillary refill. Absent: tenderness, pedal edema, joint swelling, calf tenderness Back exam: Present: normal inspection Neurological exam: Present: alert, oriented X3, CN II-XII intact Psychiatric exam: Present: normal affect, normal mood Skin exam: Present: warm, dry, intact, normal color. Absent: rash Course Vital Signs 11/22/20 11/22/20 11/22/20 04:17 05:00 05:04 Temperature 97.5 F L Pulse Rate 45 L 66 Pulse Rate [ 37 L Electrolytic De Scaler ] Respiratory 18 16 Rate Blood Pressure 119/55 115/61 O2 Sat by Pulse 98 97 Oximetry EKG Findings - EKG Comments: EKG Findings:: EKG shows sinus bradycardia 44 CT 164 QRS 78 QTc 487 Medical Decision Making - Lab Data Result diagrams: 11/22/20 04:35 Lab Results 11/22/20 11/22/20 11/22/20 Range/Units 04:35 04:35 04:35 WBC 6.0 (3.8-10.6) k/uL RBC 3.86 (3.80-5.40) m/uL Hgb 12.6 (11.4-16.0) gm/dL Hct 38.0 (34.0-46.0) % MCV 98.4 (80.0-100.0) fL MCH 32.6 (25.0-35.0) pg MCHC 33.1 (31.0-37.0) g/dL RDW 12.0 (11.5-15.5) % Plt Count 191 (150-450) k/uL MPV 7.9 Neutrophils % 56 % Lymphocytes % 29 % Monocytes % 6 % Eosinophils % 7 % Basophils % 1 % Neutrophils # 3.4 (1.3-7.7) k/uL Lymphocytes # 1.7 (1.0-4.8) k/uL Monocytes # 0.3 (0-1.0) k/uL Eosinophils # 0.4 (0-0.7) k/uL Basophils # 0.1 (0-0.2) k/uL PT 10.7 (9.0-12.0) sec INR 1.0 (<1.2) APTT 20.7 L (22.0-30.0) sec Plasma Lactic Acid Gregg 1.2 (0.7-2.0) mmol/L Critical Care Time Critical Care Time: Yes Total Critical Care Time: 31 Disposition Clinical Impression: Bradycardia Disposition: ADMITTED IP TO THIS [facility] Condition: Serious Is patient prescribed a controlled substance at d/c from ED?: No Referrals: Mik Noe III, MD [Primary Care Provider] - 1-2 days
[2020-11-22 04:49] LABS: Basophils # (A) 0.1 k/uL (0-0.2); Basophils % (A) 1 %; Eosinophils # (A) 0.4 k/uL (0-0.7); Eosinophils % (A) 7 %; HGB 12.6 gm/dL (11.4-16.0); Lymphocytes # (A) 1.7 k/uL (1.0-4.8); Lymphocytes % (A) 29 %; MCH 32.6 pg (25.0-35.0); MCHC 33.1 g/dL (31.0-37.0); MCV 98.4 fL (80.0-100.0); Mean Platelet Volume 7.9; Monocytes # (A) 0.3 k/uL (0-1.0); Monocytes % (A) 6 %; Neutrophils # (A) 3.4 k/uL (1.3-7.7); Neutrophils % (A) 56 %; Platelet Count 191 k/uL (150-450); RBC 3.86 m/uL (3.80-5.40)
[2020-11-22 05:03] LABS: Prothrombin Time 10.7 sec (9.0-12.0)
[2020-11-22 05:06] LABS: Partial Thromboplastin Time 20.7 sec (22.0-30.0)
[2020-11-22] MEDS ORDERED: ONDANSETRON 4 MG/2 ML VIAL IVP PRN (05:17)
[2020-11-22] MEDS ORDERED: NITROGLYCERIN SL TABS 0.4 MG TAB SUBLINGUAL PRN (05:17)
[2020-11-22] MEDS ORDERED: NALOXONE 0.4 MG/ML 1 ML VIAL IV PRN (05:17)
[2020-11-22 05:18] LABS: Albumin 3.4 g/dL (3.5-5.0); Calcium 7.1 mg/dL (8.4-10.2); Magnesium 1.7 mg/dL (1.6-2.3); Phosphorus 5.6 mg/dL (2.5-4.5); Potassium 4.1 mmol/L (3.5-5.1); Total Bilirubin 0.4 mg/dL (0.2-1.3); Total Protein 6.1 g/dL (6.3-8.2)
[2020-11-22] MEDS: SODIUM CHLORIDE 0.9% 1,000 ML IV SCH ×2 (05:37→16:31)
--- NOTE | 2020-11-22 05:43 | XR ---
EXAMINATION TYPE: XR chest 2V DATE OF EXAM: 11/22/2020 COMPARISON: 04/21/2020 HISTORY: Weakness TECHNIQUE: FINDINGS: Heart is normal. Lungs are clear of infiltrate. Thoracic aorta is atheromatous. There are n o hilar masses. Costophrenic angles are clear. Bony thorax is intact. IMPRESSION: No active cardiopulmonary disease. Normal heart. No change.
[2020-11-22 06:29] LABS: T4, Free (Free Thyroxine) 0.62 ng/dL (0.78-2.19)
--- NOTE | 2020-11-22 11:36 | P.CRDCN ---
<Korin Gaffney - Last Filed: 11/22/20 11:28> History of Present Illness History of present illness: This is an 85 year old female with a past medical history of hyperthyroidism s/p thyroidectomy 3 weeks ago, type 2 diabetes, GERD, Covid-19 infection with hospitalization in April 2020. She does not follow with a manager operational. We are consulted for bradycardia. She presents to the emergency department with episode of nausea and dizziness, pre-syncope. Patient recently had her thyroid removed 3 weeks ago. She was started on medication, she had side effects which included diarrhea, this medication was stopped, restarted, patient exhibited more diarrhea. Her medication was stopped again. She went for a follow up appointment with her miller wood flour on Friday. She was started on Hydrochlorothiazide, Synthroid, vitamin D, and calcium. Yesterday, patient had an episode of nausea and emesis. Her friend that lives with her, went to grab her some anti-emetic medication, when returned to patient, the patient was not responding EMS was called patient was found to be in sinus bradycardia HR 33, She was not given any IV atropine or other medications. She was started on IV fluids. Her blood pressure was 71/33. She was transported to [facility]. Patient denies chest pain, shortness of breath, palpitations. She denies any history of heart disease. Denies history of LA, Stroke, hyperlipidemia, or co ronary artery disease. Denies history of family coronary artery disease. She denies smoking or alcohol use. She denies any history of syncope or a similar event as yesterday. She was told her biopsy of her thyroid was non-cancerous. DIAGNOSTICS EKG reveals sinus lore, HR 44, non-specific ST- T abnormalities previous EKG 09/2020 with similar findings Telemetry tracings indicate sinus mechanism HR 50-60s Echocardiogram in 2019 revealed EF 55-60%, mild MR, mild TR. Chest xray no active cardiopulmonary process Current home medications include propanolol 20 mg twice a day, Synthroid 88mcg daily, Ativan 1 mg nightly, calcium/vitamin D 3, hydrochlorothiazide Laboratory reviewed, cbc unremarkable, sodium 137, potassium 4.1, BUN 22, serum creatinine 0.7, magnesium 1.7, troponin negative 1, proBNP 230, TSH 1.2, free T4 0.6, COVID-19 PCR negative. REVIEW OF SYSTEMS At the time of my exam: CONSTITUTIONAL: Denies fever or chills. CARDIOVASCULAR: Denies chest pain, shortness of breath, orthopnea, PND or palpitations. RESPIRATORY: Denies cough. GASTROINTESTINAL: +nausea +diarrhea +vomiting Denies abdominal pain, diarrhea, constipation MUSCULOSKELETAL: Denies myalgias. NEUROLOGIC: Denies numbness, tingling, headacbe or weakness. ENDOCRINE: +Fatigue Denies weight change, polydipsia or polyurina. GENITOURINARY: Denies burning, hematuria or urgency with micturation. HEMATOLOGIC: Denies history of anemia or bleeding. PHYSICAL EXAMINATION Blood pressure 123/60 heart rate 68 afebrile and maintaining oxygen saturation on 2L nasal cannula CONSTITUTIONAL: No apparent distress. HEENT: Head is normocephalic. Pupils are equal, round. Sclerae anicteric. Mucous membranes of the mouth are moist. No JVD. No carotid bruit. CHEST EXAMINATION: Lungs are clear to auscultation. No chest wall tenderness is noted on palpation or with deep breathing. HEART EXAMINATION: Regular rate and rhythm. S1, S2 heard. No murmurs, gallops or rub. ABDOMEN: Soft, nontender. Positive bowel sounds. EXTREMITIES: 2+ peripheral pulses, trace bilateral lower extremity edema and no calf tenderness. NEUROLOGIC EXAMINATION: Patient is awake, alert and oriented x3. ASSESSMENT Sinus bradycardia Nausea, vomiting, diarrhea Episode of pre-syncope/syncope- patient with nausea and vomiting, also diarrhea 1-2 weeks prior, and was recently started on hydrochlorothiazide -event likely vasovagal Recent thyroidectomy 11/01/20 PLAN Hold Propanolol Discontinue hydrochlorothiazide Agree with IV fluids Check parathyroid hormone lab Obtain 2D echocardiogram At this time, we do not recommend pacemaker implantation Further recommendations based on clinical course Nurse Practitioner note has been reviewed, I agree with a documented findings and plan of care. Patient was seen and examined. Past Medical History Past Medical History: Diabetes Mellitus, GERD/Reflux Additional Past Medical History / Comment(s): severe allergies, will be bringing own food and drinks, diverticulitis, hx of "pierced urethra and bladder" has urethral dilations every 6 weeks, has sore on rt buttock that has had for 45 years, occasionally uses a topical ointment History of Any Multi-Drug Resistant Organisms: None Reported Past Surgical History: Bladder Surgery Additional Past Surgical History / Comment(s): sx on john feet, john rotator cuff, john cataract/lenses, cauterization of part of bladder, has urethral dilations every 6 weeks Additional Past Anesthesia/Blood Transfusion Reaction / Comment(s): pt states she "coded" with anesthesia in past, but unable to give specifics, states she thought is was from "numbing medication" like lidocaine Past Psychological History: No Psychological Hx Reported Smoking Status: Never smoker Past Alcohol Use History: None Reported Past Drug Use History: None Reported - Past Family History Father History Unknown: Yes Mother Family Medical History: Cancer Additional Family Medical History / Comment(s): skin Medications and Allergies Home Medications Medication Instructions Recorded Confirmed Type Insulin Detemir [Levemir Flextouch 17 units SQ DAILY 04/07/20 11/22/20 History Pen] Albuterol Inhaler [Ventolin Hfa 1 puff INHALATION RT-Q4H PRN 11/22/20 11/22/20 History Inhaler] Calcium Citrate/Vitamin D3 1 tab PO TID 11/22/20 11/22/20 History [Citracal + D Maximum Caplet] LORazepam [Ativan] 1 mg PO DAILY PRN 11/22/20 11/22/20 History LORazepam [Ativan] 1 mg PO HS 11/22/20 11/22/20 History Levothyroxine Sodium [Synthroid] 88 mcg PO AC-BRKFST 11/22/20 11/22/20 History Propranolol [Inderal] 20 mg PO BID 11/22/20 11/22/20 History Zolpidem [Ambien] 10 mg PO HS PRN 11/22/20 11/22/20 History Allergies Allergy/AdvReac Type Severity Reaction Status Date / Time albuterol Allergy Unknown Verified 11/22/20 08:21 aspirin [From Percodan] Allergy Unknown Verified 11/22/20 08:21 atorvastatin calcium Allergy Unknown Verified 11/22/20 08:21 [From Lipitor] azithromycin Allergy Unknown Verified 11/22/20 08:21 benzonatate Allergy Unknown Verified 11/22/20 08:21 [From Tessalon Perles] carrageenan Allergy Unknown Verified 11/22/20 08:21 diphenhydramine HCl Allergy Unknown Verified 11/22/20 08:21 [From Benadryl] epinephrine Allergy Unknown Verified 11/22/20 08:21 erythromycin base Allergy Unknown Verified 11/22/20 08:21 escitalopram oxalate Allergy Unknown Verified 11/22/20 08:21 [From Lexapro] hydrochlorothiazide Allergy Unknown Verified 11/22/20 08:21 [From HydroDiuril] hydrocodone bitartrate Allergy Unknown Verified 11/22/20 08:21 [From Vicodin] iodine Allergy topical Verified 11/22/20 08:21 lidocaine Allergy Unknown Verified 11/22/20 08:21 lidocaine HCl Allergy Unknown Verified 11/22/20 08:21 [From Xylocaine] losartan potassium Allergy Unknown Verified 11/22/20 08:21 [From Cozaar] metformin HCl Allergy Unknown Verified 11/22/20 08:21 [From Glucophage] nylon Allergy Unknown Verified 11/22/20 08:21 oxycodone HCl [From Percodan] Allergy Unknown Verified 11/22/20 08:21 oxycodone terephthalate Allergy Unknown Verified 11/22/20 08:21 [From Percodan] paroxetine HCl [From Paxil] Allergy Unknown Verified 11/22/20 08:21 procaine [From Novocain] Allergy Unknown Verified 11/22/20 08:21 promethazine HCl Allergy Unknown Verified 11/22/20 08:21 [From Phenergan] propranolol HCl Allergy Unknown Verified 11/22/20 08:21 [From Inderal LA] rofecoxib [From Vioxx] Allergy Unknown Verified 11/22/20 08:21 sulfamethoxazole Allergy Unknown Verified 11/22/20 08:21 [From Bactrim] sulfite Allergy Unknown Verified 11/22/20 08:21 trimethoprim [From Bactrim] Allergy Unknown Verified 11/22/20 08:21 turmeric Allergy Unknown Verified 11/22/20 08:21 zolpidem tartrate Allergy Unknown Verified 11/22/20 08:21 [From Ambien] diazepam [From Valium] AdvReac "shuts Verified 11/22/20 08:21 down bladder" morphine AdvReac Hallucinati Verified 11/22/20 08:21 ons artificial color Allergy Unknown Uncoded 11/22/20 08:21 chemicals Allergy Unknown Uncoded 11/22/20 08:21 odor Allergy Unknown Uncoded 11/22/20 08:21 smoke Allergy Unknown Uncoded 11/22/20 08:21 nylon stictches AdvReac "got an Uncoded 11/22/20 08:21 infection" Physical Exam Vitals: Vital Signs Temp Pulse Pulse Resp BP BP Pulse Ox 11/22/20 06:14 97.8 F 68 18 123/60 98 11/22/20 05:53 97.6 F 62 16 112/50 100 11/22/20 05:04 37 L 11/22/20 05:00 66 16 115/61 97 11/22/20 04:17 97.5 F L 45 L 18 119/55 98 Intake and Output 11/21/20 11/22/20 11/22/20 22:59 06:59 14:59 Other: Weight 70.307 kg Results 11/22/20 04:35 11/22/20 04:35 Cardiac Enzymes 11/22/20 11/22/20 Range/Units 04:35 04:35 AST 22 (14-36) U/L Troponin I <0.012 (0.000-0.034) ng/mL Coagulation 11/22/20 Range/Units 04:35 PT 10.7 (9.0-12.0) sec APTT 20.7 L (22.0-30.0) sec CBC 11/22/20 Range/Units 04:35 WBC 6.0 (3.8-10.6) k/uL RBC 3.86 (3.80-5.40) m/uL Hgb 12.6 (11.4-16.0) gm/dL Hct 38.0 (34.0-46.0) % Plt Count 191 (150-450) k/uL Comprehensive Metabolic Panel 11/22/20 Range/Units 04:35 Sodium 137 (137-145) mmol/L Potassium 4.1 (3.5-5.1) mmol/L Chloride 102 (98-107) mmol/L Carbon Dioxide 29 (22-30) mmol/L BUN 22 H (7-17) mg/dL Creatinine 0.77 (0.52-1.04) mg/dL Glucose 119 H (74-99) mg/dL Calcium 7.1 L (8.4-10.2) mg/dL AST 22 (14-36) U/L ALT 12 (4-34) U/L Alkaline Phosphatase 98 (38-126) U/L Total Protein 6.1 L (6.3-8.2) g/dL Albumin 3.4 L (3.5-5.0) g/dL Current Medications Generic Name Dose Route Start Last Admin Trade Name Jazmin PRN Reason Stop Dose Admin Aspirin 325 mg 11/23/20 09:00 Aspirin 325 Mg Tab PO DAILY CHASE Sodium Chloride 1,000 mls @ 130 mls/hr 11/22/20 04:25 11/22/20 04:47 Saline 0.9% IV 11/22/20 12:06 130 mls/hr .Q7H42M STA Administration Sodium Chloride 1,000 mls @ 100 mls/hr 11/22/20 05:30 11/22/20 05:37 Saline 0.9% IV 100 mls/hr .Q10H CHASE Administration Levothyroxine Sodium 75 mcg 11/22/20 18:00 Levothyroxine Ivp 100 Mcg/5 Ml Vial IV BID@0600,1800 CHASE Naloxone HCl 0.2 mg 11/22/20 05:17 Naloxone 0.4 Mg/Ml 1 Ml Vial IV Q2M PRN Opioid Reversal Nitroglycerin 0.4 mg 11/22/20 05:17 Nitroglycerin Sl Tabs 0.4 Mg Tab SUBLINGUAL Q5M PRN Chest Pain Ondansetron HCl 4 mg 11/22/20 05:17 Ondansetron 4 Mg/2 Ml Vial IVP Q8HR PRN Nausea And Vomiting Intake and Output 11/21/20 11/22/20 11/22/20 22:59 06:59 14:59 Other: Weight 70.307 kg 11/22/20 04:35 11/22/20 04:35 <Scooby Dyer - Last Filed: 11/23/20 08:12> History of Present Illness History of present illness: EMS telemetry revealed sinus bradycardia with HR 36. This occurred during episode of nausea as well as recent addition of HCTZ as well as multiple new medications and remains hypothyroid. Since that time patient has recovered with HR's in the 40-50's. Suspect vagal episode exacerbated by diuretic, no current indication for PPM. Monitor telemetry, address electrolyte and hormonal issues. Physical Exam Vitals: Vital Signs Temp Pulse Resp BP Pulse Ox 11/23/20 04:00 97.8 F 64 18 108/60 96 11/23/20 02:00 64 11/23/20 00:00 72 18 110/68 95 11/22/20 20:00 98.5 F 63 18 120/53 96 11/22/20 16:00 98.2 F 59 L 16 131/58 97 11/22/20 14:00 55 L 20 11/22/20 11:36 98.0 F 55 L 20 107/63 97 Intake and Output 11/22/20 11/23/20 11/23/20 22:59 06:59 14:59 Intake Total 240 Output Total 200 Balance 240 -200 Intake: Oral 240 Output: Urine 200 Other: # Voids 3 1 # Bowel Movements 1 Weight 73.1 kg Results 11/23/20 05:57 11/23/20 05:57 Cardiac Enzymes 11/22/20 11/22/20 11/23/20 Range/Units 07:34 10:47 05:57 AST 21 (14-36) U/L Troponin I <0.012 <0.012 (0.000-0.034) ng/mL CBC 11/23/20 Range/Units 05:57 WBC 5.3 (3.8-10.6) k/uL RBC 3.55 L (3.80-5.40) m/uL Hgb 11.5 (11.4-16.0) gm/dL Hct 34.1 (34.0-46.0) % Plt Count 196 (150-450) k/uL Comprehensive Metabolic Panel 11/23/20 Range/Units 05:57 Sodium 138 (137-145) mmol/L Potassium 4.4 (3.5-5.1) mmol/L Chloride 105 (98-107) mmol/L Carbon Dioxide 26 (22-30) mmol/L BUN 16 (7-17) mg/dL Creatinine 0.68 (0.52-1.04) mg/dL Glucose 175 H (74-99) mg/dL Calcium 7.0 L (8.4-10.2) mg/dL AST 21 (14-36) U/L ALT 11 (4-34) U/L Alkaline Phosphatase 95 (38-126) U/L Total Protein 6.1 L (6.3-8.2) g/dL Albumin 3.5 (3.5-5.0) g/dL Current Medications Generic Name Dose Route Start Last Admin Trade Name Freq PRN Reason Stop Dose Admin Albuterol Sulfate 2.5 mg 11/22/20 13:45 Albuterol Nebulized 2.5 Mg/3 Ml INHALATION RT-Q4H PRN Shortness Of Breath Calcium Carbonate 1 each 11/22/20 16:00 11/22/20 21:51 Calcium Carb-Vit D 500 Mg-5 Mcg Tab PO 1 each TID CHASE Administration Famotidine 20 mg 11/22/20 21:00 11/22/20 23:26 Famotidine 20 Mg/2 Ml Vial IV 20 mg HS CHASE Administration Heparin Sodium (Porcine) 5,000 unit 11/22/20 21:00 11/22/20 21:51 Heparin Sodium,Porcine/Pf 5,000 Unit/0.5 Ml Syringe SQ 5,000 unit Q12HR CHASE Administration Sodium Chloride 1,000 mls @ 100 mls/hr 11/22/20 05:30 11/23/20 06:13 Saline 0.9% IV Not Given .Q10H CHASE Levothyroxine Sodium 125 mcg 11/23/20 06:30 11/23/20 07:20 Levothyroxine 125 Mcg Tab PO 125 mcg 0630 CHASE Administration Naloxone HCl 0.2 mg 11/22/20 05:17 Naloxone 0.4 Mg/Ml 1 Ml Vial IV Q2M PRN Opioid Reversal Nitroglycerin 0.4 mg 11/22/20 05:17 Nitroglycerin Sl Tabs 0.4 Mg Tab SUBLINGUAL Q5M PRN Chest Pain Ondansetron HCl 4 mg 11/22/20 05:17 Ondansetron 4 Mg/2 Ml Vial IVP Q8HR PRN Nausea And Vomiting Intake and Output 11/22/20 11/23/20 11/23/20 22:59 06:59 14:59 Intake Total 240 Output Total 200 Balance 240 -200 Intake: Oral 240 Output: Urine 200 Other: # Voids 3 1 # Bowel Movements 1 Weight 73.1 kg 11/23/20 05:57 11/23/20 05:57
[2020-11-22 11:56] LABS: Glucose,Whole Blood 199 mg/dL (75-99)
[2020-11-22] MEDS ORDERED: ALBUTEROL NEBULIZED 2.5 MG/3 ML INHALATION PRN (13:45)
--- NOTE | 2020-11-22 13:50 | P.HPIM ---
History of Present Illness This is a pleasant 85 years old female with past medical history of diabetes mellitus, GERD and hyperthyroidism status post thyroidectomy. Patient was at [facility] and underwent total thyroidectomy, because of effect on vocal cords and breathing difficulty bu her goiter and hyperthyroidism, surgery was done by Dr. tyson and she was seen by Dr. Samuesl ppa teacher at that time. no replacement therapy was seen on the discharge instructions/medications. (I could only get the discharge summary from Dr. 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 Noe earlier last month with no much response. Also associated with dizziness and lightheadedness, her dizziness were nonspecific without loss of consciousness. Flor her aide was at bedside and have her do stop on come to emergency room. On admission her heart rate was 36 and she was hypotensive. Labs including CBC, INR, BMP and liver enzymes were unremarkable. Troponin and lactic acid were normal. TSH is elevated 11.2 and free T4 is low at 0.6. Coronal coronavirus not detected calcium is 7.1. In the emergency room patient received levothyroxine 100 g IV and continued on 75 g twice a day. Also continued on the muscle and at 100 mL per hour. Currently her blood pressure is 107/63 and heart rate improved to 55-60. Manometer Technician discontinued propranolol and hydrochlorothiazide and recommended to check echocardiogram Review of Systems CONSTITUTIONAL: No fever, no malaise, no fatigue. HEENT: No recent visual problems or hearing problems. Denied any sore throat. CARDIOVASCULAR: No orthopnea, PND, no palpitations, no syncope. PULMONARY: No shortness of breath, no cough, no hemoptysis. GASTROINTESTINAL: No diarrhea, no nausea, no vomiting, no abdominal pain. Normoactive bowel sounds. NEUROLOGICAL: No headaches, no weakness, no numbness. HEMATOLOGICAL: Denies any bleeding or petechiae. GENITOURINARY: Denies any burning micturition, frequency, or urgency. MUSCULOSKELETAL/RHEUMATOLOGICAL: Denies any joint pain, swelling, or any muscle pain. ENDOCRINE: Denies any polyuria or polydipsia. Past Medical History Past Medical History: Diabetes Mellitus, GERD/Reflux Additional Past Medical History / Comment(s): severe allergies, will be bringing own food and drinks, diverticulitis, hx of "pierced urethra and bladder" has urethral dilations every 6 weeks, has sore on rt buttock that has had for 45 years, occasionally uses a topical ointment History of Any Multi-Drug Resistant Organisms: None Reported Past Surgical History: Bladder Surgery Additional Past Surgical History / Comment(s): sx on john feet, john rotator cuff, john cataract/lenses, cauterization of part of bladder, has urethral dilations every 6 weeks Additional Past Anesthesia/Blood Transfusion Reaction / Comment(s): pt states she "coded" with anesthesia in past, but unable to give specifics, states she thought is was from "numbing medication" like lidocaine Past Psychological History: No Psychological Hx Reported Smoking Status: Never smoker Past Alcohol Use History: None Reported Past Drug Use History: None Reported - Past Family History Father History Unknown: Yes Mother Family Medical History: Cancer Additional Family Medical History / Comment(s): skin Medications and Allergies Home Medications Medication Instructions Recorded Confirmed Type Insulin Detemir [Levemir Flextouch 17 units SQ DAILY 04/07/20 11/22/20 History Pen] Albuterol Inhaler [Ventolin Hfa 1 puff INHALATION RT-Q4H PRN 11/22/20 11/22/20 History Inhaler] Calcium Citrate/Vitamin D3 1 tab PO TID 11/22/20 11/22/20 History [Citracal + D Maximum Caplet] LORazepam [Ativan] 1 mg PO DAILY PRN 11/22/20 11/22/20 History LORazepam [Ativan] 1 mg PO HS 11/22/20 11/22/20 History Levothyroxine Sodium [Synthroid] 88 mcg PO AC-BRKFST 11/22/20 11/22/20 History Propranolol [Inderal] 20 mg PO BID 11/22/20 11/22/20 History Zolpidem [Ambien] 10 mg PO HS PRN 11/22/20 11/22/20 History Allergies Allergy/AdvReac Type Severity Reaction Status Date / Time albuterol Allergy Unknown Verified 11/22/20 08:21 aspirin [From Percodan] Allergy Unknown Verified 11/22/20 08:21 atorvastatin calcium Allergy Unknown Verified 11/22/20 08:21 [From Lipitor] azithromycin Allergy Unknown Verified 11/22/20 08:21 benzonatate Allergy Unknown Verified 11/22/20 08:21 [From Tessalon Perles] carrageenan Allergy Unknown Verified 11/22/20 08:21 diphenhydramine HCl Allergy Unknown Verified 11/22/20 08:21 [From Benadryl] epinephrine Allergy Unknown Verified 11/22/20 08:21 erythromycin base Allergy Unknown Verified 11/22/20 08:21 escitalopram oxalate Allergy Unknown Verified 11/22/20 08:21 [From Lexapro] hydrochlorothiazide Allergy Unknown Verified 11/22/20 08:21 [From HydroDiuril] hydrocodone bitartrate Allergy Unknown Verified 11/22/20 08:21 [From Vicodin] iodine Allergy topical Verified 11/22/20 08:21 lidocaine Allergy Unknown Verified 11/22/20 08:21 lidocaine HCl Allergy Unknown Verified 11/22/20 08:21 [From Xylocaine] losartan potassium Allergy Unknown Verified 11/22/20 08:21 [From Cozaar] metformin HCl Allergy Unknown Verified 11/22/20 08:21 [From Glucophage] nylon Allergy Unknown Verified 11/22/20 08:21 oxycodone HCl [From Percodan] Allergy Unknown Verified 11/22/20 08:21 oxycodone terephthalate Allergy Unknown Verified 11/22/20 08:21 [From Percodan] paroxetine HCl [From Paxil] Allergy Unknown Verified 11/22/20 08:21 procaine [From Novocain] Allergy Unknown Verified 11/22/20 08:21 promethazine HCl Allergy Unknown Verified 11/22/20 08:21 [From Phenergan] propranolol HCl Allergy Unknown Verified 11/22/20 08:21 [From Inderal LA] rofecoxib [From Vioxx] Allergy Unknown Verified 11/22/20 08:21 sulfamethoxazole Allergy Unknown Verified 11/22/20 08:21 [From Bactrim] sulfite Allergy Unknown Verified 11/22/20 08:21 trimethoprim [From Bactrim] Allergy Unknown Verified 11/22/20 08:21 turmeric Allergy Unknown Verified 11/22/20 08:21 zolpidem tartrate Allergy Unknown Verified 11/22/20 08:21 [From Ambien] diazepam [From Valium] AdvReac "shuts Verified 11/22/20 08:21 down bladder" morphine AdvReac Hallucinati Verified 11/22/20 08:21 ons artificial color Allergy Unknown Uncoded 11/22/20 08:21 chemicals Allergy Unknown Uncoded 11/22/20 08:21 odor Allergy Unknown Uncoded 11/22/20 08:21 smoke Allergy Unknown Uncoded 11/22/20 08:21 nylon stictches AdvReac "got an Uncoded 11/22/20 08:21 infection" Physical Exam Vitals: Vital Signs Temp Pulse Pulse Resp BP BP Pulse Ox 11/22/20 11:36 98.0 F 55 L 20 107/63 97 11/22/20 08:00 97.8 F 60 18 125/62 98 11/22/20 06:14 97.8 F 68 18 123/60 98 11/22/20 05:53 97.6 F 62 16 112/50 100 11/22/20 05:04 37 L 11/22/20 05:00 66 16 115/61 97 11/22/20 04:17 97.5 F L 45 L 18 119/55 98 Intake and Output 11/21/20 11/22/20 11/22/20 22:59 06:59 14:59 Intake Total 0 Balance 0 Intake: Oral 0 Other: # Voids 1 # Bowel Movements 0 Weight 70.307 kg GENERAL: The patient is alert and oriented x3, not in any acute distress. Well developed, well nourished. HEENT: Pupils are round and equally reacting to light. EOMI. No scleral icterus. No conjunctival pallor. Normocephalic, atraumatic. No pharyngeal erythema. No thyromegaly. CARDIOVASCULAR: S1 and S2 present. No murmurs, rubs, or gallops. PULMONARY: Chest is clear to auscultation, no wheezing or crackles. ABDOMEN: Soft, nontender, nondistended, normoactive bowel sounds. No palpable organomegaly. MUSCULOSKELETAL: No joint swelling or deformity. EXTREMITIES: No cyanosis, clubbing, or pedal edema. NEUROLOGICAL: Gross neurological examination did not reveal any focal deficits. SKIN: No rashes. No petechiae Results CBC & Chem 7: 11/22/20 04:35 11/22/20 04:35 Labs: Abnormal Lab Results - Last 24 Hours (Table) 11/22/20 11/22/20 11/22/20 Range/Units 04:35 04:35 11:55 APTT 20.7 L (22.0-30.0) sec BUN 22 H (7-17) mg/dL Glucose 119 H (74-99) mg/dL POC Glucose (mg/dL) 199 H (75-99) mg/dL Calcium 7.1 L (8.4-10.2) mg/dL Phosphorus 5.6 H (2.5-4.5) mg/dL Total Protein 6.1 L (6.3-8.2) g/dL Albumin 3.4 L (3.5-5.0) g/dL TSH 11.200 H (0.465-4.680) mIU/L Free T4 0.62 L (0.78-2.19) ng/dL Thrombosis Risk Factor Assmnt - Choose All That Apply Any of the Below Risk Factors Present?: Yes Each Factor Represents 1 point: Obesity (BMI >25) Each Risk Factor Represents 3 Points: Positive Factor V Leiden Thrombosis Risk Factor Assessment Total Risk Factor Score: 4 Thrombosis Risk Factor Assessment Level: Moderate Risk Assessment and Plan Assessment: 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 With replacement therapy Dizziness and lightheadedness secondary to above mild hypocalcemia Diabetes mellitusWhen she was on 17 units daily History of GERD Plan: this is a pleasant 85 years old female who presents with hyperthyroidism and bradycardia. Switch IV thyroxine 2 by mouth 120 g daily, based on the dose of 1.7 g per KG. Cardiology of the case recommended echocardiogram Check hemoglobin A1c Continue gentle hydration Resume of some and vitamin D Labs and medication were reviewed.. Continue same treatment. Continue with symptomatic treatment. Resume home medication. Monitor lytes and vitals. DVT and GI prophylaxis. Further recommendations depends on the clinical course of the patient DVT prophylaxis: Subcutaneous heparin GI Prophylaxis: Pepcid PT/OT: Pending Prognosis is guarded
--- NOTE | 2020-11-22 13:52 | ECHOF ---
Referral Reason:LV function MEASUREMENTS -------- HEIGHT: 165.1 cm WEIGHT: 70.3 kg BP: IVSd: 1.2 cm (0.6 - 1.1) LVIDd: 3.1 cm (3.9 - 5.3) LVPWd: 1.3 cm (0.6 - 1.1) IVSs: 1.7 cm LVIDs: 1.4 cm LVPWs: 1.4 cm LAESV Index (A-L): 20.66 ml/m Ao Diam: 3.1 cm (2.0 - 3.7) AV Cusp: 1.7 cm (1.5 - 2.6) LA Diam: 3.3 cm (2.7 - 3.8) MV EXCURSION: 25.081 mm (> 18.000) MV EF SLOPE: 87 mm/s (70 - 150) EPSS: 1.8 cm MV E Salty: 0.51 m/s MV DecT: 364 ms MV A Salty: 0.74 m/s MV E/A Ratio: 0.70 AV maxP.56 mmHg AV meanP.54 mmHg RAP: 5.00 mmHg RVSP: 27.33 mmHg FINDINGS -------- This was a technically good study. The left ventricular size is normal. There is mild concentric left ventricular hypertrophy. Overa ll left ventricular systolic function is normal with, an EF between 55 - 60 %. The diastolic fillin g pattern is normal for the age of the patient 11.66. The right ventricle is normal in size. The left atrial size is normal. Normal LA size by volume 22+/-6 ml/m2. The right atrial size is normal. Aortic valve is trileaflet and is mildly thickened. There is mild aortic valve sclerosis. Peak/me an gradient across the Aortic Valve is 14.56mmHg / 7.54mmHg. The mitral valve is normal. There is trace mitral regurgitation. The tricuspid valve appears structurally normal. Trace tricuspid regurgitation present. Right airam tricular systolic pressure is normal at < 35 mmHg. There is no pulmonic regurgitation present. The aortic root size is normal. Normal inferior vena cava with normal inspiratory collapse consistent with estimated right atrial pre ssure of 5 mmHg. There is no pericardial effusion. CONCLUSIONS -------- 1. The left ventricular size is normal. 2. There is mild concentric left ventricular hypertrophy. 3. Overall left ventricular systolic function is normal with, an EF between 55 - 60 %. 4. The diastolic filling pattern is normal for the age of the patient 11.66 5. Aortic valve is trileaflet and is mildly thickened. 6. There is mild aortic valve sclerosis. 7. Peak/mean gradient across the Aortic Valve is 14.56mmHg / 7.54mmHg. 8. There is trace mitral regurgitation. 9. Trace tricuspid regurgitation present. 10. There is no pericardial effusion. BUSINESS OFFICE DIRECTOR: Tia Clay RDCS
[2020-11-22] MEDS: CALCIUM CARB-VIT D 500 MG-5 MCG TAB PO SCH ×2 (16:29→21:51)
[2020-11-22 17:08] LABS: Glucose,Whole Blood 228 mg/dL (75-99)
[2020-11-22] MEDS ORDERED: LEVOTHYROXINE IVP 100 MCG/5 ML VIAL IV SCH (18:00)
[2020-11-22 20:18] LABS: Glucose,Whole Blood 248 mg/dL (75-99)
[2020-11-22] MEDS ORDERED: FAMOTIDINE 20 MG/2 ML VIAL IV SCH (21:00)
[2020-11-22] MEDS: HEPARIN SODIUM,PORCINE/PF 5,000 UNIT/0.5 ML SYRINGE SQ SCH (21:51)
[2020-11-22 23:10] LABS: Hemoglobin A1C 7.3 % (4.0-6.0)
[2020-11-23 05:42] LABS: Appearance,Urine Clear (Clear); Bilirubin,Urine Negative (Negative); Blood,Urine Negative (Negative); Color,Urine Colorless; Glucose,Urine (UA) Negative (Negative); Ketones,Urine Negative (Negative); Leukocyte Esterase,Urine Negative (Negative); Nitrite,Urine Negative (Negative); PH, Urine 5.5 (5.0-8.0); Protein,Urine Negative (Negative); Specific Gravity,Urine 1.005 (1.001-1.035); Urobilinogen,Urine <2.0 mg/dL (<2.0)
[2020-11-23] MEDS: SODIUM CHLORIDE 0.9% 1,000 ML IV SCH (06:13)
[2020-11-23 06:28] LABS: Glucose,Whole Blood 172 mg/dL (75-99)
[2020-11-23] MEDS ORDERED: LEVOTHYROXINE 125 MCG TAB PO SCH (06:30)
[2020-11-23 07:02] LABS: Basophils % (A) 1 %; Eosinophils # (A) 0.1 k/uL (0-0.7); Eosinophils % (A) 3 %; HCT 34.1 % (34.0-46.0); HGB 11.5 gm/dL (11.4-16.0); Lymphocytes # (A) 1.1 k/uL (1.0-4.8); Lymphocytes % (A) 20 %; MCH 32.3 pg (25.0-35.0); MCHC 33.7 g/dL (31.0-37.0); Mean Platelet Volume 8.5; Monocytes # (A) 0.3 k/uL (0-1.0); Monocytes % (A) 6 %; Neutrophils # (A) 3.7 k/uL (1.3-7.7); Neutrophils % (A) 69 %; Platelet Count 196 k/uL (150-450); RBC 3.55 m/uL (3.80-5.40); RDW 12.5 % (11.5-15.5); WBC 5.3 k/uL (3.8-10.6)
[2020-11-23 07:39] LABS: ALT 11 U/L (4-34); AST 21 U/L (14-36); African American GFR (CKD) >90 (>60 ml/min/1.73 sqM); Albumin 3.5 g/dL (3.5-5.0); Alkaline Phosphatase 95 U/L (38-126); Anion Gap 7 mmol/L; Blood Urea Nitrogen 16 mg/dL (7-17); Carbon Dioxide 26 mmol/L (22-30); Chloride 105 mmol/L (98-107); Glucose 175 mg/dL (74-99); Magnesium 1.6 mg/dL (1.6-2.3); Non-African American GFR(CKD) 79 (>60 ml/min/1.73 sqM); Phosphorus 5.7 mg/dL (2.5-4.5); Potassium 4.4 mmol/L (3.5-5.1); Sodium 138 mmol/L (137-145); Total Bilirubin 0.5 mg/dL (0.2-1.3); Total Protein 6.1 g/dL (6.3-8.2)
[2020-11-23] MEDS ORDERED: ASPIRIN 325 MG TAB PO SCH (09:00)
[2020-11-23 09:02] VITALS: BP 152/67; PULSE 67; RESP 16; TEMP 98.2
[2020-11-23] MEDS: CALCIUM CARB-VIT D 500 MG-5 MCG TAB PO SCH (09:02)
[2020-11-23] MEDS: HEPARIN SODIUM,PORCINE/PF 5,000 UNIT/0.5 ML SYRINGE SQ SCH (09:02)
[2020-11-23 12:22] LABS: Glucose,Whole Blood 194 mg/dL (75-99)
--- NOTE | 2020-11-23 13:16 | P.PN ---
Subjective This is an 85 year old female with a past medical history of hyperthyroidism s/p thyroidectomy 3 weeks ago, type 2 diabetes, GERD, Covid-19 infection with hospitalization in April 2020. 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 We are consulted for bradycardia. She presents to the emergency department with episode of nausea and dizziness, pre-syncope. Patient recently had her thyroid removed 3 weeks ago. She was started on medication, she had side effects which included diarrhea, this medication was stopped, restarted, patient exhibited mor e diarrhea. Her medication was stopped again. She went for a follow up appointment with her car shunter on Friday. She was started on Hydrochlorothiazide, Synthroid, vitamin D, and calcium. Yesterday, patient had an episode of nausea and emesis. Her friend that lives with her, went to grab her some anti-emetic medication, when returned to patient, the patient was not responding EMS was called patient was found to be in sinus bradycardia HR 33, She was not given any IV atropine or other medications. She was started on IV fluids. Her blood pressure was 71/33. She was transported to [facility]. Patient denies chest pain, shortness of breath, palpitations. She denies any history of heart disease. Denies history of [place], Stroke, hyperlipidemia, or coronary artery disease. Denies history of family coronary artery disease. She denies smoking or alcohol use. She denies any history of syncope or a similar event as yesterday. She was told her biopsy of her thyroid was non-cancerous. DIAGNOSTICS EKG reveals sinus lore, HR 44, non-specific ST- T abnormalities previous EKG 09/2020 with similar findings Telemetry tracings indicate sinus mechanism HR 50-60s Echocardiogram in 2019 revealed EF 55-60%, mild MR, mild TR. Chest xray no active cardiopulmonary process Current home medications include propanolol 20 mg twice a day, Synthroid 88mcg daily, Ativan 1 mg nightly, calcium/vitamin D 3, hydrochlorothiazide 11/23/2020: Patient seen and examined at bedside, no acute distress. She denies any chest pain, shortness of breath, nausea, vomiting, lightheadedness or dizziness. Tel emetry reviewed patient maintaining sinus mechanism heart rate 60-70s. Echocardiogram revealed EF 5560% mild aortic valve sclerosis, mild mitral regurgitation, trace tricuspid regurgitation. PHYSICAL EXAMINATION Blood pressure 108/60, heart rate 64, afebrile, maintaining oxygen saturations 96% on room air CONSTITUTIONAL: No apparent distress. HEENT: Neck Supple. No JVD CHEST EXAMINATION: Lungs are clear to auscultation. No chest wall tenderness is noted on palpation or with deep breathing. HEART EXAMINATION: Regular rate and rhythm. S1, S2 heard. No murmurs, gallops or rub. ABDOMEN: Soft, nontender. Positive bowel sounds. EXTREMITIES: 2+ peripheral pulses, trace bilateral lower extremity edema and no calf tenderness. NEUROLOGIC EXAMINATION: Patient is awake, alert and oriented x3. ASSESSMENT Sinus bradycardia Nausea, vomiting, diarrhea Episode of pre-syncope/syncope- patient with nausea and vomiting, also diarrhea 1-2 weeks prior, and was recently started on hydrochlorothiazide -event likely vasovagal Recent thyroidectomy 11/01/20 PLAN Recommend discontinuing Propanolol and hydrochlorothiazide From a cardiology perspective, patient is stable to be discharged home. Follow up outpatient. Objective - Vital Signs Vital signs: Vital Signs Temp 98.2 F 11/23/20 08:00 Pulse 67 11/23/20 08:00 Resp 16 11/23/20 08:00 BP 152/67 11/23/20 08:00 Pulse Ox 96 11/23/20 08:00 Intake & Output 11/22/20 11/23/20 11/23/20 18:59 06:59 18:59 Intake Total 240 Output Total 200 Balance 240 -200 Weight 73.1 kg Intake: Oral 240 Output: Urine 200 Other: # Voids 3 1 # Bowel Movements 1 - Labs CBC & Chem 7: 11/23/20 05:57 11/23/20 05:57 Labs: Abnormal Lab Results - Last 24 Hours (Table) 11/22/20 11/22/20 11/22/20 Range/Units 04:35 17:04 20:15 RBC (3.80-5.40) m/uL Glucose (74-99) mg/dL POC Glucose (mg/dL) 228 H 248 H (75-99) mg/dL Hemoglobin A1c 7.3 H (4.0-6.0) % Calcium (8.4-10.2) mg/dL Phosphorus (2.5-4.5) mg/dL Total Protein (6.3-8.2) g/dL 11/23/20 11/23/2021 Range/Units 05:57 05:57 06:27 RBC 3.55 L (3.80-5.40) m/uL Glucose 175 H (74-99) mg/dL POC Glucose (mg/dL) 172 H (75-99) mg/dL Hemoglobin A1c (4.0-6.0) % Calcium 7.0 L (8.4-10.2) mg/dL Phosphorus 5.7 H (2.5-4.5) mg/dL Total Protein 6.1 L (6.3-8.2) g/dL 11/23/20 Range/Units 12:10 RBC (3.80-5.40) m/uL Glucose (74-99) mg/dL POC Glucose (mg/dL) 194 H (75-99) mg/dL Hemoglobin A1c (4.0-6.0) % Calcium (8.4-10.2) mg/dL Phosphorus (2.5-4.5) mg/dL Total Protein (6.3-8.2) g/dL
[2020-11-23] MEDS ORDERED: FAMOTIDINE 20 MG TAB PO SCH (21:00)
[2020-11-24 01:35] LABS: Chol/HDL Ratio 3.71; Cholesterol 260 mg/dL (0-200); LDL Cholesterol,Calculated 158.8 mg/dL (0.0-131.0)
== END 2020-11-23 12:42 | disposition home or self-care (01) | DRG 310 ==
LOC: SUPCPDRO 04:13 → EC 04:13 → 3SCARD 05:17
PROVIDERS: ADMIT Hospitalist; ATTEND Hospitalist
DX: R00.1 Bradycardia, unspecified (principal); E11.9 Type 2 diabetes mellitus without complications; E83.51 Hypocalcemia; E89.0 Postprocedural hypothyroidism; K21.9 Gastro-esophageal reflux disease without esophagitis; Z20.822 Contact with and (suspected) exposure to COVID-19; Z79.4 Long term (current) use of insulin; Z79.890 Hormone replacement therapy; Z79.899 Other long term (current) drug therapy; I95.9 Hypotension, unspecified
CPT/HCPCS: 36415; 71046; 80053; 80061; 81003; 82550; 83036; 83605; 83735; 83880; 83970; 84100; 84439; 84443; 84484; 85025; 85610; 85730; 87635; 93005; 93306; 96374; 96375; 99291

== ENCOUNTER → 2021-02-08 | Outpatient (CLI) | payer MEDICARE, BC ==
--- NOTE | 2021-02-09 11:55 | CT ---
EXAMINATION TYPE: CT ChestAbdPelvis w con DATE OF EXAM: 02/08/2021 COMPARISON: Prior CT September 04, 2020 and older studies. HISTORY: Colon ca CT DLP: 1459 mGycm. Automated Exposure Control for Dose Reduction was Utilized. CONTRAST: CT scan of the thorax, abdomen and pelvis is performed with oral and with IV Contrast, patient inject ed with 80 mL of Isovue 300. FINDINGS: LUNGS: Mild biapical scarring redemonstrated no suspicious new greater than 5 mm pulmonary nodules or masses. No pleural effusion or pneumothorax seen. MEDIASTINUM: There are no greater than 1 cm hilar or mediastinal lymph nodes. No cardiomegaly or pe ricardial effusion is seen. Coronary artery calcification redemonstrated which is noted marked under lying coronary artery disease. Bovine type arch is present. Interval poor visualization of the prior heterogeneous enlarged thyroid gland. Suspect surgical or iodine ablation treatment in the interval. LIVER/GB: Stable 1.1 cm deep hepatic dome calcification axial image 48 near the IVC. Occasional scatt ered hypodense lesions throughout the liver are redemonstrated. There is 1.3 cm round low dense lesio n centrally in the liver near the caudate lobe axial image 59. Finding consistent with simple cyst. PANCREAS: [id number] generalized fat replaced atrophy. SPLEEN: No significant abnormality is seen. ADRENALS: Stable slight asymmetric nodular thickening left adrenal gland presumed benign. KIDNEYS: Symmetric cortical medullary uptake and excretion without hydronephrosis seen bilaterally. C entral simple parapelvic cyst left kidney. There is 2.1 cm exophytic thin-walled cyst medially upper pole of the right kidney BOWEL: Low-lying cecum into right pelvis. No suspicious small or large bowel dilatation. Surgical sut ures sigmoid rectal colon redemonstrated. Scattered colonic diverticulosis. No CT evidence for acute diverticulitis. GENITAL ORGANS: No gross abnormality seen. LYMPH NODES: No new greater than 1cm abdominal or pelvic lymph nodes are appreciated. OSSEOUS STRUCTURES: Grade 1 anterolisthesis L4 and L5. Moderate disc space narrowing L4-L5 level. Jorge rowing and sclerosis at level of pubic symphysis. Significant facet arthropathy in the mid to lower l umbar spine. OTHER: Moderate calcified plaque of the aorta extends into branch vessels. IMPRESSION: Posttreatment change rectosigmoid colon redemonstrated. No new suspicious mass or adenopa thy to suggest active neoplastic recurrence. Suspect interval thyroid ablation. Correlate clinically .
== END | disposition home or self-care (01) ==
LOC: RADCTMAIN 13:28
PROVIDERS: ATTEND Internal Medicine Hematology & Oncology
DX: K57.30 Diverticulosis of large intestine without perforation or abscess without bleeding (principal); Z85.038 Personal history of other malignant neoplasm of large intestine
CPT/HCPCS: 71260; 74177; 82565; 84520

== ENCOUNTER → 2021-12-25 | Outpatient (CLI) | payer MEDICARE, BC ==
--- NOTE | 2021-12-25 16:38 | CT ---
EXAMINATION TYPE: CT ChestAbdPelvis w con DATE OF EXAM: 12/25/2021 COMPARISON: CT 02/08/2021 HISTORY: colon ca CT DLP: 1293.2 mGycm Automated exposure control for dose reduction was used. CONTRAST: CT scan of the chest, abdomen and pelvis is performed with Oral Contrast and with IV Contrast, patien t injected with 80ml mL of Isovue 300. FINDINGS: Anterior abdominal wall hernia changes are present in the midline similar to prior exam. LUNGS: The lungs are grossly clear, there is no concerning parenchymal mass or nodule identified. Ca lcified granuloma in the subpleural location the right upper lobe posteriorly is stable. Subpleural n odule axial image 36 right upper lobe is also stable, benign There is no pleural effusion or pneumoth orax seen. The tracheobronchial tree is patent. MEDIASTINUM: There are no greater than 1 cm hilar or mediastinal lymph nodes. No pericardial effusi on is seen. AORTA: No significant abnormality is seen. OTHER: No additional significant abnormality is seen. LIVER/GB: Calcification medially is unchanged in the IVC. Streak artifact limits evaluation through t he liver, there are scattered hypodensities are stable and may represent cysts.. PANCREAS: No significant abnormality is seen. SPLEEN: No significant abnormality is seen. ADRENALS: No significant abnormality is seen. KIDNEYS: No significant change is seen. REPRODUCTIVE ORGANS: No gross abnormality seen. BOWEL: Scattered diverticular changes are present within the colon. FREE AIR: No Free Air visible. ASCITES: None seen. RETROPERITONEAL ADENOPATHY: No retroperitoneal adenopathy is seen. LYMPH NODES: No greater than 1 cm abdominal or pelvic lymph nodes are appreciated. URINARY BLADDER: No significant abnormality is seen. PELVIC ADENOPATHY: None visualized. OSSEOUS STRUCTURES: Anterolisthesis grade 1 L4-5, is associated loss of disc height, vacuum phenomen on present L3-4 and L4-5, facet arthropathy changes are present in the lower lumbar spine. IMPRESSION: No significant interval change is evident. No evident recurrence.
== END | disposition home or self-care (01) ==
LOC: RADCTMAIN 12:42
PROVIDERS: ATTEND Internal Medicine Hematology & Oncology
DX: C18.1 Malignant neoplasm of appendix (principal)
CPT/HCPCS: 82565; 84520; 71260; 74177; 36415; Q9967

== ENCOUNTER → 2023-01-13 | Outpatient (CLI) | payer MEDICARE, BC ==
[2023-01-13 12:57] LABS: African American GFR (CKD) 76 (>60 ml/min/1.73 sqM); Blood Urea Nitrogen 21 mg/dL (7-17); Non-African American GFR(CKD) 66 (>60 ml/min/1.73 sqM)
--- NOTE | 2023-01-13 14:56 | CT ---
EXAMINATION TYPE: CT ChestAbdPelvis w con CT DLP: 822.10 mGycm, Automated exposure control for dose reduction was used. DATE OF EXAM: 01/13/2023 2:16 PM COMPARISON: 12/25/2021 CLINICAL INDICATION:Female, 87 years old with history of C18.7 colon ca, f/u c olon CA Technique: Multiple axial images of the chest, abdomen, and pelvis were obtained. Two-dimensional cor onal and sagittal reconstructions were obtained. Contrast used:100 mL of Isovue 300 with IV Contrast, Oral contrast used: with Oral Contrast Findings: CHEST: LUNGS/ PLEURA: No evidence for new or enlarging pulmonary nodules. No focal consolidation, pneumothor ax or pleural effusion. Right upper lung calcified granuloma noted. AIRWAY: Patent and unremarkable. HEART: Heart is mildly enlarged for size. Moderate coronary artery atherosclerosis. MEDIASTINUM: No g ross evidence of adenopathy. VASCULATURE: No aortic aneurysm. No filling defects within the pulmonary arterial vasculature. MUSCULOSKELETAL: No acute osseous abnormalities. SOFT TISSUES/LYMPH NODES: Unremarkable. LOWER NECK: No significant findings. ABDOMEN: ABDOMEN LIVER: No suspicious masses. Calcified caudate lobe lesion is unchanged from prior. GALLBLADDER AND BILE DUCTS: Unremarkable. PANCREAS: Unremarkable. SPLEEN: Unremarkable. ADRENAL GLANDS: Unremarkable. KIDNEYS AND URETERS: No evidence of hydronephrosis or renal calculus. The ureters are unremarkable. PELVIS BLADDER: Unremarkable REPRODUCTIVE: Unremarkable. ABDOMEN & PELVIS STOMACH AND BOWEL: No evidence of bowel obstruction. Surgical changes related rectum without evidence for soft tissue mass. Scattered colonic diverticula. PERITONEUM: No evidence of pneumoperitoneum or free fluid. VASCULATURE: Moderate atherosclerotic calcifications are present throughout the abdominal aorta and i ts branches. MUSCULOSKELETAL: No acute osseous abnormalities, remote appearing right inferior pubic ramus and supe rior ramus fractures. Grade 1 anterolisthesis of L4 on L5. Multilevel degeneration changes with osteo phyte formation and facet joint arthropathy. LYMPH NODES: There is a lymph node in the presacral space measuring measuring up to 15 mm in short ax is, previously on 12/25/2021 measuring 9 mm and 4 mm on 01/27/2022. SOFT TISSUE/ABDOMINAL WALL: Unremarkable IMPRESSION: Enlarging presacral lymph node which is concerning for recurrent disease. Further evaluation with PET /CT is recommended.
== END | disposition home or self-care (01) ==
LOC: RADCTMAIN 12:06
PROVIDERS: ATTEND Internal Medicine Hematology & Oncology
DX: C18.7 Malignant neoplasm of sigmoid colon (principal); M12.9 Arthropathy, unspecified; E11.9 Type 2 diabetes mellitus without complications; Z71.3 Dietary counseling and surveillance; R59.0 Localized enlarged lymph nodes
CPT/HCPCS: 82565; 84520; 71260; 74177; 36415; Q9967